=== PATIENT | male | born 1940 | race Caucasian/White ===

== ENCOUNTER 2016-06-02 07:58 | Inpatient (IN) | payer MEDICARE, OTHER ==
[2016-06-02] MEDS ORDERED: ALBUTEROL SULFATE/IPRATROPIUM 3 ML NEBU IH ONE ×2 (08:22→08:30)
[2016-06-02] MEDS ORDERED: METHYLPREDNISOLONE SOD SUCC/PF 40 MG/ML VIAL IV ONE (08:24)
--- NOTE | 2016-06-02 08:28 | ERNOTE ---
Dyspnea - Date Date of Service: 06/02/16 - General Presenting Symptoms: shortness of breath, other - cough Time Seen by Provider: 06/02/16 08:15 Source: patient, family - Immun/Allergies/Home Medications Immunizations: IMMUNIZATION HX Immunizations Up to Date Yes History of Influenza Vaccine Yes Hx Pneumococcal Vaccination Yes Allergies/Adverse Reactions: Allergies No Known Allergies Allergy (Verified 06/02/16 08:12) Home Medications: HOME MEDICATIONS Albuterol Sulfate [Proventil Hfa] 2 puff IH Q4H PRN 01/09/13 [Last Taken Unknown ] Aspirin [Aspirin Enteric Coated] 81 mg PO DAILY 01/09/13 [Last Taken Unknown] Atorvastatin Calcium [Lipitor] 40 mg PO DAILY 01/09/13 [Last Taken Unknown] Glimepiride [Amaryl] 4 mg PO BID 01/09/13 [Last Taken Unknown] Metformin HCl [Metformin HCl ER] 1,000 mg PO BID 01/09/13 [Last Taken Unknown] Metoprolol Succinate [Toprol Xl] 100 mg PO DAILY 01/09/13 [Last Taken Unknown] Nitroglycerin 0.4 mg SL Q5MIN PRN 01/09/13 [Last Taken Unknown] Potassium Chloride [Klor-Con M10] 20 meq PO DAILY 01/09/13 [Last Taken Unknown] Insulin Detemir [Levemir] 10 unit SQ HS 06/13/15 [Last Taken Unknown] Warfarin Sodium [Coumadin] 2 mg PO DAILY 06/13/15 [Last Taken Unknown] Acetaminophen [Tylenol Arthritis] 650 mg PO Q6H 06/02/16 [Last Taken Unknown] Allopurinol [Zyloprim (Allopurinol)] 100 mg PO DAILY 06/02/16 [Last Taken Unknown] Colchicine 0.6 mg PO DAILY 06/02/16 [Last Taken Unknown] Fenofibrate [Lofibra] 160 mg PO DAILY 06/02/16 [Last Taken Unknown] Fexofenadine HCl [Dayanna Allergy] 180 mg PO DAILY 06/02/16 [Last Taken Unknown] Gabapentin [Neurontin] 100 mg PO QID 06/02/16 [Last Taken Unknown] Ipratropium/Albuterol Sulfate [Combivent Respimat Inhal [place]] 1 puff IH QID [Last Taken Unknown] Ketoconazole [Nizoral Shampoo] 1 appl TP Q72H 06/02/16 [Last Taken Unknown] Losartan Potassium [Cozaar] 25 mg PO DAILY 06/02/16 [Last Taken Unknown] Nystatin 5 ml PO QID 06/02/16 [Last Taken Unknown] Pantoprazole Sodium [Protonix] 40 mg PO BID 06/02/16 [Last Taken Unknown] oxyCODONE HCL/ACETAMINOPHEN [Percocet 5 MG/325 MG] 1 tab PO Q6H PRN 06/02/16 [ Last Taken Unknown] - History of Present Illness Narrative: Pt presents with a progressively worsening cough over the past 3 days. Pt has been using his Albuterol HHN at home with only minimal improvement. Date (Duration): 05/30/16 Severity: moderate Treatment ROUGH ROUNDER: by patient, albuterol Initiating event: Reports: none Frequency of episodes: Reports: occassional episodes Modifying Factors - (Improves): Reports: albuterol Modifying Factors (Worsens): Reports: activity Associated Symptoms-Dyspnea: Reports: cough, wheezing Review of Systems - Review of Systems Constitutional: Present: See HPI EYE: Present: no symptoms reported ENT: Present: no symptoms reported Respiratory: Present: See HPI, cough, wheezing Cardiology: Present: no symptoms reported Gastrointestinal/Abdominal: Present: no symptoms reported Genitourinary: Present: no symptoms reported Musculoskeletal: Present: no symptoms reported Skin: Present: no symptoms reported Neurological: Present: no symptoms reported Endocrine: Present: no symptoms reported Hematologic/Lymphatic: Present: no symptoms reported Psych: Present: no symptoms reported - Patient's Past Medical History Patient History - Medical: Diabetes Type 2, GERD Patient History - Cardiac/Respiratory: Coronary Heart Disease, COPD, Pulmonary Embolism Patient History - Cancer: Stomach Patient History - Surgical Procedures: Cancer Surgery, Cholecystectomy, Colonoscopy, Cardiac stent, Other Patient History - Other: None - Family History Father Family History - Medical: , Alzheimer's Disease Family History - Cardiac/Respiratory: Other Mother Family History - Medical: , Arthritis Family History - Cardiac/Respiratory: COPD, Other - Social History Living Situations: spouse Abuse History: No History of abuse Psych History: No pertinent hx Smoking Status: Never smoker Have you smoked in the past 12 months: No Do you dip or chew tobacco: No Alcohol Use: none Drug Use: none - Immunizations Immunizations Up to Date: Yes Hx Pneumococcal Vaccination: Yes History of Influenza Vaccine: Yes Physical Exam - Physical Exam General Appearance: Present: wd/wn, moderate distress Eye Exam: Normal inspection: bilateral, PERRL: bilateral Ears, Nose, Throat: Present: normal ENT inspection, hearing grossly normal, normal pharynx Neck: Present: normal inspection, nontender Respiratory: Present: rales, wheezing Cardiovascular/Chest: Present: regular rate, rhythm Gastrointestinal/Abdominal: Present: normal bowel sounds, nontender, nondistended, soft, no organomegaly Rectal Exam: Present: deferred Back Exam: Present: normal inspection, normal range of motion Extremity Exam: Present: normal inspection, non-tender, no edema, normal range of motion Neurological Exam: Present: alert, oriented, normal mood/affect Skin Exam: Present: normal color, warm/dry Lymphatic Exam: Present: no adenopathy ED Progress - Results and Orders Patient's Lab Results:: I have reviewed the patient's lab results. - Vital Signs Patient's Vital Signs:: I have reviewed the patient's vital signs. Vital Signs: Vital Signs 06/02/16 08:04 Temperature 36.0 C L Pulse Rate 72 Respiratory 18 Rate Blood Pressure 129/94 O2 Sat by Pulse 88 L Oximetry - X-Ray X-Ray #1 X-Ray: chest Interpretation: Interp. by me - Progress/Reassessment Chief Complaint: Dyspnea Progress:: Unchanged Progress Note-Subjective: 06/02/16 09:51 Attempts at walking the patient after treatment and he still de-sated down to the mid 80's. He will need to be admitted for pulmonary care. Departure Clinical Impression: Hypoxia, Interstitial pneumonia - Departure Disposition: [facility] Condition: Fair Referrals: Raul Saunders MD [Primary Care Provider] -
[2016-06-02] MEDS ORDERED: METHYLPREDNISOLONE SOD SUCC/PF 40 MG/ML VIAL ONE (08:30)
--- OUTSIDE RECORDS SUMMARY | 2016-06-02 08:32 | XMS REPORT | Continuity of Care Document ---
:1940 Author Organization [facility] ([facility]) Address [address] [place] [address] Phone [phone] Care Team Providers Name Role Phone Raul Bell Primary Care Provider [phone] Source Comments This disclosure is being made pursuant to the Care Everywhere program, applicable federal and state laws, and may not contain all informaitonavailable regarding this patient.[facility] ([facility]) Active Allergies and Adverse Reactions No Known Allergies Current Medications Prescription Sig. Disp. Refills Start Date End Date Status aspirin 81 mg EC take 81 mg by mouth Active tablet daily. ALBUTEROL SULFATE Use by inhalation Active (VENTOLIN HFA INH) every 4 hours as needed. metFORMIN 500 mg Take 1,000 mg by Active tablet mouth 2 times daily with meals. glimepiride 4 mg Take 4 mg by mouth 2 Active tablet times daily with meals. atorvastatin 40 mg Take 40 mg by mouth Active tablet every evening. insulin detemir Inject 10 Units Active (LEVEMIR FLEXTOUCH) subcutaneously at 100 unit/mL (3 mL) bedtime. injection pen metoPROLol Take 50 mg by mouth Active succinate 50 mg XL daily. tablet allopurinol 100 mg 100 mg daily. 12/26/2015 Active tablet warfarin 5 mg Saturday and 12/26/2015 Active tablet 9 mgOther days 8 mg warfarin 2 mg Saturday and 12/26/2015 Active tablet 9 mgOther days 8 mg colchicine 0.6 mg 0.6 mg daily. 12/26/2015 Active tablet losartan 25 mg 25 mg daily. 12/25/2015 Active tablet pantoprazole 40 mg 40 mg daily. 12/20/2015 Active EC tablet fenofibrate 160 mg 05/01/2016 Active tablet nystatin 100,000 02/22/2016 Active unit/mL suspension nystatin 100,000 02/22/2016 Active unit/g cream oxyCODONE-acetamino 03/29/2016 Active phen 5-325 mg per tablet nitroglycerin 0.[address] Place 0.4 mg under Active mg SL tablet the tongue every 5 minutes as needed. Maximum of 3 tablets in 15 minutes. potassium chloride Take 20 mEq by mouth Active 20 mEq tablet daily. ketoconazole 2 % Apply topically 2 Active cream times daily. fexofenadine 180 mg Take 180 mg by mouth Active tablet daily. ipratropium 0.5 Use 2.5 mL by Active mg/2.5 mL nebulizer inhalation every 4 solution hours as needed. lisinopril-hydrochl take 1 Tab by mouth Discontinued orothiazide daily. 7 (PRINIZIDE) 20-12.5 mg per tablet traMADol 50 mg Take 50 mg by mouth Discontinued tablet 4 times daily as 7 needed. meloxicam 15 mg Take 15 mg by mouth Discontinued tablet daily. 7 potassium chloride Take 20 mEq by mouth Discontinued 10 mEq XR tablet daily. 7 amitriptyline 50 mg 50 mg at bedtime. 12/25/2015 Discontinued tablet 7 omeprazole 40 mg 40 mg daily. 11/23/2015 Discontinued enteric coated 7 capsule LYRICA 50 mg 50 mg 4 times daily. 11/18/2015 Discontinued capsule 7 levoFLOXacin 500 mg 500 mg daily. 01/09/2016 Discontinued tablet 7 Active Problems Problem Noted Date Chronic low back pain 12/27/2015 Bilateral leg numbness 12/27/2015 History of lumbar fusion 12/27/2015 CAD in [place] artery 04/26/2015 Overview: LM: Normal; LAD: mild irregularities particularly in the prox portion of the LAD and prox diagonal systems; LCX: Mild irregularities; RCA: Occluded in the mid portion, angioplasty performed with place ment of a 3.5 x 24 mm TAXUS stent - 12/15/2003 Essential hypertension 04/26/2015 Pure hypercholesterolemia 04/26/2015 PAD (peripheral artery disease) 04/26/2015 Overview: Formatting of this note may be different from the original. MARILYN (Findings are similar bilaterally. The dopplers are biphasic and pressures elevated in the legs suggesting calcification. 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 Pain in joint, lower leg 11/01/2006 Most Recent Encounters Date Type Specialty Providers Description 05/17/2016 Office Visit Anesthesiology Juvencio Turner MD Dx: Other chronic pain 2, Pain Clinic (Primary Dx) Provider 05/09/2016 Office Visit Heart and Vascular Chivo Reid, Dx: CAD in [place] artery (Primary Dx) 05/08/2016 Office Visit Orthopaedic Zack Pimentel MD Dx: Lumbar back pain (Primary Dx) 04/17/2016 Office Visit Orthopaedic Zack Pimentel MD Chief Comp: Patient Reported Reason For Visit 03/28/2016 Orders/Notes [facility] Ayoub MD Dx: Liposarcoma (Primary Dx) 03/12/2016 Telephone [facility] Mary Levi RN Immunizations Name Dates Previously Given Next Due Influenza, unspecified 02/06/2007 Pneumococcal, unspecified 07/07/2004 Social History Tobacco Use Types Packs/Day Years Used Date Never Smoker Smokeless Tobacco: Never Used Alcohol Use Drinks/Week oz/Week Comments No Last Filed Vital Signs Vital Sign Reading Time Taken Blood Pressure 143/73 05/17/2016 8:57 AM ASSOCIATE DIRECTOR Pulse 68 05/17/2016 8:57 AM ASSOCIATE DIRECTOR Temperature 36 C (96.8 F) 05/17/2016 8:57 AM ASSOCIATE DIRECTOR Respiratory Rate 16 06/10/2014 10:16 AM ASSOCIATE DIRECTOR Height 1.753 m (5' 9") 05/17/2016 8:57 AM ASSOCIATE DIRECTOR Weight 103.3 kg (227 lb 11.8 oz) 05/17/2016 8:57 AM ASSOCIATE DIRECTOR Body Mass Index 33.62 05/17/2016 8:57 AM ASSOCIATE DIRECTOR Oxygen Saturation 90% 05/17/2016 8:57 AM ASSOCIATE DIRECTOR Plan of Care Date Type Specialty Providers Description 05/22/2017 Appointment [facility] Chivo Reid, Chief Comp: Patient MD Reported Reason For [address] [place] [address] [phone] (Fax) Health Maintenance Due Date Last Done Comments Hepatitis B Vaccine (1 of 3 - Primary Series) 1940 Tdap Vaccine 07/18/1951 Lipid Disorder Screening 1958 Td Vaccine 1958 Colonoscopy 1990 Prostate Cancer Screening 1990 Zoster Vaccine 2000 Pneumococcal Vaccine (1 of 2 - PCV13) 2005 Influenza Vaccine: Seasonal (#1) 11/07/2015 02/06/2007 Results from Last 3 Months Not on file
[2016-06-02 08:41] LABS: Hematocrit 48.2 % (42.0-52.0); Mean Cell Volume 96.8 fl (78-100); Mean Corpuscular Hemoglobin 34.1 pg (27-31); Mean Corpuscular Hgb Conc 35.3 g/dl (32-36); Mean Platelet Volume 10.9 fl (6.0-9.5); Neutrophil # 9.5 K/mm3 (1.3-6.0); Neutrophil % 67.2 % (42-75.0); Platelet Count 283 K/mm3 (150-450); Red Blood Count 4.98 M/mm3 (4.7-6.0); Red Cell Distribution Width 13.2 % (11.5-14.0); White Blood Count 14.1 K/mm3 (4.0-10.5)
[2016-06-02 08:58] LABS: ALT 21 U/L (19-67); AST 17 U/L (0-48); Albumin * 3.8 gm/dl (3.4-5.0); Alkaline Phosphatase * 85 U/L (50-170); BUN/Creatinine Ratio 21.5 (9.0-21.6); Bilirubin, Total 0.9 mg/dL (0.0-1.1); Blood Urea Nitrogen 17 mg/dL (6-23); Ca. Corrected For Albumin 8.8 mg/dL (8.4-10.2); Chloride 106 mmol/L (97-106); Glucose * 119 mg/dL (70-110); Magnesium 1.6 mg/dL (1.2-2.8); Sodium 143 mmol/L (132-142); Total Protein 7.7 gm/dL (6.2-8.2); Troponin I Less than 0.017 ng/ml (0.00-0.10)
[2016-06-02 09:43] LABS: Prothrombin Time (Patient) 15.1 Seconds (9.4-11.4)
--- OUTSIDE RECORDS SUMMARY | 2016-06-02 10:02 | XMS REPORT | Continuity of Care Document ---
:1940 Author Organization [facility] ([facility]) Address [address] [place] [address] Phone [phone] Care Team Providers Name Role Phone Raul Bell Primary Care Provider [phone] Source Comments This disclosure is being made pursuant to the Care Everywhere program, applicable federal and state laws, and may not contain all informaitonavailable regarding this patient.[facility] ([facility]) Active Allergies and Adverse Reactions No [...] History of lumbar fusion 12/27/2015 CAD in [place] artery 04/26/2015 Overview: LM: Normal; LAD: mild [...] and Vascular Chivo Reid, Dx: CAD in [place] MD artery (Primary Dx) 05/08/2016 Office Visit [...] Taken Blood Pressure 143/73 05/17/2016 8:57 AM TIMBER INSPECTOR Pulse 68 05/17/2016 8:57 AM TIMBER INSPECTOR Temperature 36 C (96.8 F) 05/17/2016 8:57 AM TIMBER INSPECTOR Respiratory Rate 16 06/10/2014 10:16 AM TIMBER INSPECTOR Height 1.753 m (5' 9") 05/17/2016 8:57 AM TIMBER INSPECTOR Weight 103.3 kg (227 lb 11.8 oz) 05/17/2016 8:57 AM TIMBER INSPECTOR Body Mass Index 33.62 05/17/2016 8:57 AM TIMBER INSPECTOR Oxygen Saturation 90% 05/17/2016 8:57 AM TIMBER INSPECTOR Plan of Care Date Type Specialty Providers Description 05/22/2017 Appointment [facility] V[facility] Chivo Reid, Chief Comp: Patient MD Reported Reason For [address] [place] [address] [phone] (Fax) Health Maintenance Due Date Last Done [...]
[2016-06-02 10:09] LABS: INR 1.45 INR (0.90-1.10)
[2016-06-02] MEDS ORDERED: ALBUTEROL SULFATE 2.5 MG/0.5 ML VIAL.NEB IH PRN (10:32)
[2016-06-02] MEDS ORDERED: NITROGLYCERIN 0.4 MG/TAB BTL SL PRN (10:32)
[2016-06-02] MEDS ORDERED: ACETAMINOPHEN 325 MG TABLET PO PRN (10:32)
[2016-06-02] MEDS ORDERED: AZITHROMYCIN 250 MG TABLET PO STA (10:39)
[2016-06-02] MEDS ORDERED: AZITHROMYCIN 250 MG TABLET ONE (12:14)
[2016-06-02] MEDS: GABAPENTIN 100 MG CAPSULE PO SCH ×3 (12:17→21:28)
[2016-06-02] MEDS: ALBUTEROL SULFATE/IPRATROPIUM 3 ML NEBU IH SCH ×3 (13:11→18:09)
[2016-06-02] MEDS: oxyCODONE HCL/ACETAMINOPHEN 1 TAB TABLET PO PRN (13:59)
[2016-06-02] MEDS: NYSTATIN 60 ML BTL PO SCH ×3 (13:59→21:28)
[2016-06-02] MEDS: KETOCONAZOLE APPL TP SCH (14:02)
--- NOTE | 2016-06-02 16:31 | HP ---
Chief Complaint - Chief Complaint Date of Service: 06/02/16 Time of Service: 16:25 Chief Complaint: Dyspnea History of Present Illness: Mr. More has COPD. His breathing has worsened for several weeks. He woke up yesterday morning worse, and this morning, much worse. His home nebulizers weren't helping. He came to the [facility] ER where he was found to be hypoxic on room air. He was admitted to the hospital with a diagnosis of acute exacerbation of COPD. He is still SOB at rest. He has had a non productive cough. He has not had a fever. Moving makes him worse. - Patient's Past Medical History Patient History - Medical: Diabetes Type 2, GERD Patient History - Cardiac/Respiratory: Coronary Heart Disease, COPD, Pulmonary Embolism Patient History - Cancer: Stomach Patient History - Surgical Procedures: Cancer Surgery, Cholecystectomy, Colonoscopy, Cardiac stent, Other Patient History - Other: None - Family History Father Family History - Medical: , Alzheimer's Disease Family History - Cardiac/Respiratory: Other Mother Family History - Medical: , Arthritis Family History - Cardiac/Respiratory: COPD, Other - Social History Living Situations: spouse Abuse History: No History of abuse Psych History: No pertinent hx Smoking Status: Never smoker Have you smoked in the past 12 months: No Do you dip or chew tobacco: No Patient requests Smoking Cessation Consult: No Initiate information on Smoking Cessation: No Alcohol Use: none Drug Use: none - Immunizations Immunizations Up to Date: Yes Hx Pneumococcal Vaccination: Yes History of Influenza Vaccine: Yes Review Of Systems (GEN) - Review of Systems Generalized/Overall Review: Present: Malaise, Fatigue EENTM: Present: No Symptoms Reported Respiratory: Present: Cough, Shortness of Breath, Wheezing Cardiac: Present: No Symptoms Reported Abdominal: Present: No Symptoms Reported Genitourinary: Present: No Symptoms Reported Musculoskeletal: Present: No Symptoms Reported Neurological: Present: No Symptoms Reported Skin: Present: No Symptoms Reported Endocrine: Present: No Symptoms Reported Misc: All systems neg except as marked Immunizations: IMMUNIZATION HX Immunizations Up to Date Yes History of Influenza Vaccine Yes Hx Pneumococcal Vaccination Yes Allergies/Adverse Reactions: Allergies Allergy/AdvReac Type Severity Reaction Status Date / Time No Known Allergies Allergy Verified 06/02/16 08:12 Home Medications: HOME MEDICATIONS RX: Albuterol Sulfate [Proventil Hfa] 2 puff IH Q4H PRN 01/09/13 [Last Taken Unknown] RX: Aspirin [Aspirin Enteric Coated] 81 mg PO DAILY 01/09/13 [Last Taken Unknown ] RX: Atorvastatin Calcium [Lipitor] 40 mg PO DAILY 01/09/13 [Last Taken Unknown] RX: Glimepiride [Amaryl] 4 mg PO BID 01/09/13 [Last Taken Unknown] RX: Metformin HCl [Metformin HCl ER] 1,000 mg PO BID 01/09/13 [Last Taken Unknown] RX: Metoprolol Succinate [Toprol Xl] 100 mg PO DAILY 01/09/13 [Last Taken Unknown] RX: Nitroglycerin 0.4 mg SL Q5MIN PRN 01/09/13 [Last Taken Unknown] RX: Potassium Chloride [Klor-Con M10] 20 meq PO DAILY 01/09/13 [Last Taken Unknown] Insulin Detemir [Levemir] 10 unit SQ HS 06/13/15 [Last Taken Unknown] Warfarin Sodium [Coumadin] 2 mg PO DAILY 06/13/15 [Last Taken Unknown] Acetaminophen [Tylenol Arthritis] 650 mg PO Q6H 06/02/16 [Last Taken Unknown] Allopurinol [Zyloprim (Allopurinol)] 100 mg PO DAILY 06/02/16 [Last Taken Unknown] Fenofibrate [Lofibra] 160 mg PO DAILY 06/02/16 [Last Taken Unknown] Fexofenadine HCl [Dayanna Allergy] 180 mg PO DAILY 06/02/16 [Last Taken Unknown] Gabapentin [Neurontin] 100 mg PO QID 06/02/16 [Last Taken Unknown] Ipratropium/Albuterol Sulfate [Combivent Respimat Inhal [place]] 1 puff IH QID [Last Taken Unknown] Ketoconazole [Nizoral Shampoo] 1 appl TP Q72H 06/02/16 [Last Taken Unknown] Losartan Potassium [Cozaar] 25 mg PO DAILY 06/02/16 [Last Taken Unknown] Pantoprazole Sodium [Protonix] 40 mg PO BID 06/02/16 [Last Taken Unknown] RX: Colchicine 0.6 mg PO DAILY 06/02/16 [Last Taken Unknown] RX: Nystatin 5 ml PO QID 06/02/16 [Last Taken Unknown] oxyCODONE HCL/ACETAMINOPHEN [Percocet 5 MG/325 MG] 1 tab PO Q6H PRN 06/02/16 [ Last Taken Unknown] Exam - Exam Vital Signs: Vital Signs - Last Taken Selected Entries 06/02/16 14:22 Temperature 36.5 C Temperature Oral Source Pulse Rate 70 Respiratory 24 H Rate Blood Pressure 165/83 Blood Pressure Sitting Position O2 Sat by Pulse 90 Oximetry Oxygen Delivery Nasal Cannula Method Oxygen Flow 2 Rate Constitutional: Present: Alert, Oriented x3, Cooperative, Well developed, Mild distress, Obese ENT Exam: Present: normal ENT inspection Eye Exam: bilateral eye: normal inspection, PERRL, EOMI Neck: Present: normal inspection Back Exam: Present: normal inspection Respiratory: Present: rhonchi, wheezing Cardiovascular/Chest: Present: regular rate, rhythm, no murmur Abdomen: Present: Normal bowel sounds, soft, nontender, nondistended, no rebound tenderness, no hepatospenomegaly, no masses Extremity: Present: normal inspection, no pedal edema Skin Exam: Present: normal color, warm/dry, no cyanosis Neurologic: Present: alert, oriented x 3 Appearance: Present: appropriate appearance, appropriate insight, neat, no memory impairment Eye contact: Present: cooperative, good eye contact, normal speech Thoughts: Present: normal thought pattern Diagnostic Studies: Laboratory Results WBC 14.1 K/mm3 (4.0-10.5) H 06/02/16 08:33 RBC 4.98 M/mm3 (4.7-6.0) 06/02/16 08:33 Hgb 17.0 gm/dL (13.5-18.0) 06/02/16 08:33 Hct 48.2 % (42.0-52.0) 06/02/16 08:33 MCV 96.8 fl (78-100) 06/02/16 08:33 MCH 34.1 pg (27-31) H 06/02/16 08:33 MCHC 35.3 g/dl (32-36) 06/02/16 08:33 RDW 13.2 % (11.5-14.0) 06/02/16 08:33 Plt Count 283 K/mm3 (150-450) 06/02/16 08:33 MPV 10.9 fl (6.0-9.5) H 06/02/16 08:33 Immature Gran % (Auto) 0.40 % (0.001-0.429) 06/02/16 08:33 Immature Gran # (Auto) 0.06 K/mm3 (0.000-0.0310) H 06/02/16 08:33 Neutrophils % 67.2 % (42-75.0) 06/02/16 08:33 Lymphocytes % 18.6 % (20-51) L 06/02/16 08:33 Monocytes % 10.4 % (0.0-9) H 06/02/16 08:33 Eosinophils % 2.9 % (0.0-3.0) 06/02/16 08:33 Basophils % 0.5 % (0.0-1.0) 06/02/16 08:33 Nucleated RBC % 0.0 k/mm3 (0-1) 06/02/16 08:33 Neutrophils # 9.5 K/mm3 (1.3-6.0) H 06/02/16 08:33 Lymphocytes # 2.6 k/mm3 (1.5-3.5) 06/02/16 08:33 Monocytes # 1.5 k/mm3 (0.0-1.0) H 06/02/16 08:33 Eosinophils # 0.4 k/mm3 (0.0-0.7) 06/02/16 08:33 Absolute Basophils 0.1 k/mm3 (0.0-0.1) 06/02/16 08:33 PT 15.1 Seconds (9.4-11.4) H 06/02/16 08:33 INR (Anticoag Therapy) 1.45 INR (0.90-1.10) H 06/02/16 08:33 pCO2 36.6 mmHg (35.0-48.0) 06/02/16 08:20 pO2 54.6 mmHg (83.0-108.0) L 06/02/16 08:20 HCO3 21.8 mmol/L (21.0-28.0) 06/02/16 08:20 Total CO2 22.9 mmol/L (19.0-24.0) 06/02/16 08:20 Base Excess -2.5 mmol/L (-2.0-3.0) L 06/02/16 08:20 ABG pH 7.39 (7.35-7.45) 06/02/16 08:20 ABG O2 Sat (Measured) 88.4 % (94.0-98.0) L 06/02/16 08:20 Sodium 143 mmol/L (132-142) H 06/02/16 08:33 Plasma Sodium 143 mmol/L (130-142) H 06/02/16 08:33 Potassium 4.0 mmol/L (3.4-4.6) 06/02/16 08:33 Chloride 106 mmol/L (97-106) 06/02/16 08:33 Carbon Dioxide 26.0 mmol/L (24-32.6) 06/02/16 08:33 Anion Gap 15.0 mmol/L (6.8-13.8) H 06/02/16 08:33 BUN 17 mg/dL (6-23) 06/02/16 08:33 Creatinine 0.79 mg/dL (0.4-1.4) 06/02/16 08:33 Est GFR (Non-Af Amer) 102 mL/min (60-130) 06/02/16 08:33 BUN/Creatinine Ratio 21.5 (9.0-21.6) 06/02/16 08:33 Random Glucose 119 mg/dL (70-110) H 06/02/16 08:33 Lactic Acid, Venous 1.4 mmol/L (0.4-2.0) 06/02/16 09:49 Calcium 9.0 mg/dL (7.9-10.9) 06/02/16 08:33 Calcium Adj for Albumin 8.8 mg/dL (8.4-10.2) 06/02/16 08:33 Magnesium 1.6 mg/dL (1.2-2.8) 06/02/16 08:33 Total Bilirubin 0.9 mg/dL (0.0-1.1) 06/02/16 08:33 AST 17 U/L (0-48) 06/02/16 08:33 ALT 21 U/L (19-67) 06/02/16 08:33 Alkaline Phosphatase 85 U/L (50-170) 06/02/16 08:33 Troponin I Less than 0.017 ng/ml (0.00-0.10) 06/02/16 08:33 Total Protein 7.7 gm/dL (6.2-8.2) 06/02/16 08:33 Albumin 3.8 gm/dl (3.4-5.0) 06/02/16 08:33 Influenza Type A Ag Negative (NEGATIVE) 06/02/16 08:33 Influenza Type B Ag Negative (NEGATIVE) 06/02/16 08:33 Mycoplasma pneumon IgM Non reactive (NonReactive) 06/02/16 08:33 Assessment/Plan - Narrative Narrative: Follow labs. O2. IV antibiotics and steroids. Breathing treatments. Estimate stay of several days. - Assessment/Plan (1) Hypoxia Problem: Acute (2) Bronchitis, acute Problem: Acute (3) Diabetes Problem: Chronic Qualifiers: Diabetes mellitus type: type 2 (4) Jud filter in place Problem: Chronic (5) HTN (hypertension) Problem: Chronic Qualifiers: Hypertension type: essential hypertension Qualified Code(s): I10 - Essential (primary) hypertension (6) History of pulmonary embolism Problem: Chronic
[2016-06-02] MEDS: METHYLPREDNISOLONE SOD SUCC 60 MG in WATER FOR INJ.,BACTERIOSTATIC 0 ML IV SCH (17:26)
[2016-06-02] MEDS: GLIMEPIRIDE 4 MG TABLET PO SCH (17:30)
[2016-06-02] MEDS: WARFARIN SODIUM 2 MG TABLET PO SCH (17:31)
[2016-06-02] MEDS: NYSTATIN 15 APPL BTL TP SCH (21:27)
[2016-06-02] MEDS: PANTOPRAZOLE SODIUM 40 MG TABLET.EC PO SCH (21:28)
[2016-06-02] MEDS: ROSUVASTATIN CALCIUM 10 MG TABLET PO SCH (21:28)
[2016-06-02] MEDS: INSULIN DETEMIR 100 UNITS/ML VIAL SC SCH (21:34)
[2016-06-03] MEDS: METHYLPREDNISOLONE SOD SUCC 60 MG in WATER FOR INJ.,BACTERIOSTATIC 0 ML IV SCH ×3 (01:06→17:17)
[2016-06-03 05:42] LABS: Hematocrit 47.9 % (42.0-52.0); Mean Corpuscular Hemoglobin 34.4 pg (27-31); Mean Corpuscular Hgb Conc 35.5 g/dl (32-36); Mean Platelet Volume 11.4 fl (6.0-9.5); Neutrophil # 12.2 K/mm3 (1.3-6.0); Neutrophil % 90.9 % (42-75.0); Platelet Count 332 K/mm3 (150-450); Red Blood Count 4.94 M/mm3 (4.7-6.0); Red Cell Distribution Width 12.9 % (11.5-14.0); White Blood Count 13.4 K/mm3 (4.0-10.5)
[2016-06-03 05:56] LABS: Albumin * 3.5 gm/dl (3.4-5.0); Anion Gap 14.2 mmol/L (6.8-13.8); BUN/Creatinine Ratio 17.3 (9.0-21.6); Bilirubin, Total 0.6 mg/dL (0.0-1.1); Ca. Corrected For Albumin 9.1 mg/dL (8.4-10.2); Carbon Dioxide 27.6 mmol/L (24-32.6); Potassium 3.8 mmol/L (3.4-4.6); Total Protein 7.5 gm/dL (6.2-8.2)
[2016-06-03] MEDS: ALBUTEROL SULFATE/IPRATROPIUM 3 ML NEBU IH SCH ×4 (05:59→18:08)
[2016-06-03] MEDS: GLIMEPIRIDE 4 MG TABLET PO SCH ×2 (07:27→17:16)
[2016-06-03] MEDS: PANTOPRAZOLE SODIUM 40 MG TABLET.EC PO SCH ×2 (07:27→21:45)
[2016-06-03] MEDS: GABAPENTIN 100 MG CAPSULE PO SCH ×4 (08:19→21:45)
[2016-06-03] MEDS: LOSARTAN POTASSIUM 50 MG TABLET PO SCH (08:19)
[2016-06-03] MEDS: COLCHICINE 0.6 MG TABLET PO SCH (08:19)
[2016-06-03] MEDS: POTASSIUM CHLORIDE 10 MEQ TABLET.SA PO SCH (08:19)
[2016-06-03] MEDS: ALLOPURINOL 100 MG TABLET PO SCH (08:19)
[2016-06-03] MEDS: METOPROLOL SUCCINATE 100 MG TABLET.SA PO SCH (08:20)
[2016-06-03] MEDS: AZITHROMYCIN 250 MG TABLET PO SCH (08:20)
[2016-06-03] MEDS: FENOFIBRATE,MICRONIZED 134 MG CAPSULE PO SCH (08:20)
[2016-06-03] MEDS: NYSTATIN 15 APPL BTL TP SCH ×2 (08:21→21:44)
[2016-06-03] MEDS: NYSTATIN 60 ML BTL PO SCH ×4 (08:21→21:44)
[2016-06-03] MEDS: LORATADINE 10 MG TABLET PO SCH (08:24)
[2016-06-03] MEDS: ASPIRIN 81 MG TABLET.DR PO SCH (08:25)
[2016-06-03 08:56] LABS: Prothrombin Time (Patient) 15.7 Seconds (9.4-11.4)
[2016-06-03 08:57] LABS: INR 1.51 INR (0.90-1.10)
--- NOTE | 2016-06-03 12:56 | PN ---
Subjective - Date and Time Seen Date: 06/03/16 Time: 12:53 Subjective Narrative: Less SOB. Less cough. Feels better. Objective - Review of Systems Generalized/Overall Review: Reports: Malaise EENTM: Reports: No Symptoms Reported Respiratory: Reports: Cough, Shortness of Breath, Wheezing Cardiac: Reports: No Symptoms Reported Abdominal: Reports: No Symptoms Reported Genitourinary Symptoms: Reports: No Symptoms Reported Musculoskeletal Complaints: Reports: Back Pain Neurological: Reports: No Symptoms Reported Skin: Reports: No Symptoms Reported Endocrine: Reports: No Symptoms Reported Misc: All systems neg except as marked - Vitals Vitals: Last Vital Signs Selected Entries 06/03/16 10:52 Temperature 36.4 C L Temperature Skin Source Pulse Rate 76 Respiratory 18 Rate Blood Pressure 140/89 Blood Pressure Sitting Position O2 Sat by Pulse 91 Oximetry Oxygen Delivery Nasal Cannula Method Oxygen Flow 2 Rate - Abnormal Lab Findings Abnormal Lab Findings: Abnormal Lab Results 06/03/16 06/03/16 06/03/16 Range/Units 04:55 04:55 04:55 WBC 13.4 H (4.0-10.5) K/mm3 MCH 34.4 H (27-31) pg MPV 11.4 H (6.0-9.5) fl Immature Gran # (Auto) 0.06 H (0.000-0.0310) K/mm3 Neutrophils % 90.9 H (42-75.0) % Lymphocytes % 6.6 L (20-51) % Neutrophils # 12.2 H (1.3-6.0) K/mm3 Lymphocytes # 0.9 L (1.5-3.5) k/mm3 PT 15.7 H (9.4-11.4) Seconds INR (Anticoag Therapy) 1.51 H (0.90-1.10) INR Plasma Sodium 144 H (130-142) mmol/L Anion Gap 14.2 H (6.8-13.8) mmol/L Random Glucose 236 H D (70-110) mg/dL - Exam Constitutional: Present: Alert, Oriented x3, Cooperative, Well developed, Mild distress, Obese ENT Exam: Present: normal ENT inspection Neck: Present: normal inspection Respiratory: Present: rhonchi, wheezing Cardiovascular/Chest: Present: regular rate, rhythm, no murmur Abdomen: Present: Normal bowel sounds, soft, nontender, nondistended, no rebound tenderness, no hepatospenomegaly, no masses, obese, other - intertrigo under abdominal fold Extremity: Present: pedal edema Skin Exam: Present: normal color, warm/dry, no cyanosis Neurologic: Present: alert, oriented x 3 Appearance: Present: appropriate appearance, neat Eye contact: Present: cooperative, good eye contact, normal speech Thoughts: Present: normal thought pattern Assessment/Plan Plan Narrative: Nystatin Cream. IV antibiotics. follow labs. - Problems/Diagnosis (1) Hypoxia Problem: Acute (2) Bronchitis, acute Problem: Acute (3) Diabetes Problem: Chronic Qualifiers: Diabetes mellitus type: type 2 (4) [place] filter in place Problem: Chronic (5) HTN (hypertension) Problem: Chronic Qualifiers: Hypertension type: essential hypertension Qualified Code(s): I10 - Essential (primary) hypertension (6) History of pulmonary embolism Problem: Chronic (7) Intertrigo Problem: Acute
[2016-06-03] MEDS: WARFARIN SODIUM 2 MG TABLET PO SCH (17:16)
[2016-06-03] MEDS: ROSUVASTATIN CALCIUM 10 MG TABLET PO SCH (21:44)
[2016-06-03] MEDS: INSULIN DETEMIR 100 UNITS/ML VIAL SC SCH (21:45)
[2016-06-03] MEDS: oxyCODONE HCL/ACETAMINOPHEN 1 TAB TABLET PO PRN (23:25)
[2016-06-04] MEDS: METHYLPREDNISOLONE SOD SUCC 60 MG in WATER FOR INJ.,BACTERIOSTATIC 0 ML IV SCH ×3 (01:49→16:14)
[2016-06-04 05:22] LABS: Hematocrit 47.7 % (42.0-52.0); Hemoglobin 16.6 gm/dL (13.5-18.0); Mean Cell Volume 97.3 fl (78-100); Mean Corpuscular Hemoglobin 33.9 pg (27-31); Mean Corpuscular Hgb Conc 34.8 g/dl (32-36); Mean Platelet Volume 10.9 fl (6.0-9.5); Neutrophil # 16.3 K/mm3 (1.3-6.0); Neutrophil % 90.8 % (42-75.0); Platelet Count 348 K/mm3 (150-450); Red Cell Distribution Width 12.8 % (11.5-14.0)
[2016-06-04 05:35] LABS: Prothrombin Time (Patient) 17.7 Seconds (9.4-11.4)
[2016-06-04 05:36] LABS: Anion Gap 11.9 mmol/L (6.8-13.8); BUN/Creatinine Ratio 24.1 (9.0-21.6); Calcium * 9.2 mg/dL (7.9-10.9); Carbon Dioxide 29.6 mmol/L (24-32.6); Estimated Creat Clear 76.9; Potassium 4.5 mmol/L (3.4-4.6)
[2016-06-04 05:40] LABS: INR 1.7 INR (0.90-1.10)
[2016-06-04] MEDS: ALBUTEROL SULFATE/IPRATROPIUM 3 ML NEBU IH SCH ×4 (06:26→18:15)
[2016-06-04] MEDS: PANTOPRAZOLE SODIUM 40 MG TABLET.EC PO SCH ×2 (07:04→21:03)
[2016-06-04] MEDS: GLIMEPIRIDE 4 MG TABLET PO SCH ×2 (07:04→16:13)
--- NOTE | 2016-06-04 08:15 | PN ---
Subjective - Date and Time Seen Date: 06/04/16 Time: 08:13 Subjective Narrative: Feels better. Walk to the BR w/o SOB. Objective - Review of Systems Generalized/Overall Review: Denies: Chills EENTM: Reports: No Symptoms Reported Respiratory: Reports: Cough, Shortness of Breath. Denies: Wheezing Cardiac: Denies: Chest Pain, Edema, Palpitations Abdominal: Denies: Nausea, Vomiting Genitourinary Symptoms: Denies: Urgency, Frequency Musculoskeletal Complaints: Reports: Joint Pain - Vitals Vitals: Last Vital Signs Temp 36.4 C L 06/04/16 07:53 Pulse 70 06/04/16 07:53 Resp 20 06/04/16 07:53 BP 140/64 06/04/16 07:53 Pulse Ox 90 06/04/16 08:04 - Abnormal Lab Findings Abnormal Lab Findings: Abnormal Lab Results 06/03/16 06/04/16 06/04/16 Range/Units 04:55 05:10 05:10 WBC 18.0 H D (4.0-10.5) K/mm3 MCH 33.9 H (27-31) pg MPV 10.9 H (6.0-9.5) fl Immature Gran % (Auto) 0.70 H (0.001-0.429) % Immature Gran # (Auto) 0.13 H (0.000-0.0310) K/mm3 Neutrophils % 90.8 H (42-75.0) % Lymphocytes % 5.5 L (20-51) % Neutrophils # 16.3 H (1.3-6.0) K/mm3 Lymphocytes # 1.0 L (1.5-3.5) k/mm3 PT 15.7 H 17.7 H (9.4-11.4) Seconds INR (Anticoag Therapy) 1.51 H 1.70 H (0.90-1.10) INR Plasma Sodium (130-142) mmol/L BUN/Creatinine Ratio (9.0-21.6) Random Glucose (70-110) mg/dL 06/04/16 Range/Units 05:10 WBC (4.0-10.5) K/mm3 MCH (27-31) pg MPV (6.0-9.5) fl Immature Gran % (Auto) (0.001-0.429) % Immature Gran # (Auto) (0.000-0.0310) K/mm3 Neutrophils % (42-75.0) % Lymphocytes % (20-51) % Neutrophils # (1.3-6.0) K/mm3 Lymphocytes # (1.5-3.5) k/mm3 PT (9.4-11.4) Seconds INR (Anticoag Therapy) (0.90-1.10) INR Plasma Sodium 144 H (130-142) mmol/L BUN/Creatinine Ratio 24.1 H (9.0-21.6) Random Glucose 225 H (70-110) mg/dL - Exam Constitutional: Present: Alert, Oriented x3, Cooperative, Elderly, Obese ENT Exam: Present: hearing grossly normal Neck: Present: supple Breasts: Present: Exam deferred Respiratory: Present: decreased breath sounds, No rales, No wheezing Cardiovascular/Chest: Present: regular rate, rhythm, no JVD, no murmur Abdomen: Present: Normal bowel sounds, soft, nontender, nondistended Extremity: Present: no pedal edema, no calf tenderness Assessment/Plan - Problems/Diagnosis (1) Hypoxia Problem: Acute (2) Bronchitis, acute Problem: Acute Qualifiers: Bronchitis organism: unspecified organism Qualified Code(s): J20.9 - Acute bronchitis, unspecified Narrative: continue with IV Solumedrol, IV antibiotics and breathing treatment. (3) Diabetes Problem: Chronic Qualifiers: Diabetes mellitus type: type 2 (4) [place] filter in place Problem: Chronic (5) HTN (hypertension) Problem: Chronic Qualifiers: Hypertension type: essential hypertension Qualified Code(s): I10 - Essential (primary) hypertension (6) History of pulmonary embolism Problem: Chronic
[2016-06-04] MEDS: ASPIRIN 81 MG TABLET.DR PO SCH (08:18)
[2016-06-04] MEDS: LOSARTAN POTASSIUM 50 MG TABLET PO SCH (08:19)
[2016-06-04] MEDS: LORATADINE 10 MG TABLET PO SCH (08:19)
[2016-06-04] MEDS: POTASSIUM CHLORIDE 10 MEQ TABLET.SA PO SCH (08:19)
[2016-06-04] MEDS: FENOFIBRATE,MICRONIZED 134 MG CAPSULE PO SCH (08:19)
[2016-06-04] MEDS: COLCHICINE 0.6 MG TABLET PO SCH (08:19)
[2016-06-04] MEDS: NYSTATIN 60 ML BTL PO SCH ×4 (08:20→21:05)
[2016-06-04] MEDS: GABAPENTIN 100 MG CAPSULE PO SCH ×4 (08:20→21:04)
[2016-06-04] MEDS: NYSTATIN 15 APPL BTL TP SCH ×2 (08:20→21:03)
[2016-06-04] MEDS: ALLOPURINOL 100 MG TABLET PO SCH (08:21)
[2016-06-04] MEDS: AZITHROMYCIN 250 MG TABLET PO SCH (08:21)
[2016-06-04] MEDS: METOPROLOL SUCCINATE 100 MG TABLET.SA PO SCH (08:21)
[2016-06-04] MEDS: oxyCODONE HCL/ACETAMINOPHEN 1 TAB TABLET PO PRN (13:03)
[2016-06-04] MEDS: WARFARIN SODIUM 2 MG TABLET PO SCH (16:13)
[2016-06-04] MEDS: ROSUVASTATIN CALCIUM 10 MG TABLET PO SCH (21:04)
[2016-06-04] MEDS: INSULIN DETEMIR 100 UNITS/ML VIAL SC SCH (21:08)
[2016-06-05] MEDS: METHYLPREDNISOLONE SOD SUCC 60 MG in WATER FOR INJ.,BACTERIOSTATIC 0 ML IV SCH ×3 (01:50→17:18)
[2016-06-05] MEDS: ALBUTEROL SULFATE/IPRATROPIUM 3 ML NEBU IH SCH ×4 (06:20→18:19)
[2016-06-05 06:23] LABS: Hemoglobin 16.6 gm/dL (13.5-18.0); Mean Cell Volume 96.5 fl (78-100); Mean Corpuscular Hemoglobin 34.1 pg (27-31); Mean Corpuscular Hgb Conc 35.3 g/dl (32-36); Neutrophil # 14.4 K/mm3 (1.3-6.0); Neutrophil % 89.5 % (42-75.0); Platelet Count 364 K/mm3 (150-450); Red Blood Count 4.87 M/mm3 (4.7-6.0); Red Cell Distribution Width 12.7 % (11.5-14.0); White Blood Count 16.1 K/mm3 (4.0-10.5)
[2016-06-05 06:26] LABS: Anion Gap 13.9 mmol/L (6.8-13.8); BUN/Creatinine Ratio 24.2 (9.0-21.6); Calcium * 9.4 mg/dL (7.9-10.9); Carbon Dioxide 30.6 mmol/L (24-32.6); Estimated Creat Clear 70.1; Potassium 4.5 mmol/L (3.4-4.6)
[2016-06-05 06:28] LABS: INR 1.54 INR (0.90-1.10)
[2016-06-05] MEDS: PANTOPRAZOLE SODIUM 40 MG TABLET.EC PO SCH ×2 (07:27→20:48)
[2016-06-05] MEDS: GLIMEPIRIDE 4 MG TABLET PO SCH ×2 (07:27→17:16)
--- NOTE | 2016-06-05 07:37 | PN ---
Subjective - Date and Time Seen Date: 06/05/16 Time: 07:33 Subjective Narrative: Patient is SOB at rest, while talking to me. Walked w/o O2 in the hallway and his O2 sat dropped to 86%. PT worked with him yesterday,. Objective - Review of Systems Generalized/Overall Review: Reports: Weakness. Denies: Chills, Fever EENTM: Reports: No Symptoms Reported Respiratory: Reports: Shortness of Breath Cardiac: Denies: Chest Pain, Edema, Palpitations Abdominal: Denies: Nausea, Vomiting Genitourinary Symptoms: Denies: Urgency, Frequency Musculoskeletal Complaints: Reports: No Symptoms Reported - Vitals Vitals: Last Vital Signs Temp 36.7 C 06/05/16 02:12 Pulse 71 06/05/16 06:30 Resp 18 06/05/16 06:30 BP 165/86 06/05/16 02:12 Pulse Ox 93 06/05/16 06:20 - Abnormal Lab Findings Abnormal Lab Findings: Abnormal Lab Results 06/05/16 06/05/16 06/05/16 Range/Units 06:11 06:11 06:11 WBC 16.1 H (4.0-10.5) K/mm3 MCH 34.1 H (27-31) pg MPV 11.0 H (6.0-9.5) fl Immature Gran % (Auto) 0.80 H (0.001-0.429) % Immature Gran # (Auto) 0.13 H (0.000-0.0310) K/mm3 Neutrophils % 89.5 H (42-75.0) % Lymphocytes % 5.7 L (20-51) % Neutrophils # 14.4 H (1.3-6.0) K/mm3 Lymphocytes # 0.9 L (1.5-3.5) k/mm3 PT 16.0 H (9.4-11.4) Seconds INR (Anticoag Therapy) 1.54 H (0.90-1.10) INR Plasma Sodium 143 H (130-142) mmol/L Anion Gap 13.9 H (6.8-13.8) mmol/L BUN/Creatinine Ratio 24.2 H (9.0-21.6) Random Glucose 216 H (70-110) mg/dL - Exam Constitutional: Present: Alert, Oriented x3, Cooperative, Mild distress, Elderly ENT Exam: Present: hearing grossly normal Neck: Present: supple Breasts: Present: Exam deferred Respiratory: Present: decreased breath sounds, No wheezing, other - coarse BS Cardiovascular/Chest: Present: regular rate, rhythm, no JVD, no murmur Abdomen: Present: Normal bowel sounds, nontender, nondistended Extremity: Present: no pedal edema, no calf tenderness Assessment/Plan - Problems/Diagnosis (1) Hypoxia Problem: Acute (2) Bronchitis, acute Problem: Acute Qualifiers: Bronchitis organism: unspecified organism Qualified Code(s): J20.9 - Acute bronchitis, unspecified (3) Diabetes Problem: Chronic Qualifiers: Diabetes mellitus type: type 2 (4) [place] filter in place Problem: Chronic (5) HTN (hypertension) Problem: Chronic Qualifiers: Hypertension type: essential hypertension Qualified Code(s): I10 - Essential (primary) hypertension (6) History of pulmonary embolism Problem: Chronic (7) Pulmonary hypertension Problem: Chronic Narrative: on Echo if 04/2015
[2016-06-05] MEDS: POTASSIUM CHLORIDE 10 MEQ TABLET.SA PO SCH (08:53)
[2016-06-05] MEDS: COLCHICINE 0.6 MG TABLET PO SCH (08:53)
[2016-06-05] MEDS: GABAPENTIN 100 MG CAPSULE PO SCH ×4 (08:53→20:47)
[2016-06-05] MEDS: FENOFIBRATE,MICRONIZED 134 MG CAPSULE PO SCH (08:53)
[2016-06-05] MEDS: LORATADINE 10 MG TABLET PO SCH (08:54)
[2016-06-05] MEDS: LOSARTAN POTASSIUM 50 MG TABLET PO SCH (08:54)
[2016-06-05] MEDS: ALLOPURINOL 100 MG TABLET PO SCH (08:54)
[2016-06-05] MEDS: NYSTATIN 15 APPL BTL TP SCH ×2 (08:54→20:47)
[2016-06-05] MEDS: NYSTATIN 60 ML BTL PO SCH ×4 (08:54→20:46)
[2016-06-05] MEDS: ASPIRIN 81 MG TABLET.DR PO SCH (08:54)
[2016-06-05] MEDS: METOPROLOL SUCCINATE 100 MG TABLET.SA PO SCH (08:55)
[2016-06-05] MEDS: AZITHROMYCIN 250 MG TABLET PO SCH (08:59)
[2016-06-05] MEDS ORDERED: WARFARIN SODIUM 5 MG TABLET PO SCH (17:00)
[2016-06-05] MEDS: KETOCONAZOLE APPL TP SCH (17:19)
[2016-06-05] MEDS: INSULIN DETEMIR 100 UNITS/ML VIAL SC SCH (20:44)
[2016-06-05] MEDS: ROSUVASTATIN CALCIUM 10 MG TABLET PO SCH (20:46)
[2016-06-06] MEDS: METHYLPREDNISOLONE SOD SUCC 60 MG in WATER FOR INJ.,BACTERIOSTATIC 0 ML IV SCH (01:52)
[2016-06-06 05:42] LABS: Prothrombin Time (Patient) 13.9 Seconds (9.4-11.4)
[2016-06-06 05:48] LABS: INR 1.34 INR (0.90-1.10)
[2016-06-06] MEDS: ALBUTEROL SULFATE/IPRATROPIUM 3 ML NEBU IH SCH (06:22)
[2016-06-06] MEDS: PANTOPRAZOLE SODIUM 40 MG TABLET.EC PO SCH (06:45)
[2016-06-06] MEDS: GLIMEPIRIDE 4 MG TABLET PO SCH (06:45)
--- NOTE | 2016-06-06 07:56 | DS ---
(1) Hypoxia Problem: Resolved (2) Bronchitis, acute Problem: Resolved Qualifiers: Bronchitis organism: unspecified organism Qualified Code(s): J20.9 - Acute bronchitis, unspecified (3) Diabetes Problem: Chronic Qualifiers: Diabetes mellitus type: type 2 (4) [place] filter in place Problem: Chronic (5) HTN (hypertension) Problem: Chronic Qualifiers: Hypertension type: essential hypertension Qualified Code(s): I10 - Essential (primary) hypertension (6) History of pulmonary embolism Problem: Chronic (7) Pulmonary hypertension Problem: Chronic Description of Stay: Brandon More, is a 75 year old male, with PMX of COPD, DM type 2, Pulmonary Hypertension, H/O Pulmonary Embolism, who was adnmittted on 06/02/16 for shortness of breath. His breathing has worsened for several weeks. He woke up one day prior to admission, worse, and on the day of admission morning, much worse. His home nebulizers weren't helping. He came to the [facility] ER where he was found to be hypoxic on room air. He was admitted to the hospital with a diagnosis of acute exacerbation of COPD. He had a non productive cough. He did not have a fever. Moving made him worse. He was started on IV solunmedrol, IV antibiotics, and breathing treatments. He improved clinically and is stable now to be discharged. Procedures Performed: none Discharge Disposition: Home self care Disposition: Home self-care Condition: Good Discharge Activity: Activity as tolerated Discharge Diet: Consistent carbs Referrals: Raul Saunders MD [Primary Care Provider] - Additional Patient Instructions (free text): Follow up with Dr. Saunders in 1 week. Prescriptions (Any new or edited meds): Azithromycin [Zithromax] 250 mg PO DAILY #5 tablet Prednisone [Deltasone] 40 mg PO DAILY #10 tablet Complete Home Medications List: Complete Home Medication List: Albuterol Sulfate [Proventil Hfa] 2 puff IH Q4H PRN 01/09/13 Aspirin [Aspirin Enteric Coated] 81 mg PO DAILY 01/09/13 Atorvastatin Calcium [Lipitor] 40 mg PO DAILY 01/09/13 Glimepiride [Amaryl] 4 mg PO BID 01/09/13 Metformin HCl [Metformin HCl ER] 1,000 mg PO BID 01/09/13 Metoprolol Succinate [Toprol Xl] 100 mg PO DAILY 01/09/13 Nitroglycerin 0.4 mg SL Q5MIN PRN 01/09/13 Potassium Chloride [Klor-Con M10] 20 meq PO DAILY 01/09/13 Insulin Detemir [Levemir] 10 unit SQ HS 06/13/15 Warfarin Sodium [Coumadin] 6 mg PO MOWEFR 06/13/15 Acetaminophen [Tylenol Arthritis] 650 mg PO Q6H 06/02/16 Allopurinol [Zyloprim] 100 mg PO DAILY 06/02/16 Colchicine 0.6 mg PO DAILY 06/02/16 Fenofibrate [Lofibra] 160 mg PO DAILY 06/02/16 Fexofenadine HCl [Dayanna Allergy] 180 mg PO DAILY 06/02/16 Gabapentin [Neurontin] 100 mg PO QID 06/02/16 Ipratropium/Albuterol Sulfate [Combivent Respimat Inhal [place]] 1 puff IH QID Ketoconazole [Nizoral Shampoo] 1 appl TP Q72H 06/02/16 Losartan Potassium [Cozaar] 25 mg PO DAILY 06/02/16 Nystatin 5 ml PO QID 06/02/16 Pantoprazole Sodium [Protonix] 40 mg PO BID 06/02/16 oxyCODONE HCL/ACETAMINOPHEN [Percocet 5 MG/325 MG] 1 tab PO Q6H PRN 06/02/16 Warfarin Sodium [Coumadin] 5 mg PO SUTUTHSA 06/05/16 Azithromycin [Zithromax] 250 mg PO DAILY #5 tablet 06/06/16 Prednisone [Deltasone] 40 mg PO DAILY #10 tablet 06/06/16
[2016-06-06] MEDS: COLCHICINE 0.6 MG TABLET PO SCH (08:59)
[2016-06-06] MEDS: AZITHROMYCIN 250 MG TABLET PO SCH (08:59)
[2016-06-06] MEDS: FENOFIBRATE,MICRONIZED 134 MG CAPSULE PO SCH (08:59)
[2016-06-06] MEDS: METOPROLOL SUCCINATE 100 MG TABLET.SA PO SCH (09:00)
[2016-06-06] MEDS: POTASSIUM CHLORIDE 10 MEQ TABLET.SA PO SCH (09:00)
[2016-06-06] MEDS: LOSARTAN POTASSIUM 50 MG TABLET PO SCH (09:01)
[2016-06-06] MEDS: LORATADINE 10 MG TABLET PO SCH (09:01)
[2016-06-06] MEDS: GABAPENTIN 100 MG CAPSULE PO SCH (09:01)
[2016-06-06] MEDS: ASPIRIN 81 MG TABLET.DR PO SCH (09:01)
[2016-06-06] MEDS: ALLOPURINOL 100 MG TABLET PO SCH (09:02)
[2016-06-06] MEDS: NYSTATIN 15 APPL BTL TP SCH (09:02)
[2016-06-06] MEDS: NYSTATIN 60 ML BTL PO SCH (09:03)
[2016-06-06 11:11] VITALS: BP 147/69
== END 2016-06-06 11:05 | disposition home or self-care (01) | DRG 202 ==
LOC: ER 07:58 → MS 09:56
PROVIDERS: ADMIT Allergy & Immunology; ATTEND Allergy & Immunology
PROC: 4A033R1 Measurement of Arterial Saturation, Peripheral, Percutaneous Approach (ICD-10-PCS; principal; 2016-06-02)
DX: J20.9 Acute bronchitis, unspecified (principal); J44.0 Chronic obstructive pulmonary disease with (acute) lower respiratory infection; R09.02 Hypoxemia; I10 Essential (primary) hypertension; I25.10 Atherosclerotic heart disease of native coronary artery without angina pectoris; E11.9 Type 2 diabetes mellitus without complications; Z95.5 Presence of coronary angioplasty implant and graft; Z86.711 Personal history of pulmonary embolism; Z79.01 Long term (current) use of anticoagulants; Z79.82 Long term (current) use of aspirin

== ENCOUNTER 2016-06-19 13:10 | Emergency (ER) | payer MEDICARE, OTHER ==
[2016-06-19 13:48] LABS: Hematocrit 48.1 % (42.0-52.0); Hemoglobin 16.7 gm/dL (13.5-18.0); Mean Cell Volume 98.4 fl (78-100); Mean Corpuscular Hemoglobin 34.2 pg (27-31); Mean Corpuscular Hgb Conc 34.7 g/dl (32-36); Mean Platelet Volume 11.1 fl (6.0-9.5); Neutrophil # 11.4 K/mm3 (1.3-6.0); Neutrophil % 74.1 % (42-75.0); Platelet Count 277 K/mm3 (150-450); Red Blood Count 4.89 M/mm3 (4.7-6.0); Red Cell Distribution Width 13.2 % (11.5-14.0); White Blood Count 15.4 K/mm3 (4.0-10.5)
[2016-06-19] MEDS ORDERED: ALBUTEROL SULFATE/IPRATROPIUM 3 ML NEBU IH ONE ×2 (13:53→13:56)
[2016-06-19 14:01] LABS: Albumin * 3.5 gm/dl (3.4-5.0); Anion Gap 10.5 mmol/L (6.8-13.8); BUN/Creatinine Ratio 18.5 (9.0-21.6); Bilirubin, Total 0.7 mg/dL (0.0-1.1); Ca. Corrected For Albumin 8.5 mg/dL (8.4-10.2); Calcium * 8.4 mg/dL (7.9-10.9); Carbon Dioxide 27.9 mmol/L (24-32.6); Potassium 4.4 mmol/L (3.4-4.6); Total Protein 6.7 gm/dL (6.2-8.2); Troponin I 0.02 ng/ml (0.00-0.10)
--- NOTE | 2016-06-19 14:06 | ERNOTE ---
Chest Pain/Cardiac HPI Date of Service: 06/19/16 Chief Complaint: Chest Pain Time Seen by Provider: 06/19/16 13:28 Source: patient Exam Limitations: no limitations Immunizations: IMMUNIZATION HX Immunizations Up to Date Yes History of Influenza Vaccine Yes Hx Pneumococcal Vaccination Yes Allergies/Adverse Reactions: Allergies No Known Allergies Allergy (Verified 06/19/16 13:29) Home Medications: HOME MEDICATIONS Albuterol Sulfate [Proventil Hfa] 2 puff IH Q4H PRN 01/09/13 [Last Taken Unknown ] Aspirin [Aspirin Enteric Coated] 81 mg PO DAILY 01/09/13 [Last Taken Unknown] Atorvastatin Calcium [Lipitor] 40 mg PO DAILY 01/09/13 [Last Taken Unknown] Glimepiride [Amaryl] 4 mg PO BID 01/09/13 [Last Taken Unknown] Metformin HCl [Metformin HCl ER] 1,000 mg PO BID 01/09/13 [Last Taken Unknown] Metoprolol Succinate [Toprol Xl] 100 mg PO DAILY 01/09/13 [Last Taken Unknown] Nitroglycerin 0.4 mg SL Q5MIN PRN 01/09/13 [Last Taken Unknown] Potassium Chloride [Klor-Con M10] 20 meq PO DAILY 01/09/13 [Last Taken Unknown] Insulin Detemir [Levemir] 10 unit SQ HS 06/13/15 [Last Taken Unknown] Warfarin Sodium [Coumadin] 6 mg PO MOWEFR 06/13/15 [Last Taken Unknown] Acetaminophen [Tylenol Arthritis] 650 mg PO Q6H 06/02/16 [Last Taken Unknown] Allopurinol [Zyloprim] 100 mg PO DAILY 06/02/16 [Last Taken Unknown] Colchicine 0.6 mg PO DAILY 06/02/16 [Last Taken Unknown] Fenofibrate [Lofibra] 160 mg PO DAILY 06/02/16 [Last Taken Unknown] Fexofenadine HCl [Dayanna Allergy] 180 mg PO DAILY 06/02/16 [Last Taken Unknown] Gabapentin [Neurontin] 100 mg PO QID 06/02/16 [Last Taken Unknown] Ipratropium/Albuterol Sulfate [Combivent Respimat Inhal [place]] 1 puff IH QID [Last Taken Unknown] Ketoconazole [Nizoral Shampoo] 1 appl TP Q72H 06/02/16 [Last Taken Unknown] Losartan Potassium [Cozaar] 25 mg PO DAILY 06/02/16 [Last Taken Unknown] Nystatin 5 ml PO QID 06/02/16 [Last Taken Unknown] Pantoprazole Sodium [Protonix] 40 mg PO BID 06/02/16 [Last Taken Unknown] oxyCODONE HCL/ACETAMINOPHEN [Percocet 5 MG/325 MG] 1 tab PO Q6H PRN 06/02/16 [ Last Taken Unknown] Warfarin Sodium [Coumadin] 5 mg PO SUTUTHSA 06/05/16 [Last Taken Unknown] Azithromycin [Zithromax] 250 mg PO DAILY #5 tablet 06/06/16 [Last Taken Unknown] Prednisone [Deltasone] 40 mg PO DAILY #10 tablet 06/06/16 [Last Taken Unknown] Narrative: Presents with c/o mid sternal chest pain, characterized as a pressure feeling, and SOB, onset just [employer]. Pt claims it began after he coughed. Pt has h/o COPD , and was recently treated for pneumonia. Denies any fever, chills, or congestion at this time. Timing: intermittent Severity/Quality: moderate, pressure Location: central Chest Pain Radiation: no radiation Activities at Onset: rest Modifying Factors - Improves: Present: nothing Modifying Factors - Worsens: Present: coughing Nitro Today/Relief: no nitro taken today Aspirin Treatment Today: no aspirin today Associated Symptoms: Present: shortness of breath Review of Systems - Review of Systems Constitutional: Present: no symptoms reported EYE: Present: no symptoms reported ENT: Present: no symptoms reported Respiratory: Present: See HPI Cardiology: Present: See HPI Gastrointestinal/Abdominal: Present: no symptoms reported Genitourinary: Present: no symptoms reported Musculoskeletal: Present: no symptoms reported Skin: Present: no symptoms reported Neurological: Present: no symptoms reported Endocrine: Present: no symptoms reported Hematologic/Lymphatic: Present: no symptoms reported Psych: Present: no symptoms reported All Other Systems: All systems neg except as marked - Patient's Past Medical History Patient History - Medical: Diabetes Type 2 Insulin Dependent, GERD Patient History - Cardiac/Respiratory: Coronary Heart Disease, COPD, Hypertension, Hyperlipidemia, Myocardial Infarction, Pulmonary Embolism Patient History - Cancer: Stomach Patient History - Surgical Procedures: Cancer Surgery, Cholecystectomy, Colonoscopy, Cardiac stent, Other Patient History - Other: None - Family History Father Family History - Medical: , Alzheimer's Disease Family History - Cardiac/Respiratory: Other Mother Family History - Medical: , Arthritis Family History - Cardiac/Respiratory: COPD, Other - Social History Living Situations: home Abuse History: No History of abuse Psych History: No pertinent hx Alcohol Use: none Drug Use: none - Immunizations Immunizations Up to Date: Yes Hx Pneumococcal Vaccination: Yes History of Influenza Vaccine: Yes Physical Exam - Physical Exam General Appearance: Present: wd/wn, alert, no apparent distress Eye Exam: Normal inspection: bilateral, PERRL: bilateral, EOMI: bilateral Ears, Nose, Throat: Present: normal ENT inspection Neck: Present: normal inspection, nontender Respiratory: Present: no respiratory distress, normal breath sounds, no accessory muscle use, chest tenderness - Left sternal border Cardiovascular/Chest: Present: regular rate, rhythm, no murmur Gastrointestinal/Abdominal: Present: normal bowel sounds, nontender, nondistended, soft, no organomegaly Neurological Exam: Present: alert, oriented, normal mood/affect Skin Exam: Present: normal color, warm/dry ED Progress - Results and Orders Patient's Lab Results:: I have reviewed the patient's lab results. - Vital Signs Patient's Vital Signs:: I have reviewed the patient's vital signs. Vital Signs: Vital Signs 06/19/16 06/19/16 06/19/16 13:23 13:39 14:00 Temperature 37.2 C Pulse Rate 71 70 73 Respiratory 22 H 17 25 H Rate Blood Pressure 134/72 122/72 O2 Sat by Pulse 98 95 94 Oximetry - EKG EKG: unchanged from - 06/05/2016 EKG read: Interp. by me - X-Ray X-Ray #1 X-Ray: chest - No acute finding Interpretation: Reviewed by me - Progress/Reassessment Chief Complaint: Chest Pain Progress:: Improved - After duoneb treatment. Departure - Departure Clinical Impression: COPD exacerbation Disposition: Home self-care Condition: Good Instructions: Chronic Obstructive Pulmonary Disease, [id number] Referrals: Raul Saunders MD [Primary Care Provider] -
[2016-06-19 14:12] LABS: Prothrombin Time (Patient) 19.1 Seconds (9.4-11.4)
[2016-06-19 14:16] LABS: INR 1.84 INR (0.90-1.10); Partial Thrombolplastin Time 30.2 Seconds (24-32)
[2016-06-19 17:41] VITALS: BP 136/77
== END 2016-06-19 16:41 | disposition home or self-care (01) ==
LOC: ER 13:10
DX: J44.1 Chronic obstructive pulmonary disease with (acute) exacerbation (principal); Z85.028 Personal history of other malignant neoplasm of stomach; Z95.5 Presence of coronary angioplasty implant and graft

== ENCOUNTER 2016-07-09 14:08 | Observation (INO) | payer MEDICARE, OTHER ==
[2016-07-09 14:35] LABS: Hematocrit 48.5 % (42.0-52.0); Hemoglobin 17.3 gm/dL (13.5-18.0); Mean Corpuscular Hemoglobin 34.3 pg (27-31); Mean Corpuscular Hgb Conc 35.7 g/dl (32-36); Mean Platelet Volume 10.9 fl (6.0-9.5); Neutrophil # 6.3 K/mm3 (1.3-6.0); Neutrophil % 59.9 % (42-75.0); Platelet Count 306 K/mm3 (150-450); Red Blood Count 5.05 M/mm3 (4.7-6.0); Red Cell Distribution Width 13.3 % (11.5-14.0); White Blood Count 10.5 K/mm3 (4.0-10.5)
[2016-07-09 14:49] LABS: Anion Gap 15.3 mmol/L (6.8-13.8); BUN/Creatinine Ratio 16.4 (9.0-21.6); Bilirubin, Total 0.9 mg/dL (0.0-1.1); Ca. Corrected For Albumin 8.5 mg/dL (8.4-10.2); Calcium * 8.8 mg/dL (7.9-10.9); Carbon Dioxide 24.6 mmol/L (24-32.6); Potassium 3.9 mmol/L (3.4-4.6); Total Protein 7.4 gm/dL (6.2-8.2)
[2016-07-09 14:53] LABS: Troponin I 0.021 ng/ml (0.00-0.10)
--- OUTSIDE RECORDS SUMMARY | 2016-07-09 15:02 | XMS REPORT | Continuity of Care Document ---
:1940 Author Organization [facility] ([facility]) Address [address] [place] [address] Phone [phone] Care Team Providers Name Role Phone Raul Bell Primary Care Provider [phone] Source Comments This disclosure is being made pursuant to the Care Everywhere program, applicable federal and state laws, and may not contain all informaitonavailable regarding this patient.[facility] ([facility]) Active Allergies and Adverse Reactions No Known Allergies Current Medications Prescription Sig. Disp. Refills Start Date End Date Status aspirin 81 mg EC take 81 mg by mouth Active tablet daily. ALBUTEROL SULFATE Use by inhalation Active (VENTOLIN HFA INH) every 4 hours as needed. metFORMIN 500 mg Take 1,000 mg by mouth Active tablet 2 times daily with meals. glimepiride 4 mg Take 4 mg by mouth 2 Active tablet times daily with meals. atorvastatin 40 mg Take 40 mg by mouth Active tablet every evening. insulin detemir Inject 10 Units Active (LEVEMIR FLEXTOUCH) subcutaneously at 100 unit/mL (3 mL) bedtime. injection pen metoPROLol succinate Take 50 mg by mouth Active 50 mg XL tablet daily. allopurinol 100 mg 100 mg daily. 12/26/2015 Active tablet warfarin 5 mg tablet Saturday and 12/26/2015 Active mgOther days 8 mg warfarin 2 mg tablet Saturday and 12/26/2015 Active mgOther days 8 mg colchicine 0.6 mg 0.6 mg daily. 12/26/2015 Active tablet losartan 25 mg tablet 25 mg daily. 12/25/2015 Active pantoprazole 40 mg EC 40 mg daily. 12/20/2015 Active tablet fenofibrate 160 mg 05/01/2016 Active tablet nystatin 100,000 02/22/2016 Active unit/mL suspension nystatin 100,000 02/22/2016 Active unit/g cream oxyCODONE-acetaminophe 03/29/2016 Active n 5-325 mg per tablet nitroglycerin 0.[address] 0.4 mg under the Active SL tablet tongue every 5 minutes as needed. Maximum of 3 tablets in 15 minutes. potassium chloride 20 Take 20 mEq by mouth Active mEq tablet daily. ketoconazole 2 % cream Apply topically 2 Active times daily. fexofenadine 180 mg Take 180 mg by mouth Active tablet daily. ipratropium 0.5 mg/2.5 Use 2.5 mL by Active mL nebulizer solution inhalation every 4 hours as needed. Active Problems Problem Noted Date Chronic low back pain 12/27/2015 Bilateral leg numbness 12/27/2015 History of lumbar fusion 12/27/2015 CAD in [place] artery 04/26/2015 Overview: LM: Normal; LAD: mild [...] and Vascular Chivo Reid, Dx: CAD in [place] MD artery (Primary Dx) 05/08/2016 Office Visit Orthopaedic Zack Pimentel MD Dx: Lumbar back pain (Primary Dx) 04/17/2016 Office Visit Orthopaedic Zack Pimentel MD Chief Comp: Patient Reported Reason For Visit Immunizations Name Dates Previously Given Next Due Influenza, unspecified 02/06/2007 Pneumococcal, unspecified 07/07/2004 Social History Tobacco Use Types Packs/Day Years Used Date Never Smoker Smokeless Tobacco: Never Used Alcohol Use Drinks/Week oz/Week Comments No Last Filed Vital Signs Vital Sign Reading Time Taken Blood Pressure 143/73 05/17/2016 8:57 AM CERTIFIED MEDICAL CODING SPECIALIST Pulse 68 05/17/2016 8:57 AM CERTIFIED MEDICAL CODING SPECIALIST Temperature 36 C (96.8 F) 05/17/2016 8:57 AM CERTIFIED MEDICAL CODING SPECIALIST Respiratory Rate 16 06/10/2014 10:16 AM CERTIFIED MEDICAL CODING SPECIALIST Height 1.753 m (5' 9") 05/17/2016 8:57 AM CERTIFIED MEDICAL CODING SPECIALIST Weight 103.3 kg (227 lb 11.8 oz) 05/17/2016 8:57 AM CERTIFIED MEDICAL CODING SPECIALIST Body Mass Index 33.62 05/17/2016 8:57 AM CERTIFIED MEDICAL CODING SPECIALIST Oxygen Saturation 90% 05/17/2016 8:57 AM CERTIFIED MEDICAL CODING SPECIALIST Plan of Care Date Type Specialty Providers Description 05/22/2017 Appointment Heart and Vascular Chivo Reid, Chief Comp: Patient MD Reported Reason For [address] [place] [address] [phone] (Fax) Health Maintenance Due Date Last Done [...]
--- NOTE | 2016-07-09 16:01 | ERNOTE ---
Dyspnea - General Presenting Symptoms: shortness of breath Time Seen by Provider: 07/09/16 14:55 Exam Limitations: no limitations - Immun/Allergies/Home Medications Immunizations: IMMUNIZATION HX Immunizations Up to Date Yes History of Influenza Vaccine Yes Hx Pneumococcal Vaccination Yes Allergies/Adverse Reactions: Allergies No Known Allergies Allergy (Verified 07/09/16 14:17) Home Medications: HOME MEDICATIONS Albuterol Sulfate [Proventil Hfa] 2 puff IH Q4H PRN 01/09/13 [Last Taken Unknown ] Aspirin [Aspirin Enteric Coated] 81 mg PO DAILY 01/09/13 [Last Taken Unknown] Atorvastatin Calcium [Lipitor] 40 mg PO DAILY 01/09/13 [Last Taken Unknown] Glimepiride [Amaryl] 4 mg PO BID 01/09/13 [Last Taken Unknown] Metoprolol Succinate [Toprol Xl] 100 mg PO DAILY 01/09/13 [Last Taken Unknown] Nitroglycerin 0.4 mg SL Q5MIN PRN 01/09/13 [Last Taken Unknown] Potassium Chloride [Klor-Con M10] 20 meq PO DAILY 01/09/13 [Last Taken Unknown] metFORMIN HCL [Metformin HCl ER] 1,000 mg PO BID 01/09/13 [Last Taken Unknown] Insulin Detemir [Levemir] 10 unit SQ HS 06/13/15 [Last Taken Unknown] Warfarin Sodium [Coumadin] 6 mg PO MOWEFR 06/13/15 [Last Taken Unknown] Acetaminophen [Tylenol Arthritis] 650 mg PO Q6H 06/02/16 [Last Taken Unknown] Allopurinol [Zyloprim] 100 mg PO DAILY 06/02/16 [Last Taken Unknown] Colchicine 0.6 mg PO DAILY 06/02/16 [Last Taken Unknown] Fenofibrate [Lofibra] 160 mg PO DAILY 06/02/16 [Last Taken Unknown] Fexofenadine HCl [Dayanna Allergy] 180 mg PO DAILY 06/02/16 [Last Taken Unknown] Gabapentin [Neurontin] 100 mg PO QID 06/02/16 [Last Taken Unknown] Ipratropium/Albuterol Sulfate [Combivent Respimat Inhal [place]] 1 puff IH QID [Last Taken Unknown] Ketoconazole [Nizoral Shampoo] 1 appl TP Q72H 06/02/16 [Last Taken Unknown] Losartan Potassium [Cozaar] 25 mg PO DAILY 06/02/16 [Last Taken Unknown] Nystatin 5 ml PO QID 06/02/16 [Last Taken Unknown] Pantoprazole Sodium [Protonix] 40 mg PO BID 06/02/16 [Last Taken Unknown] oxyCODONE HCL/ACETAMINOPHEN [Percocet 5 MG/325 MG] 1 tab PO Q6H PRN 06/02/16 [ Last Taken Unknown] Warfarin Sodium [Coumadin] 5 mg PO SUTUTHSA 06/05/16 [Last Taken Unknown] Azithromycin [Zithromax] 250 mg PO DAILY #5 tablet 06/06/16 [Last Taken Unknown] predniSONE [Deltasone] 40 mg PO DAILY #10 tablet 06/06/16 [Last Taken Unknown] - History of Present Illness Narrative: Patient is 75 years old he has a long-standing history of pulmonary issues such as pulmonary emboli and COPD. Is at pulmonary rehabilitation today walking when he experienced worsening shortness of breath and chest pressure. Shortly after that patient was brought into our emergency room for care. I the time also patient he was not short of breath. Was on 2 L of O2 with his O2 saturation at 100%. Patient states he has had increased mucus production over the past couple of days. Review of Systems - Review of Systems Constitutional: Present: no symptoms reported Respiratory: Present: shortness of breath Cardiology: Present: other - some chest pains upon walking Musculoskeletal: Present: no symptoms reported Neurological: Present: no symptoms reported - Patient's Past Medical History Patient History - Medical: Diabetes Type 2 Insulin Dependent, GERD Patient History - Cardiac/Respiratory: Coronary Heart Disease, COPD, Hypertension, Hyperlipidemia, Myocardial Infarction, Pulmonary Embolism Patient History - Cancer: Other Patient History - Surgical Procedures: Cancer Surgery Patient History - Other: None - Family History Father Family History - Medical: , Alzheimer's Disease Family History - Cardiac/Respiratory: Other Mother Family History - Medical: , Arthritis Family History - Cardiac/Respiratory: COPD, Other - Social History Living Situations: home Abuse History: No History of abuse Psych History: No pertinent hx Alcohol Use: none Drug Use: none - Immunizations Immunizations Up to Date: Yes Hx Pneumococcal Vaccination: Yes History of Influenza Vaccine: Yes Physical Exam - Physical Exam General Appearance: Present: wd/wn, alert, no apparent distress Eye Exam: Normal inspection: bilateral Respiratory: Present: no respiratory distress, normal breath sounds, no accessory muscle use, chest nontender, lungs clear Cardiovascular/Chest: Present: regular rate, rhythm, no murmur, normal peripheral pulses Extremity Exam: Present: normal inspection, non-tender, normal range of motion, no edema ED Progress - Results and Orders Patient's Lab Results:: I have reviewed the patient's lab results. - Vital Signs Patient's Vital Signs:: I have reviewed the patient's vital signs. - repeat blood pressure is within normal limits for patient Vital Signs: Vital Signs 07/09/16 07/09/16 07/09/16 14:10 14:20 14:42 Temperature 37.0 C 36.0 C L Pulse Rate 73 75 73 Respiratory 24 H 26 H 23 H Rate Blood Pressure 198/98 198/98 200/113 O2 Sat by Pulse 99 98 100 Oximetry 07/09/16 15:24 Temperature Pulse Rate 72 Respiratory 24 H Rate Blood Pressure 134/82 O2 Sat by Pulse 99 Oximetry - Progress/Reassessment Chief Complaint: Dyspnea Plan - Plan Plan: White count is normal however the patient's d-dimer is elevated a CT angiogram was ordered however results are not available at this time. This patient has dyspnea upon exertion worsening over the past [address] Allyson Barrow was consulted in regards to this patient to be admitted to the floor for worsening dyspnea upon exertion Departure Clinical Impression: Dyspnea on exertion - Departure Disposition: [facility] Condition: Fair Referrals: Raul Saunders MD [Primary Care Provider] -
--- OUTSIDE RECORDS SUMMARY | 2016-07-09 16:07 | XMS REPORT | Continuity of Care Document ---
:1940 Author Organization [facility] ([facility]) Address [address] [place] [address] Phone [phone] Care Team Providers Name Role Phone Raul Bell Primary Care Provider [phone] Source Comments This disclosure is being made pursuant to the Care Everywhere program, applicable federal and state laws, and may not contain all informaitonavailable regarding this patient.[facility] ([facility]) Active Allergies and Adverse Reactions No [...] History of lumbar fusion 12/27/2015 CAD in [place] artery 04/26/2015 Overview: LM: Normal; LAD: mild [...] and Vascular Chivo Reid, Dx: CAD in [place] MD artery (Primary Dx) 05/08/2016 Office Visit [...] Taken Blood Pressure 143/73 05/17/2016 8:57 AM [employer] Pulse 68 05/17/2016 8:57 AM [employer] Temperature 36 C (96.8 F) 05/17/2016 8:57 AM [employer] Respiratory Rate 16 06/10/2014 10:16 AM [employer] Height 1.753 m (5' 9") 05/17/2016 8:57 AM [employer] Weight 103.3 kg (227 lb 11.8 oz) 05/17/2016 8:57 AM [employer] Body Mass Index 33.62 05/17/2016 8:57 AM [employer] Oxygen Saturation 90% 05/17/2016 8:57 AM [employer] Plan of Care Date Type Specialty Providers Description 05/22/2017 Appointment Heart and Vascular Chivo Reid, Chief Comp: Patient MD Reported Reason For [address] [place] [address] [phone] (Fax) Health Maintenance Due Date Last Done [...]
[2016-07-09] MEDS ORDERED: oxyCODONE HCL/ACETAMINOPHEN 1 TAB TABLET PO PRN (16:56)
[2016-07-09] MEDS ORDERED: ALBUTEROL SULFATE 2.5 MG/3 ML VIAL.NEB IH PRN (16:56)
[2016-07-09] MEDS ORDERED: NITROGLYCERIN 0.4 MG/TAB BTL SL PRN (16:56)
[2016-07-09] MEDS ORDERED: KETOCONAZOLE APPL TP SCH (17:00)
[2016-07-09] MEDS ORDERED: WARFARIN SODIUM 6 MG TABLET PO SCH ×2 (17:00→18:15)
[2016-07-09 17:26] LABS: INR 1.43 INR (0.90-1.10); Prothrombin Time (Patient) 14.9 Seconds (9.4-11.4)
[2016-07-09] MEDS: NYSTATIN 60 ML BTL PO SCH ×2 (17:34→20:59)
[2016-07-09] MEDS: GLIMEPIRIDE 4 MG TABLET PO SCH (17:35)
[2016-07-09] MEDS: GABAPENTIN 100 MG CAPSULE PO SCH ×2 (17:35→20:57)
[2016-07-09] MEDS: ACETAMINOPHEN 325 MG TABLET PO SCH ×2 (17:35→23:28)
[2016-07-09] MEDS: ENOXAPARIN SODIUM 100 MG/ML SYRG SC SCH (17:41)
[2016-07-09] MEDS: ALBUTEROL SULFATE/IPRATROPIUM 3 ML NEBU IH SCH (18:19)
[2016-07-09] MEDS: PANTOPRAZOLE SODIUM 40 MG TABLET.EC PO SCH (20:55)
[2016-07-09] MEDS ORDERED: INSULIN DETEMIR 100 UNITS/ML VIAL SC SCH (21:00)
[2016-07-09] MEDS ORDERED: ROSUVASTATIN CALCIUM 10 MG TABLET PO SCH (21:00)
--- NOTE | 2016-07-09 22:02 | HP ---
<Alicia Kan - Last Filed: 07/10/16 05:10> Chief Complaint - Chief Complaint Date of Service: 07/09/16 Time of Service: 19:30 Chief Complaint: weakness, dyspnea History of Present Illness: 75 years old male adm to the hospital from ER with reports of dyspnea on exertion while at the pulmonary rehab. Pt stated while at the rehab he got extremely short of breath and felt like he was going to past out. Associated s/ s non productive cough,pressure in chest that went away when he was able to catch his breath. He denies palpitation, cough, nausea, vomiting or diaphoresis. He haven't used oxygen at home but think he will be needing it since shortness of breath has worsen over the past 2 days. In rehab Spo2 84% and BP elevated. PMH significant for right leg DVT, PE (currently on Coumadin and Lovenox), GERD, hypertension, COPD, diabetes, Gout, hyperlipidemia and [place]. Plan of care discussed with pt he verbalized understanding and agrees. - Patient's Past Medical History Patient History - Medical: Diabetes Type 2 Insulin Dependent, GERD Patient History - Cardiac/Respiratory: Coronary Heart Disease, COPD, Hypertension, Hyperlipidemia, Myocardial Infarction, Pulmonary Embolism, Sleep Apnea Patient History - Cancer: Lymphoma, Surgical Treatment, Other Patient History - Surgical Procedures: Cancer Surgery, Cataracts, Cholecystectomy, Total Knee Replacement - Bilateral knee replacement, Other - carpal tunnel, angioplasty, spleenectomy Patient History - Other: None - Family History Father Family History - Medical: , Alzheimer's Disease, Bipolar Family History - Cardiac/Respiratory: Other Mother Family History - Medical: , Arthritis Family History - Cardiac/Respiratory: COPD, Other - Social History Living Situations: spouse Abuse History: No History of abuse Psych History: No pertinent hx Smoking Status: Never smoker Have you smoked in the past 12 months: No Do you dip or chew tobacco: No Alcohol Use: none Drug Use: none - Immunizations Immunizations Up to Date: Yes Hx Pneumococcal Vaccination: Yes History of Influenza Vaccine: Yes Review Of Systems (GEN) - Review of Systems Generalized/Overall Review: Present: No Symptoms Reported EENTM: Present: No Symptoms Reported Respiratory: Present: Cough, Shortness of Breath Cardiac: Present: No Symptoms Reported Abdominal: Present: No Symptoms Reported Genitourinary: Present: No Symptoms Reported Musculoskeletal: Present: No Symptoms Reported Neurological: Present: No Symptoms Reported Skin: Present: No Symptoms Reported Endocrine: Present: No Symptoms Reported Allergies/Adverse Reactions: Allergies Allergy/AdvReac Type Severity Reaction Status Date / Time No Known Allergies Allergy Verified 07/09/16 14:17 Home Medications: HOME MEDICATIONS Aspirin [Aspirin Enteric Coated] 81 mg PO DAILY 01/09/13 [Last Taken Unknown] Atorvastatin Calcium [Lipitor] 40 mg PO DAILY 01/09/13 [Last Taken Unknown] Glimepiride [Amaryl] 4 mg PO BID 01/09/13 [Last Taken Unknown] Metoprolol Succinate [Toprol Xl] 100 mg PO DAILY 01/09/13 [Last Taken Unknown] Nitroglycerin 0.4 mg SL Q5MIN PRN 01/09/13 [Last Taken Unknown] Potassium Chloride [Klor-Con M10] 20 meq PO DAILY 01/09/13 [Last Taken Unknown] metFORMIN HCL [Metformin HCl ER] 1,000 mg PO BID 01/09/13 [Last Taken Unknown] Acetaminophen [Tylenol Arthritis] 650 mg PO Q6H 06/02/16 [Last Taken Unknown] Allopurinol [Zyloprim] 100 mg PO DAILY 06/02/16 [Last Taken Unknown] Colchicine 0.6 mg PO DAILY 06/02/16 [Last Taken Unknown] Fenofibrate [Lofibra] 160 mg PO DAILY 06/02/16 [Last Taken Unknown] Fexofenadine HCl [Dayanna Allergy] 180 mg PO DAILY 06/02/16 [Last Taken Unknown] Gabapentin [Neurontin] 100 mg PO QID 06/02/16 [Last Taken Unknown] Ipratropium/Albuterol Sulfate [Combivent Respimat Inhal [place]] 1 puff IH QID [Last Taken Unknown] Ketoconazole [Nizoral Shampoo] 1 appl TP Q72H 06/02/16 [Last Taken Unknown] Losartan Potassium [Cozaar] 25 mg PO DAILY 06/02/16 [Last Taken Unknown] Pantoprazole Sodium [Protonix] 40 mg PO BID 06/02/16 [Last Taken Unknown] oxyCODONE HCL/ACETAMINOPHEN [Percocet 5 MG/325 MG] 1 tab PO Q6H PRN 06/02/16 [ Last Taken Unknown] Budesonide [Pulmicort Respules] 0.5 mg IH BIDRT #28 vial.neb 07/10/16 [Last Taken Unknown] Enoxaparin Sodium [Lovenox] 100 mg SC Q12H #14 disp.syrin 07/10/16 [Last Taken Unknown] Insulin Detemir [Levemir] 10 units SC HS vial 07/10/16 [Last Taken Unknown] Nystatin [Mycostatin 100 Mu/Ml Suspension] 5 ml PO QID btl 07/10/16 [Last Taken Unknown] Warfarin Sodium [Coumadin] 7.5 mg PO DAILY #30 tablet 07/10/16 [Last Taken Unknown] Exam - Exam Vital Signs: Vital Signs - Last Taken Temp 36.4 C L 07/09/16 16:32 Pulse 81 07/09/16 18:29 Resp 20 07/09/16 18:29 BP 184/91 07/09/16 16:32 Pulse Ox 100 07/09/16 18:19 Constitutional: Present: Alert, Oriented x3, Cooperative, Well developed, Middle aged ENT Exam: Present: moist mucous membranes Eye Exam: bilateral eye: normal inspection Neck: Present: full range of motion Back Exam: Present: normal inspection, no CVA tenderness, no vertebral tenderness Respiratory: Present: chest non-tender, no accessory muscle use, decreased breath sounds, rhonchi Cardiovascular/Chest: Present: normal peripheral pulses, regular rate, rhythm, no chest tenderness, no edema Peripheral Pulses: dorsalis-pedis (R): 2+, dorsalis-pedis (L): 2+ Abdomen: Present: Normal bowel sounds, soft, nontender, nondistended Extremity: Present: normal range of motion, non-tender, normal inspection, no pedal edema, no calf tenderness Skin Exam: Present: normal color, warm/dry Neurologic: Present: oriented x 3 Appearance: Present: appropriate appearance Eye contact: Present: cooperative, good eye contact Diagnostic Studies: Laboratory Results WBC 10.5 K/mm3 (4.0-10.5) 07/09/16 14:25 RBC 5.05 M/mm3 (4.7-6.0) 07/09/16 14:25 Hgb 17.3 gm/dL (13.5-18.0) 07/09/16 14:25 Hct 48.5 % (42.0-52.0) 07/09/16 14:25 MCV 96.0 fl (78-100) 07/09/16 14:25 MCH 34.3 pg (27-31) H 07/09/16 14:25 MCHC 35.7 g/dl (32-36) 07/09/16 14:25 RDW 13.3 % (11.5-14.0) 07/09/16 14:25 Plt Count 306 K/mm3 (150-450) 07/09/16 14:25 MPV 10.9 fl (6.0-9.5) H 07/09/16 14:25 Immature Gran % (Auto) 0.80 % (0.001-0.429) H 07/09/16 14:25 Immature Gran # (Auto) 0.08 K/mm3 (0.000-0.0310) H 07/09/16 14:25 Neutrophils % 59.9 % (42-75.0) 07/09/16 14:25 Lymphocytes % 26.5 % (20-51) 07/09/16 14:25 Monocytes % 9.6 % (0.0-9) H 07/09/16 14:25 Eosinophils % 2.2 % (0.0-3.0) 07/09/16 14:25 Basophils % 1.0 % (0.0-1.0) 07/09/16 14:25 Nucleated RBC % 0.0 k/mm3 (0-1) 07/09/16 14:25 Neutrophils # 6.3 K/mm3 (1.3-6.0) H 07/09/16 14:25 Lymphocytes # 2.8 k/mm3 (1.5-3.5) 07/09/16 14:25 Monocytes # 1.0 k/mm3 (0.0-1.0) 07/09/16 14:25 Eosinophils # 0.2 k/mm3 (0.0-0.7) 07/09/16 14:25 Absolute Basophils 0.1 k/mm3 (0.0-0.1) 07/09/16 14:25 PT 14.9 Seconds (9.4-11.4) H 07/09/16 14:25 INR (Anticoag Therapy) 1.43 INR (0.90-1.10) H 07/09/16 14:25 D-Dimer 0.79 mg/L (0.19-0.49) H 07/09/16 14:25 Sodium 142 mmol/L (132-142) 07/09/16 14:25 Plasma Sodium 143 mmol/L (130-142) H 07/09/16 14:25 Potassium 3.9 mmol/L (3.4-4.6) 07/09/16 14:25 Chloride 106 mmol/L (97-106) 07/09/16 14:25 Carbon Dioxide 24.6 mmol/L (24-32.6) 07/09/16 14:25 Anion Gap 15.3 mmol/L (6.8-13.8) H 07/09/16 14:25 BUN 12 mg/dL (6-23) 07/09/16 14:25 Creatinine 0.73 mg/dL (0.4-1.4) 07/09/16 14:25 Est GFR (Non-Af Amer) 111 mL/min (60-130) D 07/09/16 14:25 BUN/Creatinine Ratio 16.4 (9.0-21.6) 07/09/16 14:25 Random Glucose 156 mg/dL (70-110) H 07/09/16 14:25 Calcium 8.8 mg/dL (7.9-10.9) 07/09/16 14:25 Calcium Adj for Albumin 8.5 mg/dL (8.4-10.2) 07/09/16 14:25 Total Bilirubin 0.9 mg/dL (0.0-1.1) 07/09/16 14:25 AST 22 U/L (0-48) 07/09/16 14:25 ALT 35 U/L (19-67) 07/09/16 14:25 Alkaline Phosphatase 76 U/L (50-170) 07/09/16 14:25 Troponin I 0.021 ng/ml (0.00-0.10) 07/09/16 14:25 B-Natriuretic Peptide 229 pg/mL (5-650) 07/09/16 14:25 Total Protein 7.4 gm/dL (6.2-8.2) 07/09/16 14:25 Albumin 4.0 gm/dl (3.4-5.0) 07/09/16 14:25 Assessment/Plan - Narrative Narrative: COPD exacerbation likely due to exertion Continue with home dose of medications nebulizer, prednisone Encourage use of I/S Dyspnea on exertion Nebulizer treatment and supplemented oxygen Plan same as #1 Diabetes Accu-check AC+HS and low dose SSI Consistent carb diet PE Continue with Lovenox and pharmacy to dose Coumadin Monitor INR daily Hypertension-stable monitor vitals signs and resume home dose of medications Code status: DNR VTEppx: Lovenox therapeutic and Coumadin pharmacy to dose GI ppx: protonix Anticipate discharge home 0-1 days and follow up with PCP Time 40 minutes and previous records reviewed. - Assessment/Plan (1) Dyspnea on exertion Problem: Acute (2) COPD exacerbation Problem: Acute (3) Pulmonary emboli Problem: Acute QualifierTitle: Pulmonary embolism type: other Chronicity: acute Acute cor pulmonale presence: with acute cor pulmonale Qualified Code(s): I26.09 - Other pulmonary embolism with acute cor pulmonale (4) Diabetes Problem: Chronic QualifierTitle: Diabetes mellitus type: type 2 (5) HTN (hypertension) Problem: Chronic QualifierTitle: Hypertension type: essential hypertension Qualified Code( s): I10 - Essential (primary) hypertension <Raul Saunders - Last Filed: 07/10/16 17:42> Immunizations: IMMUNIZATION HX Immunizations Up to Date Yes History of Influenza Vaccine Yes Hx Pneumococcal Vaccination Yes Exam - Exam Vital Signs: Vital Signs - Last Taken Temp 36.8 C 07/10/16 12:46 Pulse 63 07/10/16 15:04 Resp 18 07/10/16 15:04 BP 142/63 07/10/16 12:46 Pulse Ox 91 07/10/16 14:57 Diagnostic Studies: Abnormal Lab Results 07/10/16 Range/Units 05:51 PT 15.5 H (9.4-11.4) Seconds INR (Anticoag Therapy) 1.49 H (0.90-1.10) INR Laboratory Results WBC 10.5 K/mm3 (4.0-10.5) 07/09/16 14:25 RBC 5.05 M/mm3 (4.7-6.0) 07/09/16 14:25 Hgb 17.3 gm/dL (13.5-18.0) 07/09/16 14:25 Hct 48.5 % (42.0-52.0) 07/09/16 14:25 MCV 96.0 fl (78-100) 07/09/16 14:25 MCH 34.3 pg (27-31) H 07/09/16 14:25 MCHC 35.7 g/dl (32-36) 07/09/16 14:25 RDW 13.3 % (11.5-14.0) 07/09/16 14:25 Plt Count 306 K/mm3 (150-450) 07/09/16 14:25 MPV 10.9 fl (6.0-9.5) H 07/09/16 14:25 Immature Gran % (Auto) 0.80 % (0.001-0.429) H 07/09/16 14:25 Immature Gran # (Auto) 0.08 K/mm3 (0.000-0.0310) H 07/09/16 14:25 Neutrophils % 59.9 % (42-75.0) 07/09/16 14:25 Lymphocytes % 26.5 % (20-51) 07/09/16 14:25 Monocytes % 9.6 % (0.0-9) H 07/09/16 14:25 Eosinophils % 2.2 % (0.0-3.0) 07/09/16 14:25 Basophils % 1.0 % (0.0-1.0) 07/09/16 14:25 Nucleated RBC % 0.0 k/mm3 (0-1) 07/09/16 14:25 Neutrophils # 6.3 K/mm3 (1.3-6.0) H 07/09/16 14:25 Lymphocytes # 2.8 k/mm3 (1.5-3.5) 07/09/16 14:25 Monocytes # 1.0 k/mm3 (0.0-1.0) 07/09/16 14:25 Eosinophils # 0.2 k/mm3 (0.0-0.7) 07/09/16 14:25 Absolute Basophils 0.1 k/mm3 (0.0-0.1) 07/09/16 14:25 PT 15.5 Seconds (9.4-11.4) H 07/10/16 05:51 INR (Anticoag Therapy) 1.49 INR (0.90-1.10) H 07/10/16 05:51 D-Dimer 0.79 mg/L (0.19-0.49) H 07/09/16 14:25 Sodium 142 mmol/L (132-142) 07/09/16 14:25 Plasma Sodium 143 mmol/L (130-142) H 07/09/16 14:25 Potassium 3.9 mmol/L (3.4-4.6) 07/09/16 14:25 Chloride 106 mmol/L (97-106) 07/09/16 14:25 Carbon Dioxide 24.6 mmol/L (24-32.6) 07/09/16 14:25 Anion Gap 15.3 mmol/L (6.8-13.8) H 07/09/16 14:25 BUN 12 mg/dL (6-23) 07/09/16 14:25 Creatinine 0.73 mg/dL (0.4-1.4) 07/09/16 14:25 Est GFR (Non-Af Amer) 111 mL/min (60-130) D 07/09/16 14:25 BUN/Creatinine Ratio 16.4 (9.0-21.6) 07/09/16 14:25 Random Glucose 156 mg/dL (70-110) H 07/09/16 14:25 Calcium 8.8 mg/dL (7.9-10.9) 07/09/16 14:25 Calcium Adj for Albumin 8.5 mg/dL (8.4-10.2) 07/09/16 14:25 Total Bilirubin 0.9 mg/dL (0.0-1.1) 07/09/16 14:25 AST 22 U/L (0-48) 07/09/16 14:25 ALT 35 U/L (19-67) 07/09/16 14:25 Alkaline Phosphatase 76 U/L (50-170) 07/09/16 14:25 Troponin I 0.021 ng/ml (0.00-0.10) 07/09/16 14:25 B-Natriuretic Peptide 229 pg/mL (5-650) 07/09/16 14:25 Total Protein 7.4 gm/dL (6.2-8.2) 07/09/16 14:25 Albumin 4.0 gm/dl (3.4-5.0) 07/09/16 14:25 Assessment/Plan - Narrative Narrative: I reviewed the record and examined the patient. I directly supervised our nurse practitioner in all her care for this patient. Has a chronic cough always productive of at least a few tablespoons of phlegm. His notes he snores and stops breathing at night, and both complain about his excessive daytime sleepiness. He needs a sleep study. He needs a higher dose of coumadin and Lovenox while we are waiting for his INR to become completely therapeutic. We will refer him back to the pulmonary rehab program
[2016-07-10] MEDS: ACETAMINOPHEN 325 MG TABLET PO SCH ×2 (05:16→10:07)
[2016-07-10] MEDS: ENOXAPARIN SODIUM 100 MG/ML SYRG SC SCH (05:17)
[2016-07-10] MEDS ORDERED: BUDESONIDE 0.5 MG/2 ML VIAL.NEB IH ONE (05:57)
[2016-07-10 06:04] LABS: Prothrombin Time (Patient) 15.5 Seconds (9.4-11.4)
[2016-07-10] MEDS: ALBUTEROL SULFATE/IPRATROPIUM 3 ML NEBU IH SCH ×3 (06:07→14:57)
[2016-07-10 06:17] LABS: INR 1.49 INR (0.90-1.10)
[2016-07-10] MEDS ORDERED: BUDESONIDE 0.5 MG/2 ML VIAL.NEB IH SCH (07:00)
[2016-07-10] MEDS: GLIMEPIRIDE 4 MG TABLET PO SCH (07:03)
[2016-07-10] MEDS: PANTOPRAZOLE SODIUM 40 MG TABLET.EC PO SCH (07:03)
[2016-07-10] MEDS ORDERED: FENOFIBRATE,MICRONIZED 134 MG CAPSULE PO SCH (09:00)
[2016-07-10] MEDS ORDERED: LOSARTAN POTASSIUM 50 MG TABLET PO SCH (09:00)
[2016-07-10] MEDS ORDERED: POTASSIUM CHLORIDE 10 MEQ TABLET.SA PO SCH (09:00)
[2016-07-10] MEDS ORDERED: ALLOPURINOL 100 MG TABLET PO SCH (09:00)
[2016-07-10] MEDS ORDERED: ASPIRIN 81 MG TABLET.DR PO SCH (09:00)
[2016-07-10] MEDS ORDERED: METOPROLOL SUCCINATE 100 MG TABLET.SA PO SCH (09:00)
[2016-07-10] MEDS ORDERED: LORATADINE 10 MG TABLET PO SCH (09:00)
[2016-07-10] MEDS ORDERED: COLCHICINE 0.6 MG TABLET PO SCH (09:00)
[2016-07-10] MEDS: NYSTATIN 60 ML BTL PO SCH ×2 (10:05→13:02)
[2016-07-10] MEDS: GABAPENTIN 100 MG CAPSULE PO SCH ×2 (10:06→13:03)
[2016-07-10 12:49] VITALS: BP 142/63
--- NOTE | 2016-07-10 12:49 | DS ---
Description of Stay: Started on full dose lovenox. Coumadin increased. No recurrence of chest pain. Walking today only dropped his O2 sat to 92% on room air. states he snores and stops breathing at night. Excessive daytime sleepiness. Needs sleep study. Has chronic bronchitis with a chronic daily productive cough. Procedures Performed: none Discharge Disposition: Home self care Disposition: Home self-care Condition: Fair Discharge Activity: Activity as tolerated Discharge Diet: Consistent carbs Referrals: Raul Saunders MD [Primary Care Provider] - Problem Oriented Discharge Instructions to Patient/Family: Pulmonary Embolism, Chronic Bronchitis Additional Patient Instructions (free text): Please arrange sleep study prior to discharge. Has snoring, stops breathing at night, and has excessive daytime sleepiness. Prior to discharge, help him get back into the pulmonary rehab program he has just begun. He has an appt with me tomorrow. Please call my office and change it to a week from now. CBC BMP and Protime in 3 days. Prescriptions (Any new or edited meds): Budesonide [Pulmicort Respules] 0.5 mg IH BIDRT #28 vial.neb Enoxaparin Sodium [Lovenox] 100 mg SC Q12H #14 disp.syrin Warfarin Sodium [Coumadin] 7.5 mg PO DAILY #30 tablet Complete Home Medications List: Complete Home Medication List: Aspirin [Aspirin Enteric Coated] 81 mg PO DAILY 01/09/13 Atorvastatin Calcium [Lipitor] 40 mg PO DAILY 01/09/13 Glimepiride [Amaryl] 4 mg PO BID 01/09/13 Metoprolol Succinate [Toprol Xl] 100 mg PO DAILY 01/09/13 Nitroglycerin 0.4 mg SL Q5MIN PRN 01/09/13 Potassium Chloride [Klor-Con M10] 20 meq PO DAILY 01/09/13 metFORMIN HCL [Metformin HCl ER] 1,000 mg PO BID 01/09/13 Acetaminophen [Tylenol Arthritis] 650 mg PO Q6H 06/02/16 Allopurinol [Zyloprim] 100 mg PO DAILY 06/02/16 Colchicine 0.6 mg PO DAILY 06/02/16 Fenofibrate [Lofibra] 160 mg PO DAILY 06/02/16 Fexofenadine HCl [Dayanna Allergy] 180 mg PO DAILY 06/02/16 Gabapentin [Neurontin] 100 mg PO QID 06/02/16 Ipratropium/Albuterol Sulfate [Combivent Respimat Inhal [place]] 1 puff IH QID Ketoconazole [Nizoral Shampoo] 1 appl TP Q72H 06/02/16 Losartan Potassium [Cozaar] 25 mg PO DAILY 06/02/16 Pantoprazole Sodium [Protonix] 40 mg PO BID 06/02/16 oxyCODONE HCL/ACETAMINOPHEN [Percocet 5 MG/325 MG] 1 tab PO Q6H PRN 06/02/16 Budesonide [Pulmicort Respules] 0.5 mg IH BIDRT #28 vial.neb 07/10/16 Enoxaparin Sodium [Lovenox] 100 mg SC Q12H #14 disp.syrin 07/10/16 Insulin Detemir [Levemir] 10 units SC HS vial 07/10/16 Nystatin [Mycostatin 100 Mu/Ml Suspension] 5 ml PO QID btl 07/10/16 Warfarin Sodium [Coumadin] 7.5 mg PO DAILY #30 tablet 07/10/16
[2016-07-10] MEDS ORDERED: WARFARIN SODIUM 5 MG TABLET PO SCH (17:00)
[2016-07-10] MEDS ORDERED: WARFARIN SODIUM 6 MG TABLET PO SCH (17:00)
== END 2016-07-10 15:45 | disposition home or self-care (01) ==
LOC: ER 14:08 → MS 16:03
PROVIDERS: ADMIT Allergy & Immunology; ATTEND Allergy & Immunology
DX: I26.09 Other pulmonary embolism with acute cor pulmonale (principal); J44.1 Chronic obstructive pulmonary disease with (acute) exacerbation; E11.9 Type 2 diabetes mellitus without complications; I10 Essential (primary) hypertension; Z79.4 Long term (current) use of insulin
CPT/HCPCS: 36415; 71020; 71275; 80053; 83880; 84484; 85025; 85379; 85610; 93005; 94640; 94760; 96372; 99284; G0378

== ENCOUNTER 2016-08-05 20:41 | Emergency (ER) | payer MEDICARE, OTHER ==
[2016-08-05] MEDS ORDERED: LIDOCAINE HCL 20 ML UDC MM ONE (21:19)
[2016-08-05] MEDS ORDERED: MAG HYDROX/ALUMINUM HYD/SIMETH 30 ML UDC PO ONE (21:20)
--- OUTSIDE RECORDS SUMMARY | 2016-08-05 21:32 | XMS REPORT | Continuity of Care Document ---
:1940 Author Organization [facility] ([facility]) Address [address] [place] [address] Phone [phone] Care Team Providers Name Role Phone Raul Bell Primary Care Provider [phone] Source Comments This disclosure is being made pursuant to the Care Everywhere program, applicable federal and state laws, and may not contain all informaitonavailable regarding this patient.[facility] ([facility]) Active Allergies and Adverse Reactions No [...] History of lumbar fusion 12/27/2015 CAD in [place] artery 04/26/2015 Overview: LM: Normal; LAD: mild [...] and Vascular Chivo Reid, Dx: CAD in [place] MD artery (Primary Dx) 05/08/2016 Office Visit Orthopaedic Zack Pimentel MD Dx: Lumbar back pain (Primary Dx) Immunizations Name Dates Previously Given Next Due Influenza, unspecified 02/06/2007 Pneumococcal, unspecified 07/07/2004 Social History Tobacco Use Types Packs/Day Years Used Date Never Smoker Smokeless Tobacco: Never Used Alcohol Use Drinks/Week oz/Week Comments No Last Filed Vital Signs Vital Sign Reading Time Taken Blood Pressure 143/73 05/17/2016 8:57 AM EMERGENCY VETERINARY ASSISTANT Pulse 68 05/17/2016 8:57 AM EMERGENCY VETERINARY ASSISTANT Temperature 36 C (96.8 F) 05/17/2016 8:57 AM EMERGENCY VETERINARY ASSISTANT Respiratory Rate 16 06/10/2014 10:16 AM EMERGENCY VETERINARY ASSISTANT Height 1.753 m (5' 9") 05/17/2016 8:57 AM EMERGENCY VETERINARY ASSISTANT Weight 103.3 kg (227 lb 11.8 oz) 05/17/2016 8:57 AM EMERGENCY VETERINARY ASSISTANT Body Mass Index 33.62 05/17/2016 8:57 AM EMERGENCY VETERINARY ASSISTANT Oxygen Saturation 90% 05/17/2016 8:57 AM EMERGENCY VETERINARY ASSISTANT Plan of Care Date Type Specialty Providers Description 05/22/2017 Appointment Heart and Vascular Chivo Reid, Chief Comp: Patient MD Reported Reason For [address] [place] [address] [phone] (Fax) Health Maintenance Due Date Last Done [...]
--- NOTE | 2016-08-05 21:39 | ERNOTE ---
Dyspnea - Date Date of Service: 08/05/16 - General Time Seen by Provider: 08/05/16 21:00 Source: patient, family - Exam Limitations: no limitations - Immun/Allergies/Home Medications Immunizations: IMMUNIZATION HX Immunizations Up to Date Yes History of Influenza Vaccine Yes Hx Pneumococcal Vaccination Yes Allergies/Adverse Reactions: Allergies No Known Allergies Allergy (Verified 07/09/16 14:17) Home Medications: HOME MEDICATIONS Aspirin [Aspirin Enteric Coated] 81 mg PO DAILY 01/09/13 [Last Taken Unknown] Atorvastatin Calcium [Lipitor] 40 mg PO DAILY 01/09/13 [Last Taken Unknown] Glimepiride [Amaryl] 4 mg PO BID 01/09/13 [Last Taken Unknown] Metoprolol Succinate [Toprol Xl] 100 mg PO DAILY 01/09/13 [Last Taken Unknown] Nitroglycerin 0.4 mg SL Q5MIN PRN 01/09/13 [Last Taken Unknown] Potassium Chloride [Klor-Con M10] 20 meq PO DAILY 01/09/13 [Last Taken Unknown] metFORMIN HCL [Metformin HCl ER] 1,000 mg PO BID 01/09/13 [Last Taken Unknown] Acetaminophen [Tylenol Arthritis] 650 mg PO Q6H 06/02/16 [Last Taken Unknown] Allopurinol [Zyloprim] 100 mg PO DAILY 06/02/16 [Last Taken Unknown] Colchicine 0.6 mg PO DAILY 06/02/16 [Last Taken Unknown] Fenofibrate [Lofibra] 160 mg PO DAILY 06/02/16 [Last Taken Unknown] Fexofenadine HCl [Dayanna Allergy] 180 mg PO DAILY 06/02/16 [Last Taken Unknown] Gabapentin [Neurontin] 100 mg PO QID 06/02/16 [Last Taken Unknown] Ipratropium/Albuterol Sulfate [Combivent Respimat Inhal [place]] 1 puff IH QID [Last Taken Unknown] Ketoconazole [Nizoral Shampoo] 1 appl TP Q72H 06/02/16 [Last Taken Unknown] Losartan Potassium [Cozaar] 25 mg PO DAILY 06/02/16 [Last Taken Unknown] Pantoprazole Sodium [Protonix] 40 mg PO BID 06/02/16 [Last Taken Unknown] oxyCODONE HCL/ACETAMINOPHEN [Percocet 5 MG/325 MG] 1 tab PO Q6H PRN 06/02/16 [ Last Taken Unknown] Budesonide [Pulmicort Respules] 0.5 mg IH BIDRT #28 vial.neb 07/10/16 [Last Taken Unknown] Insulin Detemir [Levemir] 10 units SC HS vial 07/10/16 [Last Taken Unknown] Nystatin [Mycostatin 100 Mu/Ml Suspension] 5 ml PO QID btl 07/10/16 [Last Taken Unknown] Sucralfate [Carafate Suspension] 1 g PO QID 5 Days 08/05/16 [Last Taken Unknown] Warfarin Sodium [Coumadin] 8 mg PO DAILY 08/05/16 [Last Taken Unknown] - History of Present Illness Narrative: SATURDAY WAS EATING OUT AND HAD FRIED CHICKEN AND CATFISH. AFTERWARDS HE HAD SENSATION THAT SOMETHING WAS CAUGHT IN HIS THROAT . OVER THE PAST TWO DAYS HE HAS CONTINUED TO EAT AND DRINK WITH ANY RESTRICTIONS IN HIS ABILITY TO SWALLOW BUT STILL HAS A F.B. SENSATION. 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 HE IS DUE TO GO BACK ON August. HE HAS HAD THIS SENSATION SINCE THE EXAM AND HAS BEEN ABLE TO COUGH UP FOOD PARTICLES, ONE EXAMPLE IS EGG WHICH SUGGEST HE MAY HAVE ESOPHAGEAL DIVERTICULA. HE WAS NOT AWARE THAT THE FISH HAD ANY BONES. HE HAS NO OTHER NEW PROBLEM. Review of Systems - Review of Systems Constitutional: Present: See HPI Gastrointestinal/Abdominal: Present: See HPI - FOREIGN BODY SENSATION IN HIS THROAT. All Other Systems: All systems neg except as marked - Patient's Past Medical History Patient History - Medical: Diabetes Type 2 Insulin Dependent, GERD Patient History - Cardiac/Respiratory: Coronary Heart Disease, COPD, Hypertension, Hyperlipidemia, Myocardial Infarction, Pulmonary Embolism, Sleep Apnea Patient History - Cancer: Lymphoma, Surgical Treatment, Other Patient History - Surgical Procedures: Cancer Surgery, Cataracts, Cholecystectomy, Total Knee Replacement, Other Patient History - Other: None - Family History Father Family History - Medical: , Alzheimer's Disease, Bipolar Family History - Cardiac/Respiratory: Other Mother Family History - Medical: , Arthritis Family History - Cardiac/Respiratory: COPD, Other - Social History Living Situations: home Abuse History: No History of abuse Psych History: No pertinent hx Smoking Status: Never smoker Have you smoked in the past 12 months: No Do you dip or chew tobacco: No Alcohol Use: none Drug Use: none - Immunizations Immunizations Up to Date: Yes Hx Pneumococcal Vaccination: Yes History of Influenza Vaccine: Yes Physical Exam - Physical Exam General Appearance: Present: wd/wn, alert, no apparent distress Ears, Nose, Throat: Present: normal ENT inspection, other - HE IS S/P A POSTERIOR PHARYNGEAL DE-BULKING PROCEDURE FOR HIS GURJIT IN THE PAST Neck: Present: normal inspection Respiratory: Present: no respiratory distress, no accessory muscle use, chest nontender, wheezing - MILD EXP WHEEZES, PT STATES THIS IS HIS NORM. Cardiovascular/Chest: Present: regular rate, rhythm, no murmur Gastrointestinal/Abdominal: Present: normal bowel sounds, nontender, no organomegaly ED Progress - Vital Signs Vital Signs: Vital Signs 08/05/16 20:46 Temperature 36.2 C L Pulse Rate 76 Respiratory 22 H Rate Blood Pressure 148/83 O2 Sat by Pulse 2 L Oximetry - Progress/Reassessment Chief Complaint: Dyspnea Progress:: Improved Progress Note-Subjective: 08/05/16 22:00 felling better after a trial of gi cocktail with maalox and lidocaine. Departure Clinical Impression: Sensation of foreign body in esophagus - Departure Disposition: Home Follow Up Needed Condition: Fair Instructions: Swallowed Foreign Body, Adult Additional Instructions: Trial of the carafate suspension. Contact your family doctor or your GI doctor in [place] if worse or not improving as you may need to have another scope of your esophagus. Referrals: Raul Saunders MD [Primary Care Provider] - Prescriptions: Sucralfate [Carafate Suspension] 1 g PO QID 5 Days
[2016-08-05 22:18] VITALS: BP 120/71
== END 2016-08-05 22:20 | disposition home or self-care (01) ==
LOC: ER 20:41
DX: R09.89 Other specified symptoms and signs involving the circulatory and respiratory systems (principal); E11.9 Type 2 diabetes mellitus without complications; Z79.4 Long term (current) use of insulin; K21.9 Gastro-esophageal reflux disease without esophagitis; I10 Essential (primary) hypertension; J44.9 Chronic obstructive pulmonary disease, unspecified; I25.2 Old myocardial infarction

== ENCOUNTER 2017-01-27 20:23 | Inpatient (IN) | payer MEDICARE, OTHER ==
--- NOTE | 2017-01-27 20:40 | ERNOTE ---
Chest Pain/Cardiac HPI Date of Service: 01/27/17 Time Seen by Provider: 01/27/17 20:26 Source: patient, family Immunizations: IMMUNIZATION HX Immunizations Up to Date Yes History of Influenza Vaccine Yes Hx Pneumococcal Vaccination Yes Allergies/Adverse Reactions: Allergies No Known Allergies Allergy (Verified 01/27/17 20:43) Home Medications: HOME MEDICATIONS Aspirin [Aspirin Enteric Coated] 81 mg PO DAILY 01/09/13 [Last Taken Unknown] Atorvastatin Calcium [Lipitor] 40 mg PO DAILY 01/09/13 [Last Taken Unknown] Glimepiride [Amaryl] 4 mg PO BID 01/09/13 [Last Taken Unknown] Metoprolol Succinate [Toprol Xl] 100 mg PO DAILY 01/09/13 [Last Taken Unknown] Nitroglycerin 0.4 mg SL Q5MIN PRN 01/09/13 [Last Taken Unknown] Potassium Chloride [Klor-Con M10] 20 meq PO DAILY 01/09/13 [Last Taken Unknown] metFORMIN HCL [Metformin HCl ER] 1,000 mg PO BID 01/09/13 [Last Taken Unknown] Acetaminophen [Tylenol Arthritis] 650 mg PO Q6H 06/02/16 [Last Taken Unknown] Allopurinol [Zyloprim] 100 mg PO DAILY 06/02/16 [Last Taken Unknown] Colchicine 0.6 mg PO DAILY 06/02/16 [Last Taken Unknown] Fenofibrate [Lofibra] 160 mg PO DAILY 06/02/16 [Last Taken Unknown] Fexofenadine HCl [Dayanna Allergy] 180 mg PO DAILY 06/02/16 [Last Taken Unknown] Gabapentin [Neurontin] 100 mg PO QID 06/02/16 [Last Taken Unknown] Ipratropium/Albuterol Sulfate [Combivent Respimat Inhal [place]] 1 puff IH QID [Last Taken Unknown] Losartan Potassium [Cozaar] 25 mg PO DAILY 06/02/16 [Last Taken Unknown] Pantoprazole Sodium [Protonix] 40 mg PO BID 06/02/16 [Last Taken Unknown] oxyCODONE HCL/ACETAMINOPHEN [Percocet 5 MG/325 MG] 1 tab PO Q6H PRN 06/02/16 [ Last Taken Unknown] Budesonide [Pulmicort Respules] 0.5 mg IH BIDRT #28 vial.neb 07/10/16 [Last Taken Unknown] Insulin Detemir [Levemir] 10 units SC HS vial 07/10/16 [Last Taken Unknown] Warfarin Sodium [Coumadin] 7.5 mg PO DAILY 08/05/16 [Last Taken Unknown] Albuterol Sulfate [Ventolin HFA] 1 puff IH Q4H PRN 01/27/17 [Last Taken Unknown] Furosemide [Lasix] 40 mg PO DAILY 01/27/17 [Last Taken Unknown] Narrative: This is a 76-year-old male who comes to the emergency department with chest pain. Patient is complaining of left-sided chest pain which started yesterday. It went away and then came back today at about 3 AM. He describes it as a sharp pain in the left precordial area. He is short of breath more so than usual. He is also nauseated he denies diaphoresis. Patient says over the last 3 days that his blood sugars have been elevated. The pain does not radiate anywhere. Nothing makes it better or makes it worse. The patient has a history of DVT with pulmonary embolism. He is currently taking Coumadin. He has a history of PTCA with stents. He has had a myocardial infarction. He also has diabetes. He denies tobacco abuse. Does have high cholesterol. Review of Systems - Review of Systems Constitutional: Present: fatigue EYE: Present: no symptoms reported ENT: Present: no symptoms reported Respiratory: Present: shortness of breath Cardiology: Present: chest pain Gastrointestinal/Abdominal: Present: nausea. Absent: vomiting, diarrhea Genitourinary: Present: no symptoms reported Musculoskeletal: Present: no symptoms reported Skin: Present: no symptoms reported Neurological: Present: no symptoms reported Endocrine: Present: other - elevated blood sugar Hematologic/Lymphatic: Present: no symptoms reported Psych: Present: no symptoms reported All Other Systems: All systems neg except as marked - Patient's Past Medical History Patient History - Medical: Diabetes Type 2 Insulin Dependent, GERD Patient History - Cardiac/Respiratory: Coronary Heart Disease, COPD, Hypertension, Hyperlipidemia, Myocardial Infarction, Pulmonary Embolism, Sleep Apnea Patient History - Cancer: Lymphoma, Surgical Treatment, Other Patient History - Surgical Procedures: Cancer Surgery, Cataracts, Cholecystectomy, Total Knee Replacement, Other Patient History - Other: None - Family History Father Family History - Medical: , Alzheimer's Disease, Bipolar Family History - Cardiac/Respiratory: Other Mother Family History - Medical: , Arthritis Family History - Cardiac/Respiratory: COPD, Other - Social History Abuse History: No History of abuse Psych History: No pertinent hx - Immunizations Immunizations Up to Date: Yes Hx Pneumococcal Vaccination: Yes History of Influenza Vaccine: Yes Physical Exam - Physical Exam General Appearance: Present: wd/wn, alert, no apparent distress Head Exam: Present: normal inspection, no evidence of injury Eye Exam: Normal inspection: bilateral, PERRL: bilateral, EOMI: bilateral Ears, Nose, Throat: Present: normal ENT inspection, normal pharynx Neck: Present: normal inspection, nontender Respiratory: Present: no respiratory distress, normal breath sounds, no accessory muscle use, lungs clear Cardiovascular/Chest: Present: regular rate, rhythm, normal peripheral pulses - 2/6 systolic murmur best heard over the right upper sternal border, other Gastrointestinal/Abdominal: Present: normal bowel sounds, nondistended, soft, no organomegaly, other - patient has some mild tenderness in the right upper quadrant near the gallbladder fossa. No rebound or guarding. Multiple scars on the abdomen including "leak scar Back Exam: Present: normal inspection, normal range of motion, no CVA tenderness , no vertebral tenderness Extremity Exam: Present: normal inspection, non-tender, normal range of motion, no edema Neurological Exam: Present: alert, oriented, normal mood/affect, no motor/ sensory deficits Skin Exam: Present: normal color, warm/dry Lymphatic Exam: Present: no adenopathy ED Progress - Results and Orders Patient's Lab Results:: I have reviewed the patient's lab results. - Vital Signs Patient's Vital Signs:: I have reviewed the patient's vital signs. - EKG EKG: other - sinus tachycardia at 103 first-degree AV block with IL interval of 231 left anterior hemiblock axis is left no signs of acute ischemia - X-Ray X-Ray #1 X-Ray: chest Interpretation: Interp. by me X-ray Comments: Left plural effusion. haziness right lower lung infiltrate versus atalectasis. CTA pending - CT/Ultrasound CT/Ultrasound Narrative: CT chest: Parthy RLL infiltrate. Diffuse adenopathy possible malignancy versus chronic inlammation. CT abd/pelvis: significant stool. No signs of infectious process - Progress/Reassessment Progress:: Unchanged Plan - Plan Plan: Discussed case with Mónica. We'll admit to the hospital. Will add a lactic acid Departure Clinical Impression: Pneumonia, Chest pain - Departure Disposition: [facility] Condition: Fair
[2017-01-27 20:48] LABS: Hematocrit 41.7 % (42.0-52.0); Mean Cell Volume 95.2 fl (78-100); Mean Corpuscular Hemoglobin 34.2 pg (27-31); Mean Platelet Volume 11.8 fl (6.0-9.5); Neutrophil # 15.6 K/mm3 (1.3-6.0); Neutrophil % 74.9 % (42-75.0); Platelet Count 259 K/mm3 (150-450); Red Blood Count 4.38 M/mm3 (4.7-6.0); Red Cell Distribution Width 13.2 % (11.5-14.0); White Blood Count 20.9 K/mm3 (4.0-10.5)
[2017-01-27 20:53] LABS: Total Cells Counted 100
[2017-01-27 20:59] LABS: Prothrombin Time (Patient) 37.4 Seconds (9.0-11.0)
[2017-01-27 21:00] LABS: INR 3.69 INR (0.90-1.10)
[2017-01-27] MEDS ORDERED: NORMAL SALINE 1,000 ML IV ONE (21:00)
[2017-01-27 21:07] LABS: ALT 33 U/L (19-67); AST 17 U/L (0-48); Albumin * 3.6 gm/dl (3.4-5.0); Alkaline Phosphatase * 99 U/L (50-170); Anion Gap 13.4 mmol/L (6.8-13.8); BUN/Creatinine Ratio 18.6 (9.0-21.6); Bilirubin, Total 1.1 mg/dL (0.0-1.1); Blood Urea Nitrogen 19 mg/dL (6-23); Ca. Corrected For Albumin 8.9 mg/dL (8.4-10.2); Calcium * 8.9 mg/dL (7.9-10.9); Carbon Dioxide 28.2 mmol/L (24-32.6); Chloride 102 mmol/L (97-106); Glucose * 281 mg/dL (70-110); Lipase 140 U/L (73-393); Potassium 3.6 mmol/L (3.4-4.6); Sodium 140 mmol/L (132-142); Total Protein 7.5 gm/dL (6.2-8.2)
[2017-01-27 21:08] LABS: Troponin I Less than 0.017 ng/ml (0.00-0.10)
[2017-01-27 21:12] LABS: Eosinophil 1 % (0-3); Lymphocyte 6 % (20-51); Monocyte 10 % (0-9); Neutrophil 83 % (42-75); Neutrophil # 17.3 K/mm3 (1.3-6.0)
[2017-01-27 21:13] LABS: Platelet Estimate Normal (NORMAL)
[2017-01-27] MEDS ORDERED: DIATRIZOATE MEGLUMINE, SODIUM 30 ML BTL PO ONE (21:13)
[2017-01-27 21:14] LABS: RBC Morphology Normal (NORMAL)
[2017-01-27] MEDS ORDERED: DIATRIZOATE MEGLUMINE, SODIUM 30 ML BTL ONE (21:14)
[2017-01-27 21:17] LABS: CRP 17.6 mg/dL (0.0-0.9)
[2017-01-28] MEDS ORDERED: AZITHROMYCIN 500 MG in NORMAL SALINE 250 ML IV ONE ×2
[2017-01-28 00:19] LABS: Urine Bilirubin Negative (NEGATIVE); Urine Blood Negative /ul (NEGATIVE); Urine Ketone Negative (NEGATIVE); Urine Nitrite Negative (NEGATIVE); Urine Protein Negative (NEGATIVE); Urine Urobilinogen Normal (NORMAL)
[2017-01-28 00:34] LABS: Urine Appearance Clear; Urine Bacteria TRACE; Urine Color Dark Yellow; Urine RBC None Seen /hpf (0-5); Urine WBC None Seen /hpf (0-5)
--- NOTE | 2017-01-28 01:06 | HP ---
<Mónica Phillips - Last Filed: 01/28/17 03:14> Chief Complaint - Chief Complaint Date of Service: 01/28/17 - n Time of Service: 00:59 Chief Complaint: " SOB, Abdominal pain, chill". Source of HPI- Pt unreliable historian, ER provider report, (unable to reach spouse by phone) History of Present Illness: Mr. Israel is a 76-yr-old WM pt of Dr. Raul Saunders with a PMH of: Alzheimer's, Arthritis, Asthma, Bipolar 1 Disorder,CAD, DM II, GERD, HTN, Hernia , Pulmonary Embolism & GURJIT. Pt states that the reason he came to the ED tonight was due to Abdominal pain on his right side. He is not able to elaborate the sequence of symptoms or illness but states that the abdominal pain began yesterday and the his 'entire body was shaking.' He denies the associated symptoms of nausea, vomiting and diarrhea. He reports feeling SOB and coughing up thick yellow phlegm. He is chronically on 2-3 L of oxygen 29/10. At the ED, he was found to have an elevated WBC of 20,900 with a LT shift. The CT of the chest and CXR had findings concerning for Pneumonia. Due to his age, comorbidities, high WBC, he will require a brief period of observation in the hospital in order to determine feasibility of outpatient treatment. - Patient's Past Medical History Patient History - Medical: Diabetes Type 2 Insulin Dependent, GERD Patient History - Cardiac/Respiratory: Coronary Heart Disease, COPD, Hypertension, Hyperlipidemia, Myocardial Infarction, Pulmonary Embolism, Sleep Apnea Patient History - Cancer: Lymphoma, Surgical Treatment, Other Patient History - Surgical Procedures: Cancer Surgery, Cataracts, Cholecystectomy, Total Knee Replacement, Other Patient History - Other: None - Family History Father Family History - Medical: , Alzheimer's Disease, Bipolar Family History - Cardiac/Respiratory: Other Mother Family History - Medical: , Arthritis Family History - Cardiac/Respiratory: COPD, Other - Social History Living Situations: home Abuse History: No History of abuse Psych History: No pertinent hx Smoking Status: Former smoker Have you smoked in the past 12 months: No Do you dip or chew tobacco: No Alcohol Use: none Drug Use: none - Immunizations Immunizations Up to Date: Yes Hx Pneumococcal Vaccination: Yes History of Influenza Vaccine: Yes Review Of Systems (GEN) - Review of Systems Generalized/Overall Review: Present: Weakness, Chills, Fatigue. Absent: Fever, Malaise EENTM: Absent: Eye Pain, Nose Pain, Nose Congestion Respiratory: Present: Cough, Shortness of Breath Cardiac: Absent: Chest Pain, Edema, Palpitations, Syncope Abdominal: Present: Abdominal Pain. Absent: Nausea, Vomiting, Hematemesis, Constipation, Diarrhea, Bright blood from rectum Genitourinary: Absent: Burning, Itching, Urgency, Hematuria Musculoskeletal: Absent: Joint Pain, Back Pain, Joint Swelling, Muscle Pain Neurological: Absent: Headache, Anxiety, Depressed Skin: Present: Dryness, Rash - Abdominal folds Endocrine: Absent: Intolerance to Cold, Increased Hunger, Flushing, Increased Thirst Misc: All systems neg except as marked Allergies/Adverse Reactions: Allergies Allergy/AdvReac Type Severity Reaction Status Date / Time No Known Allergies Allergy Verified 01/27/17 20:43 Home Medications: HOME MEDICATIONS Aspirin [Aspirin Enteric Coated] 81 mg PO DAILY 01/09/13 [Last Taken 01/27/17] Atorvastatin Calcium [Lipitor] 40 mg PO DAILY 01/09/13 [Last Taken 01/27/17] Glimepiride [Amaryl] 4 mg PO BID 01/09/13 [Last Taken 01/27/17] Metoprolol Succinate [Toprol Xl] 100 mg PO DAILY 01/09/13 [Last Taken 01/27/17] Nitroglycerin 0.4 mg SL Q5MIN PRN 01/09/13 [Last Taken 01/27/17] metFORMIN HCL [Metformin HCl ER] 1,000 mg PO BID 01/09/13 [Last Taken 01/27/17] Acetaminophen [Tylenol Arthritis] 650 mg PO Q6H 06/02/16 [Last Taken 01/27/17] Allopurinol [Zyloprim] 100 mg PO DAILY 06/02/16 [Last Taken 01/27/17] Colchicine 0.6 mg PO DAILY 06/02/16 [Last Taken 01/27/17] Fenofibrate [Lofibra] 160 mg PO DAILY 06/02/16 [Last Taken 01/27/17] Fexofenadine HCl [Dayanna Allergy] 180 mg PO DAILY 06/02/16 [Last Taken 01/27/17 ] Gabapentin [Neurontin] 100 mg PO QID 06/02/16 [Last Taken 01/27/17] Ipratropium/Albuterol Sulfate [Combivent Respimat Inhal [place]] 1 puff IH QID [Last Taken 01/27/17] Losartan Potassium [Cozaar] 25 mg PO DAILY 06/02/16 [Last Taken 01/27/17] Pantoprazole Sodium [Protonix] 40 mg PO BID 06/02/16 [Last Taken 01/27/17] oxyCODONE HCL/ACETAMINOPHEN [Percocet 5 MG/325 MG] 1 tab PO Q6H PRN 06/02/16 [ Last Taken 01/27/17] Budesonide [Pulmicort Respules] 0.5 mg IH BIDRT #28 vial.neb 07/10/16 [Last Taken 01/27/17] Insulin Detemir [Levemir] 10 units SC HS vial 07/10/16 [Last Taken 01/27/17] Warfarin Sodium [Coumadin] 7.5 mg PO DAILY 08/05/16 [Last Taken 01/27/17] Albuterol Sulfate [Ventolin HFA] 1 puff IH Q4H PRN 01/27/17 [Last Taken 01/27/17 ] Furosemide [Lasix] 40 mg PO DAILY 01/27/17 [Last Taken 01/27/17] Melatonin 10 mg PO HS 01/28/17 [Last Taken 01/26/17] Potassium Chloride [K-Dur] 20 meq PO DAILY 01/28/17 [Last Taken Unknown] Exam - Exam Vital Signs: Vital Signs - Last Taken Temp 36.8 C 01/27/17 20:37 Pulse 103 H 01/27/17 21:06 Resp 14 01/27/17 21:06 BP 145/82 01/27/17 21:06 Pulse Ox 91 01/27/17 21:06 Constitutional: Present: Alert, Oriented x3, Cooperative, No distress, Elderly, Obese ENT Exam: Present: normal ENT inspection. Absent: nasal congestion, nasal drainage Neck: Present: non-tender, full range of motion, supple Back Exam: Present: normal inspection Breasts: Present: Exam deferred Respiratory: Present: no accessory muscle use, No wheezing Cardiovascular/Chest: Present: normal peripheral pulses, irregularly irregular Abdomen: Present: Normal bowel sounds, soft, obese, tender - RUQ. Absent: guarding /Rectal: Present: Exam deferred Extremity: Present: normal range of motion, non-tender, normal inspection Skin Exam: Present: other - Erythema on the suprapubic area. Lymphatic: Present: no adenopathy Neurologic: Present: no motor/sensory deficits, alert, oriented x 3 Appearance: Present: appropriate appearance, appropriate insight Eye contact: Present: cooperative, good eye contact Thoughts: Present: normal thought pattern, no apparent hallucination Diagnostic Studies: Laboratory Results WBC 20.9 K/mm3 (4.0-10.5) H 01/27/17 20:45 RBC 4.38 M/mm3 (4.7-6.0) L 01/27/17 20:45 Hgb 15.0 gm/dL (13.5-18.0) 01/27/17 20:45 Hct 41.7 % (42.0-52.0) L 01/27/17 20:45 MCV 95.2 fl (78-100) 01/27/17 20:45 MCH 34.2 pg (27-31) H 01/27/17 20:45 MCHC 36.0 g/dl (32-36) 01/27/17 20:45 RDW 13.2 % (11.5-14.0) 01/27/17 20:45 Plt Count 259 K/mm3 (150-450) 01/27/17 20:45 MPV 11.8 fl (6.0-9.5) H 01/27/17 20:45 Immature Gran % (Auto) 0.50 % (0.001-0.429) H 01/27/17 20:45 Immature Gran # (Auto) 0.10 K/mm3 (0.000-0.0310) H 01/27/17 20:45 Neutrophils % 74.9 % (42-75.0) 01/27/17 20:45 Neutrophils % (Manual) 83 % (42-75) H 01/27/17 20:45 Lymphocytes % 14.6 % (20-51) L 01/27/17 20:45 Lymphocytes % (Manual) 6 % (20-51) L 01/27/17 20:45 Monocytes % 9.0 % (0.0-9) 01/27/17 20:45 Monocytes % (Manual) 10 % (0-9) H 01/27/17 20:45 Eosinophils % 0.6 % (0.0-3.0) 01/27/17 20:45 Eosinophils % (Manual) 1 % (0-3) 01/27/17 20:45 Basophils % 0.4 % (0.0-1.0) 01/27/17 20:45 Nucleated RBC % 0.0 k/mm3 (0-1) 01/27/17 20:45 Neutrophils # 15.6 K/mm3 (1.3-6.0) H 01/27/17 20:45 Neutrophils # (Manual) 17.3 K/mm3 (1.3-6.0) H 01/27/17 20:45 Lymphocytes # 3.1 k/mm3 (1.5-3.5) 01/27/17 20:45 Lymphocytes # (Manual) 1.3 k/mm3 (1.5-3.5) L 01/27/17 20:45 Monocytes # 1.9 k/mm3 (0.0-1.0) H 01/27/17 20:45 Monocytes # (Manual) 2.1 k/mm3 (0.0-1.0) H 01/27/17 20:45 Eosinophils # 0.1 k/mm3 (0.0-0.7) 01/27/17 20:45 Eosinophils # (Manual) 0.2 k/mm3 (0.0-0.7) 01/27/17 20:45 Absolute Basophils 0.1 k/mm3 (0.0-0.1) 01/27/17 20:45 Nucleated RBCs 1.0 % (0-1) 01/27/17 20:45 Platelet Estimate Normal (NORMAL) 01/27/17 20:45 RBC Morphology Normal (NORMAL) 01/27/17 20:45 PT 37.4 Seconds (9.0-11.0) H 01/27/17 20:45 INR (Anticoag Therapy) 3.69 INR (0.90-1.10) H 01/27/17 20:45 Sodium 140 mmol/L (132-142) 01/27/17 20:45 Plasma Sodium 143 mmol/L (130-142) H 01/27/17 20:45 Potassium 3.6 mmol/L (3.4-4.6) 01/27/17 20:45 Chloride 102 mmol/L (97-106) 01/27/17 20:45 Carbon Dioxide 28.2 mmol/L (24-32.6) 01/27/17 20:45 Anion Gap 13.4 mmol/L (6.8-13.8) 01/27/17 20:45 BUN 19 mg/dL (6-23) 01/27/17 20:45 Creatinine 1.02 mg/dL (0.4-1.4) 01/27/17 20:45 Est GFR (Non-Af Amer) 75 mL/min (60-130) 01/27/17 20:45 BUN/Creatinine Ratio 18.6 (9.0-21.6) 01/27/17 20:45 Random Glucose 281 mg/dL (70-110) H 01/27/17 20:45 Calcium 8.9 mg/dL (7.9-10.9) 01/27/17 20:45 Calcium Adj for Albumin 8.9 mg/dL (8.4-10.2) 01/27/17 20:45 Total Bilirubin 1.1 mg/dL (0.0-1.1) 01/27/17 20:45 AST 17 U/L (0-48) 01/27/17 20:45 ALT 33 U/L (19-67) 01/27/17 20:45 Alkaline Phosphatase 99 U/L (50-170) 01/27/17 20:45 Troponin I Less than 0.017 ng/ml (0.00-0.10) 01/27/17 20:45 C-Reactive Prot, Quant 17.6 mg/dL (0.0-0.9) H 01/27/17 20:45 Total Protein 7.5 gm/dL (6.2-8.2) 01/27/17 20:45 Albumin 3.6 gm/dl (3.4-5.0) 01/27/17 20:45 Lipase 140 U/L (73-393) 01/27/17 20:45 Urine Color Dark yellow 01/28/17 00:05 Urine Appearance Clear 01/28/17 00:05 Urine pH 6.0 pH (5.0-7.0) 01/28/17 00:05 Ur Specific [place] 1.010 SP.GR. (1.005-1.030) 01/28/17 00:05 Urine Protein Negative mg/dL (NEGATIVE) 01/28/17 00:05 Urine Glucose (UA) >=1000 mg/dL (NEGATIVE) H 01/28/17 00:05 Urine Ketones Negative mg/dL (NEGATIVE) 01/28/17 00:05 Urine Blood Negative /ul (NEGATIVE) 01/28/17 00:05 Urine Nitrate Negative (NEGATIVE) 01/28/17 00:05 Urine Bilirubin Negative mg/dl (NEGATIVE) 01/28/17 00:05 Urine Urobilinogen Normal EU/dl (NORMAL) 01/28/17 00:05 Ur Leukocyte Esterase Negative /ul (NEGATIVE) 01/28/17 00:05 Urine RBC None seen /hpf (0-5) 01/28/17 00:05 Urine WBC None seen /hpf (0-5) 01/28/17 00:05 Ur Epithelial Cells 0-5 /hpf (0-5) 01/28/17 00:05 Urine Bacteria Trace (NONE) 01/28/17 00:05 Urine Culture Comments No culture indicated 01/28/17 00: Assessment/Plan - Assessment/Plan (1) Pneumonia Assessment: Pt reported feeling SOB & having increased coughing out of normal variation and what he describes as body shakes may have been chills. CXR& CT of the chest had findings concerning for pneumonia. He received Azithromycin and Rocephin at the ED which may be sufficient for now and will continue as he does not reside in a healthcare setting. Blood and sputum cultures are pending and will switch Ax when they result. Will add urinary antigen tests for Strep. Pneumo and Legionella. Also push IS, involve PT and encourage ambulation to avoid functional decline. Anticipated LOS is 1 midnight hospital stay as he has a CURB -65 score of 1 and can be treated outpatient but will need to be monitored under brief hospital stay to determine if that is possible. Monitor CBC in am. Problem: Acute QualifierTitle: Laterality: left Lung location: lower lobe of lung (2) Leukocytosis Assessment: Pt reported abdominal pain but the CT did not have any acute findings. He also denied the associated symptoms of n/v, diarrhea & bloody stools. No infection on UA. CT of the chest showed LLL Pneumonia. He is positive for erythematous rash on suprapubic area. WBC is likely due to Pneumonia. Monitor CBC. Problem: Acute (3) Pulmonary emboli Assessment: Stable- On Coumadin, but will hold due to INR of 3.[address] on telemetry monitoring. Problem: Acute QualifierTitle: Pulmonary embolism type: other Chronicity: acute Acute cor pulmonale presence: with acute cor pulmonale Qualified Code(s): I26.09 - Other pulmonary embolism with acute cor pulmonale (4) Diabetes Assessment: Last HgA1c on July 2016- 6.50. Continue Lantus insulin & Glimeperide, Accu checks ACHS & Consistent Carb diet. Will hold Metformin x 48 hours due to Contrast use. Problem: Chronic QualifierTitle: Diabetes mellitus type: type 2 (5) COPD (chronic obstructive pulmonary disease) Assessment: Continue Pulmicort BID. Will add scheduled Duonebs. Problem: Chronic (6) HTN (hypertension) Assessment: Stable- Continue Metoprolol, Lasix. Problem: Chronic QualifierTitle: Hypertension type: essential hypertension Qualified Code( s): I10 - Essential (primary) hypertension (7) GERD (gastroesophageal reflux disease) Assessment: Stable- On Protonix. Problem: Chronic <Raul Saunders - Last Filed: 01/28/17 07:06> History of Present Illness: I have examined the patient, reviewed the record, agree with the assessment and with the plan. I doubt that given his age and presentation and degree of illness that he will be able to go home after one midnight, so advise he be admitted to an acute bed. I personally directed all of the care provided by our nurse [facility] hospitalist. Immunizations: IMMUNIZATION HX Immunizations Up to Date Yes History of Influenza Vaccine Yes Hx Pneumococcal Vaccination Yes Exam - Exam Vital Signs: Vital Signs - Last Taken Temp 37.1 C 01/28/17 00:48 Pulse 86 01/28/17 06:12 Resp 26 H 01/28/17 06:12 BP 174/78 01/28/17 00:48 Pulse Ox 92 01/28/17 06:02 Diagnostic Studies: Abnormal Lab Results 01/28/17 01/28/17 01/28/17 Range/Units 05:40 05:40 05:40 WBC 18.7 H (4.0-10.5) K/mm3 RBC 4.16 L (4.7-6.0) M/mm3 Hct 39.7 L (42.0-52.0) % MCH 33.7 H (27-31) pg MPV 12.7 H (6.0-9.5) fl Lymphocytes % (Manual) 15 L (20-51) % Monocytes % (Manual) 19 H (0-9) % Neutrophils # (Manual) 12.2 H (1.3-6.0) K/mm3 Monocytes # (Manual) 3.6 H (0.0-1.0) k/mm3 PT 34.3 H (9.0-11.0) Seconds INR (Anticoag Therapy) 3.39 H (0.90-1.10) INR Random Glucose 249 H (70-110) mg/dL Microbiology 01/28/17 03:10 Sputum Culture - Preliminary Sputum Laboratory Results WBC 18.7 K/mm3 (4.0-10.5) H 01/28/17 05:40 RBC 4.16 M/mm3 (4.7-6.0) L 01/28/17 05:40 Hgb 14.0 gm/dL (13.5-18.0) 01/28/17 05:40 Hct 39.7 % (42.0-52.0) L 01/28/17 05:40 MCV 95.4 fl (78-100) 01/28/17 05:40 MCH 33.7 pg (27-31) H 01/28/17 05:40 MCHC 35.3 g/dl (32-36) 01/28/17 05:40 RDW 13.3 % (11.5-14.0) 01/28/17 05:40 Plt Count 240 K/mm3 (150-450) 01/28/17 05:40 MPV 12.7 fl (6.0-9.5) H 01/28/17 05:40 Immature Gran % (Auto) 0.50 % (0.001-0.429) H 01/27/17 20:45 Immature Gran # (Auto) 0.10 K/mm3 (0.000-0.0310) H 01/27/17 20:45 Neutrophils % 74.9 % (42-75.0) 01/27/17 20:45 Neutrophils % (Manual) 65 % (42-75) 01/28/17 05:40 Lymphocytes % 14.6 % (20-51) L 01/27/17 20:45 Lymphocytes % (Manual) 15 % (20-51) L 01/28/17 05:40 Monocytes % 9.0 % (0.0-9) 01/27/17 20:45 Monocytes % (Manual) 19 % (0-9) H 01/28/17 05:40 Eosinophils % 0.6 % (0.0-3.0) 01/27/17 20:45 Eosinophils % (Manual) 1 % (0-3) 01/28/17 05:40 Basophils % 0.4 % (0.0-1.0) 01/27/17 20:45 Nucleated RBC % 0.0 k/mm3 (0-1) 01/27/17 20:45 Neutrophils # 15.6 K/mm3 (1.3-6.0) H 01/27/17 20:45 Neutrophils # (Manual) 12.2 K/mm3 (1.3-6.0) H 01/28/17 05:40 Lymphocytes # 3.1 k/mm3 (1.5-3.5) 01/27/17 20:45 Lymphocytes # (Manual) 2.8 k/mm3 (1.5-3.5) 01/28/17 05:40 Monocytes # 1.9 k/mm3 (0.0-1.0) H 01/27/17 20:45 Monocytes # (Manual) 3.6 k/mm3 (0.0-1.0) H 01/28/17 05:40 Eosinophils # 0.1 k/mm3 (0.0-0.7) 01/27/17 20:45 Eosinophils # (Manual) 0.2 k/mm3 (0.0-0.7) 01/28/17 05:40 Absolute Basophils 0.1 k/mm3 (0.0-0.1) 01/27/17 20:45 Nucleated RBCs 1.0 % (0-1) 01/27/17 20:45 Platelet Estimate Normal (NORMAL) 01/28/17 05:40 RBC Morphology Normal (NORMAL) 01/28/17 05:40 PT 34.3 Seconds (9.0-11.0) H 01/28/17 05:40 INR (Anticoag Therapy) 3.39 INR (0.90-1.10) H 01/28/17 05:40 Sodium 140 mmol/L (132-142) 01/28/17 05:40 Plasma Sodium 142 mmol/L (130-142) 01/28/17 05:40 Potassium 3.5 mmol/L (3.4-4.6) 01/28/17 05:40 Chloride 104 mmol/L (97-106) 01/28/17 05:40 Carbon Dioxide 27.7 mmol/L (24-32.6) 01/28/17 05:40 Anion Gap 11.8 mmol/L (6.8-13.8) 01/28/17 05:40 BUN 14 mg/dL (6-23) 01/28/17 05:40 Creatinine 0.73 mg/dL (0.4-1.4) 01/28/17 05:40 Est GFR (Non-Af Amer) 111 mL/min (60-130) D 01/28/17 05:40 BUN/Creatinine Ratio 19.2 (9.0-21.6) 01/28/17 05:40 Random Glucose 249 mg/dL (70-110) H 01/28/17 05:40 Lactic Acid, Venous 1.8 mmol/L (0.4-1.9) 01/27/17 20:45 Calcium 8.5 mg/dL (7.9-10.9) 01/28/17 05:40 Calcium Adj for Albumin 8.9 mg/dL (8.4-10.2) 01/27/17 20:45 Total Bilirubin 1.1 mg/dL (0.0-1.1) 01/27/17 20:45 AST 17 U/L (0-48) 01/27/17 20:45 ALT 33 U/L (19-67) 01/27/17 20:45 Alkaline Phosphatase 99 U/L (50-170) 01/27/17 20:45 Troponin I Less than 0.017 ng/ml (0.00-0.10) 01/27/17 20:45 C-Reactive Prot, Quant 17.6 mg/dL (0.0-0.9) H 01/27/17 20:45 Total Protein 7.5 gm/dL (6.2-8.2) 01/27/17 20:45 Albumin 3.6 gm/dl (3.4-5.0) 01/27/17 20:45 Lipase 140 U/L (73-393) 01/27/17 20:45 Urine Color Dark yellow 01/28/17 00:05 Urine Appearance Clear 01/28/17 00:05 Urine pH 6.0 pH (5.0-7.0) 01/28/17 00:05 Ur Specific [place] 1.010 SP.GR. (1.005-1.030) 01/28/17 00:05 Urine Protein Negative mg/dL (NEGATIVE) 01/28/17 00:05 Urine Glucose (UA) >=1000 mg/dL (NEGATIVE) H 01/28/17 00:05 Urine Ketones Negative mg/dL (NEGATIVE) 01/28/17 00:05 Urine Blood Negative /ul (NEGATIVE) 01/28/17 00:05 Urine Nitrate Negative (NEGATIVE) 01/28/17 00:05 Urine Bilirubin Negative mg/dl (NEGATIVE) 01/28/17 00:05 Urine Urobilinogen Normal EU/dl (NORMAL) 01/28/17 00:05 Ur Leukocyte Esterase Negative /ul (NEGATIVE) 01/28/17 00:05 Urine RBC None seen /hpf (0-5) 01/28/17 00:05 Urine WBC None seen /hpf (0-5) 01/28/17 00:05 Ur Epithelial Cells 0-5 /hpf (0-5) 01/28/17 00:05 Urine Bacteria Trace (NONE) 01/28/17 00:05 Urine Culture Comments No culture indicated 01/28/17 00:05
[2017-01-28] MEDS: ALBUTEROL SULFATE/IPRATROPIUM 3 ML NEBU IH SCH ×7 (01:55→22:07)
[2017-01-28] MEDS ORDERED: oxyCODONE HCL/ACETAMINOPHEN 1 TAB TABLET PO PRN (02:27)
[2017-01-28] MEDS ORDERED: NITROGLYCERIN 0.4 MG/TAB BTL SL PRN (02:27)
[2017-01-28] MEDS: ACETAMINOPHEN 650 MG TABLET PO SCH ×4 (05:19→22:59)
[2017-01-28] MEDS: BUDESONIDE 0.5 MG/2 ML VIAL.NEB IH SCH ×2 (06:02→18:14)
[2017-01-28 06:22] LABS: Hematocrit 39.7 % (42.0-52.0); Mean Cell Volume 95.4 fl (78-100); Mean Corpuscular Hemoglobin 33.7 pg (27-31); Mean Corpuscular Hgb Conc 35.3 g/dl (32-36); Mean Platelet Volume 12.7 fl (6.0-9.5); Platelet Count 240 K/mm3 (150-450); Red Blood Count 4.16 M/mm3 (4.7-6.0); Red Cell Distribution Width 13.3 % (11.5-14.0); White Blood Count 18.7 K/mm3 (4.0-10.5)
[2017-01-28 06:26] LABS: Total Cells Counted 100
[2017-01-28 06:28] LABS: Prothrombin Time (Patient) 34.3 Seconds (9.0-11.0)
[2017-01-28 06:29] LABS: Anion Gap 11.8 mmol/L (6.8-13.8); BUN/Creatinine Ratio 19.2 (9.0-21.6); Calcium * 8.5 mg/dL (7.9-10.9); Carbon Dioxide 27.7 mmol/L (24-32.6); Estimated Creat Clear 86.1; Potassium 3.5 mmol/L (3.4-4.6)
[2017-01-28 06:30] LABS: INR 3.39 INR (0.90-1.10)
[2017-01-28 06:38] LABS: Eosinophil 1 % (0-3); Lymphocyte 15 % (20-51); Monocyte 19 % (0-9); Neutrophil 65 % (42-75); Neutrophil # 12.2 K/mm3 (1.3-6.0); Platelet Estimate Normal (NORMAL); RBC Morphology Normal (NORMAL)
--- NOTE | 2017-01-28 07:47 | PN ---
Progess Note - Interim Narrative: 01/28/17 07:41 This is an elderly gentleman, 76 years old, with COPD, who already uses oxygen at home, 3 liters per minute by nasal canula. He has diabetes, so is at risk because of immune system impairment due to his diabetes. His lab sugar yesterday was 281 and today was 249. He has known atherosclerosis of the brain and mild Binswanger's disease. He had brief angina in the ER, and known CAD. Today, his wbc has not changed significantly from his initial admission wbc of 20,900. In short, he is at risk for poor outcome due to multiple comorbidities.
[2017-01-28] MEDS: ASPIRIN 81 MG TABLET.DR PO SCH (08:47)
[2017-01-28] MEDS: LORATADINE 10 MG TABLET PO SCH (08:47)
[2017-01-28] MEDS: GLIMEPIRIDE 4 MG TABLET PO SCH ×2 (08:47→17:45)
[2017-01-28] MEDS: COLCHICINE 0.6 MG TABLET PO SCH (08:48)
[2017-01-28] MEDS: FUROSEMIDE 40 MG TABLET PO SCH (08:48)
[2017-01-28] MEDS: POTASSIUM CHLORIDE 20 MEQ TABLET.SA PO SCH (08:48)
[2017-01-28] MEDS: LOSARTAN POTASSIUM 50 MG TABLET PO SCH (08:48)
[2017-01-28] MEDS: ALLOPURINOL 100 MG TABLET PO SCH (08:49)
[2017-01-28] MEDS: PANTOPRAZOLE SODIUM 40 MG TABLET.EC PO SCH ×2 (08:49→21:05)
[2017-01-28] MEDS: NYSTATIN 30 APPL TUBE TP SCH ×3 (08:49→17:44)
[2017-01-28] MEDS: FENOFIBRATE,MICRONIZED 134 MG CAPSULE PO SCH (08:49)
[2017-01-28] MEDS: GABAPENTIN 100 MG CAPSULE PO SCH ×4 (08:49→21:05)
[2017-01-28] MEDS: METOPROLOL SUCCINATE 100 MG TABLET.SA PO SCH (08:50)
[2017-01-28] MEDS: ATORVASTATIN CALCIUM 40 MG TABLET PO SCH (08:50)
[2017-01-28] MEDS ORDERED: GLIMEPIRIDE 2 MG TABLET PO SCH (09:00)
[2017-01-28] MEDS ORDERED: METOPROLOL SUCCINATE 50 MG TABLET.SA PO SCH (09:00)
[2017-01-28] MEDS: MELATONIN 3,000 MCG TABLET PO SCH (21:05)
[2017-01-28] MEDS: INSULIN DETEMIR 100 UNITS/ML VIAL SC SCH (21:06)
[2017-01-28] MEDS: AZITHROMYCIN 500 MG in DEXTROSE 5 % IN WATER 250 ML IV SCH ×2 (21:40)
[2017-01-29] MEDS: ALBUTEROL SULFATE/IPRATROPIUM 3 ML NEBU IH SCH ×7 (02:09→22:08)
[2017-01-29] MEDS: ACETAMINOPHEN 650 MG TABLET PO SCH ×4 (05:30→23:32)
[2017-01-29 05:47] LABS: Hematocrit 38.6 % (42.0-52.0); Hemoglobin 13.7 gm/dL (13.5-18.0); Mean Cell Volume 95.8 fl (78-100); Mean Corpuscular Hgb Conc 35.5 g/dl (32-36); Mean Platelet Volume 11.6 fl (6.0-9.5); Platelet Count 242 K/mm3 (150-450); Red Blood Count 4.03 M/mm3 (4.7-6.0); Red Cell Distribution Width 13.2 % (11.5-14.0); White Blood Count 14.1 K/mm3 (4.0-10.5)
[2017-01-29 05:56] LABS: Prothrombin Time (Patient) 31.3 Seconds (9.0-11.0)
[2017-01-29 05:57] LABS: INR 3.09 INR (0.90-1.10)
[2017-01-29 05:59] LABS: Anion Gap 10.4 mmol/L (6.8-13.8); BUN/Creatinine Ratio 12.9 (9.0-21.6); Calcium * 8.7 mg/dL (7.9-10.9); Carbon Dioxide 28.3 mmol/L (24-32.6); Estimated Creat Clear 73.9; Potassium 3.7 mmol/L (3.4-4.6)
[2017-01-29] MEDS: BUDESONIDE 0.5 MG/2 ML VIAL.NEB IH SCH ×2 (06:03→18:09)
[2017-01-29 06:11] LABS: Total Cells Counted 100
[2017-01-29 06:31] LABS: Atypical (Reactive) Lymph 1 % (0-2); Howell-Jolly Bodies 1+; Lymphocyte 16 % (20-51); Monocyte 12 % (0-9); Neutrophil 71 % (42-75)
[2017-01-29 06:32] LABS: Platelet Estimate Normal (NORMAL)
[2017-01-29] MEDS: POTASSIUM CHLORIDE 20 MEQ TABLET.SA PO SCH (08:50)
[2017-01-29] MEDS: LOSARTAN POTASSIUM 50 MG TABLET PO SCH (08:50)
[2017-01-29] MEDS: ASPIRIN 81 MG TABLET.DR PO SCH (08:51)
[2017-01-29] MEDS: METOPROLOL SUCCINATE 100 MG TABLET.SA PO SCH (08:51)
[2017-01-29] MEDS: GABAPENTIN 100 MG CAPSULE PO SCH ×4 (08:51→21:36)
[2017-01-29] MEDS: ALLOPURINOL 100 MG TABLET PO SCH (08:51)
[2017-01-29] MEDS: PANTOPRAZOLE SODIUM 40 MG TABLET.EC PO SCH ×2 (08:51→21:36)
[2017-01-29] MEDS: GLIMEPIRIDE 4 MG TABLET PO SCH ×2 (08:51→18:01)
[2017-01-29] MEDS: ATORVASTATIN CALCIUM 40 MG TABLET PO SCH (08:51)
[2017-01-29] MEDS: FUROSEMIDE 40 MG TABLET PO SCH (08:51)
[2017-01-29] MEDS: FENOFIBRATE,MICRONIZED 134 MG CAPSULE PO SCH (08:51)
[2017-01-29] MEDS: COLCHICINE 0.6 MG TABLET PO SCH (08:51)
[2017-01-29] MEDS: LORATADINE 10 MG TABLET PO SCH (08:51)
[2017-01-29] MEDS: NYSTATIN 30 APPL TUBE TP SCH ×3 (08:52→18:01)
[2017-01-29] MEDS ORDERED: WARFARIN SODIUM 1 TAB TAB PO SCH (17:00)
[2017-01-29] MEDS: MELATONIN 3,000 MCG TABLET PO SCH (21:36)
[2017-01-29] MEDS: INSULIN DETEMIR 100 UNITS/ML VIAL SC SCH (21:37)
[2017-01-29] MEDS: AZITHROMYCIN 500 MG in DEXTROSE 5 % IN WATER 250 ML IV SCH ×2 (22:15)
[2017-01-29 23:39] LABS: BUN/Creatinine Ratio 15.2 (9.0-21.6)
[2017-01-30] MEDS: ALBUTEROL SULFATE/IPRATROPIUM 3 ML NEBU IH SCH ×3 (03:15→10:46)
[2017-01-30] MEDS: ACETAMINOPHEN 650 MG TABLET PO SCH ×2 (05:47→11:15)
[2017-01-30 05:59] LABS: Hemoglobin 13.8 gm/dL (13.5-18.0); Mean Cell Volume 96.5 fl (78-100); Mean Corpuscular Hemoglobin 34.2 pg (27-31); Mean Corpuscular Hgb Conc 35.4 g/dl (32-36); Mean Platelet Volume 11.3 fl (6.0-9.5); Neutrophil # 7.4 K/mm3 (1.3-6.0); Neutrophil % 62.5 % (42-75.0); Platelet Count 259 K/mm3 (150-450); Red Blood Count 4.04 M/mm3 (4.7-6.0); Red Cell Distribution Width 13.1 % (11.5-14.0); White Blood Count 11.9 K/mm3 (4.0-10.5)
[2017-01-30 06:04] LABS: Prothrombin Time (Patient) 22.1 Seconds (9.0-11.0)
[2017-01-30 06:06] LABS: Anion Gap 9.9 mmol/L (6.8-13.8); BUN/Creatinine Ratio 14.1 (9.0-21.6); Carbon Dioxide 27.6 mmol/L (24-32.6); Estimated Creat Clear 73.9; Potassium 3.5 mmol/L (3.4-4.6)
[2017-01-30 06:08] LABS: INR 2.19 INR (0.90-1.10)
[2017-01-30] MEDS: BUDESONIDE 0.5 MG/2 ML VIAL.NEB IH SCH (06:09)
[2017-01-30 06:44] VITALS: BP 127/74
--- NOTE | 2017-01-30 08:58 | DS ---
(1) Angina at rest Diagnosis(s): Brief, in the ER on admission Problem: Acute (2) Pneumonia Problem: Acute Qualifiers: Laterality: left Lung location: lower lobe of lung (3) COPD (chronic obstructive pulmonary disease) Problem: Chronic (4) GERD (gastroesophageal reflux disease) Problem: Chronic Qualifiers: Esophagitis presence: without esophagitis Qualified Code(s): K21.9 - Gastro -esophageal reflux disease without esophagitis (5) Diabetes Problem: Chronic Qualifiers: Diabetes mellitus type: type 2 (6) Pulmonary hypertension Problem: Chronic (7) Binswanger's disease Diagnosis(s): Mild Problem: Chronic (8) Chronic respiratory failure with hypoxia, on home O2 therapy Problem: Chronic (9) Pulmonary embolism Problem: Acute Qualifiers: Chronicity: unspecified Description of Stay: Following admission, patient was started on antibiotics. Clinically he improved steadily. He WBC count declined steadily. His exercise tolerance improved with each passing day. His INR remained steady. He was maintained on home oxygen. Pharmacy recommended home levaquin, which we will prescribe. Procedures Performed: none Discharge Disposition: Home self care Disposition: Home self-care Condition: Good Discharge Activity: Activity as tolerated Discharge Diet: Consistent carbs Problem Oriented Discharge Instructions to Patient/Family: Community-Acquired Pneumonia, Adult, [id number] Additional Patient Instructions (free text): TCM appointment at discharge. Please call Bridgette at [phone] when discharged. INR blood test on Saturday, in 2 days. Follow up with Dr. Bell, in 2 weeks. Prescriptions (Any new or edited meds): Insulin Detemir [Levemir] 15 units SC HS 30 Days vial Levofloxacin [Levaquin] 500 mg PO DAILY #14 tablet metFORMIN HCL [Glucophage] 1,000 mg PO BIDWM #60 tablet Complete Home Medications List: Complete Home Medication List: Aspirin [Aspirin Enteric Coated] 81 mg PO DAILY 01/09/13 Atorvastatin Calcium [Lipitor] 40 mg PO DAILY 01/09/13 Glimepiride [Amaryl] 4 mg PO BID 01/09/13 Metoprolol Succinate [Toprol Xl] 100 mg PO DAILY 01/09/13 Nitroglycerin 0.4 mg SL Q5MIN PRN 01/09/13 Acetaminophen [Tylenol Arthritis] 650 mg PO Q6H 06/02/16 Allopurinol [Zyloprim] 100 mg PO DAILY 06/02/16 Colchicine 0.6 mg PO DAILY 06/02/16 Fenofibrate [Lofibra] 160 mg PO DAILY 06/02/16 Fexofenadine HCl [Dayanna Allergy] 180 mg PO DAILY 06/02/16 Gabapentin [Neurontin] 100 mg PO QID 06/02/16 Ipratropium/Albuterol Sulfate [Combivent Respimat Inhal [place]] 1 puff IH QID Losartan Potassium [Cozaar] 25 mg PO DAILY 06/02/16 Pantoprazole Sodium [Protonix] 40 mg PO BID 06/02/16 oxyCODONE HCL/ACETAMINOPHEN [Percocet 5 MG/325 MG] 1 tab PO Q6H PRN 06/02/16 Budesonide [Pulmicort Respules] 0.5 mg IH BIDRT #28 vial.neb 07/10/16 Warfarin Sodium [Coumadin] 7.5 mg PO DAILY 08/05/16 Albuterol Sulfate [Ventolin HFA] 1 puff IH Q4H PRN 01/27/17 Furosemide [Lasix] 40 mg PO DAILY 01/27/17 Melatonin 10 mg PO HS 01/28/17 Insulin Detemir [Levemir] 15 units SC HS 30 Days vial 01/30/17 Levofloxacin [Levaquin] 500 mg PO DAILY #14 tablet 01/30/17 Nystatin [Mycostatin Cream] 1 appl TP TID tube 01/30/17 metFORMIN HCL [Glucophage] 1,000 mg PO BIDWM #60 tablet 01/30/17
[2017-01-30] MEDS: POTASSIUM CHLORIDE 20 MEQ TABLET.SA PO SCH (09:25)
[2017-01-30] MEDS: ASPIRIN 81 MG TABLET.DR PO SCH (09:25)
[2017-01-30] MEDS: COLCHICINE 0.6 MG TABLET PO SCH (09:25)
[2017-01-30] MEDS: LORATADINE 10 MG TABLET PO SCH (09:25)
[2017-01-30] MEDS: FUROSEMIDE 40 MG TABLET PO SCH (09:25)
[2017-01-30] MEDS: LOSARTAN POTASSIUM 50 MG TABLET PO SCH (09:25)
[2017-01-30] MEDS: ATORVASTATIN CALCIUM 40 MG TABLET PO SCH (09:26)
[2017-01-30] MEDS: METOPROLOL SUCCINATE 100 MG TABLET.SA PO SCH (09:26)
[2017-01-30] MEDS: FENOFIBRATE,MICRONIZED 134 MG CAPSULE PO SCH (09:26)
[2017-01-30] MEDS: ALLOPURINOL 100 MG TABLET PO SCH (09:26)
[2017-01-30] MEDS: PANTOPRAZOLE SODIUM 40 MG TABLET.EC PO SCH (09:26)
[2017-01-30] MEDS: GABAPENTIN 100 MG CAPSULE PO SCH ×2 (09:26→13:20)
[2017-01-30] MEDS: GLIMEPIRIDE 4 MG TABLET PO SCH (09:27)
[2017-01-30] MEDS: NYSTATIN 30 APPL TUBE TP SCH ×2 (09:27→13:20)
== END 2017-01-30 13:40 | disposition home or self-care (01) | DRG 194 ==
LOC: ER 20:23 → MS 01-28 00:43 → OBSVTOIN 01-28 07:16
PROVIDERS: ADMIT Nurse Practitioner; ATTEND Allergy & Immunology
DX: J18.9 Pneumonia, unspecified organism (principal); J44.0 Chronic obstructive pulmonary disease with (acute) lower respiratory infection; I67.3 Progressive vascular leukoencephalopathy; J96.11 Chronic respiratory failure with hypoxia; R53.1 Weakness; D72.829 Elevated white blood cell count, unspecified; I10 Essential (primary) hypertension; K21.9 Gastro-esophageal reflux disease without esophagitis; E11.9 Type 2 diabetes mellitus without complications; E78.5 Hyperlipidemia, unspecified; I25.10 Atherosclerotic heart disease of native coronary artery without angina pectoris; I25.2 Old myocardial infarction; Z87.891 Personal history of nicotine dependence; Z99.81 Dependence on supplemental oxygen; Z86.711 Personal history of pulmonary embolism; Z79.4 Long term (current) use of insulin; Z79.82 Long term (current) use of aspirin; Z79.01 Long term (current) use of anticoagulants

== ENCOUNTER 2017-11-30 11:30 | Observation (INO) ==
[2017-11-30] MEDS ORDERED: ONDANSETRON HCL/PF 2 MG/ML VIAL IV ONE (11:59)
[2017-11-30] MEDS ORDERED: MORPHINE SULFATE 4 MG/ML SYRG IV ONE (11:59)
[2017-11-30] MEDS ORDERED: NORMAL SALINE 1,000 ML IV ONE (11:59)
--- NOTE | 2017-11-30 12:03 | ERNOTE ---
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 Home Medications: HOME MEDICATIONS Aspirin [Aspirin Enteric Coated] 81 mg PO DAILY 01/09/13 [Last Taken 01/27/17] Atorvastatin Calcium [Lipitor] 40 mg PO DAILY 01/09/13 [Last Taken 01/27/17] Glimepiride [Amaryl] 4 mg PO BID 01/09/13 [Last Taken 01/27/17] Metoprolol Succinate [Toprol Xl] 100 mg PO DAILY 01/09/13 [Last Taken 01/27/17] Nitroglycerin 0.4 mg SL Q5MIN PRN 01/09/13 [Last Taken 01/27/17] Allopurinol [Zyloprim] 100 mg PO DAILY 06/02/16 [Last Taken 01/27/17] Fenofibrate [Lofibra] 160 mg PO DAILY 06/02/16 [Last Taken 01/27/17] Fexofenadine HCl [Dayanna Allergy] 180 mg PO DAILY 06/02/16 [Last Taken 01/27/17 ] Ipratropium/Albuterol Sulfate [Combivent Respimat 20-100 Mcg] 1 puff IH QID [Last Taken 01/27/17] Pantoprazole Sodium [Protonix] 40 mg PO BID 06/02/16 [Last Taken 01/27/17] oxyCODONE HCL/ACETAMINOPHEN [Percocet 5 MG/325 MG] 1 tab PO Q6H PRN 06/02/16 [ Last Taken 01/27/17] Warfarin Sodium [Coumadin] 7.5 mg PO DAILY 08/05/16 [Last Taken 01/27/17] Furosemide [Lasix] 40 mg PO DAILY 01/27/17 [Last Taken 01/27/17] Insulin Detemir [Levemir] 15 units SC HS 30 Days vial 01/30/17 [Last Taken Unknown] metFORMIN HCL [Glucophage] 1,000 mg PO BIDWM #60 tab 01/30/17 [Last Taken Unknown] acetaminophen ER 650 mg tablet,extended release 650 mg PO Q6H tab 10/25/17 [ Last Taken Unknown] blood sugar diagnostic, drum-type strips See Dose Instructions .ROUTE .MEDSUPPLY #51 ea 10/25/17 [Last Taken Unknown] blood-glucose meter kit See Dose Instructions .ROUTE .MEDSUPPLY #1 ea 10/25/17 [ Last Taken Unknown] budesonide 0.5 mg/2 mL suspension for nebulization 0.75 mg IH QID PRN ml [Last Taken Unknown] lancets See Dose Instructions .ROUTE .MEDSUPPLY #50 ea 10/25/17 [Last Taken Unknown] lancing device with lancets kit See Dose Instructions .ROUTE .MEDSUPPLY #1 ea [Last Taken Unknown] nebulizers See Dose Instructions .ROUTE .MEDSUPPLY #1 ea 10/25/17 [Last Taken Unknown] oxygen-air delivery systems device See Dose Instructions .ROUTE .MEDSUPPLY #1 [Last Taken Unknown] pen needle, diabetic 31 gauge x 5/16" See Dose Instructions .ROUTE .MEDSUPPLY # 30 ea 10/25/17 [Last Taken Unknown] warfarin 2 mg tablet See Label Instructions .ROUTE .COMPLEX 10/25/17 [Last Taken Unknown] alprazolam 0.25 mg tablet See Label Instructions PO HS PRN #60 tab 10/30/17 [ Last Taken Unknown] levothyroxine 25 mcg tablet 25 mcg PO DAILY 90 Days #90 tab 11/08/17 [Last Taken Unknown] losartan 25 mg tablet 25 mg PO DAILY #90 tab 11/27/17 [Last Taken Unknown] amoxicillin 875 mg-potassium clavulanate 125 mg tablet 1 tab PO BID 10 Days #20 tab 11/28/17 [Last Taken Unknown] docusate sodium 100 mg tablet 100 mg PO DAILY 11/28/17 [Last Taken Unknown] wheelchair See Dose Instructions .ROUTE .MEDSUPPLY #1 ea 11/28/17 [Last Taken Unknown] - History of Present Illness Narrative: Patient was seen in clinic yesterday and a complete workup was undertaken and he was discovered to have acute pancreatitis. A CAT scan was also done which did not reveal any severe abnormalities of the pancreas. He was told then that if the pain did not improve overnight that he would need to be admitted and he shows up today because the pains got worse. Timing: getting worse Quality: moderate, severe Activities at Onset: none Modifying Factors - (Worsens): Present: eating Associated Symptoms: Present: nausea Prior Abdominal Problems: Present: none Prior Treatment: Present: recently seen, treated by physician Review of Systems - Review of Systems Constitutional: Present: See HPI EYE: Present: no symptoms reported ENT: Present: no symptoms reported Respiratory: Present: no symptoms reported Cardiology: Present: no symptoms reported Gastrointestinal/Abdominal: Present: See HPI Genitourinary: Present: no symptoms reported Musculoskeletal: Present: no symptoms reported Skin: Present: no symptoms reported Neurological: Present: no symptoms reported Endocrine: Present: no symptoms reported Hematologic/Lymphatic: Present: no symptoms reported Psych: Present: no symptoms reported Medical History (Last Reviewed 11/30/17 @ 11:47 by Kaycee Cooper RN) Abnormal CT scan, lung Alzheimers disease Arthritis Asthma Bipolar 1 disorder Bronchitis CAD (coronary artery disease) COPD (chronic obstructive pulmonary disease) Cor pulmonale DJD (degenerative joint disease) DVT (deep venous thrombosis) Edema GERD (gastroesophageal reflux disease) HTN (hypertension) Hernia Hypercholesteremia Hypoxemia Insomnia Liposarcoma Mild concentric left ventricular hypertrophy (LVH) Myocardial infarction GURJIT (obstructive sleep apnea) PAD (peripheral artery disease) Peripheral neuropathy Pulmonary hypertension Rhinitis Stented coronary artery Type 2 diabetes mellitus History of splenectomy History of tonsillectomy Surgical History: Surgical History (Last Reviewed 11/30/17 @ 11:47 by Kaycee Cooper RN) H/O angioplasty H/O discectomy H/O spinal fusion History of abdominal surgery History of arthroscopic knee surgery History of carpal tunnel release History of colonoscopy History of knee replacement History of lumbar laminectomy Hx of appendectomy Presence of IVC filter Previous back surgery History of cholecystectomy Hx of cataract surgery Hx of vasectomy Family History: Family History (Last Reviewed 11/30/17 @ 11:47 by Kaycee Cooper RN) Brother Cancer Son Alive and well Sister Alive and well Sister Non-Hodgkin lymphoma Mother Heart disease Emphysema lung Father Heart disease Alzheimers disease Daughter Alive and well Social History: Preferred Language Sinhala Do you have any yazdanism or No cultural preference? Smoking Status Never smoker Abuse History No History of abuse Psych History No pertinent hx Alcohol Use none Drug Use none Physical Exam - Physical Exam General Appearance: Present: wd/wn, alert, moderate distress Head Exam: Present: normal inspection, no evidence of injury Eye Exam: Normal inspection: bilateral, PERRL: bilateral Ears, Nose, Throat: Present: normal ENT inspection, H, normal pharynx Neck: Present: normal inspection, nontender Respiratory: Present: no respiratory distress, normal breath sounds, no accessory muscle use, chest nontender, lungs clear Cardiovascular/Chest: Present: regular rate, rhythm, no murmur, normal peripheral pulses Gastrointestinal/Abdominal: Present: normal bowel sounds, nondistended, soft, no organomegaly, tenderness Rectal Exam: Present: deferred Male Genitals Exam: Present: deferred Back Exam: Present: normal inspection, normal range of motion Extremity Exam: Present: normal inspection, non-tender, no edema, normal range of motion Neurological Exam: Present: alert, normal mood/affect Skin Exam: Present: normal color, warm/dry Lymphatic Exam: Present: no adenopathy ED Progress - Results and Orders Patient's Lab Results:: I have reviewed the patient's lab results. - Vital Signs Patient's Vital Signs:: I have reviewed the patient's vital signs. Vital Signs: Vital Signs 11/30/17 11:36 Temperature 36.6 C Pulse Rate 72 Respiratory Rate 16 Blood Pressure 143/98 H O2 Sat by Pulse Oximetry 91 L - Progress/Reassessment Chief Complaint: Abdominal Pain Plan - Plan Plan: I have reviewed the CAT scan and the laboratory examinations from yesterday and patient has pancreatitis and is not doing well at home. She'll be admitted for IV fluids, pain and nausea control. Departure Clinical Impression: Acute pancreatitis Qualifiers: Pancreatitis type: unspecified pancreatitis type Acute pancreatitis complication: no infection or necrosis Qualified Code(s): K85.90 - Acute pancreatitis without necrosis or infection, unspecified - Departure Disposition: Still a patient Condition: Fair
[2017-11-30] MEDS ORDERED: ONDANSETRON HCL/PF 2 MG/ML VIAL ONE (12:06)
[2017-11-30] MEDS ORDERED: MORPHINE SULFATE 4 MG/ML SYRG ONE (12:06)
[2017-11-30 12:14] LABS: Hematocrit 46.9 % (42.0-52.0); Hemoglobin 16.7 gm/dL (13.5-18.0); Mean Cell Volume 94.9 fl (78-100); Mean Corpuscular Hemoglobin 33.8 pg (27-31); Mean Corpuscular Hgb Conc 35.6 g/dl (32-36); Mean Platelet Volume 10.4 fl (8-11.3); Neutrophil # 8.9 K/mm3 (1.3-6.0); Neutrophil % 72.1 % (42-75.0); Platelet Count 341 K/mm3 (150-450); Red Blood Count 4.94 M/mm3 (4.7-6.0); White Blood Count 12.4 K/mm3 (4.0-10.5)
[2017-11-30 12:28] LABS: Albumin * 3.8 gm/dl (3.4-5.0); Anion Gap 11.7 mmol/L (6.8-13.8); BUN/Creatinine Ratio 13.4 (9.0-21.6); Bilirubin, Total 1.1 mg/dL (0.0-1.1); Ca. Corrected For Albumin 8.8 mg/dL (8.4-10.2); Carbon Dioxide 30.9 mmol/L (24-32.6); Potassium 3.6 mmol/L (3.4-4.6); Total Protein 7.4 gm/dL (6.2-8.2)
[2017-11-30] MEDS ORDERED: ACETAMINOPHEN 325 MG TABLET PO PRN (12:52)
[2017-11-30] MEDS ORDERED: SENNOSIDES/DOCUSATE SODIUM 1 TAB TABLET PO PRN (12:52)
[2017-11-30] MEDS ORDERED: traMADol HCL 50 MG TABLET PO PRN (12:53)
[2017-11-30] MEDS ORDERED: ONDANSETRON HCL/PF 2 MG/ML VIAL IV PRN (12:53)
[2017-11-30] MEDS: POLYETHYLENE GLYCOL 3350 119 GM BTL PO SCH (14:14)
[2017-11-30] MEDS: BISACODYL 10 MG SUPP.RECT RC SCH (14:15)
[2017-11-30] MEDS ORDERED: SENNOSIDES/DOCUSATE SODIUM 1 TAB TABLET PO SCH (21:00)
[2017-12-01 05:55] LABS: Prothrombin Time (Patient) 15.3 Seconds (9.0-11.0)
[2017-12-01 05:57] LABS: INR 1.52 INR (0.90-1.10)
--- NOTE | 2017-12-01 08:51 | HP ---
Chief Complaint - Chief Complaint Date of Service: 11/30/17 Time of Service: 12:30 Chief Complaint: Abdominal pain History of Present Illness: The patient has undergone outpatient work-up through his PCP, Lou Lizama. He states he was told he has pancreatitis and if his symptoms didn't resolve he would need to be admitted to the hospital so he presented to the ED as instructed because he symptoms had not resolved yet. The patient points to the area of his pain which starts over his right flank and radiates to his right upper quadrant and epigastric area. He states he has had this pain for a while now and he notices the pain mostly when he changes position such as bending over or twisting and reaching for something. Medical History (Last Reviewed 11/30/17 @ 11:47 by Kaycee Cooper RN) Abnormal CT scan, lung Alzheimers disease Arthritis Asthma Bipolar 1 disorder Bronchitis CAD (coronary artery disease) COPD (chronic obstructive pulmonary disease) Cor pulmonale DJD (degenerative joint disease) DVT (deep venous thrombosis) Edema GERD (gastroesophageal reflux disease) HTN (hypertension) Hernia Hypercholesteremia Hypoxemia Insomnia Liposarcoma Mild concentric left ventricular hypertrophy (LVH) Myocardial infarction GURJIT (obstructive sleep apnea) PAD (peripheral artery disease) Peripheral neuropathy Pulmonary hypertension Rhinitis Stented coronary artery Type 2 diabetes mellitus History of splenectomy History of tonsillectomy Surgical History: Surgical History (Last Reviewed 11/30/17 @ 11:47 by Kaycee Cooper RN) H/O angioplasty H/O discectomy H/O spinal fusion History of abdominal surgery History of arthroscopic knee surgery History of carpal tunnel release History of colonoscopy History of knee replacement History of lumbar laminectomy Hx of appendectomy Presence of IVC filter Previous back surgery History of cholecystectomy Hx of cataract surgery Hx of vasectomy Family History: Family History (Last Reviewed 11/30/17 @ 11:47 by Kaycee Cooper RN) Brother Cancer Son Alive and well Sister Alive and well Sister Non-Hodgkin lymphoma Mother Heart disease Emphysema lung Father Heart disease Alzheimers disease Daughter Alive and well Social History: Patient Lives/Resources With Spouse 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 Smoking Status Never smoker Have you smoked in the past 12 No months Abuse History No History of abuse Psych History No pertinent hx Alcohol Use none Drug Use none Review Of Systems (GEN) - Review of Systems Generalized/Overall Review: Absent: Chills, Fever Abdominal: Present: Abdominal Pain, Constipation Genitourinary: Present: No Symptoms Reported Misc: All systems neg except as marked Immunizations: IMMUNIZATION HX Immunizations Up to Date Yes History of Influenza Vaccine Yes Hx Pneumococcal Vaccination Yes Allergies/Adverse Reactions: Allergies Allergy/AdvReac Type Severity Reaction Status Date / Time gabapentin AdvReac MONUMENT SETTER side Verified 11/30/17 11:46 effects Home Medications: HOME MEDICATIONS Aspirin [Aspirin Enteric Coated] 81 mg PO DAILY 01/09/13 [Last Taken 01/27/17] Atorvastatin Calcium [Lipitor] 40 mg PO DAILY 01/09/13 [Last Taken 01/27/17] Glimepiride [Amaryl] 4 mg PO BID 01/09/13 [Last Taken 01/27/17] Metoprolol Succinate [Toprol Xl] 100 mg PO DAILY 01/09/13 [Last Taken 01/27/17] Nitroglycerin 0.4 mg SL Q5MIN PRN 01/09/13 [Last Taken 01/27/17] Allopurinol [Zyloprim] 100 mg PO DAILY 06/02/16 [Last Taken 01/27/17] Fenofibrate [Lofibra] 160 mg PO DAILY 06/02/16 [Last Taken 01/27/17] Fexofenadine HCl [Dayanna Allergy] 180 mg PO DAILY 06/02/16 [Last Taken 01/27/17 ] Ipratropium/Albuterol Sulfate [Combivent Respimat 20-100 Mcg] 1 puff IH QID [Last Taken 01/27/17] Pantoprazole Sodium [Protonix] 40 mg PO BID 06/02/16 [Last Taken 01/27/17] oxyCODONE HCL/ACETAMINOPHEN [Percocet 5 MG/325 MG] 1 tab PO Q6H PRN 06/02/16 [ Last Taken 01/27/17] Warfarin Sodium [Coumadin] 7.5 mg PO DAILY 08/05/16 [Last Taken 01/27/17] Furosemide [Lasix] 40 mg PO DAILY 01/27/17 [Last Taken 01/27/17] Insulin Detemir [Levemir] 15 units SC HS 30 Days vial 01/30/17 [Last Taken Unknown] metFORMIN HCL [Glucophage] 1,000 mg PO BIDWM #60 tab 01/30/17 [Last Taken Unknown] acetaminophen ER 650 mg tablet,extended release 650 mg PO Q6H tab 10/25/17 [ Last Taken Unknown] blood sugar diagnostic, drum-type strips See Dose Instructions .ROUTE .MEDSUPPLY #51 ea 10/25/17 [Last Taken Unknown] blood-glucose meter kit See Dose Instructions .ROUTE .MEDSUPPLY #1 ea 10/25/17 [ Last Taken Unknown] budesonide 0.5 mg/2 mL suspension for nebulization 0.75 mg IH QID PRN ml [Last Taken Unknown] lancets See Dose Instructions .ROUTE .MEDSUPPLY #50 ea 10/25/17 [Last Taken Unknown] lancing device with lancets kit See Dose Instructions .ROUTE .MEDSUPPLY #1 ea [Last Taken Unknown] alprazolam 0.25 mg tablet See Label Instructions PO HS PRN #60 tab 10/30/17 [ Last Taken Unknown] levothyroxine 25 mcg tablet 25 mcg PO DAILY 90 Days #90 tab 11/08/17 [Last Taken Unknown] losartan 25 mg tablet 25 mg PO DAILY #90 tab 11/27/17 [Last Taken Unknown] docusate sodium 100 mg tablet 100 mg PO DAILY 11/28/17 [Last Taken Unknown] Exam - Exam Vital Signs: Vital Signs - Last Taken Temp 36.8 C 12/01/17 07:56 Pulse 59 L 12/01/17 07:56 Resp 18 12/01/17 07:56 BP 117/54 12/01/17 07:56 Pulse Ox 94 12/01/17 07:56 Constitutional: Present: Alert, Oriented x3, Cooperative, No distress, Elderly, Obese ENT Exam: Present: moist mucous membranes Back Exam: Present: no CVA tenderness, no vertebral tenderness Respiratory: Present: lungs clear, normal breath sounds, no respiratory distress , no accessory muscle use, other - crackles initially heard at the bases bilateral but after having the patient take a few deep breaths and cough, the crackles resolved indicating the initial crackles heard were most likely secondary to atelectasis Cardiovascular/Chest: Present: regular rate, rhythm Abdomen: Present: soft, no rebound tenderness, obese, guarding - voluntary guarding only, other - TTP diffusely with voluntary guarding, most notable area of tenderness in the epigastric area, hypoactive. Absent: rigidity, CVA tenderness Skin Exam: Present: warm/dry Neurologic: Present: alert, normal mood/affect, oriented x 3 Appearance: Present: appropriate appearance, appropriate insight Eye contact: Present: cooperative, good eye contact Thoughts: Present: normal thought pattern, no apparent hallucination Diagnostic Studies: Abnormal Lab Results 11/30/17 11/30/17 12/01/17 Range/Units 12:08 12:08 05:43 WBC 12.4 H (4.0-10.5) K/mm3 MCH 33.8 H (27-31) pg Immature Gran # (Auto) 0.04 H (0.000-0.0310) K/mm3 Lymphocytes % 18.1 L (20-51) % Neutrophils # 8.9 H (1.3-6.0) K/mm3 PT 15.3 H (9.0-11.0) Seconds INR (Anticoag Therapy) 1.52 H (0.90-1.10) INR Random Glucose 145 H (70-110) mg/dL Lipase 434 H (73-393) U/L Laboratory Results WBC 12.4 K/mm3 (4.0-10.5) H 11/30/17 12:08 RBC 4.94 M/mm3 (4.7-6.0) 11/30/17 12:08 Hgb 16.7 gm/dL (13.5-18.0) 11/30/17 12:08 Hct 46.9 % (42.0-52.0) 11/30/17 12:08 MCV 94.9 fl (78-100) 11/30/17 12:08 MCH 33.8 pg (27-31) H 11/30/17 12:08 MCHC 35.6 g/dl (32-36) 11/30/17 12:08 RDW 13.0 % (11.5-14.0) 11/30/17 12:08 Plt Count 341 K/mm3 (150-450) 11/30/17 12:08 MPV 10.4 fl (8-11.3) 11/30/17 12:08 Immature Gran % (Auto) 0.30 % (0.001-0.429) 11/30/17 12:08 Immature Gran # (Auto) 0.04 K/mm3 (0.000-0.0310) H 11/30/17 12:08 Neutrophils % 72.1 % (42-75.0) 11/30/17 12:08 Lymphocytes % 18.1 % (20-51) L 11/30/17 12:08 Monocytes % 8.2 % (0.0-9) 11/30/17 12:08 Eosinophils % 0.7 % (0.0-3.0) 11/30/17 12:08 Basophils % 0.6 % (0.0-1.0) 11/30/17 12:08 Nucleated RBC % 0.0 k/mm3 (0-1) 11/30/17 12:08 Neutrophils # 8.9 K/mm3 (1.3-6.0) H 11/30/17 12:08 Lymphocytes # 2.24 k/mm3 (1.5-3.5) 11/30/17 12:08 Monocytes # 1.0 k/mm3 (0.0-1.0) 11/30/17 12:08 Eosinophils # 0.1 k/mm3 (0.0-0.7) 11/30/17 12:08 Absolute Basophils 0.1 k/mm3 (0.0-0.1) 11/30/17 12:08 PT 15.3 Seconds (9.0-11.0) H 12/01/17 05:43 INR (Anticoag Therapy) 1.52 INR (0.90-1.10) H 12/01/17 05:43 Sodium 141 mmol/L (132-142) 11/30/17 12:08 Plasma Sodium 142 mmol/L (130-142) 11/30/17 12:08 Potassium 3.6 mmol/L (3.4-4.6) 11/30/17 12:08 Chloride 102 mmol/L (97-106) 11/30/17 12:08 Carbon Dioxide 30.9 mmol/L (24-32.6) 11/30/17 12:08 Anion Gap 11.7 mmol/L (6.8-13.8) 11/30/17 12:08 BUN 11 mg/dL (6-23) 11/30/17 12:08 Creatinine 0.82 mg/dL (0.4-1.4) 11/30/17 12:08 Est GFR (Non-Af Amer) 97 mL/min (60-130) 11/30/17 12:08 BUN/Creatinine Ratio 13.4 (9.0-21.6) 11/30/17 12:08 Random Glucose 145 mg/dL (70-110) H 11/30/17 12:08 Calcium 9.0 mg/dL (7.9-10.9) 11/30/17 12:08 Calcium Adj for Albumin 8.8 mg/dL (8.4-10.2) 11/30/17 12:08 Total Bilirubin 1.1 mg/dL (0.0-1.1) 11/30/17 12:08 AST 23 U/L (0-48) 11/30/17 12:08 ALT 44 U/L (19-67) 11/30/17 12:08 Alkaline Phosphatase 124 U/L (50-170) 11/30/17 12:08 Total Protein 7.4 gm/dL (6.2-8.2) 11/30/17 12:08 Albumin 3.8 gm/dl (3.4-5.0) 11/30/17 12:08 Lipase 434 U/L (73-393) H 11/30/17 12:08 Assessment/Plan - Narrative Narrative: Lipase improving from outpatient labs. Continue IVF hydration with NS @ 75 cc/ hr. Clear liquid diet and advance as tolerated. Start aggressive bowel regimen and monitor for improvement in abdominal symptoms following BM. Encourage ambulation. Patient can likely be discharged home in the AM as long as he remains clinically stable. - Assessment/Plan (1) Acute pancreatitis Problem: Acute Qualifiers: Pancreatitis type: unspecified pancreatitis type Acute pancreatitis complication: no infection or necrosis Qualified Code(s): K85.90 - Acute pancreatitis without necrosis or infection, unspecified (2) Right inguinal hernia Problem: Chronic
[2017-12-01] MEDS ORDERED: NITROGLYCERIN 0.4 MG/TAB BTL SL PRN (08:52)
[2017-12-01] MEDS ORDERED: BUDESONIDE 0.5 MG/2 ML VIAL.NEB IH PRN (08:52)
[2017-12-01] MEDS ORDERED: oxyCODONE HCL/ACETAMINOPHEN 1 TAB TABLET PO PRN (08:52)
[2017-12-01] MEDS ORDERED: ALPRAZolam 0.25 MG TABLET PO PRN (08:52)
--- NOTE | 2017-12-01 08:52 | DS ---
(1) Acute pancreatitis Problem: Acute Qualifiers: Pancreatitis type: unspecified pancreatitis type Acute pancreatitis complication: no infection or necrosis Qualified Code(s): K85.90 - Acute pancreatitis without necrosis or infection, unspecified (2) Right inguinal hernia Problem: Chronic (3) Constipation Diagnosis(s): Likely acute on chronic Problem: Acute Description of Stay: ADMISSION DATE: 11/30/2017 DISCHARGE DATE: 12/01/2017 ADMISSION HPI: The patient has undergone outpatient work-up through his PCP, Lou Lizama. He states he was told he has pancreatitis and if his symptoms didn't resolve he would need to be admitted to the hospital so he presented to the ED as instructed because he symptoms had not resolved yet. The patient points to the area of his pain which starts over his right flank and radiates to his right upper quadrant and epigastric area. He states he has had this pain for a while now and he notices the pain mostly when he changes position such as bending over or twisting and reaching for something. HOSPITAL COURSE: The patient presented to the ED and was admitted to observation secondary to abdominal pain. The patient had an outpatient work-up which revealed an elevated lipase level and was diagnosed with pancreatitis. On admission, lipase was already improving and trending down. During the patients hospital stay, he was treated with IVF hydration and started on a clear liquid diet with instructions to advance as tolerated. I am not convinced the patients abdominal pain is completely secondary to pancreatitis. The pain starts over his right flank and radiates to his right upper quadrant and epigastric area and down to his right lower quadrant. I believe the patients constipation is playing a role. He was treated with an aggressive bowel regimen and had a good BM the evening after admission and he stated his abdominal pain was improved on the AM of discharge. I am also concerned that his right inguinal hernia which contains a portion of his bladder may be contributing to his abdominal pain, especially since he states the pain is made worse by particular movements and bending over which can cause increased abdominal pressure. I would recommend PCP consider outpatient general surgery consult for possible colonoscopy, EGD and right inguinal hernia repair if felt necessary. Overall, the patients hospital stay was uneventful and he was discharged home in stable condition. FOLLOW-UP APPOINTMENTS: -PCP, Lou Lizama, within 1 week -Follow-up with coumadin clinic next week. Please have the Coumadin clinic call the patient on Saturday (12/02/2017) with instructions on when to come in to check INR and adjust coumadin as necessary. NEW OR CHANGED MEDICATIONS: -None DISCONTINUED MEDICATIONS: -None RADIOLOGY REPORTS: PA and lateral CXR on 11/28/2017: No focal acute cardiopulmonary findings. CT abdomen and pelvis with oral and IV contrast on 11/28/2017: 1. Questionable mild bowel wall thickening of the sigmoid colon, with proximal distention of the colonic segments and stool retention. Consider possible focal colitis or even colonic lesion. Consider constipation versus low-grade obstruction. Consider further evaluation of the colon by colonoscopy. 2. Mild gastric wall thickening, which could be artefactual from nondistention but consider gastritis. 3. Stable right inguinal hernia containing a portion of the urinary bladder. Procedures Performed: none Results and Findings: Lab Pending Results 11/30/17 12:08: WBC 12.4 H, RBC 4.94, Hgb 16.7, Hct 46.9, MCV 94.9, MCH 33.8 H, MCHC 35.6, RDW 13.0, Plt Count 341, MPV 10.4, Immature Gran % (Auto) 0.30, Immature Gran # (Auto) 0.04 H, Neutrophils % 72.1, Lymphocytes % 18.1 L, Monocytes % 8.2, Eosinophils % 0.7, Basophils % 0.6, Nucleated RBC % 0.0, Neutrophils # 8.9 H, Lymphocytes # 2.24, Monocytes # 1.0, Eosinophils # 0.1, Absolute Basophils 0.1 11/30/17 12:08: Sodium 141, Plasma Sodium 142, Potassium 3.6, Chloride 102, Carbon Dioxide 30.9, Anion Gap 11.7, BUN 11, Creatinine 0.82, Est GFR (Non-Af Amer) 97, BUN/Creatinine Ratio 13.4, Random Glucose 145 H, Calcium 9.0, Calcium Adj for Albumin 8.8, Total Bilirubin 1.1, AST 23, ALT 44, Alkaline Phosphatase 124, Total Protein 7.4, Albumin 3.8, Lipase 434 H 12/01/17 05:43: PT 15.3 H, INR (Anticoag Therapy) 1.52 H Discharge Location: Home Disposition: Home self-care Condition: Stable Discharge Activity: Activity as tolerated Discharge Diet: Consistent carbs, Clear Liquids, Other - Advance to diabetic diet as tolerated Problem Oriented Discharge Instructions to Patient/Family: Hypertension, Easy- to-Read, Flank Pain, [id number] Additional Patient Instructions (free text): -Follow-up with PCP, Lou Lizama, within 1 week -Follow-up with coumadin clinic next week Complete Home Medications List: Complete Home Medication List: Aspirin [Aspirin Enteric Coated] 81 mg PO DAILY 01/09/13 Atorvastatin Calcium [Lipitor] 40 mg PO DAILY 01/09/13 Glimepiride [Amaryl] 4 mg PO BID 01/09/13 Metoprolol Succinate [Toprol Xl] 100 mg PO DAILY 01/09/13 Nitroglycerin 0.4 mg SL Q5MIN PRN 01/09/13 Allopurinol [Zyloprim] 100 mg PO DAILY 06/02/16 Fenofibrate [Lofibra] 160 mg PO DAILY 06/02/16 Fexofenadine HCl [Dayanna Allergy] 180 mg PO DAILY 06/02/16 Ipratropium/Albuterol Sulfate [Combivent Respimat 20-100 Mcg] 1 puff IH QID Pantoprazole Sodium [Protonix] 40 mg PO BID 06/02/16 oxyCODONE HCL/ACETAMINOPHEN [Percocet 5 MG/325 MG] 1 tab PO Q6H PRN 06/02/16 Warfarin Sodium [Coumadin] 7.5 mg PO DAILY 08/05/16 Furosemide [Lasix] 40 mg PO DAILY 01/27/17 Insulin Detemir [Levemir] 15 units SC HS 30 Days vial 01/30/17 metFORMIN HCL [Glucophage] 1,000 mg PO BIDWM #60 tab 01/30/17 acetaminophen ER 650 mg tablet,extended release 650 mg PO Q6H tab 10/25/17 blood sugar diagnostic, drum-type strips See Dose Instructions .ROUTE .MEDSUPPLY #51 ea 10/25/17 blood-glucose meter kit See Dose Instructions .ROUTE .MEDSUPPLY #1 ea 10/25/17 budesonide 0.5 mg/2 mL suspension for nebulization 0.75 mg IH QID PRN ml lancets See Dose Instructions .ROUTE .MEDSUPPLY #50 ea 10/25/17 lancing device with lancets kit See Dose Instructions .ROUTE .MEDSUPPLY #1 ea alprazolam 0.25 mg tablet See Label Instructions PO HS PRN #60 tab 10/30/17 levothyroxine 25 mcg tablet 25 mcg PO DAILY 90 Days #90 tab 11/08/17 losartan 25 mg tablet 25 mg PO DAILY #90 tab 11/27/17 docusate sodium 100 mg tablet 100 mg PO DAILY 11/28/17
[2017-12-01] MEDS ORDERED: GLIMEPIRIDE 4 MG TABLET PO SCH (09:00)
[2017-12-01] MEDS ORDERED: ASPIRIN 81 MG TABLET.DR PO SCH (09:00)
[2017-12-01] MEDS ORDERED: PANTOPRAZOLE SODIUM 40 MG TABLET.EC PO SCH (09:00)
[2017-12-01] MEDS ORDERED: LOSARTAN POTASSIUM 50 MG TABLET PO SCH (09:00)
[2017-12-01] MEDS ORDERED: METOPROLOL SUCCINATE 100 MG TABLET.SA PO SCH (09:00)
[2017-12-01] MEDS ORDERED: DOCUSATE SODIUM 100 MG CAPSULE PO SCH (09:00)
[2017-12-01] MEDS ORDERED: FUROSEMIDE 40 MG TABLET PO SCH (09:00)
[2017-12-01] MEDS ORDERED: LEVOTHYROXINE SODIUM 25 MCG TABLET PO SCH (09:00)
[2017-12-01] MEDS ORDERED: FENOFIBRATE,MICRONIZED 134 MG CAPSULE PO SCH (09:00)
[2017-12-01] MEDS ORDERED: WARFARIN SODIUM 7.5 MG TABLET PO SCH (09:00)
[2017-12-01] MEDS ORDERED: ALLOPURINOL 100 MG TABLET PO SCH (09:00)
[2017-12-01] MEDS ORDERED: LORATADINE 10 MG TABLET PO SCH (09:15)
[2017-12-01] MEDS: BISACODYL 10 MG SUPP.RECT RC SCH (10:06)
[2017-12-01] MEDS: POLYETHYLENE GLYCOL 3350 119 GM BTL PO SCH (10:09)
[2017-12-01 10:41] VITALS: BP 120/60
[2017-12-01] MEDS ORDERED: ALBUTEROL SULFATE/IPRATROPIUM 3 ML NEBU IH SCH (11:00)
[2017-12-01] MEDS ORDERED: WARFARIN SODIUM 4 MG TABLET PO SCH (17:00)
[2017-12-01] MEDS ORDERED: ROSUVASTATIN CALCIUM 20 MG TABLET PO SCH (21:00)
[2017-12-01] MEDS ORDERED: INSULIN DETEMIR 100 UNITS/ML VIAL SC SCH (21:00)
[2017-12-02] MEDS ORDERED: WARFARIN SODIUM 5 MG, WARFARIN SODIUM 4 MG PO SCH ×2 (17:00)
== END 2017-12-01 11:10 | disposition home or self-care (01) ==
LOC: ER 11:30 → MS 12:05 → INTOOBSV 12:05 → MS 12:36
PROVIDERS: ADMIT Internal Medicine; ATTEND Internal Medicine
CPT/HCPCS: 36415; 80053; 83690; 85025; 85610; 96361; 96374; 96375; 99284; G0378; J2405

== ENCOUNTER 2018-12-21 13:58 | Inpatient (IN) ==
[2018-12-21] MEDS ORDERED: METHYLPREDNISOLONE SOD SUCC/PF 40 MG/ML VIAL IV ONE (14:56)
[2018-12-21] MEDS ORDERED: ALBUTEROL SULFATE/IPRATROPIUM 3 ML NEBU IH ONE (14:56)
[2018-12-21 15:22] LABS: Hematocrit 44.2 % (42.0-52.0); Hemoglobin 15.8 gm/dL (13.5-18.0); Mean Cell Volume 96.1 fl (78-100); Mean Corpuscular Hemoglobin 34.3 pg (27-31); Mean Corpuscular Hgb Conc 35.7 g/dl (32-36); Mean Platelet Volume 10.7 fl (8-11.3); Neutrophil # 7.5 K/mm3 (1.3-6.0); Neutrophil % 60.1 % (42-75.0); Platelet Count 340 K/mm3 (150-450); Red Cell Distribution Width 12.8 % (11.5-14.0); White Blood Count 12.5 K/mm3 (4.0-10.5)
[2018-12-21 15:32] LABS: Prothrombin Time (Patient) 32.8 Seconds (9.1-10.7)
[2018-12-21 15:33] LABS: INR 3.48 INR (0.92-1.08)
[2018-12-21 15:51] LABS: ALT 26 U/L (19-67); AST 28 U/L (0-48); Albumin * 3.6 gm/dl (3.4-5.0); Alkaline Phosphatase * 118 U/L (50-170); Anion Gap 14.8 mmol/L (6.8-13.8); BUN/Creatinine Ratio 15.7 (9.0-21.6); Bilirubin, Total 0.6 mg/dL (0.0-1.1); Blood Urea Nitrogen 14 mg/dL (6-23); Ca. Corrected For Albumin 9.3 mg/dL (8.4-10.2); Calcium * 9.3 mg/dL (7.9-10.9); Carbon Dioxide 29.1 mmol/L (24-32.6); Chloride 106 mmol/L (97-106); Glucose * 100 mg/dL (70-110); Potassium 3.9 mmol/L (3.4-4.6); Sodium 146 mmol/L (132-142); Total Protein 7.9 gm/dL (6.2-8.2); Troponin I Less than 0.017 ng/mL (0.00-0.10)
[2018-12-21] MEDS ORDERED: cefTRIAXone SODIUM 1,000 MG/100 ML BAG IV ONE (16:21)
[2018-12-21] MEDS ORDERED: NITROGLYCERIN 1 INCH PACKET TD SCH (17:00)
--- NOTE | 2018-12-21 17:11 | ERNOTE ---
Dyspnea - Date Date of Service: 12/21/18 - General Presenting Symptoms: shortness of breath Time Seen by Provider: 12/21/18 14:22 Source: patient, family Exam Limitations: no limitations - Immun/Allergies/Home Medications Immunizations: IMMUNIZATION HX Immunizations Up to Date Yes History of Influenza Vaccine Yes Hx Pneumococcal Vaccination Yes Allergies/Adverse Reactions: Allergies gabapentin Adverse Reaction (Verified 12/21/18 14:16) [employer] side effects Home Medications: HOME MEDICATIONS Aspirin [Aspirin Enteric Coated] 81 mg PO DAILY 01/09/13 [Last Taken 01/27/17] Warfarin Sodium [Coumadin] 7.5 mg PO DAILY 08/05/16 [Last Taken 01/27/17] blood sugar diagnostic, drum-type strips See Dose Instructions .ROUTE .MEDSUPPLY #51 ea 10/25/17 [Last Taken Unknown] blood-glucose meter kit See Dose Instructions .ROUTE .MEDSUPPLY #1 ea 10/25/17 [Last Taken Unknown] budesonide 0.5 mg/2 mL suspension for nebulization 0.75 mg IH QID PRN ml 10/25/17 [Last Taken Unknown] lancets See Dose Instructions .ROUTE .MEDSUPPLY #50 ea 10/25/17 [Last Taken Unknown] lancing device with lancets kit See Dose Instructions .ROUTE .MEDSUPPLY #1 ea 10/25/17 [Last Taken Unknown] docusate sodium 100 mg tablet 100 mg PO DAILY 11/28/17 [Last Taken Unknown] glimepiride 2 mg tablet 4 mg PO BID #120 tab 05/06/18 [Last Taken Unknown] levothyroxine 25 mcg tablet 25 mcg PO DAILY 90 Days #90 tab 05/21/18 [Last Taken Unknown] pen needle, diabetic 31 gauge x 06/21" See Dose Instructions .ROUTE .MEDSUPPLY #100 ea 05/21/18 [Last Taken Unknown] losartan 25 mg tablet 25 mg PO DAILY #90 tab 05/27/18 [Last Taken Unknown] metformin 1,000 mg tablet 1,000 mg PO BID #180 tab 05/27/18 [Last Taken Unknown] nitroglycerin 0.4 mg sublingual tablet 0.4 mg SL Q5MIN PRN #30 tab 07/01/18 [Last Taken Unknown] bismuth subsalicylate 262 mg tablet 2 tab PO Q1H PRN #30 tab 08/20/18 [Last Taken Unknown] potassium chloride ER 10 mEq tablet,extended release 10 meq PO DAILY #7 tab 08/20/18 [Last Taken Unknown] simethicone 180 mg capsule 180 mg PO DAILY PRN #60 cap 08/20/18 [Last Taken Unknown] insulin detemir (U-100) 100 unit/mL (3 mL) subcutaneous pen 15 unit SUBCUT HS #15 ml 09/05/18 [Last Taken Unknown] furosemide 40 mg tablet See Rx Instructions .ROUTE .COMPLEX #90 tablet 10/16/18 [Last Taken Unknown] alprazolam 0.25 mg tablet 0.5 mg PO HS PRN #60 tab 10/27/18 [Last Taken Unknown] cholecalciferol (vitamin D3) 50,000 unit capsule 50,000 unit PO QWEEK #9 cap 11/06/18 [Last Taken Unknown] pantoprazole 40 mg tablet,delayed release 40 mg PO BID #180 tab 11/06/18 [Last Taken Unknown] atorvastatin 40 mg tablet See Rx Instructions .ROUTE .COMPLEX #90 tablet 11/20/18 [Last Taken Unknown] ipratropium 20 mcg-albuterol 100 mcg/actuation mist for inhalation 1 puff IH QID #4 g 11/21/18 [Last Taken Unknown] ipratropium-albuterol 0.5 mg-3 mg(2.5 mg base)/3 mL nebulization soln 3 ml IH QID PRN #600 ml 12/01/18 [Last Taken Unknown] metoprolol succinate ER 50 mg tablet,extended release 24 hr See Rx Instructions .ROUTE .COMPLEX #180 tablet 12/15/18 [Last Taken Unknown] oxycodone-acetaminophen 5 mg-325 mg tablet 1 tab PO BID PRN #60 tab 12/16/18 [Last Taken Unknown] Levofloxacin [Levaquin] 500 mg PO DAILY #10 tab 12/19/18 [Last Taken Unknown] - History of Present Illness Narrative: Patient presents to the ED for feeling increasingly weak and SOB. he was seen 2 days ago and Dx with pneumonia. Placed on Levaquin. He was offered admission at that time and now he tells me that he should have stayed. He feels much worse. more SOB. Ongoing cough. He now feels like he needs to be in the hospital. He uses home oxygen and has been constantly using it now at home. No hempoptysis. Increased SOB with any exertion. 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 Denies: fever/chills, chest pain/discomfort, ankle/leg swelling, lightheadedness Prior Treatment: Reports: recently seen, treated by physician, currently on an tibiotics. Denies: recently hospitalized Review of Systems - Review of Systems Constitutional: Absent: fever Respiratory: Present: shortness of breath, cough Cardiology: Absent: chest pain Gastrointestinal/Abdominal: Present: eating less. Absent: abdominal pain Genitourinary: Absent: dysuria All Other Systems: All systems neg except as marked Medical History (Updated 12/19/18 @ 23:55 by John Gamboa MD) Abnormal CT scan, lung 2016 showed multiple PE's Alzheimers disease Arthritis Asthma Bipolar 1 disorder Bronchitis CAD (coronary artery disease) COPD (chronic obstructive pulmonary disease) Cor pulmonale DJD (degenerative joint disease) DVT (deep venous thrombosis) Edema GERD (gastroesophageal reflux disease) HTN (hypertension) Hernia Hypercholesteremia Hypoxemia Insomnia Liposarcoma Mild concentric left ventricular hypertrophy (LVH) Myocardial infarction GURJIT (obstructive sleep apnea) PAD (peripheral artery disease) Peripheral neuropathy Pulmonary hypertension Rhinitis Type 2 diabetes mellitus Surgical History: Surgical History (Updated 12/01/17 @ 11:20 by Thania Melvin DO) H/O angioplasty 12/15/2003 RCA H/O discectomy 02/08/14 Revision left L3-4 H/O spinal fusion 08/29/2011 Lumbar, Dr. Golden History of abdominal surgery 07/15/07- - pre peritoneal low-grade liposarcoma, s/p wide local resection w/radiation therapy. History of arthroscopic knee surgery 1984 left knee History of carpal tunnel release 2002 [facility]- left side History of colonoscopy 01/13/13- [place]-scattered diverticulosis History of knee replacement 11/2005- right knee [address] grace History of lumbar laminectomy 02/08/2014 Dr. Golden. revision left L3 hemilaminectomy and left L4 hemilaminectomy lumbar Hx of appendectomy Presence of IVC filter Previous back surgery Stented coronary artery 2003- RCA History of cholecystectomy 1984 [place]-open History of splenectomy 1958. an incidental finding of splenomegaly led to surgical removal History of tonsillectomy Hx of cataract surgery 1984 [place] and 1987 [place] Hx of vasectomy Family History: Family History (Updated 10/25/17 @ 14:04 by Amber Kuhn LPN) Brother Cancer Son Alive and well Sister Alive and well Sister Non-Hodgkin lymphoma Mother Heart disease Emphysema lung Father Heart disease Alzheimers disease Daughter Alive and well Social History: (Last Reviewed 12/21/18 @ 17:05 by Elias Ring MD) Social History: adopted: No Marital status: lives independently: No household members: spouse caregiver/support person: No current occupational status: retired Highest education level completed: 8th grade Service: No Tobacco: Smoking Status: Never smoker Alcohol: alcohol intake: never Substance Use: substance use type: does not use Dietary Habits: caffeine: Yes Type: carbonated beverages, coffee Exercise: Physical activity type: walking Physical Exam - Physical Exam General Appearance: Present: alert, other - harsh cough, on oxygen, appears chronically ill Head Exam: Present: normal inspection, no evidence of injury Eye Exam: Normal inspection: bilateral, PERRL: bilateral Ears, Nose, Throat: Present: normal ENT inspection, dry mucous membranes Neck: Present: other - trachea midline Respiratory: Present: other - mild tachypnea, faint wheezes in bases Cardiovascular/Chest: Present: normal peripheral pulses, irregularly irregular Gastrointestinal/Abdominal: Present: normal bowel sounds, nontender, soft Back Exam: Absent: CVA tenderness (R), CVA tenderness (L) Extremity Exam: Present: other - no caf tendneress or DVT findingsd Neurological Exam: Present: alert, other - generalized weakness, no acute unilateral focal motor or sensory deficits Skin Exam: Present: normal color, warm/dry Progress - Results and Orders Patient's Lab Results:: I have reviewed the patient's lab results. - Vital Signs Patient's Vital Signs:: I have reviewed the patient's vital signs. Vital Signs: Vital Signs 12/21/18 14:13 12/21/18 14:16 12/21/18 15:10 Temperature 36.4 C Pulse Rate 77 77 62 Respiratory Rate 15 18 Blood Pressure 124/82 O2 Sat by Pulse Oximetry 92 L 97 12/21/18 15:16 12/21/18 15:20 12/21/18 15:46 Temperature Pulse Rate 64 70 83 Respiratory Rate 15 18 12 Blood Pressure 137/71 148/73 O2 Sat by Pulse Oximetry 93 91 L - EKG EKG #1 EKG read: Interp. by me EKG Comments: likely A fib with rate 57. LAFB. Non-specific ST/T wave changes, no STEMI noted - X-Ray X-Ray #1 X-Ray: chest Interpretation: Interp. by me X-ray Comments: No real time radiology reads. No new acute process by my interp from last CXR, known pneumonia - Progress/Reassessment Chief Complaint: Dyspnea Progress Note-Subjective: 12/21/18 17:08 IV solumedrol and Duoneb given, his tachypnea resolved with this. IV Rocephin and IV Azithromycin given after discussio ith Dr Calderon who will admit the patient. Patient is agreeable. Departure Clinical Impression: Pneumonia, COPD (chronic obstructive pulmonary disease), Failure of outpatient treatment - Departure Disposition: Still a patient Condition: Fair
[2018-12-21] MEDS ORDERED: ACETAMINOPHEN 325 MG TABLET PO PRN (20:59)
[2018-12-21] MEDS ORDERED: ALBUTEROL SULFATE/IPRATROPIUM 3 ML NEBU IH PRN (21:00)
[2018-12-21] MEDS ORDERED: ENOXAPARIN SODIUM 40 MG/0.4 ML SYRG SC SCH (21:00)
[2018-12-21] MEDS ORDERED: ALPRAZolam 0.25 MG TABLET PO PRN (21:04)
[2018-12-21] MEDS ORDERED: NITROGLYCERIN 0.4 MG/TAB BTL SL PRN (21:15)
[2018-12-21] MEDS ORDERED: DOCUSATE SODIUM 100 MG CAPSULE PO PRN (21:15)
[2018-12-21] MEDS ORDERED: oxyCODONE HCL/ACETAMINOPHEN 1 TAB TABLET PO PRN (21:15)
[2018-12-21] MEDS ORDERED: ALBUTEROL SULFATE/IPRATROPIUM 3 ML NEBU IH SCH (21:30)
[2018-12-21] MEDS: FAMOTIDINE 20 MG in DEXTROSE 5 % IN WATER 100 ML IV SCH ×2 (22:03)
[2018-12-21] MEDS ORDERED: NORMAL SALINE 500 ML IV ONE (22:04)
--- NOTE | 2018-12-21 22:12 | HP ---
Chief Complaint - Chief Complaint Date of Service: 12/21/18 Time of Service: 21:51 Chief Complaint: I have had cough weakness and shortness of breath for several days History of Present Illness: 78-year-old male with past medical history of type 2 diabetes, hypertension, coronary artery disease, old SC, DVT, GERD, COPD on on home oxygen, obstructive sleep apnea, peripheral artery disease, peripheral neuropathy, pulmonary hypertension, cor pulmonale, bipolar 1 disorder, Alzheimer's disease, and osteoarthritis was evaluated in our ER due to worsening shortness of breath, productive cough, nausea and vomiting of several days dura tion. Patient was seen in the ER 2 days prior and was diagnosed with pneumonia and was discharged with oral antibiotics, however despite taking the medication as prescribed the patient's symptoms worsened. He reports that his cough became productive and this morning had streaks of blood in it and he became increasingly more short of breath with minimal exertion and sometimes at rest. At home treatments for his COPD were not effective. Patient reports that he is also been nauseous but has not vomited and his appetite has been decreased. He denies any fever or chills but says he feels horrible. Medical History (Updated 12/21/18 @ 17:11 by Elias Ring MD) COPD (chronic obstructive pulmonary disease) Abnormal CT scan, lung 2016 showed multiple PE's Alzheimers disease Arthritis Asthma Bipolar 1 disorder Bronchitis CAD (coronary artery disease) Cor pulmonale DJD (degenerative joint disease) DVT (deep venous thrombosis) Edema GERD (gastroesophageal reflux disease) HTN (hypertension) Hernia Hypercholesteremia Hypoxemia Insomnia Liposarcoma Mild concentric left ventricular hypertrophy (LVH) Myocardial infarction GURJIT (obstructive sleep apnea) PAD (peripheral artery disease) Peripheral neuropathy Pulmonary hypertension Rhinitis Type 2 diabetes mellitus Surgical History: Surgical History (Updated 12/01/17 @ 11:20 by Thania Melvin DO) H/O angioplasty 12/15/2003 RCA H/O discectomy 02/08/14 Revision left L3-4 H/O spinal fusion 08/29/2011 [place], Dr. Golden History of abdominal surgery 07/15/07- - pre peritoneal low-grade liposarcoma, s/p wide local resection w/radiation therapy. History of arthroscopic knee surgery 1983 left knee History of carpal tunnel release 2002 [facility]- left side History of colonoscopy 01/13/13- [place]-scattered diverticulosis History of knee replacement 11/2005- right knee [address] grace History of lumbar laminectomy 02/08/2014 Dr. Golden. revision left L3 hemilaminectomy and left L4 hemilaminectomy lumbar Hx of appendectomy Presence of IVC filter Previous back surgery Stented coronary artery 2003- RCA History of cholecystectomy 1984 [place]-open History of splenectomy 1958. an incidental finding of splenomegaly led to surgical removal History of tonsillectomy Hx of cataract surgery 1984 [place] and 1987 [place] Hx of vasectomy Family History: Family History (Updated 10/25/17 @ 14:04 by Amber Kuhn LPN) Brother Cancer Son Alive and well Sister Alive and well Sister Non-Hodgkin lymphoma Mother Heart disease Emphysema lung Father Heart disease Alzheimers disease Daughter Alive and well Social History: (Last Reviewed 12/21/18 @ 17:48 by Alexia Sheehan RN) Social History: adopted: No Marital status: lives independently: No household members: spouse caregiver/support person: No current occupational status: retired Highest education level completed: 8th grade Service: No Tobacco: Smoking Status: Never smoker Alcohol: alcohol intake: never Substance Use: substance use type: does not use Dietary Habits: caffeine: Yes Type: carbonated beverages, coffee Exercise: Physical activity type: walking Peds Patient Hx - Developmental: No Pertinent Hx Peds Patient Hx - Medical: No Pertinent Hx Peds Patient Hx - Cardiac/Respiratory: No Pertinent Hx Peds Patient Hx - Surgical: No Surgical History Patient History - Cancer: No Hx of Cancer Review Of Systems (GEN) - Review of Systems Generalized/Overall Review: Present: No Symptoms Reported EENTM: Present: No Symptoms Reported Respiratory: Present: No Symptoms Reported Cardiac: Present: No Symptoms Reported Abdominal: Present: Nausea, Vomiting Genitourinary: Present: No Symptoms Reported Musculoskeletal: Present: Other - Left flank pain Neurological: Present: No Symptoms Reported Skin: Present: No Symptoms Reported Endocrine: Present: No Symptoms Reported Immunizations: IMMUNIZATION HX Immunizations Up to Date Yes History of Influenza Vaccine Yes Hx Pneumococcal Vaccination Yes Allergies/Adverse Reactions: Allergies Allergy/AdvReac Type Severity Reaction Status Date / Time gabapentin AdvReac PROJECT MANAGEMENT SPECIALIST side Verified 12/21/18 17:48 effects Home Medications: HOME MEDICATIONS Aspirin [Aspirin Enteric Coated] 81 mg PO DAILY 01/09/13 [Last Taken 12/21/18 08:00] Warfarin Sodium [Coumadin] 8 mg PO DAILY 08/05/16 [Last Taken 12/21/18 14:00] blood sugar diagnostic, drum-type strips See Dose Instructions .ROUTE .MEDSUPPLY #51 ea 10/25/17 [Last Taken Unknown] blood-glucose meter kit See Dose Instructions .ROUTE .MEDSUPPLY #1 ea 10/25/17 [Last Taken Unknown] budesonide 0.5 mg/2 mL suspension for nebulization 0.75 mg IH PRN PRN ml 10/25/17 [Last Taken Unknown] lancets See Dose Instructions .ROUTE .MEDSUPPLY #50 ea 10/25/17 [Last Taken Unknown] lancing device with lancets kit See Dose Instructions .ROUTE .MEDSUPPLY #1 ea 10/25/17 [Last Taken Unknown] docusate sodium 100 mg tablet 100 mg PO PRN 11/28/17 [Last Taken Unknown] glimepiride 2 mg tablet 4 mg PO BID #120 tab 05/06/18 [Last Taken 12/21/18 08:00] levothyroxine 25 mcg tablet 25 mcg PO DAILY 90 Days #90 tab 05/21/18 [Last Taken 12/21/18 08:00] pen needle, diabetic 31 gauge x 3/16" See Dose Instructions .ROUTE .MEDSUPPLY #100 ea 05/21/18 [Last Taken Unknown] losartan 25 mg tablet 25 mg PO DAILY #90 tab 05/27/18 [Last Taken 12/21/18 08:00] metformin 1,000 mg tablet 1,000 mg PO BID #180 tab 05/27/18 [Last Taken 12/21/18 08:00] nitroglycerin 0.4 mg sublingual tablet 0.4 mg SL Q5MIN PRN #30 tab 07/01/18 [Last Taken Unknown] insulin detemir (U-100) 100 unit/mL (3 mL) subcutaneous pen 15 unit SUBCUT HS #15 ml 09/05/18 [Last Taken 12/20/18 20:00] furosemide 40 mg tablet See Rx Instructions .ROUTE .COMPLEX #90 tablet 10/16/18 [Last Taken 12/21/18 08:00] alprazolam 0.25 mg tablet 0.5 mg PO HS PRN #60 tab 10/27/18 [Last Taken 12/20/18 21:00] cholecalciferol (vitamin D3) 50,000 unit capsule 50,000 unit PO QWEEK #9 cap 11/06/18 [Last Taken 12/18/18 09:00] pantoprazole 40 mg tablet,delayed release 40 mg PO BID #180 tab 11/06/18 [Last Taken 12/21/18 08:00] atorvastatin 40 mg tablet See Rx Instructions .ROUTE .COMPLEX #90 tablet 11/20/18 [Last Taken 12/21/18 08:00] ipratropium 20 mcg-albuterol 100 mcg/actuation mist for inhalation 1 puff IH QID #4 g 11/21/18 [Last Taken 12/20/18 21:00] ipratropium-albuterol 0.5 mg-3 mg(2.5 mg base)/3 mL nebulization soln 3 ml IH QID PRN #600 ml 12/01/18 [Last Taken 12/20/18 21:00] metoprolol succinate ER 50 mg tablet,extended release 24 hr See Rx Instructions .ROUTE .COMPLEX #180 tablet 12/15/18 [Last Taken 12/21/18 08:00] oxycodone-acetaminophen 5 mg-325 mg tablet 1 tab PO BID PRN #60 tab 12/16/18 [Last Taken 12/21/18 08:00] Levofloxacin [Levaquin] 500 mg PO DAILY #10 tab 12/19/18 [Last Taken 12/20/18 22:00] Triamcinolone Acetonide [Kenalog 0.1% Ointment] 15 gm TOPICAL BID 12/21/18 [Last Taken Unknown] Exam - Exam Vital Signs: Vital Signs - Last Taken Temp 36.3 C 12/21/18 18:07 Pulse 74 12/21/18 18:07 Resp 22 H 12/21/18 18:07 BP 156/87 H 12/21/18 18:07 Pulse Ox 98 12/21/18 21:24 Constitutional: Present: Alert, Oriented x3, Cooperative, Well developed, Well nourished, No distress, Obese, Morbidly obese ENT Exam: Present: normal ENT inspection, hearing grossly normal, pharynx normal, TMs normal Eye Exam: bilateral eye: normal inspection, PERRL, EOMI Neck: Present: non-tender, full range of motion, supple, normal inspection, trachea midline Back Exam: Present: normal inspection Breasts: Present: Exam deferred Respiratory: Present: decreased breath sounds, crackles - Bibasilar crackles Cardiovascular/Chest: Present: normal peripheral pulses, no chest tenderness, no edema, no gallop, no JVD, no murmur, irregularly irregular Peripheral Pulses: carotid (R): 3+, carotid (L): 3+, femoral (R): 3+, femoral (L): 3+, dorsalis-pedis (R): 3+, dorsalis-pedis (L): 3+ Abdomen: Present: Normal bowel sounds, soft, nontender, nondistended, no rebound tenderness, no hepatospenomegaly, no masses, obese /Rectal: Present: Exam deferred Extremity: Present: normal range of motion, non-tender, normal inspection, no pedal edema, no calf tenderness, normal capillary refill Skin Exam: Present: normal color, warm/dry, no cyanosis Lymphatic: Present: no adenopathy Neurologic: Present: community program assistant II-XII nml as tested, no motor/sensory deficits, alert, normal mood/affect, oriented x 3 Appearance: Present: appropriate appearance, appropriate insight, neat, no me eyad impairment Eye contact: Present: cooperative, good eye contact, decreased rate of speech Thoughts: Present: normal thought pattern, no apparent hallucination Diagnostic Studies: Abnormal Lab Results 12/21/18 12/21/18 12/21/18 Range/Units 15:15 15:15 15:15 WBC 12.5 H (4.0-10.5) K/mm3 RBC 4.60 L (4.7-6.0) M/mm3 MCH 34.3 H (27-31) pg Immature Gran % (Auto) 0.60 H (0.001-0.429) % Immature Gran # (Auto) 0.07 H (0.000-0.0310) K/mm3 Eosinophils % 4.5 H (0.0-3.0) % Neutrophils # 7.5 H (1.3-6.0) K/mm3 Monocytes # 1.1 H (0.0-1.0) k/mm3 PT (9.1-10.7) Seconds INR (Anticoag Therapy) (0.92-1.08) INR Sodium 146 H (132-142) mmol/L Plasma Sodium 146 H (130-142) mmol/L Anion Gap 14.8 H (6.8-13.8) mmol/L Lactic Acid, Venous 2.6 H* (0.4-2.0) mmol/L 12/21/18 12/21/18 Range/Units 15:15 18:05 WBC (4.0-10.5) K/mm3 RBC (4.7-6.0) M/mm3 MCH (27-31) pg Immature Gran % (Auto) (0.001-0.429) % Immature Gran # (Auto) (0.000-0.0310) K/mm3 Eosinophils % (0.0-3.0) % Neutrophils # (1.3-6.0) K/mm3 Monocytes # (0.0-1.0) k/mm3 PT 32.8 H (9.1-10.7) Seconds INR (Anticoag Therapy) 3.48 H (0.92-1.08) INR Sodium (132-142) mmol/L Plasma Sodium (130-142) mmol/L Anion Gap (6.8-13.8) mmol/L Lactic Acid, Venous 2.6 H* (0.4-2.0) mmol/L Laboratory Results WBC 12.5 K/mm3 (4.0-10.5) H 12/21/18 15:15 RBC 4.60 M/mm3 (4.7-6.0) L 12/21/18 15:15 Hgb 15.8 gm/dL (13.5-18.0) 12/21/18 15:15 Hct 44.2 % (42.0-52.0) 12/21/18 15:15 MCV 96.1 fl (78-100) 12/21/18 15:15 MCH 34.3 pg (27-31) H 12/21/18 15:15 MCHC 35.7 g/dl (32-36) 12/21/18 15:15 RDW 12.8 % (11.5-14.0) 12/21/18 15:15 Plt Count 340 K/mm3 (150-450) 12/21/18 15:15 MPV 10.7 fl (8-11.3) 12/21/18 15:15 Immature Gran % (Auto) 0.60 % (0.001-0.429) H 12/21/18 15:15 Immature Gran # (Auto) 0.07 K/mm3 (0.000-0.0310) H 12/21/18 15:15 60.1 % (42-75.0) 12/21/18 15:15 25.3 % (20-51) 12/21/18 15:15 8.7 % (0.0-9) 12/21/18 15:15 4.5 % (0.0-3.0) H 12/21/18 15:15 0.8 % (0.0-1.0) 12/21/18 15:15 Nucleated RBC % 0.0 k/mm3 (0-1) 12/21/18 15:15 7.5 K/mm3 (1.3-6.0) H 12/21/18 15:15 3.15 k/mm3 (1.5-3.5) 12/21/18 15:15 1.1 k/mm3 (0.0-1.0) H 12/21/18 15:15 0.6 k/mm3 (0.0-0.7) 12/21/18 15:15 Absolute Basophils 0.1 k/mm3 (0.0-0.1) 12/21/18 15:15 PT 32.8 Seconds (9.1-10.7) H 12/21/18 15:15 INR (Anticoag Therapy) 3.48 INR (0.92-1.08) H 12/21/18 15:15 Sodium 146 mmol/L (132-142) H 12/21/18 15:15 146 mmol/L (130-142) H 12/21/18 15:15 Potassium 3.9 mmol/L (3.4-4.6) 12/21/18 15:15 Chloride 106 mmol/L (97-106) 12/21/18 15:15 Carbon Dioxide 29.1 mmol/L (24-32.6) 12/21/18 15:15 14.8 mmol/L (6.8-13.8) H 12/21/18 15:15 BUN 14 mg/dL (6-23) 12/21/18 15:15 0.89 mg/dL (0.4-1.4) 12/21/18 15:15 Est GFR (Non-Af Amer) 88 mL/min (60-130) 12/21/18 15:15 15.7 (9.0-21.6) 12/21/18 15:15 100 mg/dL (70-110) 12/21/18 15:15 2.6 mmol/L (0.4-2.0) H* 12/21/18 18:05 Calcium 9.3 mg/dL (7.9-10.9) 12/21/18 15:15 Calcium Adj for Albumin 9.3 mg/dL (8.4-10.2) 12/21/18 15:15 0.6 mg/dL (0.0-1.1) 12/21/18 15:15 AST 28 U/L (0-48) 12/21/18 15:15 ALT 26 U/L (19-67) 12/21/18 15:15 118 U/L (50-170) 12/21/18 15:15 Less than 0.017 ng/mL (0.00-0.10) 12/21/18 15:15 7.9 gm/dL (6.2-8.2) 12/21/18 15:15 3.6 gm/dl (3.4-5.0) 12/21/18 15:15 Assessment/Plan - Narrative Narrative: Patient was evaluated and medical chart was reviewed and decision to admit to [facility] for observation with a diagnosis of bronchopneumonia, mild dehydration, and COPD exacerbation was made. Patient will be administered IV antibiotics for his pneumonia and breathing treatments with duo nebs were ordered to treat his shortness of breath which has improved since being in hospital. Patient will also be kept on oxygen by nasal cannula to optimize oxygen saturation. He reports resolution of his nausea and has not vomited so a consistent carb diet was ordered. Patient was found to have bibasilar crackles on auscultation so hydration with fluid will have to be very cautious to avoid fluid overload given his cardiac history, we will attempt soft IV hydration to address dehydration. We will also treat patient with IV steroids, breathing treatments with DuoNeb, and oxygen by nasal cannula to treat his COPD exacerbation. Patient is currently on warfarin for atrial fibrillation, his INR on admission was 3.4 so warfarin has been held until we can recheck INR in the morning.. We will monitor INR daily to assure target has been reached. His routine medications were reconciled to be administered during the hospitalization. - Assessment/Plan (1) Pneumonia Problem: Acute (2) Mild dehydration Problem: Acute (3) Nausea & vomiting Problem: Acute (4) Generalized weakness Problem: Acute (5) COPD exacerbation Problem: Acute (6) Atrial fibrillation Problem: Chronic Qualifiers: Atrial fibrillation type: chronic Qualified Code(s): I48.2 - Chronic atrial fibrillation (7) Anticoagulant long-term use Problem: Acute
[2018-12-21] MEDS: DOCUSATE SODIUM 100 MG CAPSULE PO SCH (22:27)
[2018-12-21] MEDS: METHYLPREDNISOLONE SOD SUCC/PF 40 MG/ML VIAL IV SCH (22:28)
[2018-12-21] MEDS: INSULIN DETEMIR 100 UNITS/ML VIAL SC SCH (22:34)
[2018-12-22] MEDS: METHYLPREDNISOLONE SOD SUCC/PF 40 MG/ML VIAL IV SCH (04:06)
[2018-12-22] MEDS: ALBUTEROL SULFATE/IPRATROPIUM 3 ML NEBU IH SCH ×4 (06:03→18:02)
[2018-12-22 06:37] LABS: Hematocrit 44.6 % (42.0-52.0); Hemoglobin 16.2 gm/dL (13.5-18.0); Mean Cell Volume 94.9 fl (78-100); Mean Corpuscular Hemoglobin 34.5 pg (27-31); Mean Corpuscular Hgb Conc 36.3 g/dl (32-36); Mean Platelet Volume 10.7 fl (8-11.3); Neutrophil # 12.2 K/mm3 (1.3-6.0); Platelet Count 364 K/mm3 (150-450); Red Cell Distribution Width 12.3 % (11.5-14.0); White Blood Count 13.7 K/mm3 (4.0-10.5)
[2018-12-22 06:40] LABS: Prothrombin Time (Patient) 36.1 Seconds (9.1-10.7)
[2018-12-22 06:42] LABS: INR 3.84 INR (0.92-1.08)
[2018-12-22] MEDS ORDERED: DOCUSATE SODIUM 100 MG CAPSULE PO PRN (06:45)
[2018-12-22 06:46] LABS: Albumin * 3.3 gm/dl (3.4-5.0); Anion Gap 12.3 mmol/L (6.8-13.8); BUN/Creatinine Ratio 20.5 (9.0-21.6); Bilirubin, Total 0.6 mg/dL (0.0-1.1); Calcium * 8.8 mg/dL (7.9-10.9); Carbon Dioxide 29.3 mmol/L (24-32.6); Potassium 3.6 mmol/L (3.4-4.6); Total Protein 7.5 gm/dL (6.2-8.2)
[2018-12-22] MEDS ORDERED: INSULIN ASPART 100 UNITS/ML VIAL SC SCH (07:00)
[2018-12-22] MEDS: LEVOTHYROXINE SODIUM 25 MCG TABLET PO SCH (07:14)
[2018-12-22] MEDS: LOSARTAN POTASSIUM 50 MG TABLET PO SCH (08:18)
[2018-12-22] MEDS: METOPROLOL SUCCINATE 50 MG TABLET.SA PO SCH (08:18)
[2018-12-22] MEDS: FUROSEMIDE 40 MG TABLET PO SCH (08:18)
[2018-12-22] MEDS: DOCUSATE SODIUM 100 MG CAPSULE PO SCH ×2 (08:18→21:39)
[2018-12-22] MEDS: ASPIRIN 81 MG TABLET.DR PO SCH (08:18)
[2018-12-22] MEDS ORDERED: METHYLPREDNISOLONE SOD SUCC/PF 125 MG/2 ML VIAL IV SCH (10:00)
[2018-12-22] MEDS: FAMOTIDINE 20 MG in DEXTROSE 5 % IN WATER 100 ML IV SCH ×2 (10:13)
[2018-12-22] MEDS: INSULIN LISPRO 100 UNITS/ML VIAL SC SCH ×3 (12:15→21:40)
--- NOTE | 2018-12-22 13:08 | PN ---
Subjective - Date and Time Seen Date: 12/22/18 Time: 12:59 Subjective Narrative: I feel better I have less cough and shortness of breath Objective Objective Narrative: 78-year-old male admitted for pneumonia and COPD exacerbation was evaluated at bedside was found to be afebrile and in no acute distress. Patient reports feeling better than when he arrived, his shortness of breath has improved with breathing treatments [id number] and IV steroids. Labs done this morning demonstrate persistent leukocytosis however this is probably due to the IV steroids, therefore given his clinical improvement we will wean IV steroids. Patient has not had any recurrence of fever or chills while in our care and auscultation of his chest demonstrate improvement compared to when he arrived. Therefore given these findings we will order follow-up labs in the morning to reevaluate his leukocytosis and consider discharging him home. - Review of Systems Generalized/Overall Review: Reports: No Symptoms Reported EENTM: Reports: No Symptoms Reported Respiratory: Reports: Cough Cardiac: Reports: No Symptoms Reported Abdominal: Reports: No Symptoms Reported Genitourinary Symptoms: Reports: No Symptoms Reported Musculoskeletal Complaints: Reports: No Symptoms Reported Neurological: Reports: No Symptoms Reported Skin: Reports: No Symptoms Reported Endocrine: Reports: No Symptoms Reported - Vitals Vitals: Last Vital Signs Temp 36.5 C 12/22/18 10:00 Pulse 76 12/22/18 10:21 Resp 18 12/22/18 10:21 BP 148/83 12/22/18 10:00 Pulse Ox 100 12/22/18 10:12 - Abnormal Lab Findings Abnormal Lab Findings: Abnormal Lab Results 12/21/18 12/21/18 12/21/18 Range/Units 15:15 15:15 15:15 WBC 12.5 H (4.0-10.5) K/mm3 RBC 4.60 L (4.7-6.0) M/mm3 MCH 34.3 H (27-31) pg MCHC (32-36) g/dl Immature Gran % (Auto) 0.60 H (0.001-0.429) % Immature Gran # (Auto) 0.07 H (0.000-0.0310) K/mm3 Neutrophils % (42-75.0) % Lymphocytes % (20-51) % Eosinophils % 4.5 H (0.0-3.0) % Neutrophils # 7.5 H (1.3-6.0) K/mm3 Lymphocytes # (1.5-3.5) k/mm3 Monocytes # 1.1 H (0.0-1.0) k/mm3 PT (9.1-10.7) Seconds INR (Anticoag Therapy) (0.92-1.08) INR Sodium 146 H (132-142) mmol/L Plasma Sodium 146 H (130-142) mmol/L Anion Gap 14.8 H (6.8-13.8) mmol/L Random Glucose (70-110) mg/dL Lactic Acid, Venous 2.6 H* (0.4-2.0) mmol/L Albumin (3.4-5.0) gm/dl 12/21/18 12/21/18 12/22/18 Range/Units 15:15 18:05 06:31 WBC 13.7 H (4.0-10.5) K/mm3 RBC (4.7-6.0) M/mm3 MCH 34.5 H (27-31) pg MCHC 36.3 H (32-36) g/dl Immature Gran % (Auto) 0.50 H (0.001-0.429) % Immature Gran # (Auto) 0.07 H (0.000-0.0310) K/mm3 Neutrophils % 89.0 H (42-75.0) % Lymphocytes % 9.7 L (20-51) % Eosinophils % (0.0-3.0) % Neutrophils # 12.2 H (1.3-6.0) K/mm3 Lymphocytes # 1.32 L (1.5-3.5) k/mm3 Monocytes # (0.0-1.0) k/mm3 PT 32.8 H (9.1-10.7) Seconds INR (Anticoag Therapy) 3.48 H (0.92-1.08) INR Sodium (132-142) mmol/L Plasma Sodium (130-142) mmol/L Anion Gap (6.8-13.8) mmol/L Random Glucose (70-110) mg/dL Lactic Acid, Venous 2.6 H* (0.4-2.0) mmol/L Albumin (3.4-5.0) gm/dl 12/22/18 12/22/18 Range/Units 06:31 06:31 WBC (4.0-10.5) K/mm3 RBC (4.7-6.0) M/mm3 MCH (27-31) pg MCHC (32-36) g/dl Immature Gran % (Auto) (0.001-0.429) % Immature Gran # (Auto) (0.000-0.0310) K/mm3 Neutrophils % (42-75.0) % Lymphocytes % (20-51) % Eosinophils % (0.0-3.0) % Neutrophils # (1.3-6.0) K/mm3 Lymphocytes # (1.5-3.5) k/mm3 Monocytes # (0.0-1.0) k/mm3 PT 36.1 H (9.1-10.7) Seconds INR (Anticoag Therapy) 3.84 H (0.92-1.08) INR Sodium (132-142) mmol/L Plasma Sodium 144 H (130-142) mmol/L Anion Gap (6.8-13.8) mmol/L Random Glucose 212 H D (70-110) mg/dL Lactic Acid, Venous (0.4-2.0) mmol/L Albumin 3.3 L (3.4-5.0) gm/dl - Exam Constitutional: Present: Alert, Oriented x3, Cooperative, Well developed, Well nourished, No distress, Elderly ENT Exam: Present: normal ENT inspection, hearing grossly normal, pharynx normal, TMs normal Neck: Present: non-tender, full range of motion, supple, normal inspection, trachea midline Breasts: Present: Exam deferred Respiratory: Present: chest non-tender, lungs clear, normal breath sounds, no respiratory distress, no accessory muscle use Cardiovascular/Chest: Present: normal peripheral pulses, no chest tenderness, no edema, no gallop, no JVD, no murmur, no rub Abdomen: Present: Normal bowel sounds, soft, nontender, nondistended, obese /Rectal: Present: Exam deferred Extremity: Present: normal range of motion, non-tender, normal inspection, no pedal edema, no calf tenderness, normal capillary refill, pelvis stable Skin Exam: Present: normal color, warm/dry, no cyanosis Lymphatic: Present: no adenopathy Neurologic: Present: map colorer II-XII nml as tested, normal cerebellar test, no motor/sensory deficits, alert, normal mood/affect, oriented x 3 Appearance: Present: appropriate appearance, appropriate insight, neat, no memory impairment Eye contact: Present: cooperative, good eye contact, normal speech Thoughts: Present: normal thought pattern, no apparent hallucination Assessment/Plan Plan Narrative: Orders to wean oxygen and IV steroids have been placed now that the patient shows clinical improvement. Follow-up labs were ordered for tomorrow morning we will reevaluate once you are available. - Problems/Diagnosis (1) Pneumonia Problem: Acute (2) Mild dehydration Problem: Resolved (3) Nausea & vomiting Problem: Resolved (4) Generalized weakness Problem: Resolved (5) COPD exacerbation Problem: Resolved (6) Atrial fibrillation Problem: Chronic Qualifiers: Atrial fibrillation type: chronic Qualified Code(s): I48.2 - Chronic atrial fibrillation (7) Anticoagulant long-term use Problem: Acute
[2018-12-22] MEDS ORDERED: ROSUVASTATIN CALCIUM 20 MG TABLET PO SCH (21:00)
[2018-12-22] MEDS: METHYLPREDNISOLONE SOD SUCC/PF 125 MG/2 ML VIAL IV SCH (21:42)
[2018-12-22] MEDS ORDERED: INSULIN GLARGINE,HUM.REC.ANLOG 100 UNITS/ML VIAL SC ONE (21:49)
[2018-12-22] MEDS: INSULIN DETEMIR 100 UNITS/ML VIAL SC SCH (21:51)
[2018-12-23 05:47] LABS: Prothrombin Time (Patient) 42.3 Seconds (9.1-10.7)
[2018-12-23 05:56] LABS: Hematocrit 43.2 % (42.0-52.0); Hemoglobin 15.2 gm/dL (13.5-18.0); Mean Corpuscular Hemoglobin 33.8 pg (27-31); Mean Corpuscular Hgb Conc 35.2 g/dl (32-36); Platelet Count 365 K/mm3 (150-450); Red Cell Distribution Width 12.8 % (11.5-14.0)
[2018-12-23 06:07] LABS: Total Cells Counted 100
[2018-12-23] MEDS: ALBUTEROL SULFATE/IPRATROPIUM 3 ML NEBU IH SCH ×2 (06:13→10:30)
[2018-12-23 06:24] LABS: INR 4.53 INR (0.92-1.08)
[2018-12-23 06:47] LABS: Atypical (Reactive) Lymph 2 % (0-2); Band 3 % (0-2.0); Lymphocyte 5 % (20-51); Monocyte 5 % (0-9); Neutrophil 85 % (42-75); Neutrophil # 19.6 K/mm3 (1.3-6.0)
[2018-12-23 06:49] LABS: Giant Platelets Trace; Platelet Estimate Normal (NORMAL); RBC Morphology Normal (NORMAL)
[2018-12-23] MEDS: LEVOTHYROXINE SODIUM 25 MCG TABLET PO SCH (07:05)
[2018-12-23] MEDS: INSULIN LISPRO 100 UNITS/ML VIAL SC SCH ×2 (07:05→11:57)
[2018-12-23] MEDS: ASPIRIN 81 MG TABLET.DR PO SCH (08:45)
[2018-12-23] MEDS: DOCUSATE SODIUM 100 MG CAPSULE PO SCH (08:45)
[2018-12-23] MEDS: FUROSEMIDE 40 MG TABLET PO SCH (08:45)
[2018-12-23] MEDS: LOSARTAN POTASSIUM 50 MG TABLET PO SCH (08:47)
[2018-12-23] MEDS: METOPROLOL SUCCINATE 50 MG TABLET.SA PO SCH (08:48)
[2018-12-23] MEDS ORDERED: FAMOTIDINE 20 MG TABLET PO SCH (09:00)
[2018-12-23] MEDS: METHYLPREDNISOLONE SOD SUCC/PF 125 MG/2 ML VIAL IV SCH (09:52)
--- NOTE | 2018-12-23 11:11 | DS ---
(1) Pneumonia Problem: Acute (2) Mild dehydration Problem: Resolved (3) Nausea & vomiting Problem: Resolved (4) Generalized weakness Problem: Resolved (5) COPD exacerbation Problem: Resolved (6) Atrial fibrillation Problem: Chronic Qualifiers: Atrial fibrillation type: chronic Qualified Code(s): I48.2 - Chronic atrial fibrillation (7) Anticoagulant long-term use Problem: Chronic Date of Discharge:: 12/23/18 Description of Stay: 78-year-old male admitted for bronchopneumonia, dehydration, nausea and vomiting was evaluated at bedside and was found to be afebrile and in no acute distress. After treating patient with IV antibiotics, IV steroids, and breathing treatments the patient has shown significant improvement and reports feeling better. There has not been any recurrence of fever or recurrence of nausea vomiting, and patient maintains stable vitals and is saturating adequately. Auscultation of the lungs revealed resolution of any wheezing or rhonchi and no crackles were heard. This morning's labs demonstrated leukocytosis most likely secondary to the treatment with IV steroids, therefore IV steroids were weaned. Given these findings decision to discharge patient home with prescription for additional oral antibiotics and oral steroids was made. Patient was instructed to follow-up with me his PCP in a week or so for reevaluation, in the meantime he is to report to the Coumadin clinic on the established appointment to manage his INR while he is on Coumadin. Patient's warfarin was held during the hospitalization due to an elevated INR. Procedures Performed: none Results and Findings: Pending Mircobiology Results 12/21/18 15:15 Blood Blood Culture - Preliminary NO GROWTH 24 HOURS 12/21/18 14:55 Blood Blood Culture - Preliminary NO GROWTH 24 HOURS Lab Pending Results 12/21/18 15:15: WBC 12.5 H, RBC 4.60 L, Hgb 15.8, Hct 44.2, MCV 96.1, MCH 34.3 H, MCHC 35.7, RDW 12.8, Plt Count 340, MPV 10.7, Immature Gran % (Auto) 0.60 H, Immature Gran # (Auto) 0.07 H, Neutrophils % 60.1, Lymphocytes % 25.3, Monocytes % 8.7, Eosinophils % 4.5 H, Basophils % 0.8, Nucleated RBC % 0.0, Neutrophils # 7.5 H, Lymphocytes # 3.15, Monocytes # 1.1 H, Eosinophils # 0.6, Absolute Basophils 0.1 12/21/18 15:15: Sodium 146 H, Plasma Sodium 146 H, Potassium 3.9, Chloride 106, Carbon Dioxide 29.1, Anion Gap 14.8 H, BUN 14, Creatinine 0.89, Est GFR (Non-Af Amer) 88, BUN/Creatinine Ratio 15.7, Random Glucose 100, Calcium 9.3, Calcium Adj for Albumin 9.3, Total Bilirubin 0.6, AST 28, ALT 26, Alkaline Phosphatase 118, Troponin I Less than 0.017, Total Protein 7.9, Albumin 3.6 12/21/18 15:15: Lactic Acid, Venous 2.6 H* 12/21/18 15:15: PT 32.8 H, INR (Anticoag Therapy) 3.48 H 12/21/18 18:05: Lactic Acid, Venous 2.6 H* 12/22/18 06:31: WBC 13.7 H, RBC 4.70, Hgb 16.2, Hct 44.6, MCV 94.9, MCH 34.5 H, MCHC 36.3 H, RDW 12.3, Plt Count 364, MPV 10.7, Immature Gran % (Auto) 0.50 H, Immature Gran # (Auto) 0.07 H, Neutrophils % 89.0 H, Lymphocytes % 9.7 L, Monocytes % 0.7, Eosinophils % 0.0, Basophils % 0.1, Nucleated RBC % 0.0, Neutrophils # 12.2 H, Lymphocytes # 1.32 L, Monocytes # 0.1, Eosinophils # 0.0, Absolute Basophils 0.0 12/22/18 06:31: Sodium 142, Plasma Sodium 144 H, Potassium 3.6, Chloride 104, Carbon Dioxide 29.3, Anion Gap 12.3, BUN 15, Creatinine 0.73, Est GFR (Non-Af Amer) 110 D, BUN/Creatinine Ratio 20.5, Random Glucose 212 H D, Calcium 8.8, Calcium Adj for Albumin 9.0, Total Bilirubin 0.6, AST 20, ALT 24, Alkaline P hosphatase 119, Total Protein 7.5, Albumin 3.3 L 12/22/18 06:31: PT 36.1 H, INR (Anticoag Therapy) 3.84 H 12/23/18 05:25: PT 42.3 H, INR (Anticoag Therapy) 4.53 H* 12/23/18 05:25: WBC 23.0 H D, RBC 4.50 L, Hgb 15.2, Hct 43.2, MCV 96.0, MCH 33.8 H, MCHC 35.2, RDW 12.8, Plt Count 365, MPV 11.0, Neutrophils % (Manual) 85 H, Ba nd Neuts % (Manual) 3 H, Lymphocytes % (Manual) 5 L, Monocytes % (Manual) 5, Neutrophils # (Manual) 19.6 H, Lymphocytes # (Manual) 1.2 L, Monocytes # (Manual) 1.2 H, Atypic/Reactive Lymphs 2, Platelet Estimate Normal, Giant Platelets Trace, RBC Morphology Normal Discharge Location: Home Disposition: Home self-care Condition: Fair Discharge Activity: Activity as tolerated Discharge Diet: Consistent carbs Referrals: Kayla Calderon MD [Primary Care Provider] - Additional Patient Instructions (free text): Coumadin Clinic appointment , 12/25/18 at 11am. Do not take your Coumadin today. Restart tomorrow 12/24/18. Follow up with Dr Calderon after next week. -Please make TCM appointment unless senior care discharge, or if following up with outside provider. Thank you! Phyllis @ [facility] [phone] or Bridgette at [phone]. Prescriptions (Any new or edited meds): Levofloxacin [Levaquin] 500 mg PO DAILY 5 Days #5 tab Prednisone 10 mg PO DAILY 5 Days #5 tab Complete Home Medications List: Complete Home Medication List: Aspirin [Aspirin Enteric Coated] 81 mg PO DAILY 01/09/13 Warfarin Sodium [Coumadin] 8 mg PO DAILY 08/05/16 blood sugar diagnostic, drum-type strips See Dose Instructions .ROUTE .MEDSUPPLY #51 ea 10/25/17 blood-glucose meter kit See Dose Instructions .ROUTE .MEDSUPPLY #1 ea 10/25/17 budesonide 0.5 mg/2 mL suspension for nebulization 0.75 mg IH PRN PRN ml 10/25/17 lancets See Dose Instructions .ROUTE .MEDSUPPLY #50 ea 10/25/17 lancing device with lancets kit See Dose Instructions .ROUTE .MEDSUPPLY #1 ea 10/25/17 docusate sodium 100 mg tablet 100 mg PO PRN 11/28/17 glimepiride 2 mg tablet 4 mg PO BID #120 tab 05/06/18 levothyroxine 25 mcg tablet 25 mcg PO DAILY 90 Days #90 tab 05/21/18 pen needle, diabetic 31 gauge x 06/21" See Dose Instructions .ROUTE .MEDSUPPLY #100 ea 05/21/18 losartan 25 mg tablet 25 mg PO DAILY #90 tab 05/27/18 metformin 1,000 mg tablet 1,000 mg PO BID #180 tab 05/27/18 nitroglycerin 0.4 mg sublingual tablet 0.4 mg SL Q5MIN PRN #30 tab 07/01/18 insulin detemir (U-100) 100 unit/mL (3 mL) subcutaneous pen 15 unit SUBCUT HS #15 ml 09/05/18 furosemide 40 mg tablet See Rx Instructions .ROUTE .COMPLEX #90 tablet 10/16/18 cholecalciferol (vitamin D3) 50,000 unit capsule 50,000 unit PO QWEEK #9 cap 11/06/18 pantoprazole 40 mg tablet,delayed release 40 mg PO BID #180 tab 11/06/18 atorvastatin 40 mg tablet See Rx Instructions .ROUTE .COMPLEX #90 tablet 11/20/18 ipratropium 20 mcg-albuterol 100 mcg/actuation mist for inhalation 1 puff IH QID #4 g 11/21/18 ipratropium-albuterol 0.5 mg-3 mg(2.5 mg base)/3 mL nebulization soln 3 ml IH QID PRN #600 ml 12/01/18 metoprolol succinate ER 50 mg tablet,extended release 24 hr See Rx Instructions .ROUTE .COMPLEX #180 tablet 12/15/18 oxycodone-acetaminophen 5 mg-325 mg tablet 1 tab PO BID PRN #60 tab 12/16/18 Levofloxacin [Levaquin] 500 mg PO DAILY #10 tab 12/19/18 Triamcinolone Acetonide [Kenalog 0.1% Ointment] 15 gm TOPICAL BID 12/21/18 ALPRAZolam [Xanax] 0.5 mg PO HS PRN tab 12/23/18 Albuterol Sulfate/Ipratropium [Duoneb 2.5-0.5MG/3ML Soln] 3 ml INHALATION Q4HRT PRN nebu 12/23/18 Levofloxacin [Levaquin] 500 mg PO DAILY 5 Days #5 tab 12/23/18 Prednisone 10 mg PO DAILY 5 Days #5 tab 12/23/18 alprazolam 0.25 mg tablet 0.5 mg PO HS PRN #60 tab 12/23/18
[2018-12-23 13:57] VITALS: BP 150/87
[2018-12-23] MEDS ORDERED: METHYLPREDNISOLONE SOD SUCC/PF 40 MG/ML VIAL IV SCH (22:00)
[2018-12-26] MEDS ORDERED: ERGOCALCIFEROL 50000 UNIT TABLET PO SCH (09:00)
== END 2018-12-23 14:02 | disposition home or self-care (01) | DRG 195 ==
LOC: MS 13:58 → ER 13:58 → OBSVTOIN 16:28 → MS 17:20
PROVIDERS: ADMIT Family Medicine; ATTEND Family Medicine
DX: J44.9 Chronic obstructive pulmonary disease, unspecified; Z86.711 Personal history of pulmonary embolism; Z99.81 Dependence on supplemental oxygen; I25.10 Atherosclerotic heart disease of native coronary artery without angina pectoris; Z79.01 Long term (current) use of anticoagulants; S22.42XD Multiple fractures of ribs, left side, subsequent encounter for fracture with routine healing; I48.2 Chronic atrial fibrillation; R11.2 Nausea with vomiting, unspecified; R06.09 Other forms of dyspnea; W19.XXXD Unspecified fall, subsequent encounter; R09.02 Hypoxemia; I25.2 Old myocardial infarction; R53.1 Weakness; K21.9 Gastro-esophageal reflux disease without esophagitis; F31.9 Bipolar disorder, unspecified; I10 Essential (primary) hypertension; G30.9 Alzheimer's disease, unspecified; Z86.718 Personal history of other venous thrombosis and embolism; J18.1 Lobar pneumonia, unspecified organism; E11.42 Type 2 diabetes mellitus with diabetic polyneuropathy; Z79.4 Long term (current) use of insulin; E86.0 Dehydration; F02.80 Dementia in other diseases classified elsewhere, unspecified severity, without behavioral disturbance, psychotic disturbance, mood disturbance, and anxiety; R05 Cough
CPT/HCPCS: 36415; 71020; 71046; 80053; 83605; 84484; 85007; 85025; 85610; 87040; 93005; 94640; 94664; 94762; 96365; 96366; 96367; 96376; 99285; G0378

== ENCOUNTER 2019-01-29 20:22 | Observation (INO) ==
[2019-01-29 21:13] LABS: Hematocrit 43.1 % (42.0-52.0); Hemoglobin 15.1 gm/dL (13.5-18.0); Mean Cell Volume 97.1 fl (78-100); Mean Platelet Volume 10.7 fl (8-11.3); Neutrophil % 83.4 % (42-75.0); Platelet Count 347 K/mm3 (150-450); Red Blood Count 4.44 M/mm3 (4.7-6.0); Red Cell Distribution Width 12.6 % (11.5-14.0); White Blood Count 21.5 K/mm3 (4.0-10.5)
[2019-01-29 21:25] LABS: ALT 18 U/L (19-67); AST 16 U/L (0-48); Albumin * 3.4 gm/dl (3.4-5.0); Alkaline Phosphatase * 120 U/L (50-170); Anion Gap 12.1 mmol/L (6.8-13.8); BUN/Creatinine Ratio 18.8 (9.0-21.6); Bilirubin, Total 0.7 mg/dL (0.0-1.1); Blood Urea Nitrogen 16 mg/dL (6-23); Ca. Corrected For Albumin 9.2 mg/dL (8.4-10.2); Carbon Dioxide 31.4 mmol/L (24-32.6); Chloride 102 mmol/L (97-106); Glucose * 221 mg/dL (70-110); Potassium 3.5 mmol/L (3.4-4.6); Sodium 142 mmol/L (132-142); Total Protein 7.4 gm/dL (6.2-8.2)
[2019-01-29 21:26] LABS: Troponin I Less than 0.017 ng/mL (0.00-0.10)
[2019-01-29] MEDS ORDERED: AZITHROMYCIN 250 MG TABLET PO ONE (21:38)
[2019-01-29] MEDS ORDERED: cefTRIAXone SODIUM 1,000 MG/100 ML BAG IV ONE (21:38)
--- NOTE | 2019-01-29 21:46 | ERNOTE ---
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 Home Medications: HOME MEDICATIONS Aspirin [Aspirin Enteric Coated] 81 mg PO DAILY 01/09/13 [Last Taken 12/21/18 08:00] Warfarin Sodium [Coumadin] 8 mg PO DAILY 08/05/16 [Last Taken 12/21/18 14:00] blood sugar diagnostic, drum See Dose Instructions .ROUTE .MEDSUPPLY #51 ea 10/25/17 [Last Taken Unknown] blood-glucose meter See Dose Instructions .ROUTE .MEDSUPPLY #1 ea 10/25/17 [Last Taken Unknown] budesonide 0.5 mg/2 mL suspension for nebulization 0.75 mg IH PRN PRN ml 10/25/17 [Last Taken Unknown] lancets See Dose Instructions .ROUTE .MEDSUPPLY #50 ea 10/25/17 [Last Taken Unknown] lancing device with lancets See Dose Instructions .ROUTE .MEDSUPPLY #1 ea 10/25/17 [Last Taken Unknown] docusate sodium 100 mg tablet 100 mg PO PRN 11/28/17 [Last Taken Unknown] glimepiride 2 mg tablet 4 mg PO BID #120 tab 05/06/18 [Last Taken 12/21/18 08:00] levothyroxine 25 mcg tablet 25 mcg PO DAILY 90 Days #90 tab 05/21/18 [Last Taken 12/21/18 08:00] pen needle, diabetic 31 gauge x 3/16" See Dose Instructions .ROUTE .MEDSUPPLY #100 ea 05/21/18 [Last Taken Unknown] losartan 25 mg tablet 25 mg PO DAILY #90 tab 05/27/18 [Last Taken 12/21/18 08:00] metformin 1,000 mg tablet 1,000 mg PO BID #180 tab 05/27/18 [Last Taken 12/21/18 08:00] nitroglycerin 0.4 mg sublingual tablet 0.4 mg SL Q5MIN PRN #30 tab 07/01/18 [Last Taken Unknown] furosemide 40 mg tablet See Rx Instructions .ROUTE .COMPLEX #90 tab 10/16/18 [Last Taken 12/21/18 08:00] pantoprazole 40 mg tablet,delayed release 40 mg PO BID #180 tab 11/06/18 [Last Taken 12/21/18 08:00] atorvastatin 40 mg tablet See Rx Instructions .ROUTE .COMPLEX #90 tab 11/20/18 [Last Taken 12/21/18 08:00] ipratropium 20 mcg-albuterol 100 mcg/actuation mist for inhalation 1 puff IH QID #4 g 11/21/18 [Last Taken 12/20/18 21:00] metoprolol succinate 50 mg tablet,extended release 24 hr See Rx Instructions .ROUTE .COMPLEX #180 tab 12/15/18 [Last Taken 12/21/18 08:00] Triamcinolone Acetonide [Kenalog 0.1% Ointment] 15 gm TOPICAL BID 12/21/18 [Last Taken Unknown] Albuterol Sulfate/Ipratropium [Duoneb 2.5-0.5MG/3ML Soln] 3 ml INHALATION Q4HRT PRN nebu 12/23/18 [Last Taken Unknown] insulin detemir U-100 100 unit/mL (3 mL) subcutaneous pen 18 unit SUBCUT HS #15 ml 12/26/18 [Last Taken Unknown] ipratropium-albuterol 0.5 mg-3 mg(2.5 mg base)/3 mL nebulization soln 3 ml IH QID PRN #600 ml 01/02/19 [Last Taken Unknown] oxycodone-acetaminophen 5 mg-325 mg tablet 1 tab PO BID PRN #60 tab 01/21/19 [Last Taken Unknown] alprazolam 0.25 mg tablet 0.5 mg PO HS PRN #60 tab 01/28/19 [Last Taken Unknown] cholecalciferol (vitamin D3) 50,000 unit capsule 50,000 unit PO QWEEK #9 cap 01/28/19 [Last Taken Unknown] Narrative: This is a 78-year-old gentleman who comes to the emergency department complaining of chills. The patient says that earlier today he was having chills on and off and this evening it became more persistent. He reports he is feeling more short of breath than usual and is coughing. Not bringing anything up. Does not know if he actually had a fever at home. The patient did say he had chest pain but he says this is the exact same chest pain that is had for 5 years. The patient's noted that he was a little bit confused on the ride over here. The patient has not had any nausea or vomiting. He says his bowels have been moving normally. No abdominal pain. He has been having trouble with swallowing, saying "it hauling things up sometimes when I swallow "patient had treatment of his pharynx for obstructive sleep apnea and ever since then he has the sensation like things are hanging up. He denies difficulty controlling secretions. Says he does feel little weaker than usual. No other complaints Review of Systems - Review of Systems Constitutional: Present: chills, weakness, malaise EYE: Present: no symptoms reported ENT: Present: no symptoms reported Respiratory: Present: shortness of breath, cough Cardiology: Present: chest pain - Chronic chest pain Gastrointestinal/Abdominal: Present: no symptoms reported Genitourinary: Present: no symptoms reported Musculoskeletal: Present: no symptoms reported Skin: Present: no symptoms reported Neurological: Present: no symptoms reported, other - says that he seemed confused Endocrine: Present: no symptoms reported Hematologic/Lymphatic: Present: no symptoms reported Psych: Present: no symptoms reported All Other Systems: All systems neg except as marked Medical History (Last Reviewed 01/29/19 @ 20:50 by Alexus Lin) Abnormal CT scan, lung 2016 showed multiple PE's Alzheimers disease Arthritis Asthma Bipolar 1 disorder Bronchitis CAD (coronary artery disease) COPD (chronic obstructive pulmonary disease) Cor pulmonale DJD (degenerative joint disease) DVT (deep venous thrombosis) Edema GERD (gastroesophageal reflux disease) HTN (hypertension) Hernia Hypercholesteremia Hypoxemia Insomnia Liposarcoma Mild concentric left ventricular hypertrophy (LVH) Myocardial infarction GURJIT (obstructive sleep apnea) PAD (peripheral artery disease) Peripheral neuropathy Pulmonary hypertension Rhinitis Type 2 diabetes mellitus Surgical History: Surgical History (Last Reviewed 01/29/19 @ 20:50 by Alexus Lin) H/O angioplasty 12/15/2003 RCA H/O discectomy 02/08/14 Revision left L3-4 H/O spinal fusion 08/29/2011 Lumbar, Dr. Golden History of abdominal surgery 07/15/07- - pre peritoneal low-grade liposarcoma, s/p wide local resection w/radiation therapy. History of arthroscopic knee surgery 1984 left knee History of carpal tunnel release 2002 [facility]- left side History of colonoscopy 01/13/13- [place]-scattered diverticulosis History of knee replacement 11/2005- right knee [address] grace History of lumbar laminectomy 02/08/2014 Dr. Golden. revision left L3 hemilaminectomy and left L4 h emilaminectomy lumbar Hx of appendectomy Presence of IVC filter Previous back surgery Stented coronary artery 2003- RCA History of cholecystectomy 1984 [place]-open History of splenectomy 1958. an incidental finding of splenomegaly led to surgical removal History of tonsillectomy Hx of cataract surgery 1984 [place] and 1987 [place] Hx of vasectomy Family History: Family History (Last Reviewed 01/29/19 @ 20:50 by Alexsu Lin) Brother Cancer Son Alive and well Sister Alive and well Sister Non-Hodgkin lymphoma Mother Heart disease Emphysema lung Father Heart disease Alzheimers disease Daughter Alive and well Social History: (Last Reviewed 01/29/19 @ 20:50 by Alexus Lin) Social History: adopted: No Marital status: lives independently: No household members: spouse caregiver/support person: No current occupational status: retired Highest education level completed: 8th grade Service: No Tobacco: Smoking Status: Never smoker Alcohol: alcohol intake: never Substance Use: substance use type: does not use Dietary Habits: caffeine: Yes Type: carbonated beverages, coffee Exercise: Physical activity type: walking Physical Exam - Physical Exam General Appearance: Present: wd/wn, alert, no apparent distress Head Exam: Present: normal inspection, no evidence of injury Eye Exam: Normal inspection: bilateral, PERRL: bilateral Ears, Nose, Throat: Present: normal ENT inspection, normal pharynx Neck: Present: normal inspection, nontender Respiratory: Present: no respiratory distress, chest nontender, other - Patient has decreased breath sound at the right base Cardiovascular/Chest: Present: regular rate, rhythm, no murmur Gastrointestinal/Abdominal: Present: normal bowel sounds, nontender, nondistended, soft Back Exam: Present: normal inspection, normal range of motion, no CVA tenderness, no vertebral tenderness Extremity Exam: Present: normal inspection, non-tender, normal range of motion, no edema Neurological Exam: Present: alert, oriented, normal mood/affect, no motor/sensory deficits Skin Exam: Present: normal color, warm/dry Progress - Results and Orders Patient's Lab Results:: I have reviewed the patient's lab results. - Vital Signs Patient's Vital Signs:: I have reviewed the patient's vital signs. Vital Signs: Vital Signs 01/29/19 20:47 Temperature 37.6 C Pulse Rate 94 Respiratory Rate 22 H Blood Pressure 162/66 H O2 Sat by Pulse Oximetry 92 L - EKG EKG #1 EKG read: Interp. by me EKG Comments: Sinus rhythm ventricular rate of 91, normal axis, normal intervals, no ST elevation, T waves have normal morphology and direction - X-Ray X-Ray #1 X-Ray: chest Interpretation: Interp. by me X-ray Comments: Single view of the chest demonstrates an area of atelectasis or infiltrate at the right base. - Progress/Reassessment Chief Complaint: Chest Pain Plan - Plan Plan: This is a 78-year-old gentleman who comes to the emergency department complainin g of shortness of breath cough chills. He has a white count of 22,000. He is on home oxygen. There is a suspicious lesion on the chest x-ray in the right lower lung. He is complaining of things "hanging up ", could he have intermittent aspiration? Because he is not his normal self I am going to admit him to the hospital. I do not have proof that this is aspiration so I placed him on community-acquired pneumonia precautions Rocephin and azithromycin. He denies having been hospitalized in the last 6 months. Departure Clinical Impression: Pneumonia Qualifiers: Pneumonia type: due to unspecified organism Laterality: right Lung location: lower lobe of lung Qualified Code(s): J18.1 - Lobar pneumonia, unspecified organism - Departure Disposition: Home self-care Condition: Stable Referrals: Kayla Calderon MD [Primary Care Provider] -
[2019-01-29 21:53] LABS: Prothrombin Time (Patient) 34.4 Seconds (9.1-10.7)
[2019-01-29 21:54] LABS: INR 3.65 INR (0.92-1.08)
[2019-01-29 23:31] LABS: Urine Bilirubin Negative (NEGATIVE); Urine Blood 50 /ul (NEGATIVE); Urine Ketone 5 mg/dL (NEGATIVE); Urine Nitrite Negative (NEGATIVE); Urine Protein Negative (NEGATIVE); Urine Urobilinogen 4 EU/dl (NORMAL)
[2019-01-29 23:42] LABS: Urine Appearance Clear (CLEAR); Urine Bacteria None Seen; Urine Color Yellow; Urine WBC None Seen /hpf (0-5)
[2019-01-30] MEDS ORDERED: ACETAMINOPHEN 325 MG TABLET PO PRN (08:33)
[2019-01-30] MEDS ORDERED: LIDOCAINE HCL 50 ML VIAL IM ONE (08:37)
[2019-01-30] MEDS ORDERED: CODEINE PHOSPHATE/GUAIFENESIN 5 ML UDC PO PRN (08:39)
[2019-01-30] MEDS ORDERED: ALBUTEROL SULFATE/IPRATROPIUM 3 ML NEBU IH PRN ×3 (08:39→09:50)
[2019-01-30] MEDS ORDERED: ALPRAZolam 0.5 MG TABLET PO PRN (08:39)
[2019-01-30] MEDS ORDERED: BUDESONIDE 0.5 MG/2 ML VIAL.NEB IH PRN (08:39)
[2019-01-30] MEDS ORDERED: oxyCODONE HCL/ACETAMINOPHEN 1 TAB TABLET PO PRN (08:39)
[2019-01-30] MEDS ORDERED: NITROGLYCERIN 0.4 MG/TAB BTL SL PRN (08:39)
[2019-01-30] MEDS ORDERED: AZITHROMYCIN 500 MG in DEXTROSE 5 % IN WATER 250 ML IV SCH ×4 (08:45→22:00)
[2019-01-30] MEDS ORDERED: FAMOTIDINE 20 MG TABLET PO SCH (09:00)
[2019-01-30] MEDS ORDERED: [UNRECOGNIZED DRUG - OTHER] IH SCH (09:00)
[2019-01-30] MEDS ORDERED: WARFARIN SODIUM 7.5 MG TABLET PO SCH (09:00)
[2019-01-30] MEDS ORDERED: ASPIRIN 81 MG TABLET.DR PO SCH (09:00)
[2019-01-30] MEDS ORDERED: FUROSEMIDE 40 MG TABLET PO SCH (09:00)
[2019-01-30] MEDS ORDERED: ALBUTEROL SULFATE IH SCH (09:00)
[2019-01-30] MEDS ORDERED: LEVOTHYROXINE SODIUM 25 MCG TABLET PO SCH (09:00)
[2019-01-30] MEDS ORDERED: DOCUSATE SODIUM 100 MG CAPSULE PO SCH (09:00)
[2019-01-30] MEDS ORDERED: TRIAMCINOLONE ACETONIDE 15 APPL TUBE TP SCH (09:00)
[2019-01-30] MEDS ORDERED: GLIMEPIRIDE 2 MG TABLET PO SCH (09:00)
[2019-01-30] MEDS ORDERED: LOSARTAN POTASSIUM 50 MG TABLET PO SCH (09:00)
[2019-01-30] MEDS ORDERED: GLIMEPIRIDE 4 MG TABLET PO SCH (09:00)
[2019-01-30] MEDS ORDERED: IPRATROPIUM IH SCH (09:00)
[2019-01-30 09:11] LABS: Prothrombin Time (Patient) 34.6 Seconds (9.1-10.7)
[2019-01-30 09:26] LABS: INR 3.67 INR (0.92-1.08)
--- NOTE | 2019-01-30 09:58 | HP ---
Chief Complaint - Chief Complaint Date of Service: 01/30/19 Chief Complaint: I had a cough and chills over the past several days History of Present Illness: 78-year-old male with past medical history of COPD, Alzheimer's disease, osteoporosis, bipolar 1 disorder, coronary artery disease with old MO, degenerative joint disease, GERD, hypertension, type 2 diabetes, hypercholesterolemia, insomnia, chronic low back pain, peripheral artery disease, and pulmonary hypertension was evaluated in our ER due to several days of occasional chills but fever was not certain. Patient reports also having a cough that is worse than usual and more trouble breathing than usual. Patient was hospitalized at our institution a little over a month ago when he was treated for bronchopneumonia, patient was treated with IV antibiotics and breathing treatments as well as steroids after which he improved and was discharged home. He reports feeling okay after that but over the past few days he started having chills again with cough. Patient also says that he developed a thoracic pain that radiates his left flank which is very similar to the pain he had the last time he was diagnosed with pneumonia, therefore he decided to come to the ER. Medical History (Last Reviewed 01/29/19 @ 23:05 by Jenny Zavala, RN) Abnormal CT scan, lung 2016 showed multiple PE's Alzheimers disease Arthritis Asthma Bipolar 1 disorder Bronchitis CAD (coronary artery disease) COPD (chronic obstructive pulmonary disease) Cor pulmonale DJD (degenerative joint disease) DVT (deep venous thrombosis) Edema GERD (gastroesophageal reflux disease) HTN (hypertension) Hernia Hypercholesteremia Hypoxemia Insomnia Liposarcoma Mild concentric left ventricular hypertrophy (LVH) Myocardial infarction GURJIT (obstructive sleep apnea) PAD (peripheral artery disease) Peripheral neuropathy Pulmonary hypertension Rhinitis Type 2 diabetes mellitus Surgical History: Surgical History (Last Reviewed 01/29/19 @ 23:06 by Jenny Zavala, RN) H/O angioplasty 12/15/2003 RCA H/O discectomy 02/08/14 Revision left L3-4 H/O spinal fusion 08/29/2011 Geri, Dr. Golden History of abdominal surgery 07/15/07- - pre peritoneal low-grade liposarcoma, s/p wide local resection w/radiation therapy. History of arthroscopic knee surgery 1983 left knee History of carpal tunnel release 2002 [facility]- left side History of colonoscopy 01/13/13- [place]-scattered diverticulosis History of knee replacement 11/2005- right knee [address] grace History of lumbar laminectomy 02/08/2014 Dr. Golden. revision left L3 hemilaminectomy and left L4 hemilaminectomy lumbar Hx of appendectomy Presence of IVC filter Previous back surgery Stented coronary artery 2003- RCA History of cholecystectomy 1984 [place]-open History of splenectomy 1958. an incidental finding of splenomegaly led to surgical removal History of tonsillectomy Hx of cataract surgery 1984 [place] and 1987 [place] Hx of vasectomy Family History: Family History (Last Reviewed 01/29/19 @ 23:07 by Jenny Zavala RN) Brother Cancer Son Alive and well Sister Alive and well Sister Non-Hodgkin lymphoma Mother Heart disease Emphysema lung Father Heart disease Alzheimers disease Daughter Alive and well Social History: (Last Reviewed 01/29/19 @ 23:07 by Jenny Zavala RN) Social History: adopted: No Marital status: lives independently: No household members: spouse caregiver/support person: No current occupational status: retired Highest education level completed: 8th grade Service: No Tobacco: Smoking Status: Never smoker Alcohol: alcohol intake: never Substance Use: substance use type: does not use Dietary Habits: caffeine: Yes Type: carbonated beverages, coffee Exercise: Physical activity type: walking Peds Patient Hx - Developmental: No Pertinent Hx Peds Patient Hx - Medical: No Pertinent Hx Peds Patient Hx - Cardiac/Respiratory: No Pertinent Hx Peds Patient Hx - Surgical: No Surgical History Patient History - Cancer: No Hx of Cancer Review Of Systems (GEN) - Review of Systems Generalized/Overall Review: Present: Chills EENTM: Present: No Symptoms Reported Respiratory: Present: Cough, Shortness of Breath Cardiac: Present: No Symptoms Reported Abdominal: Present: No Symptoms Reported Genitourinary: Present: No Symptoms Reported Musculoskeletal: Present: Other - Thoracic pain radiating to left flank Neurological: Present: No Symptoms Reported Skin: Present: No Symptoms Reported Endocrine: Present: No Symptoms Reported Immunizations: IMMUNIZATION HX Immunizations Up to Date Yes History of Influenza Vaccine No Hx Pneumococcal Vaccination Yes Allergies/Adverse Reactions: Allergies Allergy/AdvReac Type Severity Reaction Status Date / Time gabapentin AdvReac P[employer]ER side Verified 01/29/19 20:50 effects Home Medications: HOME MEDICATIONS Aspirin [Aspirin Enteric Coated] 81 mg PO DAILY 01/09/13 [Last Taken 12/21/18 08:00] Warfarin Sodium [Coumadin] 8 mg PO DAILY 08/05/16 [Last Taken 12/21/18 14:00] blood sugar diagnostic, drum See Dose Instructions .ROUTE .MEDSUPPLY #51 ea 10/25/17 [Last Taken Unknown] blood-glucose meter See Dose Instructions .ROUTE .MEDSUPPLY #1 ea 10/25/17 [Last Taken Unknown] budesonide 0.5 mg/2 mL suspension for nebulization 0.75 mg IH PRN PRN ml 10/25/17 [Last Taken Unknown] lancets See Dose Instructions .ROUTE .MEDSUPPLY #50 ea 10/25/17 [Last Taken Unknown] lancing device with lancets See Dose Instructions .ROUTE .MEDSUPPLY #1 ea 10/25/17 [Last Taken Unknown] docusate sodium 100 mg tablet 100 mg PO PRN 11/28/17 [Last Taken Unknown] glimepiride 2 mg tablet 4 mg PO BID #120 tab 05/06/18 [Last Taken 12/21/18 08:00] levothyroxine 25 mcg tablet 25 mcg PO DAILY 90 Days #90 tab 05/21/18 [Last Taken 12/21/18 08:00] pen needle, diabetic 31 gauge x 3/16" See Dose Instructions .ROUTE .MEDSUPPLY #100 ea 05/21/18 [Last Taken Unknown] losartan 25 mg tablet 25 mg PO DAILY #90 tab 05/27/18 [Last Taken 12/21/18 08:00] metformin 1,000 mg tablet 1,000 mg PO BID #180 tab 05/27/18 [Last Taken 12/21/18 08:00] nitroglycerin 0.4 mg sublingual tablet 0.4 mg SL Q5MIN PRN #30 tab 07/01/18 [Last Taken Unknown] furosemide 40 mg tablet See Rx Instructions .ROUTE .COMPLEX #90 tab 10/16/18 [Last Taken 12/21/18 08:00] pantoprazole 40 mg tablet,delayed release 40 mg PO BID #180 tab 11/06/18 [Last Taken 12/21/18 08:00] ipratropium 20 mcg-albuterol 100 mcg/actuation mist for inhalation 1 puff IH QID #4 g 11/21/18 [Last Taken 12/20/18 21:00] Triamcinolone Acetonide [Kenalog 0.1% Ointment] 15 gm TOPICAL BID 12/21/18 [Last Taken Unknown] Albuterol Sulfate/Ipratropium [Duoneb 2.5-0.5MG/3ML Soln] 3 ml INHALATION Q4HRT PRN nebu 12/23/18 [Last Taken Unknown] insulin detemir U-100 100 unit/mL (3 mL) subcutaneous pen 18 unit SUBCUT HS #15 ml 12/26/18 [Last Taken Unknown] ipratropium-albuterol 0.5 mg-3 mg(2.5 mg base)/3 mL nebulization soln 3 ml IH QID PRN #600 ml 01/02/19 [Last Taken Unknown] oxycodone-acetaminophen 5 mg-325 mg tablet 1 tab PO BID PRN #60 tab 01/21/19 [Last Taken Unknown] alprazolam 0.25 mg tablet 0.5 mg PO HS PRN #60 tab 01/28/19 [Last Taken Unknown] cholecalciferol (vitamin D3) 50,000 unit capsule 50,000 unit PO QWEEK #9 cap 01/28/19 [Last Taken Unknown] Atorvastatin Calcium 40 mg PO DAILY 01/30/19 [Last Taken 01/29/19] Exam - Exam Vital Signs: Vital Signs - Last Taken Temp 36.4 C 01/30/19 07:02 Pulse 70 01/30/19 07:02 Resp 24 H 01/30/19 07:02 BP 159/72 H 01/30/19 07:02 Pulse Ox 95 01/30/19 07:02 Constitutional: Present: Alert, Oriented x3, Cooperative, Well developed, Well nourished, No distress ENT Exam: Present: normal ENT inspection, hearing grossly normal, pharynx normal, TMs normal Eye Exam: bilateral eye: normal inspection, PERRL, EOMI Neck: Present: non-tender, full range of motion, supple, normal inspection, trachea midline Back Exam: Present: normal inspection, no CVA tenderness, no vertebral tenderness Breasts: Present: Exam deferred Respiratory: Present: decreased breath sounds, expiration (prolonged) Cardiovascular/Chest: Present: normal peripheral pulses, regular rate, rhythm, no chest tenderness, no edema, no gallop, no JVD, no murmur, no rub Peripheral Pulses: carotid (R): 3+, carotid (L): 3+, femoral (R): 3+, femoral (L): 3+, dorsalis-pedis (R): 3+, dorsalis-pedis (L): 3+ Abdomen: Present: Normal bowel sounds, soft, nontender, nondistended, no rebound tenderness, no hepatospenomegaly, no masses, obese /Rectal: Present: Exam deferred Extremity: Present: normal range of motion, non-tender, normal inspection, no pedal edema, no calf tenderness Skin Exam: Present: normal color, warm/dry, no cyanosis Lymphatic: Present: no adenopathy Neurologic: Present: naval architect specialist II-XII nml as tested, normal cerebellar test, no motor/sensory deficits, alert, normal mood/affect, oriented x 3 Appearance: Present: appropriate appearance, appropriate insight, neat, impaired remote memory Eye contact: Present: cooperative, good eye contact, normal speech Thoughts: Present: normal thought pattern, no apparent hallucination Diagnostic Studies: Abnormal Lab Results 01/29/19 01/29/19 01/29/19 Range/Units 21:00 21:00 21:10 WBC 21.5 H (4.0-10.5) K/mm3 RBC 4.44 L (4.7-6.0) M/mm3 MCH 34.0 H (27-31) pg Immature Gran % (Auto) 0.50 H (0.001-0.429) % Immature Gran # (Auto) 0.10 H (0.000-0.0310) K/mm3 Neutrophils % 83.4 H (42-75.0) % Lymphocytes % 8.8 L (20-51) % Neutrophils # 18.0 H (1.3-6.0) K/mm3 Monocytes # 1.3 H (0.0-1.0) k/mm3 PT 34.4 H (9.1-10.7) Seconds INR (Anticoag Therapy) 3.65 H (0.92-1.08) INR Plasma Sodium 144 H (130-142) mmol/L Random Glucose 221 H (70-110) mg/dL ALT 18 L (19-67) U/L Urine Blood (NEGATIVE) /ul Urine Urobilinogen (NORMAL) EU/dl Urine RBC (0-5) /hpf 01/29/19 01/30/19 Range/Units 23:30 08:55 WBC (4.0-10.5) K/mm3 RBC (4.7-6.0) M/mm3 MCH (27-31) pg Immature Gran % (Auto) (0.001-0.429) % Immature Gran # (Auto) (0.000-0.0310) K/mm3 Neutrophils % (42-75.0) % Lymphocytes % (20-51) % Neutrophils # (1.3-6.0) K/mm3 Monocytes # (0.0-1.0) k/mm3 PT 34.6 H (9.1-10.7) Seconds INR (Anticoag Therapy) 3.67 H (0.92-1.08) INR Plasma Sodium (130-142) mmol/L Random Glucose (70-110) mg/dL ALT (19-67) U/L Urine Blood 50 H (NEGATIVE) /ul Urine Urobilinogen 4 H (NORMAL) EU/dl Urine RBC 5-10 H (0-5) /hpf Laboratory Results WBC 21.5 K/mm3 (4.0-10.5) H 01/29/19 21:00 RBC 4.44 M/mm3 (4.7-6.0) L 01/29/19 21:00 Hgb 15.1 gm/dL (13.5-18.0) 01/29/19 21:00 Hct 43.1 % (42.0-52.0) 01/29/19 21:00 MCV 97.1 fl (78-100) 01/29/19 21:00 MCH 34.0 pg (27-31) H 01/29/19 21:00 MCHC 35.0 g/dl (32-36) 01/29/19 21:00 RDW 12.6 % (11.5-14.0) 01/29/19 21:00 Plt Count 347 K/mm3 (150-450) 01/29/19 21:00 MPV 10.7 fl (8-11.3) 01/29/19 21:00 Immature Gran % (Auto) 0.50 % (0.001-0.429) H 01/29/19 21:00 Immature Gran # (Auto) 0.10 K/mm3 (0.000-0.0310) H 01/29/19 21:00 Neutrophils % 83.4 % (42-75.0) H 01/29/19 21:00 Lymphocytes % 8.8 % (20-51) L 01/29/19 21:00 Monocytes % 5.9 % (0.0-9) 01/29/19 21:00 Eosinophils % 0.9 % (0.0-3.0) 01/29/19 21:00 Basophils % 0.5 % (0.0-1.0) 01/29/19 21:00 Nucleated RBC % 0.0 k/mm3 (0-1) 01/29/19 21:00 Neutrophils # 18.0 K/mm3 (1.3-6.0) H 01/29/19 21:00 Lymphocytes # 1.89 k/mm3 (1.5-3.5) 01/29/19 21:00 Monocytes # 1.3 k/mm3 (0.0-1.0) H 01/29/19 21:00 Eosinophils # 0.2 k/mm3 (0.0-0.7) 01/29/19 21:00 Absolute Basophils 0.1 k/mm3 (0.0-0.1) 01/29/19 21:00 PT 34.6 Seconds (9.1-10.7) H 01/30/19 08:55 INR (Anticoag Therapy) 3.67 INR (0.92-1.08) H 01/30/19 08:55 Sodium 142 mmol/L (132-142) 01/29/19 21:00 Plasma Sodium 144 mmol/L (130-142) H 01/29/19 21:00 Potassium 3.5 mmol/L (3.4-4.6) 01/29/19 21:00 Chloride 102 mmol/L (97-106) 01/29/19 21:00 Carbon Dioxide 31.4 mmol/L (24-32.6) 01/29/19 21:00 Anion Gap 12.1 mmol/L (6.8-13.8) 01/29/19 21:00 BUN 16 mg/dL (6-23) 01/29/19 21:00 Creatinine 0.85 mg/dL (0.4-1.4) 01/29/19 21:00 Est GFR (Non-Af Amer) 93 mL/min (60-130) 01/29/19 21:00 BUN/Creatinine Ratio 18.8 (9.0-21.6) 01/29/19 21:00 Random Glucose 221 mg/dL (70-110) H 01/29/19 21:00 Lactic Acid, Venous 2.0 mmol/L (0.4-2.0) 01/29/19 21:10 Calcium 9.0 mg/dL (7.9-10.9) 01/29/19 21:00 Calcium Adj for Albumin 9.2 mg/dL (8.4-10.2) 01/29/19 21:00 Total Bilirubin 0.7 mg/dL (0.0-1.1) 01/29/19 21:00 AST 16 U/L (0-48) 01/29/19 21:00 ALT 18 U/L (19-67) L 01/29/19 21:00 Alkaline Phosphatase 120 U/L (50-170) 01/29/19 21:00 Troponin I Less than 0.017 ng/mL (0.00-0.10) 01/29/19 21:00 B-Natriuretic Peptide 450 pg/mL (5-650) 01/29/19 21:10 Total Protein 7.4 gm/dL (6.2-8.2) 01/29/19 21:00 Albumin 3.4 gm/dl (3.4-5.0) 01/29/19 21:00 Urine Color Yellow 01/29/19 23:30 Urine Appearance Clear (CLEAR) 01/29/19 23:30 Urine pH 7.0 pH (5.0-7.0) 01/29/19 23:30 Ur Specific [place] 1.010 SP.GR. (1.005-1.030) 01/29/19 23:30 Urine Protein Negative mg/dL (NEGATIVE) 01/29/19 23:30 Urine Glucose (UA) Negative mg/dL (NEGATIVE) 01/29/19 23:30 Urine Ketones 5 mg/dL (NEGATIVE) 01/29/19 23:30 Urine Blood 50 /ul (NEGATIVE) H 01/29/19 23:30 Urine Nitrate Negative (NEGATIVE) 01/29/19 23:30 Urine Bilirubin Negative mg/dl (NEGATIVE) 01/29/19 23:30 Urine Urobilinogen 4 EU/dl (NORMAL) H 01/29/19 23:30 Ur Leukocyte Esterase Negative /ul (NEGATIVE) 01/29/19 23:30 Urine RBC 5-10 /hpf (0-5) H 01/29/19 23:30 Urine WBC None seen /hpf (0-5) 01/29/19 23:30 Ur Epithelial Cells None seen /hpf (0-5) 01/29/19 23:30 Urine Bacteria None seen (NONE) 01/29/19 23:30 Urine Culture Comments No culture indicated 01/29/19 23:30 Assessment/Plan - Narrative Narrative: Patient was evaluated and medical chart was reviewed and decision to admit to observation for treatment of suspected left sided pneumonia was made. At the moment the patient does not have any difficulty breathing and is not coughing, on auscultation is her to have decreased breath sounds and some mild rhonchi and expiratory wheezes. Labs on admission demonstrates leukocytosis however we had to take into account the patient was recently treated with p.o. steroids after his last admission. As a precaution we will treat the patient with IV antibiotics for possible community-acquired pneumonia, will also order breathing treatments to be administered on an as-needed basis and keep the patient on oxygen. All of his routine medications have been reconciled so he can continue receiving his meds while in our institution. - Assessment/Plan (1) H/O recurrent pneumonia Problem: Acute (2) Pneumonia Problem: Acute Qualifiers: Laterality: left (3) Lumbar radiculopathy, chronic Problem: Acute (4) Diabetes mellitus type 2 in obese Problem: Acute (5) COPD (chronic obstructive pulmonary disease) Problem: Chronic Qualifiers: COPD type: COPD with acute lower respiratory infection Qualified Code(s): J44.0 - Chronic obstructive pulmonary disease with (acute) lower respiratory infection (6) Pulmonary hypertension Problem: Acute
[2019-01-30] MEDS: METOPROLOL SUCCINATE 100 MG TABLET.SA PO SCH ×2 (10:13→10:36)
[2019-01-30 14:09] LABS: Hematocrit 42.5 % (42.0-52.0); Mean Cell Volume 97.5 fl (78-100); Mean Corpuscular Hemoglobin 34.4 pg (27-31); Mean Corpuscular Hgb Conc 35.3 g/dl (32-36); Mean Platelet Volume 10.5 fl (8-11.3); Platelet Count 321 K/mm3 (150-450); Red Blood Count 4.36 M/mm3 (4.7-6.0); Red Cell Distribution Width 12.7 % (11.5-14.0)
[2019-01-30 14:15] LABS: Total Cells Counted 100
[2019-01-30 14:42] LABS: Atypical (Reactive) Lymph 6 % (0-2); Eosinophil 3 % (0-3); Lymphocyte 10 % (20-51); Monocyte 9 % (0-9); Neutrophil 72 % (42-75); Neutrophil # 11.5 K/mm3 (1.3-6.0)
[2019-01-30 14:44] LABS: Platelet Estimate Normal (NORMAL); RBC Morphology Normal (NORMAL)
--- NOTE | 2019-01-30 16:51 | DS ---
(1) H/O recurrent pneumonia Problem: Acute (2) Pneumonia Problem: Ruled-out Qualifiers: Laterality: left (3) Lumbar radiculopathy, chronic Problem: Chronic (4) Diabetes mellitus type 2 in obese Problem: Chronic (5) COPD (chronic obstructive pulmonary disease) Problem: Chronic Qualifiers: COPD type: COPD with acute lower respiratory infection Qualified Code(s): J44.0 - Chronic obstructive pulmonary disease with (acute) lower respiratory infection (6) Pulmonary hypertension Problem: Chronic Date of Discharge:: 01/30/19 Description of Stay: 78-year-old male admitted for suspected community-acquired pneumonia after patient was evaluated in the ER for a productive cough and reported chills over the past several days. Patient was admitted for observation and was treated with IV antibiotics and breathing treatments on a as needed basis. During his hospital stay there were no adverse events reported and patient maintained stable vitals. Repeat/follow-up labs demonstrate improvement in his leukocytosis after treatment with IV antibiotics. Clinically patient appears stable and is breathing at his baseline, therefore orders to wean oxygen and to discharge patient home will place. We will discharge patient with p.o. antibiotics to be completed at home and instructions to follow-up with myself his PCP in 1 week and to continue his at home breathing treatments and inhalers. He will also be instructed to have his INR checked on outpatient basis in exactly 2 days to evaluate adequate INR range in order to restart his warfarin. Patient's INR was found to be elevated therefore his warfarin was held until repeat INR can be performed. He will be provided with a lab order to get the blood work done. Procedures Performed: none Results and Findings: Lab Pending Results 01/29/19 21:00: WBC 21.5 H, RBC 4.44 L, Hgb 15.1, Hct 43.1, MCV 97.1, MCH 34.0 H, MCHC 35.0, RDW 12.6, Plt Count 347, MPV 10.7, Immature Gran % (Auto) 0.50 H, Immature Gran # (Auto) 0.10 H, Neutrophils % 83.4 H, Lymphocytes % 8.8 L, Monocytes % 5.9, Eosinophils % 0.9, Basophils % 0.5, Nucleated RBC % 0.0, Neutrophils # 18.0 H, Lymphocytes # 1.89, Monocytes # 1.3 H, Eosinophils # 0.2, Absolute Basophils 0.1 01/29/19 21:00: Sodium 142, Plasma Sodium 144 H, Potassium 3.5, Chloride 102, Carbon Dioxide 31.4, Anion Gap 12.1, BUN 16, Creatinine 0.85, Est GFR (Non-Af Amer) 93, BUN/Creatinine Ratio 18.8, Random Glucose 221 H, Calcium 9.0, Calcium Adj for Albumin 9.2, Total Bilirubin 0.7, AST 16, ALT 18 L, Alkaline Phosphatase 120, Troponin I Less than 0.017, Total Protein 7.4, Albumin 3.4 01/29/19 21:10: B-Natriuretic Peptide 450 01/29/19 21:10: Lactic Acid, Venous 2.0 01/29/19 21:10: PT 34.4 H, INR (Anticoag Therapy) 3.65 H 01/29/19 23:30: Urine Color Yellow, Urine Appearance Clear, Urine pH 7.0, Ur Specific [place] 1.010, Urine Protein Negative, Urine Glucose (UA) Negative, Urine Ketones 5, Urine Blood 50 H, Urine Nitrate Negative, Urine Bilirubin Negative, Urine Urobilinogen 4 H, Ur Leukocyte Esterase Negative, Urine RBC 5-10 H, Urine WBC None seen, Ur Epithelial Cells None seen, Urine Bacteria None seen, Urine Culture Comments No culture indicated 01/30/19 08:55: PT 34.6 H, INR (Anticoag Therapy) 3.67 H 01/30/19 14:05: WBC 16.0 H D, RBC 4.36 L, Hgb 15.0, Hct 42.5, MCV 97.5, MCH 34.4 H, MCHC 35.3, RDW 12.7, Plt Count 321, MPV 10.5, Neutrophils % (Manual) 72, Lymphocytes % (Manual) 10 L, Monocytes % (Manual) 9, Eosinophils % (Manual) 3, Neutrophils # (Manual) 11.5 H, Lymphocytes # (Manual) 1.6, Monocytes # (Manual) 1.4 H, Eosinophils # (Manual) 0.5, Atypic/Reactive Lymphs 6 H, Platelet Estimate Normal, RBC Morphology Normal Discharge Location: Home Disposition: Home self-care Condition: Stable Face to Face Encounter completed per CMS Guidelines: No Discharge Activity: Activity as tolerated Discharge Diet: Consistent carbs Referrals: Kayla Calderon MD [Primary Care Provider] - Additional Patient Instructions (free text): -Please make TCM appointment unless senior living discharge, or if following up with outside provider. Thank you! Phyllis @ [facility] 4436. Prescriptions (Any new or edited meds): Azithromycin [Zithromax] 250 mg PO DAILY 5 Days #5 tab Transmission Status: Pending to [id number] Complete Home Medications List: Complete Home Medication List: Aspirin [Aspirin Enteric Coated] 81 mg PO DAILY 01/09/13 Warfarin Sodium [Coumadin] 8 mg PO DAILY 08/05/16 blood sugar diagnostic, drum See Dose Instructions .ROUTE .MEDSUPPLY #51 ea 0 10/25/17 blood-glucose meter See Dose Instructions .ROUTE .MEDSUPPLY #1 ea 10/25/17 budesonide 0.5 mg/2 mL suspension for nebulization 0.75 mg IH PRN PRN ml 10/25/17 lancets See Dose Instructions .ROUTE .MEDSUPPLY #50 ea 10/25/17 lancing device with lancets See Dose Instructions .ROUTE .MEDSUPPLY #1 ea 10/25/17 docusate sodium 100 mg tablet 100 mg PO PRN 11/28/17 glimepiride 2 mg tablet 4 mg PO BID #120 tab 05/06/18 levothyroxine 25 mcg tablet 25 mcg PO DAILY 90 Days #90 tab 05/21/18 pen needle, diabetic 31 gauge x 06/21" See Dose Instructions .ROUTE .MEDSUPPLY #100 ea 05/21/18 losartan 25 mg tablet 25 mg PO DAILY #90 tab 05/27/18 metformin 1,000 mg tablet 1,000 mg PO BID #180 tab 05/27/18 nitroglycerin 0.4 mg sublingual tablet 0.4 mg SL Q5MIN PRN #30 tab 07/01/18 furosemide 40 mg tablet See Rx Instructions .ROUTE .COMPLEX #90 tab 10/16/18 pantoprazole 40 mg tablet,delayed release 40 mg PO BID #180 tab 11/06/18 ipratropium 20 mcg-albuterol 100 mcg/actuation mist for inhalation 1 puff IH QID #4 g 11/21/18 Triamcinolone Acetonide [Kenalog 0.1% Ointment] 15 gm TOPICAL BID 12/21/18 Albuterol Sulfate/Ipratropium [Duoneb 2.5-0.5MG/3ML Soln] 3 ml INHALATION Q4HRT PRN nebu 12/23/18 insulin detemir U-100 100 unit/mL (3 mL) subcutaneous pen 18 unit SUBCUT HS #15 ml 12/26/18 ipratropium-albuterol 0.5 mg-3 mg(2.5 mg base)/3 mL nebulization soln 3 ml IH QID PRN #600 ml 01/02/19 oxycodone-acetaminophen 5 mg-325 mg tablet 1 tab PO BID PRN #60 tab 01/21/19 alprazolam 0.25 mg tablet 0.5 mg PO HS PRN #60 tab 01/28/19 cholecalciferol (vitamin D3) 50,000 unit capsule 50,000 unit PO QWEEK #9 cap 01/28/19 Atorvastatin Calcium 40 mg PO DAILY 01/30/19 Azithromycin [Zithromax] 250 mg PO DAILY 5 Days #5 tab 01/30/19
[2019-01-30] MEDS ORDERED: WARFARIN SODIUM 1 TAB TAB PO SCH (17:00)
[2019-01-30 20:20] VITALS: BP 158/72
[2019-01-30] MEDS ORDERED: ROSUVASTATIN CALCIUM 20 MG TABLET PO SCH (21:00)
[2019-01-30] MEDS ORDERED: INSULIN DETEMIR 100 UNITS/ML VIAL SC SCH (21:00)
[2019-02-04] MEDS ORDERED: ERGOCALCIFEROL 50000 UNIT TABLET PO SCH (09:00)
== END 2019-01-30 19:45 | disposition home or self-care (01) ==
LOC: ER 20:22 → INTOOBSV 21:46 → MS 21:46
PROVIDERS: ADMIT Family Medicine; ATTEND Family Medicine
CPT/HCPCS: 36415; 71010; 71045; 80053; 81001; 83519; 83605; 83880; 84484; 85025; 85610; 87040; 93005; 96365; 99285; G0378

== ENCOUNTER 2020-07-13 07:52 | Inpatient (IN) ==
[2020-07-13] MEDS ORDERED: ALBUTEROL SULFATE/IPRATROPIUM 3 ML NEBU IH ONE ×2 (08:09→09:12)
[2020-07-13] MEDS ORDERED: NORMAL SALINE 1,000 ML IV ONE ×2 (08:17→15:53)
--- NOTE | 2020-07-13 08:27 | ERNOTE ---
Neuro HPI ER Record Date of Service: 07/13/20 Presenting Symptoms: confusion Time Seen by Provider: 07/13/20 08:09 Source: patient Exam Limitations: clinical condition Immunizations: IMMUNIZATION HX Immunizations Up to Date Yes History of Influenza Vaccine No Hx Pneumococcal Vaccination Yes Allergies/Adverse Reactions: Allergies Allergy/AdvReac Type Severity Reaction Status Date / Time gabapentin AdvReac TERADATA [employer]UTION ARCHITECT side Verified 07/06/20 15:40 effects Home Medications: HOME MEDICATIONS Aspirin [Aspirin Enteric Coated] 81 mg PO DAILY 01/09/13 [Last Taken 12/21/18 08:00] nitroglycerin 0.4 mg sublingual tablet 0.4 mg SL Q5MIN PRN #30 tab 07/01/18 [Last Taken Unknown] furosemide 40 mg tablet 40 mg PO DAILY #90 tab 07/16/19 [Last Taken Unknown] cholecalciferol (vitamin D3) 1,250 mcg (50,000 unit) capsule 50,000 unit PO TH #12 cap 08/24/19 [Last Taken Unknown] insulin detemir U-100 100 unit/mL (3 mL) subcutaneous pen 18 unit SUBCUT HS #15 ml 09/22/19 [Last Taken Unknown] ipratropium 0.5 mg-albuterol 3 mg (2.5 mg base)/3 mL nebulization soln 3 ml IH Q6H PRN #450 ml 12/04/19 [Last Taken Unknown] Albuterol Sulfate [Albuterol Sulfate Hfa] 18 gm IH QID 12/17/19 [Last Taken Unknown] metformin 1,000 mg tablet 1,000 mg PO BID #180 tab 01/26/20 [Last Taken Unknown] Acetaminophen [Mapap] 325 mg PO PRN PRN 02/10/20 [Last Taken Unknown] levothyroxine 25 mcg tablet 25 mcg PO DAILY #90 tab 02/29/20 [Last Taken Unknown] alprazolam 0.25 mg tablet 0.5 mg PO HS #60 tab 03/04/20 [Last Taken Unknown] losartan 25 mg tablet 25 mg PO HS #90 tab 03/10/20 [Last Taken Unknown] dimethicone 1 % topical ointment See Rx Instructions TP .COMPLEX #339 g 03/29/20 [Last Taken Unknown] polyethylene glycol 3350 17 gram/dose oral powder 17 g PO BID #255 g 03/29/20 [Last Taken Unknown] sennosides 8.6 mg tablet 17.2 mg PO BID #120 tab 03/29/20 [Last Taken Unknown] warfarin 2 mg tablet See Rx Instructions PO DAILY 03/29/20 [Last Taken Unknown] atorvastatin 40 mg tablet 40 mg PO DAILY #30 tab 04/18/20 [Last Taken Unknown] naloxone 4 mg/actuation nasal spray 4 mg LULU Q2M PRN #2 ea 04/28/20 [Last Taken Unknown] oxycodone 10 mg tablet,crush resistant,extended release 12 hr 10 mg PO TID #90 tab 06/10/20 [Last Taken Unknown] metoprolol succinate 50 mg tablet,extended release 24 hr 50 mg PO BID #60 tab 06/20/20 [Last Taken Unknown] pantoprazole 40 mg tablet,delayed release 40 mg PO DAILY #30 tab 06/20/20 [Last Taken Unknown] - History of Present Illness Narrative: Patient presents to the ED for not feeling well. He relates he worked outside approx 3 days ago and has not felt well since. Cough, left sided abdominal pain. Had sats 87% RA here on arrival and placed on oxygen. No CP. Apparently being treated for UTI now with ABx. Coughing. No other exposures noted. Nothing seems to make this better or worse. Has not seen anyone else for this. Blood sugar was in the 60s on arrival here. Possibly having some hallucinations today. Onset: other - 3 days Severity: moderate - Character of Deficits Additional Deficits: Absent: vision problems Baseline Gait: Present: uses a cane/walker Associated Symptoms: Denies: fever/chills, chest pain, headache, seizure Prior Treament: Denies: recently seen Review of Systems - Review of Systems Constitutional: Absent: fever EYE: Present: no symptoms reported ENT: Absent: sore throat Respiratory: Present: cough Cardiology: Absent: chest pain Gastrointestinal/Abdominal: Present: abdominal pain Genitourinary: Present: See HPI Neurological: Present: other - no focal weakness All Other Systems: All systems neg except as marked Medical History (Last Reviewed 07/13/20 @ 08:26 by Elias Ring MD) Abnormal CT scan, lung 2016 showed multiple PE's Alzheimers disease Arthritis Asthma Bipolar 1 disorder Bronchitis CAD (coronary artery disease) COPD (chronic obstructive pulmonary disease) Cor pulmonale DJD (degenerative joint disease) DVT (deep venous thrombosis) Edema GERD (gastroesophageal reflux disease) HTN (hypertension) Hernia Hypercholesteremia Hypoxemia Insomnia Liposarcoma Mild concentric left ventricular hypertrophy (LVH) Myocardial infarction GURJIT (obstructive sleep apnea) PAD (peripheral artery disease) Peripheral neuropathy Pulmonary hypertension Rhinitis Type 2 diabetes mellitus Surgical History: Surgical History (Last Reviewed 07/13/20 @ 08:26 by Elias Ring MD) H/O angioplasty 12/15/2003 RCA H/O discectomy 02/08/14 Revision left L3-4 H/O spinal fusion 08/29/2011 Lumbar, Dr. Golden History of abdominal surgery 07/15/07- - pre peritoneal low-grade liposarcoma, s/p wide local resection w/radiation therapy. History of arthroscopic knee surgery 1983 left knee History of carpal tunnel release 2002 [facility]- left side History of colonoscopy 01/13/13- [place]-scattered diverticulosis History of knee replacement 11/2005- right knee [address] grace History of lumbar laminectomy 02/08/2014 Dr. Golden. revision left L3 hemilaminectomy and left L4 hemilaminectomy lumbar Hx of appendectomy Presence of IVC filter Previous back surgery Stented coronary artery 2003- RCA History of cholecystectomy 1984 [place]-open History of splenectomy 1958. an incidental finding of splenomegaly led to surgical removal History of tonsillectomy Hx of cataract surgery 1984 [place] and 1987 [place] Hx of vasectomy Family History: Family History (Last Reviewed 07/13/20 @ 08:26 by Elias Ring MD) Brother Cancer Son Alive and well Sister Alive and well Sister Non-Hodgkin lymphoma Mother Emphysema lung Heart disease Father Alzheimers disease Heart disease Daughter Alive and well Social History: (Last Reviewed 07/13/20 @ 08:26 by Elias Ring MD) Social History: adopted: No Marital status: lives independently: No household members: spouse caregiver/support person: No current occupational status: retired Highest level of school completed/degree received: 8th grade Service: No Tobacco: Smoking Status: Never smoker Alcohol: alcohol intake: never Substance Use: substance use type: does not use Dietary Habits: caffeine: Yes Type: carbonated beverages Exercise: Physical activity type: walking Physical Exam - Physical Exam General Appearance: Present: alert, no apparent distress Head Exam: Present: normal inspection, no evidence of injury Eye Exam: Normal inspection: bilateral, PERRL: bilateral Ears, Nose, Throat: Present: normal ENT inspection Neck: Present: normal inspection Respiratory: Present: no respiratory distress, other - few scattered wheezes, scattered rales Cardiovascular/Chest: Present: regular rate, rhythm Gastrointestinal/Abdominal: Present: normal bowel sounds, soft, other - Mild diffuse left abdominal tenderness Back Exam: Absent: CVA tenderness (R), CVA tenderness (L) Extremity Exam: Present: no edema Neurological Exam: Present: alert, other - no acute unilateral focal motor deficits noted Skin Exam: Present: normal color, warm/dry Progress - Results and Orders Patient's Lab Results:: I have reviewed the patient's lab results. - Vital Signs Patient's Vital Signs:: I have reviewed the patient's vital signs. Vital Signs: Vital Signs 07/13/20 07:53 Temperature 36.3 C Pulse Rate 92 Respiratory Rate 19 Blood Pressure 147/56 O2 Sat by Pulse Oximetry 88 L - EKG EKG #1 EKG: NSR EKG read: Interp. by me EKG Comments: NSR 1st degree AVB. IVCD. Rate 92. No evidence of STEMI - X-Ray X-Ray #1 X-Ray: chest Interpretation: Interp. by me X-ray Comments: I personally reviewed the CXR images as well as official radiology report. - CT/Ultrasound CT/Ultrasound Narrative: I reviewed the official radiology report for CT abd/pelvis. - Progress/Reassessment Chief Complaint: Altered Mental Status Progress Note-Subjective: 07/13/20 11:[address] with Dr Bell initially who was going to admit, CT scan discussed as well which was obtained. Dr Allyson Barrow called me back to have manager call admit so I spoke with Dr Bustillos who will admit. 07/13/20 11:53 Patient and family understand admission. Departure Clinical Impression: Pneumonia, Hypoxia, Hematuria, Supratherapeutic INR - Departure Disposition: Still a patient Condition: Fair Referrals: Raul Saunders MD [Primary Care Provider] -
[2020-07-13] MEDS: DEXTROSE 4 GM/TAB BTL PO ONE ×2 (08:49→09:11)
[2020-07-13 08:53] LABS: Hematocrit 46.8 % (42.0-52.0); Hemoglobin 15.6 gm/dL (13.5-18.0); Mean Cell Volume 98.9 fl (78-100); Mean Corpuscular Hgb Conc 33.3 g/dl (32-36); Mean Platelet Volume 10.7 fl (8-11.3); Platelet Count 347 K/mm3 (150-450); Red Blood Count 4.73 M/mm3 (4.7-6.0); Red Cell Distribution Width 13.5 % (11.5-14.0); White Blood Count 14.8 K/mm3 (4.0-10.5)
[2020-07-13 09:00] LABS: Urine Bilirubin Negative (NEGATIVE); Urine Blood 250 /ul (NEGATIVE); Urine Ketone Negative (NEGATIVE); Urine Nitrite Negative (NEGATIVE); Urine Protein Negative (NEGATIVE); Urine Specific Gravity 1.015 SP.GR. (1.005-1.030); Urine Urobilinogen Normal (NORMAL)
[2020-07-13 09:02] LABS: Prothrombin Time (Patient) 59.6 Seconds (9.1-10.7)
[2020-07-13 09:04] LABS: INR 6.25 INR (0.92-1.08); Total Cells Counted 100
[2020-07-13 09:05] LABS: ALT 33 U/L (19-67); AST 34 U/L (0-48); Albumin * 3.3 gm/dl (3.4-5.0); Alkaline Phosphatase * 120 U/L (50-170); Anion Gap 6.7 mmol/L (6.8-13.8); BNP * 122 pg/mL (5-650); Blood Urea Nitrogen 16 mg/dL (6-23); CK Total * 65 U/L (0-259); Ca. Corrected For Albumin 9.7 mg/dL (8.4-10.2); Calcium * 9.5 mg/dL (7.9-10.9); Carbon Dioxide 31.8 mmol/L (24-32.6); Chloride 105 mmol/L (97-106); Glucose * 66 mg/dL (70-110); Lipase 78 U/L (73-393); Potassium 3.5 mmol/L (3.4-4.6); Sodium 140 mmol/L (132-142); Troponin I Less than 0.017 ng/mL (0.00-0.10)
[2020-07-13 09:15] LABS: Urine Appearance Cloudy (CLEAR); Urine Bacteria 1+; Urine Color Dark Yellow; Urine Mucus Few - 1+; Urine RBC >50 /hpf (0-5); Urine WBC 0-5 /hpf (0-5)
[2020-07-13] MEDS ORDERED: ALBUTEROL SULFATE 2.5 MG/0.5 ML VIAL.NEB IH ONE (09:16)
[2020-07-13] MEDS ORDERED: METHYLPREDNISOLONE SOD SUCC/PF 40 MG/ML VIAL IV ONE (09:16)
[2020-07-13 09:25] LABS: Eosinophil 4 % (0-3); Lymphocyte 20 % (20-51); Monocyte 7 % (0-9); Neutrophil 69 % (42-75); Neutrophil # 10.2 K/mm3 (1.3-6.0)
[2020-07-13 09:26] LABS: Platelet Estimate Normal (NORMAL); RBC Morphology Normal (NORMAL)
[2020-07-13] MEDS ORDERED: cefTRIAXone SODIUM 1,000 MG/100 ML BAG IV ONE (09:47)
[2020-07-13 09:51] LABS: COVID 19 - FMCH Not Detected (NotDetected)
[2020-07-13] MEDS ORDERED: AZITHROMYCIN 500 MG in DEXTROSE 5 % IN WATER 250 ML IV ONE ×2 (10:00)
[2020-07-13] MEDS ORDERED: ALBUTEROL SULFATE/IPRATROPIUM 3 ML NEBU IH PRN (21:43)
[2020-07-13] MEDS ORDERED: ACETAMINOPHEN 325 MG TABLET PO PRN (21:43)
[2020-07-13] MEDS ORDERED: LOSARTAN POTASSIUM 50 MG TABLET ONE (22:08)
[2020-07-13] MEDS: ALPRAZolam 0.25 MG TABLET PO SCH (22:20)
[2020-07-13] MEDS: LOSARTAN POTASSIUM 50 MG TABLET PO SCH (22:24)
[2020-07-13] MEDS: METOPROLOL SUCCINATE 50 MG TABLET.SA PO SCH (22:25)
--- NOTE | 2020-07-13 23:46 | HP ---
Chief Complaint - Chief Complaint Date of Service: 07/13/20 Time of Service: 12:45 Chief Complaint: Weakness, shortness of breath History of Present Illness: Brandon is a 79 yo poor historian who reports presenting to the ER today due to worsening lower extremity weakness. He reports for about the last year he has had difficulty getting out of bed. He uses the assistance of his to pull him up as he swings his legs out of bed. He reports today he was unable to swing his legs out of bed. This is unusual and the reason he came to the ER. He denies fever, chills, nausea, vomiting, change in diet/medication, cough, or confusion. Once he is out of bed he uses a can or walker to ambulate. In the ER his chest xray showed possible infiltrate. His lactic acid is elevated at 2.2. His WBC is elevated at 14.8. Is INR is 6. (Goal range 3-4). Medical History (Last Reviewed 07/13/20 @ 12:30 by Randy Salamanca RN) Abnormal CT scan, lung 2016 showed multiple PE's Alzheimers disease Arthritis Asthma Bipolar 1 disorder Bronchitis CAD (coronary artery disease) COPD (chronic obstructive pulmonary disease) Cor pulmonale DJD (degenerative joint disease) DVT (deep venous thrombosis) Edema GERD (gastroesophageal reflux disease) HTN (hypertension) Hernia Hypercholesteremia Hypoxemia Insomnia Liposarcoma Mild concentric left ventricular hypertrophy (LVH) Myocardial infarction GURJIT (obstructive sleep apnea) PAD (peripheral artery disease) Peripheral neuropathy Pulmonary hypertension Rhinitis Type 2 diabetes mellitus Surgical History: Surgical History (Last Reviewed 07/13/20 @ 12:31 by Randy Salamanca RN) H/O angioplasty 12/15/2003 RCA H/O discectomy 02/08/14 Revision left L3-4 H/O spinal fusion 08/29/2011 Lumbar, Dr. Golden History of abdominal surgery 07/15/07- - pre peritoneal low-grade liposarcoma, s/p wide local resection w/radiation therapy. History of arthroscopic knee surgery 1983 left knee History of carpal tunnel release 2002 [facility]- left side History of colonoscopy 01/13/13- [place]-scattered diverticulosis History of knee replacement 11/2005- right knee [address] grace History of lumbar laminectomy 02/08/2014 Dr. Golden. revision left L3 hemilaminectomy and left L4 hemilaminectomy lumbar Hx of appendectomy Presence of IVC filter Previous back surgery Stented coronary artery 2003- RCA History of cholecystectomy 1984 [place]-open History of splenectomy 1958. an incidental finding of splenomegaly led to surgical removal History of tonsillectomy Hx of cataract surgery 1984 [place] and 1987 [place] Hx of vasectomy Family History: Family History (Last Reviewed 07/13/20 @ 12:31 by Randy Salamanca RN) Brother Cancer Son Alive and well Sister Alive and well Sister Non-Hodgkin lymphoma Mother Heart disease Emphysema lung Father Heart disease Alzheimers disease Daughter Alive and well Social History: (Last Reviewed 07/13/20 @ 12:31 by Randy Salamanca RN) Social History: adopted: No Marital status: lives independently: No household members: spouse caregiver/support person: No current occupational status: retired Highest level of school completed/degree received: 8th grade Service: No Tobacco: Smoking Status: Never smoker Alcohol: alcohol intake: never Substance Use: substance use type: does not use Dietary Habits: caffeine: Yes Type: carbonated beverages Exercise: Physical activity type: walking Review Of Systems (GEN) - Review of Systems Generalized/Overall Review: Present: Weakness. Absent: Chills, Fever EENTM: Present: No Symptoms Reported Respiratory: Present: Shortness of Breath. Absent: Cough Cardiac: Absent: Chest Pain, Edema, Palpitations, Syncope Abdominal: Absent: Nausea, Vomiting, Abdominal Pain Genitourinary: Absent: Burning, Frequency Musculoskeletal: Absent: Joint Pain, Back Pain Neurological: Absent: Headache, Anxiety Skin: Absent: Lesions, Rash Endocrine: Absent: Intolerance to Cold, Intolerance to Heat Immunizations: IMMUNIZATION HX Immunizations Up to Date Yes History of Influenza Vaccine No Hx Pneumococcal Vaccination Yes Allergies/Adverse Reactions: Allergies Allergy/AdvReac Type Severity Reaction Status Date / Time gabapentin AdvReac INTERACTIVE MEDIA DIRECTOR side Verified 07/13/20 12:31 effects Home Medications: HOME MEDICATIONS Aspirin [Aspirin Enteric Coated] 81 mg PO DAILY 01/09/13 [Last Taken 12/21/18 08:00] nitroglycerin 0.4 mg sublingual tablet 0.4 mg SL Q5MIN PRN #30 tab 07/01/18 [Last Taken Unknown] furosemide 40 mg tablet 40 mg PO DAILY #90 tab 07/16/19 [Last Taken Unknown] cholecalciferol (vitamin D3) 1,250 mcg (50,000 unit) capsule 50,000 unit PO TH #12 cap 08/24/19 [Last Taken Unknown] insulin detemir U-100 100 unit/mL (3 mL) subcutaneous pen 18 unit SUBCUT HS #15 ml 09/22/19 [Last Taken Unknown] ipratropium 0.5 mg-albuterol 3 mg (2.5 mg base)/3 mL nebulization soln 3 ml IH Q6H PRN #450 ml 12/04/19 [Last Taken Unknown] Albuterol Sulfate [Albuterol Sulfate Hfa] 18 gm IH QID 12/17/19 [Last Taken Unknown] metformin 1,000 mg tablet 1,000 mg PO BID #180 tab 01/26/20 [Last Taken Unknown] Acetaminophen [Mapap] 325 mg PO PRN PRN 02/10/20 [Last Taken Unknown] levothyroxine 25 mcg tablet 25 mcg PO DAILY #90 tab 02/29/20 [Last Taken Unknown] alprazolam 0.25 mg tablet 0.5 mg PO HS #60 tab 03/04/20 [Last Taken Unknown] losartan 25 mg tablet 25 mg PO HS #90 tab 03/10/20 [Last Taken Unknown] polyethylene glycol 3350 17 gram/dose oral powder 17 g PO BID #255 g 03/29/20 [Last Taken Unknown] sennosides 8.6 mg tablet 17.2 mg PO BID #120 tab 03/29/20 [Last Taken Unknown] warfarin 2 mg tablet See Rx Instructions PO DAILY 03/29/20 [Last Taken Unknown] atorvastatin 40 mg tablet 40 mg PO DAILY #30 tab 04/18/20 [Last Taken Unknown] naloxone 4 mg/actuation nasal spray 4 mg LULU Q2M PRN #2 ea 04/28/20 [Last Taken Unknown] oxycodone 10 mg tablet,crush resistant,extended release 12 hr 10 mg PO TID #90 tab 06/10/20 [Last Taken Unknown] metoprolol succinate 50 mg tablet,extended release 24 hr 50 mg PO BID #60 tab 06/20/20 [Last Taken Unknown] pantoprazole 40 mg tablet,delayed release 40 mg PO DAILY #30 tab 06/20/20 [Last Taken Unknown] Exam - Exam Vital Signs: Vital Signs - Last Taken Temp 36.6 C 07/13/20 22:00 Pulse 87 07/13/20 22:25 Resp 22 H 07/13/20 22:00 BP 164/87 H 07/13/20 22:25 Pulse Ox 93 07/13/20 22:00 Constitutional: Present: Alert, Oriented x3, Cooperative ENT Exam: Present: hearing grossly normal Eye Exam: bilateral eye: normal inspection Respiratory: Present: rhonchi, wheezing Cardiovascular/Chest: Present: regular rate, rhythm, no edema Peripheral Pulses: radial (R): 2+, radial (L): 2+ Abdomen: Present: Normal bowel sounds, soft, nontender, nondistended Skin Exam: Present: normal color, warm/dry, no cyanosis Neurologic: Present: alert, normal mood/affect, oriented x 3 Eye contact: Present: cooperative, good eye contact, normal speech Diagnostic Studies: Abnormal Lab Results 07/13/20 07/13/20 07/13/20 Range/Units 08:30 08:34 08:34 WBC 14.8 H (4.0-10.5) K/mm3 MCH 33.0 H (27-31) pg Eosinophils % (Manual) 4 H (0-3) % Neutrophils # (Manual) 10.2 H (1.3-6.0) K/mm3 PT (9.1-10.7) Seconds INR (Anticoag Therapy) (0.92-1.08) INR pO2 (83.0-108.0) mmHg HCO3 (21.0-28.0) mmol/L Total CO2 (19.0-24.0) mmol/L ABG O2 Sat (Measured) (94.0-98.0) % Anion Gap 6.7 L (6.8-13.8) mmol/L Random Glucose 66 L (70-110) mg/dL Lactic Acid, Venous (0.4-2.0) mmol/L Albumin 3.3 L (3.4-5.0) gm/dl Urine Blood 250 H (NEGATIVE) /ul Ur Leukocyte Esterase 75 H (NEGATIVE) /ul Urine RBC >50 H (0-5) /hpf Ur Epithelial Cells 5-10 H (0-5) /hpf Urine Bacteria 1+ H (NONE) Urine Mucus Few - 1+ H (NONE) 07/13/20 07/13/20 07/13/20 Range/Units 08:34 08:34 10:45 WBC (4.0-10.5) K/mm3 MCH (27-31) pg Eosinophils % (Manual) (0-3) % Neutrophils # (Manual) (1.3-6.0) K/mm3 PT 59.6 H (9.1-10.7) Seconds INR (Anticoag Therapy) 6.25 H* (0.92-1.08) INR pO2 54.6 L (83.0-108.0) mmHg HCO3 28.4 H (21.0-28.0) mmol/L Total CO2 29.8 H (19.0-24.0) mmol/L ABG O2 Sat (Measured) 88.4 L (94.0-98.0) % Anion Gap (6.8-13.8) mmol/L Random Glucose (70-110) mg/dL Lactic Acid, Venous 2.2 H* (0.4-2.0) mmol/L Albumin (3.4-5.0) gm/dl Urine Blood (NEGATIVE) /ul Ur Leukocyte Esterase (NEGATIVE) /ul Urine RBC (0-5) /hpf Ur Epithelial Cells (0-5) /hpf Urine Bacteria (NONE) Urine Mucus (NONE) 07/13/20 07/13/20 Range/Units 11:26 16:00 WBC (4.0-10.5) K/mm3 MCH (27-31) pg Eosinophils % (Manual) (0-3) % Neutrophils # (Manual) (1.3-6.0) K/mm3 PT (9.1-10.7) Seconds INR (Anticoag Therapy) (0.92-1.08) INR pO2 (83.0-108.0) mmHg HCO3 (21.0-28.0) mmol/L Total CO2 (19.0-24.0) mmol/L ABG O2 Sat (Measured) (94.0-98.0) % Anion Gap (6.8-13.8) mmol/L Random Glucose (70-110) mg/dL Lactic Acid, Venous 3.2 H* 5.4 H* (0.4-2.0) mmol/L Albumin (3.4-5.0) gm/dl Urine Blood (NEGATIVE) /ul Ur Leukocyte Esterase (NEGATIVE) /ul Urine RBC (0-5) /hpf Ur Epithelial Cells (0-5) /hpf Urine Bacteria (NONE) Urine Mucus (NONE) Laboratory Results WBC 14.8 K/mm3 (4.0-10.5) H 07/13/20 08:34 RBC 4.73 M/mm3 (4.7-6.0) 07/13/20 08:34 Hgb 15.6 gm/dL (13.5-18.0) 07/13/20 08:34 Hct 46.8 % (42.0-52.0) 07/13/20 08:34 MCV 98.9 fl (78-100) 07/13/20 08:34 MCH 33.0 pg (27-31) H 07/13/20 08:34 MCHC 33.3 g/dl (32-36) 07/13/20 08:34 RDW 13.5 % (11.5-14.0) 07/13/20 08:34 Plt Count 347 K/mm3 (150-450) 07/13/20 08:34 MPV 10.7 fl (8-11.3) 07/13/20 08:34 Neutrophils % (Manual) 69 % (42-75) 07/13/20 08:34 Lymphocytes % (Manual) 20 % (20-51) 07/13/20 08:34 Monocytes % (Manual) 7 % (0-9) 07/13/20 08:34 Eosinophils % (Manual) 4 % (0-3) H 07/13/20 08:34 Neutrophils # (Manual) 10.2 K/mm3 (1.3-6.0) H 07/13/20 08:34 Lymphocytes # (Manual) 3.0 k/mm3 (1.5-3.5) 07/13/20 08:34 Monocytes # (Manual) 1.0 k/mm3 (0.0-1.0) 07/13/20 08:34 Eosinophils # (Manual) 0.6 k/mm3 (0.0-0.7) 07/13/20 08:34 Platelet Estimate Normal (NORMAL) 07/13/20 08:34 RBC Morphology Normal (NORMAL) 07/13/20 08:34 PT 59.6 Seconds (9.1-10.7) H 07/13/20 08:34 INR (Anticoag Therapy) 6.25 INR (0.92-1.08) H* 07/13/20 08:34 pCO2 46.1 mmHg (35.0-48.0) 07/13/20 10:45 pO2 54.6 mmHg (83.0-108.0) L 07/13/20 10:45 HCO3 28.4 mmol/L (21.0-28.0) H 07/13/20 10:45 Total CO2 29.8 mmol/L (19.0-24.0) H 07/13/20 10:45 Base Excess 2.9 mmol/L (-2.0-3.0) 07/13/20 10:45 ABG pH 7.41 (7.35-7.45) 07/13/20 10:45 ABG O2 Sat (Measured) 88.4 % (94.0-98.0) L 07/13/20 10:45 Sodium 140 mmol/L (132-142) 07/13/20 08:34 Plasma Sodium 139 mmol/L (130-142) 07/13/20 08:34 Potassium 3.5 mmol/L (3.4-4.6) 07/13/20 08:34 Chloride 105 mmol/L (97-106) 07/13/20 08:34 Carbon Dioxide 31.8 mmol/L (24-32.6) 07/13/20 08:34 Anion Gap 6.7 mmol/L (6.8-13.8) L 07/13/20 08:34 BUN 16 mg/dL (6-23) 07/13/20 08:34 Creatinine 0.84 mg/dL (0.4-1.4) 07/13/20 08:34 Est GFR (Non-Af Amer) 94 mL/min (60-130) 07/13/20 08:34 BUN/Creatinine Ratio 19.0 (9.0-21.6) 07/13/20 08:34 Random Glucose 66 mg/dL (70-110) L 07/13/20 08:34 Lactic Acid, Venous 5.4 mmol/L (0.4-2.0) H* 07/13/20 16:00 Calcium 9.5 mg/dL (7.9-10.9) 07/13/20 08:34 Calcium Adj for Albumin 9.7 mg/dL (8.4-10.2) 07/13/20 08:34 Total Bilirubin 1.0 mg/dL (0.0-1.1) 07/13/20 08:34 AST 34 U/L (0-48) 07/13/20 08:34 ALT 33 U/L (19-67) 07/13/20 08:34 Alkaline Phosphatase 120 U/L (50-170) 07/13/20 08:34 Creatine Kinase 65 U/L (0-259) 07/13/20 08:34 Troponin I Less than 0.017 ng/mL (0.00-0.10) 07/13/20 08:34 B-Natriuretic Peptide 122 pg/mL (5-650) 07/13/20 08:34 Total Protein 8.0 gm/dL (6.2-8.2) 07/13/20 08:34 Albumin 3.3 gm/dl (3.4-5.0) L 07/13/20 08:34 Lipase 78 U/L (73-393) 07/13/20 08:34 Urine Color Dark yellow 07/13/20 08:30 Urine Appearance Cloudy (CLEAR) 07/13/20 08:30 Urine pH 6.0 pH (5.0-7.0) 07/13/20 08:30 Ur Specific [place] 1.015 SP.GR. (1.005-1.030) 07/13/20 08:30 Urine Protein Negative mg/dL (NEGATIVE) 07/13/20 08:30 Urine Glucose (UA) Negative mg/dL (NEGATIVE) 07/13/20 08:30 Urine Ketones Negative mg/dL (NEGATIVE) 07/13/20 08:30 Urine Blood 250 /ul (NEGATIVE) H 07/13/20 08:30 Urine Nitrate Negative (NEGATIVE) 07/13/20 08:30 Urine Bilirubin Negative mg/dl (NEGATIVE) 07/13/20 08:30 Urine Urobilinogen Normal EU/dl (NORMAL) 07/13/20 08:30 Ur Leukocyte Esterase 75 /ul (NEGATIVE) H 07/13/20 08:30 Urine RBC >50 /hpf (0-5) H 07/13/20 08:30 Urine WBC 0-5 /hpf (0-5) 07/13/20 08:30 Ur Epithelial Cells 5-10 /hpf (0-5) H 07/13/20 08:30 Urine Bacteria 1+ (NONE) H 07/13/20 08:30 Urine Mucus Few - 1+ (NONE) H 07/13/20 08:30 Urine Culture Comments Culture to follow 07/13/20 08:30 Ethyl Alcohol Less than 3.0 mg/dL (0.0-10.0) 07/13/20 08:34 Influenza Type A Ag Negative (NEGATIVE) 07/13/20 08:50 Influenza Type B Ag Negative (NEGATIVE) 07/13/20 08:50 SARS-CoV-2 (PCR) Not detected (NotDetected) 07/13/20 08:50 Assessment/Plan - Narrative Narrative: Brandon is a 79 yo male with: 1) Acute on Chronic Respiratory Failure - Typically on 3lpm at night he was 88% on room air during the day. This is a worsening of his baseline. He will be placed on oxygen continuous to keep oxygen sats at 90% or greater. Suspect f ailure secondary to pneumonia 2) Severe Sepsis - Pneumonia with leukocytosis and hypoxia, with elevated lactic acid indicates potential for severe sepsis. Will monitor lactic acid. Blood pressure is not hypotensive, no concerns at this time for shock. Will continue fluids for sepsis protocol. Treat with rocephin/azithromycin. 3) Pneumonia - Based on leukocytosis and right lower lung infiltrate on chest xray. Treat with azithromycin/rocephin. Charles. IS and kathya. 4) Supratherapeutic INR - Hold Coumadin. 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 5) Acute on chronic weakness. Per patient this was the reason he presented to the ER. Will consult PT. - Assessment/Plan (1) Acute and chronic respiratory failure with hypoxia Problem: Acute (2) Severe sepsis Problem: Suspected (3) Pneumonia Problem: Acute Qualifiers: Pneumonia type: due to unspecified organism Laterality: right Lung location: lower lobe of lung Qualified Code(s): J18.9 - Pneumonia, unspecified organism (4) Supratherapeutic INR Problem: Acute (5) Generalized weakness Problem: Acute
[2020-07-14] MEDS ORDERED: ALBUTEROL SULFATE/IPRATROPIUM 3 ML NEBU IH PRN (00:16)
[2020-07-14] MEDS: ALBUTEROL SULFATE/IPRATROPIUM 3 ML NEBU IH SCH ×4 (00:56→18:02)
[2020-07-14] MEDS ORDERED: ACETAMINOPHEN 325 MG TABLET PO PRN (06:37)
[2020-07-14] MEDS: LEVOTHYROXINE SODIUM 25 MCG TABLET PO SCH (06:53)
[2020-07-14] MEDS: PANTOPRAZOLE SODIUM 40 MG TABLET.EC PO SCH (06:54)
--- NOTE | 2020-07-14 06:55 | PN ---
Subjective - Date and Time Seen Date: 07/14/20 Time: 06:30 Subjective Narrative: Brandon is a 79 yo man with COPD and diabetes who presented to the ER yesterday due to worsening lower extremity weakness. He reported for about the last year he has had difficulty getting out of bed, but this was a worsning. He uses the assistance of his to pull him up as he swings his legs out of bed. He reported yesterday he was unable to swing his legs out of bed. This is unusual and the reason he came to the ER. He denied fever, chills, nausea, vomiting, change in diet/medication, cough, or confusion. Once he is out of bed he uses a cane or walker to ambulate. In the ER his chest xray showed possible infiltrate. His lactic acid is elevated at 2.2. His WBC was elevated at 14.8. Is INR is 6. (Goal range 3-4). He also complained of chest, back and abdominal pain which is gone this morning. He wants to go home. He is receiving Rocephin and Zithromax. His lactic acid steadily increased yesterday including the last one at 1600. He's receiving no IV fluids. His vitals are stable. He had hallucinations at home, but these are now gone. The highest temperature elevation on the vitals chart is 37.1. O2 sat on RA in the ER was 87%. Blood sugar in the ER was 60 and he was given one oral glucose supplement. Objective - Review of Systems Generalized/Overall Review: Reports: Weakness, Chills, Malaise EENTM: Reports: No Symptoms Reported Respiratory: Reports: Cough, Shortness of Breath Cardiac: Reports: Chest Pain. Denies: Edema, Syncope Abdominal: Reports: Abdominal Pain - on admission. gone now.. Denies: Nausea, Constipation, Diarrhea, Melena, Bright blood from rectum Genitourinary Symptoms: Reports: Hematuria - on admission Musculoskeletal Complaints: Reports: Back Pain - on admission. gone now Neurological: Reports: Weakness, Other - hallucinations, gone now. Skin: Reports: No Symptoms Reported Endocrine: Reports: No Symptoms Reported Misc: All systems neg except as marked - Vitals Vitals: Last Vital Signs Temp 36.4 C 07/14/20 02:00 Pulse 71 07/14/20 06:16 Resp 24 H 07/14/20 06:16 BP 136/64 07/14/20 02:00 Pulse Ox 93 07/14/20 06:08 - Abnormal Lab Findings Abnormal Lab Findings: Abnormal Lab Results 07/13/20 07/13/20 07/13/20 Range/Units 08:30 08:34 08:34 WBC 14.8 H (4.0-10.5) K/mm3 MCH 33.0 H (27-31) pg Eosinophils % (Manual) 4 H (0-3) % Neutrophils # (Manual) 10.2 H (1.3-6.0) K/mm3 PT (9.1-10.7) Seconds INR (Anticoag Therapy) (0.92-1.08) INR pO2 (83.0-108.0) mmHg HCO3 (21.0-28.0) mmol/L Total CO2 (19.0-24.0) mmol/L ABG O2 Sat (Measured) (94.0-98.0) % Anion Gap 6.7 L (6.8-13.8) mmol/L Random Glucose 66 L (70-110) mg/dL Lactic Acid, Venous (0.4-2.0) mmol/L Albumin 3.3 L (3.4-5.0) gm/dl Urine Blood 250 H (NEGATIVE) /ul Ur Leukocyte Esterase 75 H (NEGATIVE) /ul Urine RBC >50 H (0-5) /hpf Ur Epithelial Cells 5-10 H (0-5) /hpf Urine Bacteria 1+ H (NONE) Urine Mucus Few - 1+ H (NONE) 07/13/20 07/13/20 07/13/20 Range/Units 08:34 08:34 10:45 WBC (4.0-10.5) K/mm3 MCH (27-31) pg Eosinophils % (Manual) (0-3) % Neutrophils # (Manual) (1.3-6.0) K/mm3 PT 59.6 H (9.1-10.7) Seconds INR (Anticoag Therapy) 6.25 H* (0.92-1.08) INR pO2 54.6 L (83.0-108.0) mmHg HCO3 28.4 H (21.0-28.0) mmol/L Total CO2 29.8 H (19.0-24.0) mmol/L ABG O2 Sat (Measured) 88.4 L (94.0-98.0) % Anion Gap (6.8-13.8) mmol/L Random Glucose (70-110) mg/dL Lactic Acid, Venous 2.2 H* (0.4-2.0) mmol/L Albumin (3.4-5.0) gm/dl Urine Blood (NEGATIVE) /ul Ur Leukocyte Esterase (NEGATIVE) /ul Urine RBC (0-5) /hpf Ur Epithelial Cells (0-5) /hpf Urine Bacteria (NONE) Urine Mucus (NONE) 07/13/20 07/13/20 Range/Units 11:26 16:00 WBC (4.0-10.5) K/mm3 MCH (27-31) pg Eosinophils % (Manual) (0-3) % Neutrophils # (Manual) (1.3-6.0) K/mm3 PT (9.1-10.7) Seconds INR (Anticoag Therapy) (0.92-1.08) INR pO2 (83.0-108.0) mmHg HCO3 (21.0-28.0) mmol/L Total CO2 (19.0-24.0) mmol/L ABG O2 Sat (Measured) (94.0-98.0) % Anion Gap (6.8-13.8) mmol/L Random Glucose (70-110) mg/dL Lactic Acid, Venous 3.2 H* 5.4 H* (0.4-2.0) mmol/L Albumin (3.4-5.0) gm/dl Urine Blood (NEGATIVE) /ul Ur Leukocyte Esterase (NEGATIVE) /ul Urine RBC (0-5) /hpf Ur Epithelial Cells (0-5) /hpf Urine Bacteria (NONE) Urine Mucus (NONE) - Exam Constitutional: Present: Alert, Cooperative, Elderly, Thin and frail ENT Exam: Present: normal ENT inspection, hearing grossly normal Neck: Present: normal inspection, trachea midline. Absent: lymphadenopathy (R), lymphadenopathy (L), thyromegaly Breasts: Present: Other - male Respiratory: Present: chest non-tender, no accessory muscle use, rhonchi, No wheezing. Absent: rales Cardiovascular/Chest: Present: regular rate, rhythm, no edema, no gallop, no JVD, no murmur Abdomen: Present: Normal bowel sounds, soft, nontender, nondistended, no hepatospenomegaly, no masses /Rectal: Present: Exam deferred Extremity: Present: non-tender, no pedal edema Skin Exam: Present: normal color, warm/dry, no cyanosis Lymphatic: Present: no adenopathy Neurologic: Present: normal mood/affect, other - oriented X2 Appearance: Present: appropriate appearance, neat, impaired recent memory. Absent: appropriate insight Eye contact: Present: cooperative, good eye contact, normal speech Thoughts: Present: normal thought pattern, no apparent hallucination - had hallucinations yesterday Assessment/Plan - Problems/Diagnosis (1) Pneumonia Problem: Acute Qualifiers: Pneumonia type: due to unspecified organism Laterality: right Lung location: lower lobe of lung Qualified Code(s): J18.9 - Pneumonia, unspecified organism Narrative: Plan is continue antibiotics, monitor clinically and with labs/xrays as needed. (2) Lactic acidosis Problem: Acute Narrative: REpeating this morning. Probably related to pneumonia. May need IV saline. (3) Acute and chronic respiratory failure with hypoxia Problem: Acute Narrative: acute on chronic. O2 in low 90s on n.c. O2 which we will continue. (4) Generalized weakness Problem: Acute (5) Hematuria Problem: Acute Qualifiers: Hematuria type: gross Qualified Code(s): R31.0 - Gross hematuria Narrative: probably due to elevated INR. will stop warfarin and continue to monitor (6) Supratherapeutic INR Problem: Acute Narrative: hold warfarin until INR appropriate (7) Diabetes Problem: Chronic Qualifiers: Diabetes mellitus type: type 2 Diabetes mellitus emt intermediate insulin use: unspecified emt intermediate insulin use status Diabetes mellitus complication status: with hypoglycemia Diabetes mellitus complication detail: without coma Qualified Code(s): E11.649 - Type 2 diabetes mellitus with hypoglycemia without coma Narrative: In the ER sugar was 60. I will check fingerstick blood sugars ac and hs.
[2020-07-14] MEDS ORDERED: oxyCODONE HCL 5 MG TABLET PO PRN (07:12)
[2020-07-14 07:13] LABS: Hematocrit 42.1 % (42.0-52.0); Hemoglobin 14.2 gm/dL (13.5-18.0); Mean Cell Volume 97.5 fl (78-100); Mean Corpuscular Hemoglobin 32.9 pg (27-31); Mean Corpuscular Hgb Conc 33.7 g/dl (32-36); Mean Platelet Volume 10.6 fl (8-11.3); Platelet Count 313 K/mm3 (150-450); Red Blood Count 4.32 M/mm3 (4.7-6.0); Red Cell Distribution Width 13.2 % (11.5-14.0); White Blood Count 18.4 K/mm3 (4.0-10.5)
[2020-07-14] MEDS ORDERED: NITROGLYCERIN 0.4 MG/TAB BTL SL PRN (07:17)
[2020-07-14 07:26] LABS: Albumin * 2.8 gm/dl (3.4-5.0); Anion Gap 11.4 mmol/L (6.8-13.8); BUN/Creatinine Ratio 21.1 (9.0-21.6); Bilirubin, Total 0.6 mg/dL (0.0-1.1); Ca. Corrected For Albumin 9.4 mg/dL (8.4-10.2); Calcium * 8.8 mg/dL (7.9-10.9); Potassium 3.4 mmol/L (3.4-4.6); Total Protein 6.9 gm/dL (6.2-8.2)
[2020-07-14 07:28] LABS: Total Cells Counted 100
[2020-07-14] MEDS ORDERED: IPRATROPIUM BROMIDE 0.5 MG/2.5 ML VIAL.NEB IH SCH (07:30)
[2020-07-14 07:44] LABS: Lymphocyte 17 % (20-51); Monocyte 10 % (0-9); Neutrophil 73 % (42-75); Neutrophil # 13.4 K/mm3 (1.3-6.0)
[2020-07-14 07:45] LABS: Platelet Estimate Normal (NORMAL)
[2020-07-14 07:46] LABS: RBC Morphology Normal (NORMAL)
[2020-07-14 07:59] LABS: INR 9.08 INR (0.92-1.08)
[2020-07-14] MEDS: ASPIRIN 81 MG TABLET.DR PO SCH (08:10)
[2020-07-14] MEDS: FUROSEMIDE 40 MG TABLET PO SCH (08:11)
[2020-07-14] MEDS: POLYETHYLENE GLYCOL 3350 17 GM PACKET PO SCH ×2 (08:13→21:21)
[2020-07-14] MEDS: SENNOSIDES 8.6 MG TABLET PO SCH ×2 (08:14→21:21)
[2020-07-14] MEDS: METOPROLOL SUCCINATE 50 MG TABLET.SA PO SCH ×2 (08:15→21:21)
[2020-07-14] MEDS: CHOLECALCIFEROL 5,000 UNIT TABLET PO SCH (08:15)
[2020-07-14] MEDS: AZITHROMYCIN 250 MG TABLET PO SCH (08:16)
[2020-07-14] MEDS ORDERED: POLYETHYLENE GLYCOL 3350 119 GM BTL PO SCH (09:00)
[2020-07-14] MEDS ORDERED: ROSUVASTATIN CALCIUM 20 MG TABLET PO SCH (09:00)
[2020-07-14] MEDS ORDERED: PHYTONADIONE (VIT K1) 10 MG/ML AMPUL IM ONE (12:54)
[2020-07-14] MEDS ORDERED: NORMAL SALINE 1,000 ML IV ONE ×2 (13:05→13:07)
--- NOTE | 2020-07-14 13:05 | PN ---
Mirta Note - Interim Date: 07/14/20 Time: 13:01 Narrative: 07/14/20 13:02 wbc count increased this morning in comparison to yesterday. we will continue antibiotics and monitor. the IV steroid dose he got in the ER may have contributed. INR is higher than yesterday. High enough that we will give Vitamin K today, continue off warfarin and monitor. Lactic acid is about the same this morning as it was at 1600 yesterday. It steadily staci through the day yesterday. We will give fluids and monitor. We will stop metformin for now because it is sometimes related to lactic acidosis.
--- NOTE | 2020-07-14 13:15 | PN ---
Mirta Note - Interim Date: 07/14/20 Time: 13:00 Narrative: 07/14/20 13:12 wbc count higher this morning than yesterday. we will continue antibiotics and monitor. IV steroids in ER may have contributed. inr is higher this morning that yesterday morning. high enough to warrant Vitamin K which we will give IM. lactic acid steadily increased yesterday. this morning it was about the same as 1600 yesterday. we will give IV fluids and monitor. we will also stop metformin since it is sometimes associated with lactic acidosis. vitals seem stable. we will continue to monitor fingerstick blood sugars.
[2020-07-14] MEDS ORDERED: ALPRAZolam 0.5 MG TABLET PO SCH (21:00)
[2020-07-14] MEDS ORDERED: INSULIN DETEMIR 100 UNITS/ML VIAL SC SCH (21:00)
[2020-07-14] MEDS: ROSUVASTATIN CALCIUM 20 MG TABLET PO SCH (21:20)
[2020-07-14] MEDS: ALPRAZolam 0.25 MG TABLET PO SCH (21:21)
[2020-07-14] MEDS: INSULIN GLARGINE,HUM.REC.ANLOG 100 UNITS/ML VIAL SC SCH (21:21)
[2020-07-14] MEDS: LOSARTAN POTASSIUM 50 MG TABLET PO SCH (21:21)
[2020-07-15] MEDS: ALBUTEROL SULFATE/IPRATROPIUM 3 ML NEBU IH SCH ×4 (00:04→18:57)
[2020-07-15] MEDS: LEVOTHYROXINE SODIUM 25 MCG TABLET PO SCH (06:59)
[2020-07-15] MEDS: PANTOPRAZOLE SODIUM 40 MG TABLET.EC PO SCH (06:59)
[2020-07-15] MEDS ORDERED: LEVOTHYROXINE SODIUM 25 MCG TABLET PO SCH (07:00)
--- NOTE | 2020-07-15 07:02 | PN ---
Subjective - Date and Time Seen Date: 07/15/20 Time: 06:30 Subjective Narrative: Brandon is a 79 yo man with COPD and diabetes who presented to the ER 2 days ago due to worsening lower extremity weakness. He reported for about the last year he has had difficulty getting out of bed, but he was worsning. He normally uses the assistance of his to pull him up as he swings his legs out of bed. He reported 2 days ago he was unable to swing his legs out of bed. This was unusual and the reason he came to the ER. He denied fever, chills, nausea, vomiting, change in diet/medication, cough. He had been confused and hallucinating. 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 This morning he is confused and oriented only to person. He doesn't know where he is or who I am. He insists he is not in a hospital. He has no idea of the time or even what town [place] is in[place]. Normally he uses a cane or walker to ambulate. In the ER his chest xray showed possible infiltrate. His lactic acid was elevated at 2.2 in the ER and steadily increased through the day of admission. Yesterday morning his lactic acid was fairly stable and not going up. His WBC was elevated at 14.8, his INR was 6. He also complained of chest, back and abdominal pain which is gone this morning. He wants to go home. He is receiving Rocephin and Zithromax. Because of the elevated lactic acid I gave him 2 liters of IV saline yesterday His vitals are stable. His blood sugars have not been low, but he insists they are. The highest temperature elevation on the vitals chart is 37.1. O2 sat on RA in the ER was 87% but remains in the low 90s with supplemental n.c. oxygen. Blood sugar in the ER was 60 and he was given one oral glucose supplement. This morning's labs are all pending. Because of the recurrence of confusion, we will check ABGs. Objective - Review of Systems Generalized/Overall Review: Reports: No Symptoms Reported - very poor historian. the only question he answers is to say he is not in pain when asked. Neurological: Reports: Weakness - Vitals Vitals: Last Vital Signs Temp 37.2 C 07/15/20 02:06 Pulse 87 07/15/20 06:08 Resp 24 H 07/15/20 06:08 BP 146/68 07/15/20 02:06 Pulse Ox 93 07/15/20 05:59 - Abnormal Lab Findings Abnormal Lab Findings: Abnormal Lab Results 07/14/20 07/14/20 07/14/20 Range/Units 07:05 07:05 07:05 WBC 18.4 H D (4.0-10.5) K/mm3 RBC 4.32 L (4.7-6.0) M/mm3 MCH 32.9 H (27-31) pg Lymphocytes % (Manual) 17 L (20-51) % Monocytes % (Manual) 10 H (0-9) % Neutrophils # (Manual) 13.4 H (1.3-6.0) K/mm3 Monocytes # (Manual) 1.8 H (0.0-1.0) k/mm3 PT (9.1-10.7) Seconds INR (Anticoag Therapy) (0.92-1.08) INR Chloride 107 H (97-106) mmol/L Lactic Acid, Venous 3.7 H* (0.4-2.0) mmol/L Albumin 2.8 L (3.4-5.0) gm/dl 07/14/20 07/14/20 07/14/20 Range/Units 07:05 09:35 15:53 WBC (4.0-10.5) K/mm3 RBC (4.7-6.0) M/mm3 MCH (27-31) pg Lymphocytes % (Manual) (20-51) % Monocytes % (Manual) (0-9) % Neutrophils # (Manual) (1.3-6.0) K/mm3 Monocytes # (Manual) (0.0-1.0) k/mm3 PT 85.0 H (9.1-10.7) Seconds INR (Anticoag Therapy) 9.08 H* (0.92-1.08) INR Chloride (97-106) mmol/L Lactic Acid, Venous 4.0 H* 3.9 H* (0.4-2.0) mmol/L Albumin (3.4-5.0) gm/dl - Exam Constitutional: Present: Alert, Well developed, Well nourished, Elderly - aggitated. Absent: Oriented x3, Cooperative ENT Exam: Present: normal ENT inspection, hearing grossly normal Neck: Absent: lymphadenopathy (R), lymphadenopathy (L), thyromegaly Breasts: Present: Other - male Respiratory: Present: no respiratory distress, rhonchi Cardiovascular/Chest: Present: regular rate, rhythm, no edema, no gallop, no JVD, no murmur Abdomen: Present: Normal bowel sounds, soft, nontender, nondistended, no hepat ospenomegaly, no masses /Rectal: Present: Exam deferred Extremity: Present: normal inspection Skin Exam: Present: normal color, warm/dry, no cyanosis Lymphatic: Present: no adenopathy Neurologic: Absent: normal mood/affect, oriented x 3 Appearance: Present: appropriate appearance. Absent: appropriate insight, no memory impairment Eye contact: Present: good eye contact Thoughts: Present: visual hallucinations. Absent: normal thought pattern Assessment/Plan - Problems/Diagnosis (1) Pneumonia Problem: Acute Qualifiers: Pneumonia type: due to unspecified organism Laterality: right Lung location: lower lobe of lung Qualified Code(s): J18.9 - Pneumonia, unspecified organism Narrative: delerium has recurred. will continue antibiotics, repeat CXR and do ABGs. waiting on morning labs. (2) Encephalopathy acute Problem: Acute Narrative: infectious due to pneumonia (3) Lactic acidosis Problem: Acute Narrative: remains stable. 2 liters of IV saline made no difference. Can sometimes occur with metformin which I stopped yesterday. If that's the problem, it will take a few days to clear. So the plan for now is to continue to monitor and not restart metformin. 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
[2020-07-15 07:18] LABS: Prothrombin Time (Patient) 17.5 Seconds (9.1-10.7)
[2020-07-15 07:19] LABS: INR 1.73 INR (0.92-1.08)
[2020-07-15 07:20] LABS: Hematocrit 42.2 % (42.0-52.0); Hemoglobin 14.1 gm/dL (13.5-18.0); Mean Cell Volume 98.8 fl (78-100); Mean Corpuscular Hgb Conc 33.4 g/dl (32-36); Mean Platelet Volume 11.2 fl (8-11.3); Neutrophil # 14.8 K/mm3 (1.3-6.0); Neutrophil % 73.8 % (42-75.0); Platelet Count 336 K/mm3 (150-450); Red Blood Count 4.27 M/mm3 (4.7-6.0); Red Cell Distribution Width 13.1 % (11.5-14.0)
[2020-07-15 07:22] LABS: Total Cells Counted 100
[2020-07-15 07:38] LABS: Anion Gap 15.8 mmol/L (6.8-13.8); BUN/Creatinine Ratio 14.7 (9.0-21.6); Bilirubin, Total 1.6 mg/dL (0.0-1.1); Calcium * 8.5 mg/dL (7.9-10.9); Carbon Dioxide 26.7 mmol/L (24-32.6); Potassium 3.5 mmol/L (3.4-4.6); Total Protein 6.8 gm/dL (6.2-8.2)
[2020-07-15 07:48] LABS: Basophil 1 % (0-1); Lymphocyte 18 % (20-51); Monocyte 6 % (0-9); Neutrophil 75 % (42-75); Platelet Estimate Normal (NORMAL)
[2020-07-15 07:50] LABS: RBC Morphology Normal (NORMAL)
[2020-07-15] MEDS ORDERED: NORMAL SALINE 1,000 ML IV ONE (08:12)
--- NOTE | 2020-07-15 08:16 | PN ---
Progess Note - Interim Date: 07/15/20 Time: 08:15 Narrative: 07/15/20 08:15 wbc higher suggestive of resistant organism. could also explain persistent lactic acidosis. will change antibiotics. INR normalized, will restart coumadin. slightly high bilirubin suggestive of early organ failure. will give more fluids.d
[2020-07-15] MEDS: PIPERACILLIN SODIUM/TAZOBACTAM 3.375 GM in DEXTROSE 5 % IN WATER 100 ML IV SCH ×6 (08:54→23:51)
[2020-07-15] MEDS: CHOLECALCIFEROL 5,000 UNIT TABLET PO SCH (08:59)
[2020-07-15] MEDS: POLYETHYLENE GLYCOL 3350 17 GM PACKET PO SCH ×2 (08:59→21:09)
[2020-07-15] MEDS: METOPROLOL SUCCINATE 50 MG TABLET.SA PO SCH ×2 (08:59→21:08)
[2020-07-15] MEDS: AZITHROMYCIN 250 MG TABLET PO SCH (08:59)
[2020-07-15] MEDS: FUROSEMIDE 40 MG TABLET PO SCH (08:59)
[2020-07-15] MEDS: SENNOSIDES 8.6 MG TABLET PO SCH ×2 (08:59→21:08)
[2020-07-15] MEDS: ASPIRIN 81 MG TABLET.DR PO SCH (08:59)
[2020-07-15] MEDS ORDERED: VANCOMYCIN HCL 1 GM in DEXTROSE 5 % IN WATER 250 ML IV SCH ×2 (09:00)
--- NOTE | 2020-07-15 10:07 | PN ---
Progess Note - Interim Date: 07/15/20 Time: 10:05 Narrative: 07/15/20 10:05 CT brain essentially ok. CXR shows worsening of pneumonia. this suggests infection with resistant organisms and/or inadequate immune system response in a 79 y/o man. Worsening pneumonia explains most of the current findings. Prognosis is now poorer. Will change antibiotics and continue to monitor.
[2020-07-15] MEDS ORDERED: oxyCODONE HCL 5 MG TABLET PO SCH (10:15)
[2020-07-15] MEDS: NORMAL SALINE 1,000 ML IV PRN ×2 (10:18→22:16)
[2020-07-15] MEDS: VANCOMYCIN/WATER FOR INJ (PEG) 1 GM/200 ML BAG IV SCH (12:51)
--- NOTE | 2020-07-15 13:24 | PN ---
Subjective - Date and Time Seen Date: 07/15/20 Time: 13:17 Subjective Narrative: Clinical findings: lab values on 07/15: WBC 20.0, HR 97, RR 24-26 (3 SIRS criteria) , Sofa Score 3(piO2/FiO2 Ratio and Bili 1.6) Lactic acid 3.9. Acute on chronic respiratory failure, metabolic encephalopathy On admission he had Severe Sepsis - Pneumonia with leukocytosis and hypoxia, with elevated lactic acid indicates potential for severe sepsis. Monitored lactic acid. Blood pressure was not hypotensive, no concerns at that time for shock. Will continue fluids for sepsis protocol. Treat with rocephin/azithromycin. Today wbc higher (had been increasing) suggestive of resistant organism. could also explain persistent lactic acidosis. will change antibiotics. Today a slightly high bilirubin is suggestive of early organ failure. Treatment: IV fluids, labs, CXR, changed ATB therapy Sepsis with SIRS criteria on 07/15/2020 (WBC 20.0, HR, 97, RR 24-26) (Sofa Score 3(piO2/FiO2 ratio and elevated bilirubin)-Sepsis was present on admission. It was severe sepsis then, but because the bilirubin is now elevated suggestive of early liver failure, it has become severe sepsis with early organ failure, there fore also early shock. Objective - Vitals Vitals: Last Vital Signs Temp 36.6 C 07/15/20 12:56 Pulse 74 07/15/20 12:58 Resp 20 07/15/20 12:58 BP 125/54 07/15/20 12:56 Pulse Ox 93 07/15/20 12:58 - Abnormal Lab Findings Abnormal Lab Findings: Abnormal Lab Results 07/14/20 07/15/20 07/15/20 Range/Units 15:53 06:00 06:00 WBC 20.0 H (4.0-10.5) K/mm3 RBC 4.27 L (4.7-6.0) M/mm3 MCH 33.0 H (27-31) pg Immature Gran % (Auto) 0.50 H (0.001-0.429) % Immature Gran # (Auto) 0.09 H (0.000-0.0310) K/mm3 Lymphocytes % 16.5 L (20-51) % Lymphocytes % (Manual) 18 L (20-51) % Neutrophils # 14.8 H (1.3-6.0) K/mm3 Neutrophils # (Manual) 15.0 H (1.3-6.0) K/mm3 Lymphocytes # (Manual) 3.6 H (1.5-3.5) k/mm3 Monocytes # 1.6 H (0.0-1.0) k/mm3 Monocytes # (Manual) 1.2 H (0.0-1.0) k/mm3 Basophils # (Manual) 0.2 H (0.0-0.1) k/mm3 PT 17.5 H (9.1-10.7) Seconds INR (Anticoag Therapy) 1.73 H (0.92-1.08) INR pCO2 (35.0-48.0) mmHg pO2 (83.0-108.0) mmHg Total CO2 (19.0-24.0) mmol/L ABG O2 Sat (Measured) (94.0-98.0) % Plasma Sodium (130-142) mmol/L Anion Gap (6.8-13.8) mmol/L Random Glucose (70-110) mg/dL Lactic Acid, Venous 3.9 H* (0.4-2.0) mmol/L Total Bilirubin (0.0-1.1) mg/dL Albumin (3.4-5.0) gm/dl 07/15/20 07/15/20 07/15/20 Range/Units 06:00 06:26 07:20 WBC (4.0-10.5) K/mm3 RBC (4.7-6.0) M/mm3 MCH (27-31) pg Immature Gran % (Auto) (0.001-0.429) % Immature Gran # (Auto) (0.000-0.0310) K/mm3 Lymphocytes % (20-51) % Lymphocytes % (Manual) (20-51) % Neutrophils # (1.3-6.0) K/mm3 Neutrophils # (Manual) (1.3-6.0) K/mm3 Lymphocytes # (Manual) (1.5-3.5) k/mm3 Monocytes # (0.0-1.0) k/mm3 Monocytes # (Manual) (0.0-1.0) k/mm3 Basophils # (Manual) (0.0-0.1) k/mm3 PT (9.1-10.7) Seconds INR (Anticoag Therapy) (0.92-1.08) INR pCO2 34.6 L (35.0-48.0) mmHg pO2 58.5 L (83.0-108.0) mmHg Total CO2 24.2 H (19.0-24.0) mmol/L ABG O2 Sat (Measured) 91.6 L (94.0-98.0) % Plasma Sodium 143 H (130-142) mmol/L Anion Gap 15.8 H (6.8-13.8) mmol/L Random Glucose 146 H D (70-110) mg/dL Lactic Acid, Venous 3.9 H* (0.4-2.0) mmol/L Total Bilirubin 1.6 H (0.0-1.1) mg/dL Albumin 3.0 L (3.4-5.0) gm/dl Assessment/Plan - Problems/Diagnosis (1) Severe sepsis with acute organ dysfunction Problem: Acute (2) Pneumonia Problem: Acute Qualifiers: Pneumonia type: due to unspecified organism Laterality: right Lung location: lower lobe of lung Qualified Code(s): J18.9 - Pneumonia, unspecified organism (3) Encephalopathy acute Problem: Acute (4) Lactic acidosis Problem: Acute (5) Acute and chronic respiratory failure with hypoxia Problem: Acute (6) Generalized weakness Problem: Acute (7) Hematuria Problem: Acute Qualifiers: Hematuria type: gross Qualified Code(s): R31.0 - Gross hematuria (8) Supratherapeutic INR Problem: Acute (9) Diabetes Problem: Chronic Qualifiers: Diabetes mellitus type: type 2 Diabetes mellitus chcf insulin use: unspecified chcf insulin use status Diabetes mellitus complication status: with hypoglycemia Diabetes mellitus complication detail: without coma Qualified Code(s): E11.649 - Type 2 diabetes mellitus with hypoglycemia without coma
--- NOTE | 2020-07-15 15:42 | PN ---
Mirta Note - Interim Date: 07/15/20 Time: 15:40 Narrative: 07/15/20 15:40 Lactic acid now normal. Perhaps the extra fluids I gave today helped. I have also stopped his metformin which can rarely be associated with lactic acidosis. Will cut down the IV rate from 150 to 75 ml per hour. Yesterday IV fluids didn't seem to make a difference. Will repeat lactic acid again tomorrow.
--- NOTE | 2020-07-15 15:45 | PN ---
Progess Note - Interim Date: 07/15/20 Time: 15:43 Narrative: 07/15/20 15:44 It looks like he got a total of 1450 ml fluid IV in the first 24 hours on the day of admission. In reviewing the record, I can't tell why he received that amount, rather than larger boluses.
[2020-07-15] MEDS ORDERED: WARFARIN SODIUM 3 MG TABLET PO SCH (17:00)
[2020-07-15] MEDS: oxyCODONE HCL 5 MG TABLET PO SCH (17:20)
[2020-07-15] MEDS: WARFARIN SODIUM 7.5 MG TABLET PO SCH (17:20)
[2020-07-15] MEDS: LOSARTAN POTASSIUM 50 MG TABLET PO SCH (21:08)
[2020-07-15] MEDS: ALPRAZolam 0.25 MG TABLET PO SCH (21:08)
[2020-07-15] MEDS: ROSUVASTATIN CALCIUM 20 MG TABLET PO SCH (21:08)
[2020-07-15] MEDS: INSULIN GLARGINE,HUM.REC.ANLOG 100 UNITS/ML VIAL SC SCH (21:17)
[2020-07-16] MEDS: VANCOMYCIN/WATER FOR INJ (PEG) 1 GM/200 ML BAG IV SCH ×2 (00:56→13:41)
[2020-07-16 05:56] LABS: Hematocrit 40.4 % (42.0-52.0); Mean Cell Volume 96.2 fl (78-100); Mean Corpuscular Hemoglobin 33.3 pg (27-31); Mean Corpuscular Hgb Conc 34.7 g/dl (32-36); Mean Platelet Volume 10.7 fl (8-11.3); Neutrophil # 10.8 K/mm3 (1.3-6.0); Platelet Count 310 K/mm3 (150-450); Red Cell Distribution Width 12.8 % (11.5-14.0); White Blood Count 15.9 K/mm3 (4.0-10.5)
[2020-07-16] MEDS: oxyCODONE HCL 5 MG TABLET PO SCH ×2 (05:56→17:32)
[2020-07-16] MEDS: LEVOTHYROXINE SODIUM 25 MCG TABLET PO SCH (05:56)
[2020-07-16 05:59] LABS: Total Cells Counted 100
[2020-07-16] MEDS: ALBUTEROL SULFATE/IPRATROPIUM 3 ML NEBU IH SCH ×5 (06:00→18:35)
[2020-07-16 06:01] LABS: Anion Gap 11.7 mmol/L (6.8-13.8); BUN/Creatinine Ratio 11.9 (9.0-21.6); Calcium * 8.7 mg/dL (7.9-10.9); Carbon Dioxide 27.4 mmol/L (24-32.6); Estimated Creat Clear 92.3; Potassium 3.1 mmol/L (3.4-4.6); Prothrombin Time (Patient) 12.4 Seconds (9.1-10.7)
[2020-07-16 06:16] LABS: INR 1.2 INR (0.92-1.08)
[2020-07-16] MEDS: PANTOPRAZOLE SODIUM 40 MG TABLET.EC PO SCH (06:35)
[2020-07-16 07:22] LABS: Atypical (Reactive) Lymph 5 % (0-2); Eosinophil 5 % (0-3); Lymphocyte 15 % (20-51); Monocyte 5 % (0-9); Neutrophil 70 % (42-75); Neutrophil # 11.1 K/mm3 (1.3-6.0); Platelet Estimate Normal (NORMAL); RBC Morphology Normal (NORMAL)
[2020-07-16] MEDS: PIPERACILLIN SODIUM/TAZOBACTAM 3.375 GM in DEXTROSE 5 % IN WATER 100 ML IV SCH ×4 (07:42→16:09)
[2020-07-16] MEDS: SENNOSIDES 8.6 MG TABLET PO SCH ×2 (08:22→20:28)
[2020-07-16] MEDS: METOPROLOL SUCCINATE 50 MG TABLET.SA PO SCH ×2 (08:22→20:28)
[2020-07-16] MEDS: AZITHROMYCIN 250 MG TABLET PO SCH (08:22)
[2020-07-16] MEDS: ASPIRIN 81 MG TABLET.DR PO SCH (08:22)
[2020-07-16] MEDS: CHOLECALCIFEROL 5,000 UNIT TABLET PO SCH (08:22)
[2020-07-16] MEDS: FUROSEMIDE 40 MG TABLET PO SCH (08:23)
[2020-07-16] MEDS: POLYETHYLENE GLYCOL 3350 17 GM PACKET PO SCH ×2 (08:23→20:27)
--- NOTE | 2020-07-16 11:42 | PN ---
Subjective - Date and Time Seen Date: 07/16/20 Time: 09:45 Subjective Narrative: Patient reports feeling "I think a lot better." Is breathing easier. He reports using 3L O2 at baseline. Is eating and drinking ok. Objective - Review of Systems Generalized/Overall Review: Denies: Fever Respiratory: Reports: Cough, Shortness of Breath Cardiac: Denies: Chest Pain Abdominal: Denies: Vomiting, Constipation Genitourinary Symptoms: Reports: No Symptoms Reported - Vitals Vitals: Last Vital Signs Temp 36.6 C 07/16/20 11:32 Pulse 82 07/16/20 11:32 Resp 28 H 07/16/20 11:32 BP 130/70 07/16/20 11:32 Pulse Ox 94 07/16/20 06:58 - Abnormal Lab Findings Abnormal Lab Findings: Abnormal Lab Results 07/16/20 07/16/20 07/16/20 Range/Units 05:50 05:50 05:50 WBC 15.9 H D (4.0-10.5) K/mm3 RBC 4.20 L (4.7-6.0) M/mm3 Hct 40.4 L (42.0-52.0) % MCH 33.3 H (27-31) pg Immature Gran # (Auto) 0.06 H (0.000-0.0310) K/mm3 Lymphocytes % 17.8 L (20-51) % Lymphocytes % (Manual) 15 L (20-51) % Monocytes % 10.9 H (0.0-9) % Eosinophils % (Manual) 5 H (0-3) % Neutrophils # 10.8 H (1.3-6.0) K/mm3 Neutrophils # (Manual) 11.1 H (1.3-6.0) K/mm3 Monocytes # 1.7 H (0.0-1.0) k/mm3 Eosinophils # (Manual) 0.8 H (0.0-0.7) k/mm3 Atypic/Reactive Lymphs 5 H (0-2) % PT 12.4 H (9.1-10.7) Seconds INR (Anticoag Therapy) 1.20 H (0.92-1.08) INR Potassium 3.1 L (3.4-4.6) mmol/L - Exam Constitutional: Present: Alert, Oriented x3, Cooperative Respiratory: Present: rhonchi, other - using 2L O2 via NC Cardiovascular/Chest: Present: regular rate, rhythm Abdomen: Present: soft, nontender Extremity: Absent: lower extremity edema Neurologic: Present: alert Eye contact: Present: cooperative, good eye contact Assessment/Plan Plan Narrative: Today is day #4 of hospitalization for pneumonia and encephalopathy. His antibiotics were changed yesterday to zosyn and vancomycin, which seems to have helped. He was confused, but is oriented to self, time, and place, and converses appropriately. WBC improved from 20 to 15.9. His oxygen requirement is 2L, and he reports using 3L via NC at home. Will continue current treatment. He still has significant rhonchi on exam, so anticipate he will remain hospitalized for at least 2 midnights. His INR was elevated to 9, but is now down to 1.2. He is on his home dose. He was given Vit K earlier during this stay, so anticipate his INR will increase without a dose adjustment. His potassium was low at 3.1 today, so will add 20 mEq bid and recheck in the morning. - Problems/Diagnosis (1) Pneumonia Problem: Acute Qualifiers: Pneumonia type: due to unspecified organism Laterality: right Lung location: lower lobe of lung Qualified Code(s): J18.9 - Pneumonia, unspecified organism (2) Hypokalemia Problem: Acute (3) Atrial fibrillation Problem: Chronic Qualifiers: Atrial fibrillation type: chronic (4) Anticoagulant long-term use Problem: Chronic (5) Diabetes mellitus type 2 in obese Problem: Chronic (6) COPD (chronic obstructive pulmonary disease) Problem: Chronic Qualifiers: COPD type: COPD with acute lower respiratory infection Qualified Code(s): J44.0 - Chronic obstructive pulmonary disease with (acute) lower respiratory infection (7) Pulmonary hypertension Problem: Chronic (8) Encephalopathy acute Problem: Acute (9) Generalized weakness Problem: Acute (10) Jud filter in place Problem: Chronic (11) HTN (hypertension) Problem: Chronic Qualifiers: Hypertension type: essential hypertension Qualified Code(s): I10 - Essential (primary) hypertension
[2020-07-16] MEDS: NORMAL SALINE 1,000 ML IV PRN (13:26)
[2020-07-16] MEDS: ENOXAPARIN SODIUM 40 MG/0.4 ML SYRG SC SCH (13:40)
[2020-07-16] MEDS: WARFARIN SODIUM 7.5 MG TABLET PO SCH (16:46)
[2020-07-16] MEDS ORDERED: POTASSIUM CHLORIDE 20 MEQ TABLET.SA PO SCH (17:00)
[2020-07-16] MEDS: LOSARTAN POTASSIUM 50 MG TABLET PO SCH (20:27)
[2020-07-16] MEDS: ROSUVASTATIN CALCIUM 20 MG TABLET PO SCH (20:27)
[2020-07-16] MEDS: INSULIN GLARGINE,HUM.REC.ANLOG 100 UNITS/ML VIAL SC SCH (20:27)
[2020-07-16] MEDS: ALPRAZolam 0.25 MG TABLET PO SCH (20:28)
[2020-07-17] MEDS: ALBUTEROL SULFATE/IPRATROPIUM 3 ML NEBU IH SCH ×4 (00:18→18:07)
[2020-07-17] MEDS: PIPERACILLIN SODIUM/TAZOBACTAM 3.375 GM in DEXTROSE 5 % IN WATER 100 ML IV SCH ×6 (00:39→16:12)
[2020-07-17] MEDS: VANCOMYCIN/WATER FOR INJ (PEG) 1 GM/200 ML BAG IV SCH ×2 (00:39→22:53)
[2020-07-17] MEDS: oxyCODONE HCL 5 MG TABLET PO SCH ×2 (05:39→17:33)
[2020-07-17] MEDS: LEVOTHYROXINE SODIUM 25 MCG TABLET PO SCH (05:40)
[2020-07-17] MEDS: NORMAL SALINE 1,000 ML IV PRN ×2 (05:40→20:40)
[2020-07-17 06:35] LABS: Hemoglobin 13.5 gm/dL (13.5-18.0); Mean Cell Volume 96.1 fl (78-100); Mean Corpuscular Hemoglobin 33.3 pg (27-31); Mean Corpuscular Hgb Conc 34.6 g/dl (32-36); Mean Platelet Volume 10.5 fl (8-11.3); Platelet Count 329 K/mm3 (150-450); Red Blood Count 4.06 M/mm3 (4.7-6.0); Red Cell Distribution Width 12.7 % (11.5-14.0); White Blood Count 13.8 K/mm3 (4.0-10.5)
[2020-07-17 06:51] LABS: Prothrombin Time (Patient) 12.1 Seconds (9.1-10.7)
[2020-07-17 06:53] LABS: Total Cells Counted 100
[2020-07-17 06:54] LABS: Albumin * 2.6 gm/dl (3.4-5.0); Anion Gap 9.4 mmol/L (6.8-13.8); BUN/Creatinine Ratio 11.9 (9.0-21.6); Bilirubin, Total 1.5 mg/dL (0.0-1.1); Ca. Corrected For Albumin 9.4 mg/dL (8.4-10.2); Calcium * 8.6 mg/dL (7.9-10.9); Carbon Dioxide 28.5 mmol/L (24-32.6); Potassium 2.9 mmol/L (3.4-4.6); Total Protein 6.9 gm/dL (6.2-8.2)
[2020-07-17 07:21] LABS: INR 1.17 INR (0.92-1.08)
[2020-07-17] MEDS: PANTOPRAZOLE SODIUM 40 MG TABLET.EC PO SCH (07:24)
[2020-07-17 07:56] LABS: Atypical (Reactive) Lymph 6 % (0-2); Basophil 2 % (0-1); Eosinophil 4 % (0-3); Lymphocyte 11 % (20-51); Monocyte 8 % (0-9); Neutrophil 69 % (42-75); Neutrophil # 9.5 K/mm3 (1.3-6.0)
[2020-07-17 07:57] LABS: Platelet Estimate Normal (NORMAL); RBC Morphology Normal (NORMAL)
[2020-07-17] MEDS: SENNOSIDES 8.6 MG TABLET PO SCH ×2 (08:10→20:41)
[2020-07-17] MEDS: METOPROLOL SUCCINATE 50 MG TABLET.SA PO SCH ×2 (08:10→20:42)
[2020-07-17] MEDS: POTASSIUM CHLORIDE 20 MEQ TABLET.SA PO SCH ×3 (08:10→16:47)
[2020-07-17] MEDS: AZITHROMYCIN 250 MG TABLET PO SCH (08:10)
[2020-07-17] MEDS: ASPIRIN 81 MG TABLET.DR PO SCH (08:10)
[2020-07-17] MEDS: FUROSEMIDE 40 MG TABLET PO SCH (08:11)
[2020-07-17] MEDS: POLYETHYLENE GLYCOL 3350 17 GM PACKET PO SCH ×2 (08:11→20:41)
[2020-07-17] MEDS: CHOLECALCIFEROL 5,000 UNIT TABLET PO SCH (08:11)
--- NOTE | 2020-07-17 09:11 | PN ---
Subjective - Date and Time Seen Date: 07/17/20 Time: 09:11 Subjective Narrative: Patient again reports feeling better. Is still coughing. He is able to tolerate po intake. Is not having difficulty swallowing potassium tablets. Is able to walk to the bathroom with help. Objective - Review of Systems Generalized/Overall Review: Denies: Fever Respiratory: Reports: Cough Abdominal: Reports: No Symptoms Reported Genitourinary Symptoms: Reports: No Symptoms Reported - Vitals Vitals: Last Vital Signs Temp 36.5 C 07/17/20 06:51 Pulse 76 07/17/20 08:11 Resp 22 H 07/17/20 06:51 BP 160/68 H 07/17/20 08:11 Pulse Ox 91 L 07/17/20 06:51 - Abnormal Lab Findings Abnormal Lab Findings: Abnormal Lab Results 07/17/20 07/17/20 07/17/20 Range/Units 06:29 06:29 06:29 WBC 13.8 H (4.0-10.5) K/mm3 RBC 4.06 L (4.7-6.0) M/mm3 Hct 39.0 L (42.0-52.0) % MCH 33.3 H (27-31) pg Lymphocytes % (Manual) 11 L (20-51) % Eosinophils % (Manual) 4 H (0-3) % Basophils % (Manual) 2 H (0-1) % Neutrophils # (Manual) 9.5 H (1.3-6.0) K/mm3 Monocytes # (Manual) 1.1 H (0.0-1.0) k/mm3 Basophils # (Manual) 0.3 H (0.0-0.1) k/mm3 Atypic/Reactive Lymphs 6 H (0-2) % PT 12.1 H (9.1-10.7) Seconds INR (Anticoag Therapy) 1.17 H (0.92-1.08) INR Potassium 2.9 L (3.4-4.6) mmol/L Est GFR (Non-Af Amer) 140 H (60-130) mL/min Total Bilirubin 1.5 H (0.0-1.1) mg/dL Albumin 2.6 L (3.4-5.0) gm/dl - Exam Constitutional: Present: No distress, Other - wakens easily for exam, Elderly Respiratory: Present: no respiratory distress, rhonchi - bilateral anterior, slightly improved from yesterday Cardiovascular/Chest: Present: regular rate, rhythm Abdomen: Present: soft, nontender Extremity: Absent: lower extremity edema Eye contact: Present: cooperative, good eye contact Assessment/Plan Plan Narrative: Today is day #5 of hospitalization for pneumonia and encephalopathy. His antibiotics were changed on 07/15/20 to zosyn and vancomycin, which seems to have helped. His confusion has improved. WBC further improved from 15.9 to 13.8. His oxygen requirement is 2L, and he reports using 3L via NC at home. Will continue current treatment. Rhonchi have slightly improved on exam, so anticipate he will remain hospitalized for at least 2 midnights. His INR was elevated to 9 and he was given Vit K. Yesterday's INR was 1.2, and today's is 1.17. He was on his home dose, but since it further decreased, he will be given a higher dose tomorrow. Anticipate his INR will increase as that Vit K clears, but lovenox added until his INR is greater than 3, given his significant clotting history. His potassium was low at 3.1, so 20 mEq bid KDur was added. He only received one dose prior to recheck and today's potassium is 2.9. Will increase frequency to tid and recheck in the morning. - Problems/Diagnosis (1) Pneumonia Problem: Acute Qualifiers: Pneumonia type: due to unspecified organism Laterality: right Lung location: lower lobe of lung Qualified Code(s): J18.9 - Pneumonia, unspecified organism (2) Hypokalemia Problem: Acute (3) Atrial fibrillation Problem: Chronic Qualifiers: Atrial fibrillation type: chronic (4) Anticoagulant long-term use Problem: Chronic (5) Diabetes mellitus type 2 in obese Problem: Chronic (6) COPD (chronic obstructive pulmonary disease) Problem: Chronic Qualifiers: COPD type: COPD with acute lower respiratory infection Qualified Code(s): J44.0 - Chronic obstructive pulmonary disease with (acute) lower respiratory infection (7) Pulmonary hypertension Problem: Chronic (8) Encephalopathy acute Problem: Acute (9) Generalized weakness Problem: Acute (10) [place] filter in place Problem: Chronic (11) HTN (hypertension) Problem: Chronic Qualifiers: Hypertension type: essential hypertension Qualified Code(s): I10 - Essential (primary) hypertension
[2020-07-17] MEDS ORDERED: VANCOMYCIN HCL LEVEL XX ONE (12:30)
[2020-07-17] MEDS: ENOXAPARIN SODIUM 40 MG/0.4 ML SYRG SC SCH (13:19)
[2020-07-17] MEDS: VANCOMYCIN/WATER FOR INJ (PEG) 1.5 GM/300 ML BAG IV SCH (13:26)
[2020-07-17] MEDS: WARFARIN SODIUM 7.5 MG TABLET PO SCH (16:47)
[2020-07-17] MEDS: ROSUVASTATIN CALCIUM 20 MG TABLET PO SCH (20:41)
[2020-07-17] MEDS: LOSARTAN POTASSIUM 50 MG TABLET PO SCH (20:42)
[2020-07-17] MEDS: INSULIN GLARGINE,HUM.REC.ANLOG 100 UNITS/ML VIAL SC SCH (20:42)
[2020-07-17] MEDS: ALPRAZolam 0.25 MG TABLET PO SCH (20:45)
[2020-07-18] MEDS: PIPERACILLIN SODIUM/TAZOBACTAM 3.375 GM in DEXTROSE 5 % IN WATER 100 ML IV SCH ×4 (00:27→08:22)
[2020-07-18] MEDS: VANCOMYCIN/WATER FOR INJ (PEG) 1.5 GM/300 ML BAG IV SCH (00:33)
[2020-07-18] MEDS: ALBUTEROL SULFATE/IPRATROPIUM 3 ML NEBU IH SCH ×3 (00:50→12:49)
[2020-07-18] MEDS: LEVOTHYROXINE SODIUM 25 MCG TABLET PO SCH (05:10)
[2020-07-18] MEDS: oxyCODONE HCL 5 MG TABLET PO SCH (05:10)
[2020-07-18 06:43] LABS: Hematocrit 38.1 % (42.0-52.0); Mean Cell Volume 96.5 fl (78-100); Mean Corpuscular Hemoglobin 32.9 pg (27-31); Mean Corpuscular Hgb Conc 34.1 g/dl (32-36); Mean Platelet Volume 10.5 fl (8-11.3); Neutrophil # 6.2 K/mm3 (1.3-6.0); Neutrophil % 57.4 % (42-75.0); Platelet Count 385 K/mm3 (150-450); Red Blood Count 3.95 M/mm3 (4.7-6.0); Red Cell Distribution Width 12.7 % (11.5-14.0); White Blood Count 10.8 K/mm3 (4.0-10.5)
[2020-07-18 06:51] LABS: Prothrombin Time (Patient) 12.7 Seconds (9.1-10.7)
[2020-07-18 06:52] LABS: INR 1.23 INR (0.92-1.08)
[2020-07-18 06:55] LABS: Albumin * 2.5 gm/dl (3.4-5.0); Anion Gap 7.2 mmol/L (6.8-13.8); BUN/Creatinine Ratio 10.8 (9.0-21.6); Bilirubin, Total 0.8 mg/dL (0.0-1.1); Ca. Corrected For Albumin 9.4 mg/dL (8.4-10.2); Calcium * 8.5 mg/dL (7.9-10.9); Carbon Dioxide 28.8 mmol/L (24-32.6); Total Protein 6.6 gm/dL (6.2-8.2)
[2020-07-18] MEDS: PANTOPRAZOLE SODIUM 40 MG TABLET.EC PO SCH (07:05)
[2020-07-18] MEDS: POLYETHYLENE GLYCOL 3350 17 GM PACKET PO SCH (08:21)
[2020-07-18] MEDS: ASPIRIN 81 MG TABLET.DR PO SCH (08:21)
[2020-07-18] MEDS: POTASSIUM CHLORIDE 20 MEQ TABLET.SA PO SCH ×2 (08:21→12:12)
[2020-07-18] MEDS: FUROSEMIDE 40 MG TABLET PO SCH (08:21)
[2020-07-18] MEDS: SENNOSIDES 8.6 MG TABLET PO SCH (08:22)
[2020-07-18] MEDS: CHOLECALCIFEROL 5,000 UNIT TABLET PO SCH (08:22)
[2020-07-18] MEDS: METOPROLOL SUCCINATE 50 MG TABLET.SA PO SCH (08:22)
--- NOTE | 2020-07-18 12:10 | DS ---
(1) Severe sepsis with acute organ dysfunction Diagnosis(s): Clinical findings: lab values on 07/15: WBC 20.0, HR 97, RR 24-26 (3 SIRS criteria) , Sofa Score 3(piO2/FiO2 Ratio and Bili 1.6) Lactic acid 3.9. Acute on chronic respiratory failure, metabolic encephalopathy On admission he had Severe Sepsis - Pneumonia with leukocytosis and hypoxia, with elevated lactic acid indicates potential for severe sepsis. Monitored lactic acid. Blood pressure was not hypotensive, no concerns at that time for shock. Will continue fluids for sepsis protocol. Treat with rocephin/azithromycin. Today wbc higher (had been increasing) suggestive of resistant organism. could also explain persistent lactic acidosis. will change antibiotics. Today a slightly high bilirubin is suggestive of early organ failure. Treatment: IV fluids, labs, CXR, changed ATB therapy Sepsis with SIRS criteria on 07/15/2020 (WBC 20.0, HR, 97, RR 24-26) (Sofa Score 3(piO2/FiO2 ratio and elevated bilirubin)-Sepsis was present on admission. It was severe sepsis then, but because the bilirubin is now elevated suggestive of early liver failure, it has become severe sepsis with early organ failure, there fore also early shock. Patient had sepsis with shock due to community acquired pneumonia with bacteria resistant to Rochephin Problem: Acute (2) Pneumonia Problem: Acute Qualifiers: Pneumonia type: due to unspecified organism Laterality: right Lung location: lower lobe of lung Qualified Code(s): J18.9 - Pneumonia, unspecified organism (3) Hypokalemia Diagnosis(s): started potassium and then increased the dose. level today about the same as yesterday. will continue potassium at discharge and monitor closely. Problem: Acute (4) Encephalopathy acute Diagnosis(s): metabolic encephalopathy due to Pneumonia with septic shock Problem: Acute (5) Lactic acidosis Problem: Resolved (6) Acute and chronic respiratory failure with hypoxia Diagnosis(s): acute on chronic. acute improved. normally uses O2 at 3 liters/min at home. Problem: Chronic (7) Generalized weakness Diagnosis(s): acute on chronic. acute somewhat improved. Problem: Acute (8) Hematuria Problem: Resolved Qualifiers: Hematuria type: gross Qualified Code(s): R31.0 - Gross hematuria (9) Supratherapeutic INR Diagnosis(s): coumadin has been restarted. will monitor very closely as an outpatient till stable. 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 His antibiotics were changed on 07/15/20 to zosyn and vancomycin, which seems to have helped. His confusion has improved. WBC continues to improve. His oxygen requirement is 2L, and he reports using 3L via NC at home. Will continue current treatment. Rhonchi are gone, so will send home today on oral antibiotics. His INR was elevated to 9 after admission and he was given Vit K. 2 days ago INR was 1.2, and yesterday's was 1.17. He was on his home dose, but since it further decreased, he will be given a higher dose tomorrow. Anticipate his INR will increase as that Vit K clears. INR today 1.23. Patient needs homehealth. We had a face to face visit this morning to determine the need. Mr. More is homebound because of severe weakness and dyspnea requiring supplemental O2. The purpose of halfway is to monitor his pneumonia, diabetes and medications. The purpose of PT is the severe generalized weakness. The need for home health care is directly related to the time spent face to face with Mr More. Procedures Performed: none Results and Findings: Lab Pending Results 07/13/20 08:30: Urine Color Dark yellow, Urine Appearance Cloudy, Urine pH 6.0, Ur Specific [place] 1.015, Urine Protein Negative, Urine Glucose (UA) Negative, Urine Ketones Negative, Urine Blood 250 H, Urine Nitrate Negative, Urine Bilirubin Negative, Urine Urobilinogen Normal, Ur Leukocyte Esterase 75 H, Urine RBC >50 H, Urine WBC 0-5, Ur Epithelial Cells 5-10 H, Urine Bacteria 1+ H, Urine Mucus Few - 1+ H, Urine Culture Comments Culture to follow 07/13/20 08:34: Sodium 140, Plasma Sodium 139, Potassium 3.5, Chloride 105, Carbon Dioxide 31.8, Anion Gap 6.7 L, BUN 16, Creatinine 0.84, Est GFR (Non-Af Amer) 94, BUN/Creatinine Ratio 19.0, Random Glucose 66 L, Calcium 9.5, Calcium Adj for Albumin 9.7, Total Bilirubin 1.0, AST 34, ALT 33, Alkaline Phosphatase 120, Creatine Kinase 65, Troponin I Less than 0.017, B-Natriuretic Peptide 122, Total Protein 8.0, Albumin 3.3 L, Lipase 78, Ethyl Alcohol Less than 3.0 07/13/20 08:34: WBC 14.8 H, RBC 4.73, Hgb 15.6, Hct 46.8, MCV 98.9, MCH 33.0 H, MCHC 33.3, RDW 13.5, Plt Count 347, MPV 10.7, Neutrophils % (Manual) 69, Lymphocytes % (Manual) 20, Monocytes % (Manual) 7, Eosinophils % (Manual) 4 H, Neutrophils # (Manual) 10.2 H, Lymphocytes # (Manual) 3.0, Monocytes # (Manual) 1.0, Eosinophils # (Manual) 0.6, Platelet Estimate Normal, RBC Morphology Normal 07/13/20 08:34: Lactic Acid, Venous 2.2 H* 07/13/20 08:34: PT 59.6 H, INR (Anticoag Therapy) 6.25 H* 07/13/20 08:50: Influenza Type A Ag Negative, Influenza Type B Ag Negative, SARS-CoV-2 (PCR) Not detected 07/13/20 10:45: pCO2 46.1, pO2 54.6 L, HCO3 28.4 H, Total CO2 29.8 H, Base Excess 2.9, ABG pH 7.41, ABG O2 Sat (Measured) 88.4 L 07/13/20 11:26: Lactic Acid, Venous 3.2 H* 07/13/20 16:00: Lactic Acid, Venous 5.4 H* 07/14/20 07:05: WBC 18.4 H D, RBC 4.32 L, Hgb 14.2, Hct 42.1, MCV 97.5, MCH 32.9 H, MCHC 33.7, RDW 13.2, Plt Count 313, MPV 10.6, Neutrophils % (Manual) 73, Lym phocytes % (Manual) 17 L, Monocytes % (Manual) 10 H, Neutrophils # (Manual) 13.4 H, Lymphocytes # (Manual) 3.1, Monocytes # (Manual) 1.8 H, Platelet Estimate Normal, RBC Morphology Normal 07/14/20 07:05: Sodium 141, Plasma Sodium 141, Potassium 3.4, Chloride 107 H, Carbon Dioxide 26.0, Anion Gap 11.4, BUN 15, Creatinine 0.71, Est GFR (Non-Af Amer) 114 D, BUN/Creatinine Ratio 21.1, Random Glucose 104 D, Calcium 8.8, Calcium Adj for Albumin 9.4, Total Bilirubin 0.6, AST 25, ALT 27, Alkaline Phosphatase 110, Total Protein 6.9, Albumin 2.8 L 07/14/20 07:05: Lactic Acid, Venous 3.7 H* 07/14/20 07:05: PT 85.0 H, INR (Anticoag Therapy) 9.08 H* 07/14/20 09:35: Lactic Acid, Venous 4.0 H* 07/14/20 15:53: Lactic Acid, Venous 3.9 H* 07/15/20 06:00: PT 17.5 H, INR (Anticoag Therapy) 1.73 H 07/15/20 06:00: WBC 20.0 H, RBC 4.27 L, Hgb 14.1, Hct 42.2, MCV 98.8, MCH 33.0 H, MCHC 33.4, RDW 13.1, Plt Count 336, MPV 11.2, Immature Gran % (Auto) 0.50 H, Immature Gran # (Auto) 0.09 H, Neutrophils % 73.8, Neutrophils % (Manual) 75, Lymphocytes % 16.5 L, Lymphocytes % (Manual) 18 L, Monocytes % 8.1, Monocytes % (Manual) 6, Eosinophils % 0.6, Basophils % 0.5, Basophils % (Manual) 1, Nucleated RBC % 0.0, Neutrophils # 14.8 H, Neutrophils # (Manual) 15.0 H, Lymphocytes # 3.29, Lymphocytes # (Manual) 3.6 H, Monocytes # 1.6 H, Monocytes # (Manual) 1.2 H, Eosinophils # 0.1, Basophils # (Manual) 0.2 H, Absolute Basophils 0.1, Platelet Estimate Normal, RBC Morphology Normal 07/15/20 06:00: Sodium 142, Plasma Sodium 143 H, Potassium 3.5, Chloride 103, Carbon Dioxide 26.7, Anion Gap 15.8 H, BUN 11, Creatinine 0.75, Est GFR (Non-Af Amer) 107, BUN/Creatinine Ratio 14.7, Random Glucose 146 H D, Calcium 8.5, Calcium Adj for Albumin 9.0, Total Bilirubin 1.6 H, AST 26, ALT 37, Alkaline Phosphatase 110, Total Protein 6.8, Albumin 3.0 L 07/15/20 06:26: Lactic Acid, Venous 3.9 H* 07/15/20 07:20: pCO2 34.6 L, pO2 58.5 L, HCO3 23.1, Total CO2 24.2 H, Base Exc ess -0.4, ABG pH 7.44, ABG O2 Sat (Measured) 91.6 L 07/15/20 10:09: Lactic Acid, Venous 1.2 07/16/20 05:50: Lactic Acid, Venous 1.4 07/16/20 05:50: PT 12.4 H, INR (Anticoag Therapy) 1.20 H 07/16/20 05:50: WBC 15.9 H D, RBC 4.20 L, Hgb 14.0, Hct 40.4 L, MCV 96.2, MCH 33.3 H, MCHC 34.7, RDW 12.8, Plt Count 310, MPV 10.7, Immature Gran % (Auto) 0.40, Immature Gran # (Auto) 0.06 H, Neutrophils % 68.0, Neutrophils % (Manual) 70, Lymphocytes % 17.8 L, Lymphocytes % (Manual) 15 L, Monocytes % 10.9 H, M onocytes % (Manual) 5, Eosinophils % 2.3, Eosinophils % (Manual) 5 H, Basophils % 0.6, Nucleated RBC % 0.0, Neutrophils # 10.8 H, Neutrophils # (Manual) 11.1 H, Lymphocytes # 2.83, Lymphocytes # (Manual) 2.4, Monocytes # 1.7 H, Monocytes # (Manual) 0.8, Eosinophils # 0.4, Eosinophils # (Manual) 0.8 H, Absolute Basophils 0.1, Atypic/Reactive Lymphs 5 H, Platelet Estimate Normal, RBC Morphology Normal 07/16/20 05:50: Sodium 141, Plasma Sodium 141, Potassium 3.1 L, Chloride 105, Carbon Dioxide 27.4, Anion Gap 11.7, BUN 8, Creatinine 0.67, Est GFR (Non-Af Amer) 122, BUN/Creatinine Ratio 11.9, Random Glucose 109, Calcium 8.7 07/17/20 06:29: PT 12.1 H, INR (Anticoag Therapy) 1.17 H 07/17/20 06:29: WBC 13.8 H, RBC 4.06 L, Hgb 13.5, Hct 39.0 L, MCV 96.1, MCH 33.3 H, MCHC 34.6, RDW 12.7, Plt Count 329, MPV 10.5, Neutrophils % (Manual) 69, Lymphocytes % (Manual) 11 L, Monocytes % (Manual) 8, Eosinophils % (Manual) 4 H, Basophils % (Manual) 2 H, Neutrophils # (Manual) 9.5 H, Lymphocytes # (Manual) 1.5, Monocytes # (Manual) 1.1 H, Eosinophils # (Manual) 0.6, Basophils # (Manual) 0.3 H, Atypic/Reactive Lymphs 6 H, Platelet Estimate Normal, RBC Morphology Normal 07/17/20 06:29: Sodium 141, Plasma Sodium 141, Potassium 2.9 L, Chloride 106, Carbon Dioxide 28.5, Anion Gap 9.4, BUN 7, Creatinine 0.59, Est GFR (Non-Af Amer) 140 H, BUN/Creatinine Ratio 11.9, Random Glucose 106, Calcium 8.6, Calcium Adj for Albumin 9.4, Total Bilirubin 1.5 H, AST 48, ALT 51, Alkaline Phosphatase 106, Total Protein 6.9, Albumin 2.6 L 07/17/20 12:47: Vancomycin Trough 8.6 L 07/18/20 06:34: PT 12.7 H, INR (Anticoag Therapy) 1.23 H 07/18/20 06:34: WBC 10.8 H D, RBC 3.95 L, Hgb 13.0 L, Hct 38.1 L, MCV 96.5, MCH 32.9 H, MCHC 34.1, RDW 12.7, Plt Count 385, MPV 10.5, Immature Gran % (Auto) 0.50 H, Immature Gran # (Auto) 0.05 H, Neutrophils % 57.4, Lymphocytes % 24.8, Monocytes % 11.6 H, Eosinophils % 5.0 H, Basophils % 0.7, Nucleated RBC % 0.0, Neutrophils # 6.2 H, Lymphocytes # 2.67, Monocytes # 1.3 H, Eosinophils # 0.5, Absolute Basophils 0.1 07/18/20 06:34: Sodium 141, Plasma Sodium 141, Potassium 3.0 L, Chloride 108 H, Carbon Dioxide 28.8, Anion Gap 7.2, BUN 7, Creatinine 0.65, Est GFR (Non-Af Amer) 126, BUN/Creatinine Ratio 10.8, Random Glucose 104, Calcium 8.5, Calcium Adj for Albumin 9.4, Total Bilirubin 0.8, AST 65 H, ALT 78 H, Alkaline Phosphatase 109, Total Protein 6.6, Albumin 2.5 L Discharge Location: Home Disposition: Home Health Service Home Health Agency: [facility] Condition: Fair Face to Face Encounter completed per [facility] Guidelines: Yes Discharge Activity: Activity as tolerated - with O2, walker and assistance Discharge Diet: General/regular food [facility] Therapy: Physical Therapy, Occupation Therapy Referrals: Raul Saunders MD [Primary Care Provider] - Additional Patient Instructions (free text): [facility] new at discharge, nursing please call report and fax discharge information to them at discharge. CBC, BMP and INR blood tests in 2 days call for problems or questions followup with Dr. Bell in 1 week. Complete Home Medications List: Complete Home Medication List: furosemide 40 mg tablet 40 mg PO DAILY #90 tab 07/16/19 cholecalciferol (vitamin D3) 1,250 mcg (50,000 unit) capsule 50,000 unit PO TH #12 cap 08/24/19 Albuterol Sulfate [Albuterol Sulfate Hfa] 18 gm IH QID 12/17/19 metformin 1,000 mg tablet 1,000 mg PO BID #180 tab 01/26/20 levothyroxine 25 mcg tablet 25 mcg PO DAILY #90 tab 02/29/20 alprazolam 0.25 mg tablet 0.5 mg PO HS #60 tab 03/04/20 polyethylene glycol 3350 17 gram/dose oral powder 17 g PO BID #255 g 03/29/20 sennosides 8.6 mg tablet 17.2 mg PO BID #120 tab 03/29/20 atorvastatin 40 mg tablet 40 mg PO DAILY #30 tab 04/18/20 naloxone 4 mg/actuation nasal spray 4 mg LULU Q2M PRN #2 ea 04/28/20 metoprolol succinate 50 mg tablet,extended release 24 hr 50 mg PO BID #60 tab 06/20/20 pantoprazole 40 mg tablet,delayed release 40 mg PO DAILY #30 tab 06/20/20 Acetaminophen [Tylenol] 650 mg PO QID PRN tab 07/18/20 Albuterol Sulfate/Ipratropium [Duoneb 2.5-0.5MG/3ML Soln] 3 ml IH Q6HRT nebu 07/18/20 Cholecalciferol [Vitamin D] 5,000 unit PO DAILY tab 07/18/20 Insulin Detemir [Levemir Flextouch] 18 unit SUBCUT HS #15 ml 07/18/20 Losartan Potassium [Cozaar] 25 mg PO HS #90 tab 07/18/20 Nitroglycerin [Nitrostat] 0.4 mg SL Q5MIN PRN btl 07/18/20 Potassium Chloride [K-Dur] 20 meq PO TIDWM #90 tablet.sa 07/18/20 Warfarin Sodium [Coumadin] 7.5 mg PO [id number] tab 07/18/20 Warfarin Sodium [Coumadin] 9.5 mg PO Mo@1700 tab 07/18/20 oxyCODONE HCL [Oxycodone] 5 mg PO Q12H #60 tab 07/18/20 Forms: Patient Portal Registration
[2020-07-18] MEDS: ENOXAPARIN SODIUM 40 MG/0.4 ML SYRG SC SCH (12:12)
[2020-07-18 14:29] VITALS: BP 170/77
[2020-07-18] MEDS ORDERED: WARFARIN SODIUM PO SCH ×2 (17:00)
[2020-07-19] MEDS ORDERED: VANCOMYCIN HCL LEVEL XX ONE (13:00)
== END 2020-07-18 14:30 | disposition home health service (06) | DRG 871 ==
LOC: MS 07:52 → ER 07:52 → MS 12:12
PROVIDERS: ADMIT Family Medicine; ATTEND Allergy & Immunology
DX: R53.1 Weakness; K72.90 Hepatic failure, unspecified without coma; E11.649 Type 2 diabetes mellitus with hypoglycemia without coma; R65.21 Severe sepsis with septic shock; D72.829 Elevated white blood cell count, unspecified; E87.2 Acidosis; Z96.89 Presence of other specified functional implants; Z79.01 Long term (current) use of anticoagulants; A41.9 Sepsis, unspecified organism; J18.9 Pneumonia, unspecified organism; R31.0 Gross hematuria; G93.41 Metabolic encephalopathy; I27.20 Pulmonary hypertension, unspecified; I48.20 Chronic atrial fibrillation, unspecified; E87.6 Hypokalemia; Z79.4 Long term (current) use of insulin; J96.21 Acute and chronic respiratory failure with hypoxia; R79.1 Abnormal coagulation profile